=== PATIENT | male | born 1970 | race African-American/Black ===

== ENCOUNTER 2016-12-01 05:14 | Observation (INO) | payer SELFPAY ==
[2016-12-01] VITALS (9 sets, daily range): BP systolic 117–227; BP diastolic 70–105; PULSE 78–91; RESP 16–20; TEMP 98.7–99.5; O2SAT 96–100
[~2016-12-01] VITALS: Ht 185.4 cm; Wt 120.0 kg
[~2016-12-01 05:14] MED LIST: CEPH500C3 PO; ONDA4 PO; TRAM50 PO
[2016-12-01] MEDS ORDERED: ONDANSETRON HCL 4 MG/2 ML VIAL IV ONE ×2 (05:30→09:15)
[2016-12-01] MEDS ORDERED: SODIUM CHLOR 0.9% 1000 ML INJ 1,000 ML IV ONE (05:30)
[2016-12-01] MEDS ORDERED: HYDROmorphone HCL PF 1 MG/ML VIAL IV PUSH ONE (06:15)
[2016-12-01 06:17] LABS: AUTOMATED NEUTROPHIL # 9.1 TH/MM3 (1.8-7.7); BASOPHIL % 0.3 % (0.0-2.0); EOSINOPHIL % 0.1 % (0.0-4.0); HEMATOCRIT 49.1 % (39.0-51.0); LYMPH % 14.4 % (9.0-44.0); LYMPHOCYTE # 1.6 TH/MM3 (1.0-4.8); MEAN CELL VOLUME 70.9 FL (80.0-100.0); MEAN CORPUSCULAR HEMOGLOBIN 22.4 PG (27.0-34.0); MEAN CORPUSCULAR HGB CONC 31.6 % (32.0-36.0); MONO % 4.4 % (0.0-8.0); NEUT % 80.8 % (16.0-70.0); PLATELET COUNT 259 TH/MM3 (150-450); RED BLOOD COUNT 6.92 MIL/MM3 (4.50-5.90); RED CELL DISTRIBUTION WIDTH 15.4 % (11.6-17.2); WHITE BLOOD COUNT 11.2 TH/MM3 (4.0-11.0)
[2016-12-01 06:19] LABS: HEMO FLAGS AUTO DIFF
--- NOTE | 2016-12-01 06:32 | RADRPT ---
EXAM DATE/TIME: 12/01/2016 06:01 [facility] COMPARISON: No previous studies available for comparison. INDICATIONS : Shortness of breath. MEDICAL HISTORY : None. SURGICAL HISTORY : None. ENCOUNTER: Initial ACUITY: 1 day PAIN SCORE: 0/10 LOCATION: Bilateral chest FINDINGS: A single view of the chest demonstrates the lungs to be symmetrically aerated without evidence of mas s, infiltrate or effusion. The cardiomediastinal contours are unremarkable. Osseous structures are intact. CONCLUSION: 1. No acute cardiopulmonary disease. Nelson Wiggins MD on December 01, 2016 at 6:30 Board Certified Radiologist. This report was verified electronically.
[2016-12-01] MEDS ORDERED: ZOFR4TAB3 SL ×2 (06:47→09:11)
[2016-12-01] MEDS ORDERED: HYDR-3288 PO (06:47)
[2016-12-01 06:52] LABS: SCAN/DIFF AUTO DIFF CONFIRMED
[2016-12-01 06:57] LABS: ALKALINE PHOSPHATASE 87 U/L (45-117); ALT (GPT) 26 U/L (12-78); ANION GAP 13 MEQ/L (5-15); AST (GOT) 16 U/L (15-37); BLOOD UREA NITROGEN 9 MG/DL (7-18); CHLORIDE 95 MEQ/L (98-107); CREATINE KINASE 125 U/L (39-308); GLOMERULAR FILTRATION RATE 72 ML/MIN (>89); SODIUM (NA) 136 MEQ/L (136-145); TOTAL BILIRUBIN ADULT 0.7 MG/DL (0.2-1.0)
[2016-12-01 07:02] LABS: POTASSIUM 2.9 MEQ/L (3.5-5.1)
--- NOTE | 2016-12-01 07:15 | PD ---
HPI Chief Complaint: GI Complaint Time Seen by Provider: 07:05 Travel History International Travel<30 days: No Contact w/Intl Traveler<30days: No Traveled to known affect area: No History of Present Illness HPI The patient is 46 year old male who presents to the [facility] emergency department with a history of scrotal swelling that he first noticed approximately 3 months ago by his best estimation. He reports that initially it was a small area of swelling with minimal discomfort. He reports that the pain seemed to be coming and going. He reports that he initially came to [place] for evaluation and had imaging done. He is unsure what he was diagnosed with. The patient reports that he has not been able to follow up with a physician as an outpatient due to family difficulties. He reports that over the last 2 weeks area of swelling has increased in size. He reports that the swelling is mainly involving the right side. He reports that since yesterday the pain has greatly increased. He reports that he began having nausea and vomiting at 7 AM yesterday just been intractable. He went to [facility] ([place], [place]) and had laboratory studies done and an ultrasound. He reports that he was diagnosed with a hernia that "could be life-threatening" . He was given a prescription for hydrocodone and Zofran. He reports the pain is not controlled and his nausea has persisted. He's had too many episodes of vomiting count. He denies having any diarrhea. His last bowel movement was earlier this morning. He denies having any blood in his stool or black or tarry stools. The patient denies any recent fevers, cough, congestion, neck pain , chest pain, shortness of breath, abdominal pain, urinary symptoms, or neurologic symptoms. [facility] Past Medical History Narrative Medical The patient's past medical history is significant for scrotal swelling, diagnosed previously on ultrasound at this facility as a hydrocele. Medical History: Denies Significant Hx Diminished Hearing: No Immunizations Current: No Tetanus Vaccination: > 5 Years Influenza Vaccination: No Past Surgical History Narrative Surgical The patient's past surgical history is significant for facial surgery Neurologic Surgery: Yes (PLATES IN HIS FACE) Social History Alcohol Use: No Tobacco Use: No Substance Use: No Allergies-Medications (Allergen,Severity, Reaction): Coded Allergies: Milk (Verified Allergy, Severe, Anaphylaxis, 12/01/16) Uncoded Allergies: SULFA EYE GTTS (Allergy, Severe, RED EYES, 09/28/10) Reported Meds & Prescriptions Reported Meds & Active Scripts Active Naprosyn (Naproxen) 500 Mg Tab 500 Mg PO BID PRN Zofran Odt (Ondansetron Odt) 4 Mg Tab 4 Mg SL Q8HR PRN May substitute non-ODT form. Reported Zofran Odt (Ondansetron Odt) 4 Mg Tab 4 Mg SL Q6HR PRN [place] (Hydrocodone-Acetaminophen) 7.5-325 mg Tab 1 Tab PO Q6H PRN Review of Systems Except as stated in HPI: all other systems reviewed are Neg General / Constitutional: No: Fever Eyes: No: Visual changes HENT: No: Headaches Cardiovascular: No: Chest Pain or Discomfort Respiratory: No: Shortness of Breath Gastrointestinal: Positive: Nausea, Vomiting, No: Abdominal Pain, Hematochezia , Constipation, Changes in Bowel Habits, Indigestion, Loss of Appetite Genitourinary: Positive: Other (scrotal swelling), No: Dysuria Musculoskeletal: No: Pain Skin: No Rash Neurologic: No: Weakness Psychiatric: No: Depression Endocrine: No: Polydipsia Hematologic/Lymphatic: No: Easy Bruising Physical Exam Narrative General: The patient is a well-developed well-nourished male, uncomfortable appearing on arrival, actively vomiting. Head and Neck exam: Head is normocephalic atraumatic. Eyes: EOMI, pupils are equal round and reactive to light. Nose: Midline septum with pink mucous membranes Mouth: Dentition unremarkable. Moist mucus membranes. Posterior oropharynx is not erythematous. No tonsillar hypertrophy. Uvula midline. Airway patent. Neck: No palpable lymphadenopathy. No nuchal rigidity. No thyromegaly. Cardiovascular: Regular rate and rhythm without murmurs, gallops, or rubs. Lungs: Clear to auscultation bilaterally. No wheezes, rhonchi, or rales. Abdomen: Soft, with midepigastric abdominal discomfort on palpation, no other tenderness on palpation of the other 4 quadrants of the abdomen. No guarding, rebound, or rigidity. Negative [place] sign. No tenderness on palpation of McBurney's point. Normal bowel sounds are audible. Extremities: No clubbing, cyanosis, or edema. 2+ pulses in all 4 extremities. No calf tenderness on palpation. Back: No costovertebral angle tenderness to palpation. Neurologic Exam: Grossly nonfocal. Skin Exam: No rash noted. Intact skin that is warm and dry. Genital exam: A tube handler was present while the patient was examined. The patient has a genital wart noted on the shaft of his penis, no other rashes noted. The patient has scrotal pain and swelling most prominent along the right side, posterior aspect of the right side of the scrotum. No palpable testicle masses. No palpable hernia. Data Data Last Documented VS Vital Signs Date Time Temp Pulse Resp B/P Pulse Ox O2 Delivery O2 Flow Rate FiO2 12/01/16 06:48 88 18 117/79 99 Room Air 12/01/16 05:17 98.9 Orders Sodium Chlor 0.9% 1000 Ml Inj (Ns 1000 M (12/01/16 05:30) Ondansetron Inj (Zofran Inj) (12/01/16 05:30) Electrocardiogram (12/01/16 06:01) Complete Blood Count With Diff (12/01/16 06:01) Comprehensive Metabolic Panel (12/01/16 06:01) Creatine Kinase (Cpk) (12/01/16 06:01) Ckmb (Isoenzyme) Profile (12/01/16 06:01) Troponin I (12/01/16 06:01) Lipase (12/01/16 06:01) Cath For Specimen (12/01/16 06:01) Magnesium (Mg) (12/01/16 06:01) Chest, Single Ap (12/01/16 06:01) Iv Access Insert/Monitor (12/01/16 06:01) Ecg Monitoring (12/01/16 06:01) Hydromorphone Pf Inj (Dilaudid Pf Inj) (12/01/16 06:15) Ct Abd/Pel W Iv Contrast(Rout) (12/01/16 06:45) CKMB (12/01/16 06:07) CKMB% (12/01/16 06:07) Potassium Chloride Eff (K-Lyte Cl Eff) (12/01/16 08:00) Ns + Kcl 20 Meq Inj (Ns + Kcl 20 Meq Inj (12/01/16 08:00) Iohexol 350 Inj (Omnipaque 350 Inj) (12/01/16 08:01) Ondansetron Inj (Zofran Inj) (12/01/16 09:15) Hydromorphone Pf Inj (Dilaudid Pf Inj) (12/01/16 10:15) Prochlorperazine Inj (Compazine Inj) (12/01/16 10:15) Diphenhydramine Inj (Benadryl Inj) (12/01/16 10:15) Admit Order (Ed Use Only) (12/01/16 ) Labs Laboratory Tests Test 12/01/16 06:07 White Blood Count 11.2 TH/MM3 Red Blood Count 6.92 MIL/MM3 Hemoglobin 15.5 GM/DL Hematocrit 49.1 % Mean Corpuscular Volume 70.9 FL Mean Corpuscular Hemoglobin 22.4 PG Mean Corpuscular Hemoglobin 31.6 % Concent Red Cell Distribution Width 15.4 % Platelet Count 259 TH/MM3 Mean Platelet Volume 9.1 FL Neutrophils (%) (Auto) 80.8 % Lymphocytes (%) (Auto) 14.4 % Monocytes (%) (Auto) 4.4 % Eosinophils (%) (Auto) 0.1 % Basophils (%) (Auto) 0.3 % Neutrophils # (Auto) 9.1 TH/MM3 Lymphocytes # (Auto) 1.6 TH/MM3 Monocytes # (Auto) 0.5 TH/MM3 Eosinophils # (Auto) 0.0 TH/MM3 Basophils # (Auto) 0.0 TH/MM3 CBC Comment AUTO DIFF Differential Comment AUTO DIFF CONFIRMED Sodium Level 136 MEQ/L Potassium Level 2.9 MEQ/L Chloride Level 95 MEQ/L Carbon Dioxide Level 28.0 MEQ/L Anion Gap 13 MEQ/L Blood Urea Nitrogen 9 MG/DL Creatinine 1.29 MG/DL Estimat Glomerular Filtration 72 ML/MIN Rate Random Glucose 181 MG/DL Calcium Level 9.8 MG/DL Magnesium Level 2.0 MG/DL Total Bilirubin 0.7 MG/DL Aspartate Amino Transf 16 U/L (AST/SGOT) Alanine Aminotransferase 26 U/L (ALT/SGPT) Alkaline Phosphatase 87 U/L Total Creatine Kinase 125 U/L Creatine Kinase MB 1.0 NG/ML Troponin I LESS THAN 0.02 NG/ML Total Protein 9.8 GM/DL Albumin 4.7 GM/DL Lipase 56 U/L MDM Medical Decision Making Medical Screen Exam Complete: Yes Emergency Medical Condition: Yes Medical Record Reviewed: Yes Interpretation(s) Last Impressions Chest X-Ray 12/01/16 0601 Signed Impressions: Service Date/Time: Thursday, December 01, 2016 06:01 - CONCLUSION: 1. No acute cardiopulmonary disease. Nelson Wiggins MD Differential Diagnosis Incarcerated hernia, versus hydrocele, versus varicocele, versus orchitis, versus epididymitis Narrative Course During the course of the patients emergency department visit, the patients history, examination, and differential diagnosis were reviewed with the patient. The patient had IV access obtained and blood work sent for analysis. The patient was on a concrete pump operator helper with oximetry and blood pressure monitoring. An EKG was done on arrival. The patient's EKG shows a sinus rhythm with a sinus arrhythmia, QRS duration is 101 ms, QTC 435 ms, heart rate 92. No acute ST segment elevation or depression is noted. Nonspecific T-wave abnormalities are noted. CT scan of the abdomen and pelvis was ordered. The patient's records from [facility] ([place], [place]) will be obtained. The patient was initially provided normal saline 1 L IV fluid bolus, hydromorphone 1 mg IV, Zofran 4 mg IV. The patient had a chest x-ray done that showed no evidence of free air, no evidence of cardiopulmonary disease. The patients laboratory studies and radiologic studies are pending at the conclusion of my shift. The patient's case will be checked out to the oncoming emergency physician to disposition based on the the conclusion of the patient's workup. Diagnosis Primary Impression: Scrotal swelling Additional Impression: Vomiting Qualified Code: R11.2 - Nausea and vomiting, intractability of vomiting not specified, unspecified vomiting type Scripts Naproxen (Naprosyn)500 Mg Sco145 Mg PO BID PRN (PAIN SCALE 1 TO 10) #20 TAB Prov:Hemal Vick MD 12/01/16 Ondansetron Odt (Zofran Odt)4 Mg Tab4 Mg SL Q8HR PRN (Nausea/Vomiting) #15 TAB May substitute non-ODT form. Prov:Hemal Vick MD 12/01/16 Tamara Son MD December 01, 2016 07:15
[2016-12-01] MEDS ORDERED: NS + KCL 20 MEQ INJ 1,000 ML IV SCH (08:00)
[2016-12-01] MEDS ORDERED: POTASSIUM CHLORIDE 25 MEQ EFFERVESCENT TAB PO ONE ×2 (08:00→18:00)
[2016-12-01] MEDS ORDERED: IOHEXOL 350 MG/ML 10 ML VIAL (for RAD DIAG) IV ONE (08:01)
--- NOTE | 2016-12-01 08:30 | RADRPT ---
EXAM DATE/TIME: 12/01/2016 07:49 [facility] COMPARISON: CT ABDOMEN & PELVIS W CONTRAST, June 05, 2015, 18:48. INDICATIONS : Right groin pain. Nausea and vomiting. IV CONTRAST: 85 cc Omnipaque 350 (iohexol) IV ORAL CONTRAST: No oral contrast ingested. RADIATION DOSE: 9.96 CTDIvol (mGy) MEDICAL HISTORY : Skull fracture. SURGICAL HISTORY : None. ENCOUNTER: Initial ACUITY: 2 days PAIN SCALE: 10/10 LOCATION: Right lower quadrant TECHNIQUE: Volumetric scanning of the abdomen and pelvis was performed. Using automated exposure control and ad justment of the mA and/or kV according to patient size, radiation dose was kept as low as reasonably achievable to obtain optimal diagnostic quality images. FINDINGS: LOWER LUNGS: The visualized lower lungs are clear. LIVER: Homogeneous density without lesion. There is no dilation of the biliary tree. No calcified gallston es. SPLEEN: Normal size without lesion. PANCREAS: Within normal limits. KIDNEYS: Normal in size and shape. There is no mass, stone or hydronephrosis. ADRENAL GLANDS: Within normal limits. VASCULAR: There is no aortic aneurysm. BOWEL/MESENTERY: The stomach, small bowel, and colon demonstrate no acute abnormality. There is no free intraperitone al air or fluid. ABDOMINAL WALL: Within normal limits. RETROPERITONEUM: There is no lymphadenopathy. BLADDER: No wall thickening or mass. REPRODUCTIVE: There is evidence of a large hydrocele on the right and a tiny hydrocele on the left within the scrot um. The prostate gland is enlarged. INGUINAL: There is no lymphadenopathy or hernia. MUSCULOSKELETAL: Within normal limits for patient age. CONCLUSION: 1. Large right-sided hydrocele and tiny left-sided hydrocele within the scrotum. 2. Enlarged prostate. 3. No acute intra-abdominal process. Danyel Hines MD on December 01, 2016 at 8:24 Board Certified Radiologist. This report was verified electronically.
[2016-12-01] MEDS ORDERED: NAPR500 PO (09:11)
--- NOTE | 2016-12-01 09:12 | PD ---
Data Data Last Documented VS Vital Signs Date Time Temp Pulse Resp B/P Pulse Ox O2 Delivery O2 Flow Rate FiO2 12/01/16 06:48 88 18 117/79 99 Room Air 12/01/16 05:17 98.9 Orders Sodium Chlor 0.9% 1000 Ml Inj (Ns 1000 M (12/01/16 05:30) Ondansetron Inj (Zofran Inj) (12/01/16 05:30) Electrocardiogram (12/01/16 06:01) Complete Blood Count With Diff (12/01/16 06:01) Comprehensive Metabolic Panel (12/01/16 06:01) Creatine Kinase (Cpk) (12/01/16 06:01) Ckmb (Isoenzyme) Profile (12/01/16 06:01) Troponin I (12/01/16 06:01) Lipase (12/01/16 06:01) Cath For Specimen (12/01/16 06:01) Magnesium (Mg) (12/01/16 06:01) Chest, Single Ap (12/01/16 06:01) Iv Access Insert/Monitor (12/01/16 06:01) Ecg Monitoring (12/01/16 06:01) Hydromorphone Pf Inj (Dilaudid Pf Inj) (12/01/16 06:15) Ct Abd/Pel W Iv Contrast(Rout) (12/01/16 06:45) CKMB (12/01/16 06:07) CKMB% (12/01/16 06:07) Potassium Chloride Eff (K-Lyte Cl Eff) (12/01/16 08:00) Ns + Kcl 20 Meq Inj (Ns + Kcl 20 Meq Inj (12/01/16 08:00) Iohexol 350 Inj (Omnipaque 350 Inj) (12/01/16 08:01) Ondansetron Inj (Zofran Inj) (12/01/16 09:15) Hydromorphone Pf Inj (Dilaudid Pf Inj) (12/01/16 10:15) Prochlorperazine Inj (Compazine Inj) (12/01/16 10:15) Diphenhydramine Inj (Benadryl Inj) (12/01/16 10:15) Admit Order (Ed Use Only) (12/01/16 ) Labs Laboratory Tests Test 12/01/16 06:07 White Blood Count 11.2 TH/MM3 Red Blood Count 6.92 MIL/MM3 Hemoglobin 15.5 GM/DL Hematocrit 49.1 % Mean Corpuscular Volume 70.9 FL Mean Corpuscular Hemoglobin 22.4 PG Mean Corpuscular Hemoglobin 31.6 % Concent Red Cell Distribution Width 15.4 % Platelet Count 259 TH/MM3 Mean Platelet Volume 9.1 FL Neutrophils (%) (Auto) 80.8 % Lymphocytes (%) (Auto) 14.4 % Monocytes (%) (Auto) 4.4 % Eosinophils (%) (Auto) 0.1 % Basophils (%) (Auto) 0.3 % Neutrophils # (Auto) 9.1 TH/MM3 Lymphocytes # (Auto) 1.6 TH/MM3 Monocytes # (Auto) 0.5 TH/MM3 Eosinophils # (Auto) 0.0 TH/MM3 Basophils # (Auto) 0.0 TH/MM3 CBC Comment AUTO DIFF Differential Comment AUTO DIFF CONFIRMED Sodium Level 136 MEQ/L Potassium Level 2.9 MEQ/L Chloride Level 95 MEQ/L Carbon Dioxide Level 28.0 MEQ/L Anion Gap 13 MEQ/L Blood Urea Nitrogen 9 MG/DL Creatinine 1.29 MG/DL Estimat Glomerular Filtration 72 ML/MIN Rate Random Glucose 181 MG/DL Calcium Level 9.8 MG/DL Magnesium Level 2.0 MG/DL Total Bilirubin 0.7 MG/DL Aspartate Amino Transf 16 U/L (AST/SGOT) Alanine Aminotransferase 26 U/L (ALT/SGPT) Alkaline Phosphatase 87 U/L Total Creatine Kinase 125 U/L Creatine Kinase MB 1.0 NG/ML Troponin I LESS THAN 0.02 NG/ML Total Protein 9.8 GM/DL Albumin 4.7 GM/DL Lipase 56 U/L [facility] Supervised Visit with AUB[facility]: Yes Narrative Course 46-year-old man with a known large right hydrocele, seen multiple times for the same in the past, presents to the emergency department with right sided belly pain, testicular pain, associated with vomiting. Vomiting since been severe. He was seen at [facility] recently for the same as well. Review of records shows previous ultrasounds and CT scans show right hydrocele, without other abnormalities. Review of records from [facility] show that he was seen there yesterday with an ultrasound that showed no torsion, large right hydrocele, normal labs including UA chemistries and cell counts. Labs today show mild leukocytosis, hypokalemia with a potassium of 2.9, normal magnesium, normal lipase, with the CT scan shows a large right sided hydrocele with tiny left-sided hydrocele. Despite multiple doses of antiemetics, patient continued to have copious emesis. His potassium dropped substantially from labs done yesterday at [facility]. Given this will be admitted for intractable vomiting, hypokalemia. Diagnosis Primary Impression: Scrotal swelling Additional Impression: Vomiting Qualified Code: R11.2 - Nausea and vomiting, intractability of vomiting not specified, unspecified vomiting type Admitting Information Admitting Physician Requests: Observation Referrals: Ludin House MD call for appointment Departure Forms: Work Release Special Instructions: Patient is currently hospitalized. Scripts Naproxen (Naprosyn)500 Mg Uno179 Mg PO BID PRN (PAIN SCALE 1 TO 10) #20 TAB Prov:Hemal Vick MD 12/01/16 Ondansetron Odt (Zofran Odt)4 Mg Tab4 Mg SL Q8HR PRN (Nausea/Vomiting) #15 TAB May substitute non-ODT form. Prov:Hemal Vick MD 12/01/16 Hemal Vick MD December 01, 2016 09:12 Hemal Vick MD December 01, 2016 09:12
[2016-12-01] MEDS ORDERED: HYDROmorphone HCL PF 1 MG/ML VIAL IVS ONE (10:15)
[2016-12-01] MEDS ORDERED: PROCHLORPERAZINE INJ 10 MG/2 ML VIAL IV PUSH ONE (10:15)
[2016-12-01] MEDS ORDERED: diphenhydrAMINE HCL 50 MG/ML VIAL IV PUSH ONE (10:15)
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
[2016-12-01] MEDS ORDERED: NALOXONE HCL 0.4 MG/ML AMP IV PRN ×2 (11:00)
[2016-12-01] MEDS ORDERED: SODIUM CHLORIDE 0.9% FLUSH 10 ML FLUSH IV FLUSH PRN ×2 (11:00)
[2016-12-01] MEDS: NS + KCL 20 MEQ INJ 1,000 ML IV SCH ×3 (11:10→23:16)
[2016-12-01] MEDS: ENOXAPARIN SODIUM 40 MG/0.4 ML SYRINGE SQ SCH (11:11)
--- NOTE | 2016-12-01 11:49 | EKG ---
Date Performed: 12/01/2016 Time Performed: 05:37:12 PTAGE: 46 years EKG: Sinus rhythm WITH SINUS ARRHYTHMIA VOLTAGE CRITERIA FOR LVH NONSPECIFIC T-WAVE ABNORMALITY ABNORMAL ECG NO PREVIOUS TRACING DOCTOR: Curt Kenny Interpretating Date/Time 12/01/2016 11:48:49
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
[2016-12-01 17:44] LABS: BLOOD, URINE SMALL (NEG); COMMENT (UR) CULT NOT INDICATED; CULTURE IF INDICATED CULT NOT INDICATED; GLUCOSE,URINE TRACE mg/dL (NEG); KETONE, URINE 40 mg/dL (NEG); MUCUS URINE FEW /lpf (OCC); NITRITE,URINE NEG (NEG); PH, URINE 6.5 (5.0-8.5); SQUAMOUS EPITHELIAL CELL URINE <1 /hpf (0-5); URINE COLOR YELLOW (YELLW/STRAW)
[2016-12-01 17:52] LABS: AMPHETAMINE, URINE NEG (NEG); BARBITURATES, URINE NEG (NEG); COCAINE, URINE NEG (NEG)
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
[2016-12-01] MEDS: MORPHINE SULFATE 4 MG/ML INJ IV PRN (20:13)
[2016-12-01] MEDS: METOCLOPRAMIDE HCL 10 MG/2 ML VIAL IV PRN (20:18)
[2016-12-01] MEDS: SODIUM CHLORIDE 0.9% FLUSH 10 ML FLUSH IV FLUSH SCH (21:00)
[2016-12-01] MEDS ORDERED: SODIUM CHLORIDE 0.9% FLUSH 10 ML FLUSH IV FLUSH SCH (21:00)
[2016-12-01 22:08] LABS: HEMOGLOBIN A1b 1.9 %; HEMOGLOBIN Ao 84.4 %; HEMOGLOBIN LA1C 2.2 %; HEMOGLOBIN P3 3.8 %
[2016-12-02] VITALS (11 sets, daily range): BP systolic 133–205; BP diastolic 78–108; PULSE 67–93; RESP 18–21; TEMP 98.4–99.8; O2SAT 97–100
[2016-12-02] MEDS: TEMAZEPAM 15 MG CAP PO PRN ×2 (02:25→21:28)
[2016-12-02] MEDS: METOCLOPRAMIDE HCL 10 MG/2 ML VIAL IV PRN ×3 (02:25→15:39)
[2016-12-02 02:58] LABS: CHLAMYDIA PCR NOT DETECTED (NOT DETECT); NEISSERIA PCR NOT DETECTED (NOT DETECT)
[2016-12-02] MEDS: MORPHINE SULFATE 4 MG/ML INJ IV PRN ×5 (04:29→22:41)
[2016-12-02 05:52] LABS: AUTOMATED NEUTROPHIL # 9.1 TH/MM3 (1.8-7.7); BASOPHIL % 0.4 % (0.0-2.0); HEMATOCRIT 44.4 % (39.0-51.0); LYMPHOCYTE # 1.2 TH/MM3 (1.0-4.8); MEAN CELL VOLUME 70.4 FL (80.0-100.0); MEAN CORPUSCULAR HEMOGLOBIN 22.6 PG (27.0-34.0); MEAN CORPUSCULAR HGB CONC 32.2 % (32.0-36.0); NEUT % 81.6 % (16.0-70.0); PLATELET COUNT 205 TH/MM3 (150-450); RED BLOOD COUNT 6.31 MIL/MM3 (4.50-5.90); WHITE BLOOD COUNT 11.1 TH/MM3 (4.0-11.0)
[2016-12-02 06:03] LABS: HEMO FLAGS AUTO DIFF
[2016-12-02 06:18] LABS: ALKALINE PHOSPHATASE 67 U/L (45-117); ALT (GPT) 21 U/L (12-78); ANION GAP 9 MEQ/L (5-15); AST (GOT) 13 U/L (15-37); BICARBONATE 29.6 MEQ/L (21.0-32.0); BLOOD UREA NITROGEN 12 MG/DL (7-18); CHLORIDE 99 MEQ/L (98-107); GLOMERULAR FILTRATION RATE 115 ML/MIN (>89); POTASSIUM 3.2 MEQ/L (3.5-5.1); SODIUM (NA) 138 MEQ/L (136-145); TOTAL BILIRUBIN ADULT 0.8 MG/DL (0.2-1.0)
[2016-12-02 07:12] LABS: SCAN/DIFF AUTO DIFF CONFIRMED
[2016-12-02] MEDS: POTASSIUM CHLORIDE 10 MEQ CONTROLLED RELEASE TAB PO ONE ×2 (07:15→08:24)
[2016-12-02] MEDS: hydrALAZINE HCL 10 MG TAB PO PRN ×3 (08:25→21:28)
[2016-12-02] MEDS: NS + KCL 20 MEQ INJ 1,000 ML IV SCH (08:33)
[2016-12-02] MEDS: FAMOTIDINE 20 MG TAB PO SCH ×2 (08:40→21:00)
[2016-12-02] MEDS: SODIUM CHLORIDE 0.9% FLUSH 10 ML FLUSH IV FLUSH SCH ×2 (08:40→21:00)
--- NOTE | 2016-12-02 09:16 | HHI.FPPN ---
Subjective Remarks Patient states he continues to have similar pain in his scrotum as before. He is curious how this pain will be treated as an outpatient. He had occasional vomiting overnight as well. Overall, however he does feel better. Denies fever , chest pain, shortness of breath. (Juan Carlos Aviles MD R2) Objective Vitals Vital Signs Date Time Temp Pulse Resp B/P Pulse Ox O2 Delivery O2 Flow Rate FiO2 12/02/16 08:41 18 12/02/16 07:43 99.3 89 21 187/105 100 12/02/16 04:35 98.6 71 18 163/78 98 12/02/16 00:17 99.6 89 18 165/92 100 12/01/16 21:26 156/75 12/01/16 20:01 99.5 90 20 185/102 99 12/01/16 18:01 98.7 87 17 161/87 96 12/01/16 13:15 121/70 I/O 12/01/16 12/01/16 12/01/16 12/02/16 12/02/16 12/02/16 07:00 15:00 23:00 07:00 15:00 23:00 Intake Total 200 ml Balance 200 ml Intake Oral 200 ml (Juan Carlos Aviles MD R2) Result Diagram: 12/02/16 0512 12/02/16 0512 Imaging Last Impressions Abdomen/Pelvis CT 12/01/16 0645 Signed Impressions: Service Date/Time: Thursday, December 01, 2016 07:49 - CONCLUSION: 1. Large right-sided hydrocele and tiny left-sided hydrocele within the scrotum. 2. Enlarged prostate. 3. No acute intra-abdominal process. Danyel Hines MD Chest X-Ray 12/01/16 0601 Signed Impressions: Service Date/Time: Thursday, December 01, 2016 06:01 - CONCLUSION: 1. No acute cardiopulmonary disease. Nelson Wiggins MD Scrotum Ultrasound 12/01/16 0000 Signed Impressions: Service Date/Time: Thursday, December 01, 2016 15:42 - CONCLUSION: Bilateral simple hydroceles. The right is larger than the left. Otherwise, unremarkable exam. Glen Bai Jr., MD Objective Remarks GENERAL: This is a well-nourished, well-developed patient, in no apparent distress. SKIN: No rashes, ecchymoses or lesions. Cool and dry. HEAD: Atraumatic. Normocephalic. No temporal or scalp tenderness. EYES: Pupils equal round and reactive. Extraocular motions intact. No scleral icterus. No injection or drainage. ENT: Nose without bleeding, purulent drainage or septal hematoma. Throat without erythema, tonsillar hypertrophy or exudate. Uvula midline. Airway patent. NECK: Trachea midline. No JVD or lymphadenopathy. Supple, nontender, no meningeal signs. CARDIOVASCULAR: Regular rate and rhythm without murmurs, gallops, or rubs. RESPIRATORY: Clear to auscultation. Breath sounds equal bilaterally. No wheezes , rales, or rhonchi. GASTROINTESTINAL: Abdomen soft, slightly tender to palpation in the epigastric area, nondistended. No hepato-splenomegaly, or palpable masses. No guarding. Genitourinary: Large hydrocele on the right. Testicles tender to palpation on the right. MUSCULOSKELETAL: Extremities without clubbing, cyanosis, or edema. No joint tenderness, effusion, or edema noted. No calf tenderness. Negative Homans sign bilaterally. NEUROLOGICAL: Awake and alert. Cranial nerves II through XII intact. Motor and sensory grossly within normal limits. Five out of 5 muscle strength in all muscle groups. Normal speech. (Juan Carlos Aviles MD R2) A/P Assessment and Plan 46-year-old male with history of hydrocele presents with abdominal/scrotal pain and intractable nausea/vomiting 1 day. Plan as below Discharge Planning Possibly today, with improvement of pain and vomiting. (Juan Carlos Aviels MD R2) Attending Attestation Patient seen and examined. Case reviewed and discussed with the resident team. Agree with plan of care as discussed with me and documented in the resident note. (Shayan Bourne MD) Problem List: (1) Intractable vomiting with nausea Status: Acute Plan: Normal saline at 160 mL per hour with 20 mEq potassium chloride Reglan 10 mg IV every 6 hours when necessary nausea Case management helping with outpatient follow-up Hemoglobin A1c- 6.3 Chlamydia, gonorrhea urine PCR- negative Drug screen- positive marijuana Monitor electrolytes Zantac for GI protection (2) Hydrocele in adult Status: Acute Plan: Case management consulted for information PCP/urology follow-up as an outpatient. Pain management: Morphine IV if unable to take by mouth. If swallowing without vomiting, continue diclofenac 50 mg by mouth every 12 hours. Urology consult: Recommend conservative management. Definitive therapy could be performed as an outpatient with surgical excision. Ultrasound scrotum negative for torsion. (3) FEN/PPX Status: Acute Plan: Fluids: 160 mL normal saline with 20 mEq potassium chloride Electrolytes: Monitor and replace when necessary Nutrition: Regular diet Prophylaxis: Lovenox 40 mg subcutaneous (Juan Carlos Aviles MD R2) Juan Carlos Aviles MD R2 December 02, 2016 09:15 Shayan Bourne MD December 02, 2016 15:42
[2016-12-02] MEDS ORDERED: POTASSIUM CHLORIDE 25 MEQ EFFERVESCENT TAB PO ONE (09:30)
[2016-12-02] MEDS: ENOXAPARIN SODIUM 40 MG/0.4 ML SYRINGE SQ SCH (11:23)
[2016-12-02] MEDS: DICLOFENAC SODIUM 50 MG DELAYED RELEASE TAB PO SCH ×2 (12:50→21:00)
[2016-12-02] MEDS ORDERED: ZOFR8TAB4 SL (13:56)
[2016-12-02] MEDS ORDERED: HYDR-3288 PO (13:56)
[2016-12-02] MEDS ORDERED: DICL50TA3 PO (13:56)
--- NOTE | 2016-12-02 13:57 | HHI.DCPOC ---
Discharge Care Plan Diagnosis: (1) Hydrocele in adult (2) Intractable vomiting with nausea Goals to Promote Your Health * To prevent worsening of your condition and complications * To maintain your health at the optimal level Directions to Meet Your Goals Take your medications as prescribed Follow your dietary instruction Follow activity as directed Keep your appointments as scheduled Take your immunizations and boosters as scheduled If your symptoms worsen call your PCP, if no PCP go to Urgent Care Center or Emergency Room Smoking is Dangerous to Your Health. Avoid second hand smoke Call the 24-hour hour crisis hotline for domestic abuse at Juan Carlos Aviles MD R2 December 02, 2016 13:57
[2016-12-03 03:26] VITALS: BP 179/98; PULSE 80; RESP 18; TEMP 99.5; O2SAT 97
[2016-12-03] MEDS: MORPHINE SULFATE 4 MG/ML INJ IV PRN ×2 (03:37→08:35)
--- NOTE | 2016-12-03 07:05 | HHI.FPPN ---
Subjective Remarks Patient seen and examined this am. Vitals are stable and he is afebrile. He was walking out of the room when I came to room. Pain still present, making arrangements to follow up with urology as outpatient. Objective Vitals Vital Signs Date Time Temp Pulse Resp B/P Pulse Ox O2 Delivery O2 Flow Rate FiO2 12/03/16 04:13 18 12/03/16 03:26 99.5 80 18 179/98 97 12/02/16 23:29 99.1 93 18 133/85 100 12/02/16 19:38 18 12/02/16 19:24 93 190/108 12/02/16 17:39 89 173/97 12/02/16 16:09 98.4 80 18 205/99 97 12/02/16 16:04 98.4 67 18 98 12/02/16 13:18 99.2 12/02/16 13:08 196/102 12/02/16 11:52 99.8 87 18 174/99 98 12/02/16 07:43 99.3 89 21 187/105 100 I/O 12/02/16 12/02/16 12/02/16 12/03/16 12/03/16 12/03/16 07:00 15:00 23:00 07:00 15:00 23:00 Intake Total 200 ml Balance 200 ml Intake Oral 200 ml Result Diagram: 12/02/16 0512 12/02/16 1236 Imaging Last Impressions Abdomen/Pelvis CT 12/01/16 0645 Signed Impressions: Service Date/Time: Thursday, December 01, 2016 07:49 - CONCLUSION: 1. Large right-sided hydrocele and tiny left-sided hydrocele within the scrotum. 2. Enlarged prostate. 3. No acute intra-abdominal process. Danyel Hines MD Chest X-Ray 12/01/16 0601 Signed Impressions: Service Date/Time: Thursday, December 01, 2016 06:01 - CONCLUSION: 1. No acute cardiopulmonary disease. Nelson Wiggins MD Scrotum Ultrasound 12/01/16 0000 Signed Impressions: Service Date/Time: Thursday, December 01, 2016 15:42 - CONCLUSION: Bilateral simple hydroceles. The right is larger than the left. Otherwise, unremarkable exam. Glen Bai Jr., MD Objective Remarks GENERAL: This is a well-nourished, well-developed patient, in no apparent distress. SKIN: No rashes, ecchymoses or lesions. Cool and dry. HEAD: Atraumatic. Normocephalic. No temporal or scalp tenderness. EYES: Pupils equal round and reactive. Extraocular motions intact. No scleral icterus. No injection or drainage. ENT: Nose without bleeding, purulent drainage or septal hematoma. Throat without erythema, tonsillar hypertrophy or exudate. Uvula midline. Airway patent. NECK: Trachea midline. No JVD or lymphadenopathy. Supple, nontender, no meningeal signs. CARDIOVASCULAR: Regular rate and rhythm without murmurs, gallops, or rubs. RESPIRATORY: Clear to auscultation. Breath sounds equal bilaterally. No wheezes , rales, or rhonchi. GASTROINTESTINAL: Abdomen soft, slightly tender to palpation in the epigastric area, nondistended. No hepato-splenomegaly, or palpable masses. No guarding. Genitourinary: Large hydrocele on the right. Testicles tender to palpation on the right. MUSCULOSKELETAL: Extremities without clubbing, cyanosis, or edema. No joint tenderness, effusion, or edema noted. No calf tenderness. NEUROLOGICAL: Awake and alert. Cranial nerves II through XII intact. Motor and sensory grossly within normal limits. Normal speech. A/P Assessment and Plan 46-year-old male with history of hydrocele presents with abdominal/scrotal pain and intractable nausea/vomiting 1 day. Plan as below Discharge Planning Discharged. Discussed with Dr. Bourne Problem List: (1) Intractable vomiting with nausea Status: Acute Plan: Normal saline at 160 mL per hour with 20 mEq potassium chloride Reglan 10 mg IV every 6 hours when necessary nausea Case management helping with outpatient follow-up Hemoglobin A1c- 6.3 Chlamydia, gonorrhea urine PCR- negative Drug screen- positive marijuana Monitor electrolytes Zantac for GI protection (2) Hydrocele in adult Status: Acute Plan: Case management consulted for information PCP/urology follow-up as an outpatient. Diclofenac 50 mg by mouth every 12 hours, morphine used for breakthrough pain Urology consult: Recommend conservative management. Definitive therapy could be performed as an outpatient with surgical excision. Ultrasound scrotum negative for torsion. (3) FEN/PPX Status: Acute Plan: Fluids: HLIV Electrolytes: Monitor and replace when necessary Nutrition: Regular diet Prophylaxis: Lovenox 40 mg subcutaneous Vela, MD R3 December 03, 2016 07:05
[2016-12-03 07:34] VITALS: BP 206/107; PULSE 91; RESP 21; TEMP 98.4; O2SAT 100
[2016-12-03] MEDS: FAMOTIDINE 20 MG TAB PO SCH (08:35)
[2016-12-03] MEDS: DICLOFENAC SODIUM 50 MG DELAYED RELEASE TAB PO SCH (08:35)
[2016-12-03] MEDS: hydrALAZINE HCL 10 MG TAB PO PRN (08:35)
[2016-12-03] MEDS: SODIUM CHLORIDE 0.9% FLUSH 10 ML FLUSH IV FLUSH SCH (08:35)
[2016-12-03] MEDS: METOCLOPRAMIDE HCL 10 MG/2 ML VIAL IV PRN (08:35)
[2016-12-03 08:50] VITALS: RESP 18
[2016-12-09] MEDS ORDERED: DICL50TA3 PO (11:40)
[2016-12-09] MEDS ORDERED: ZOFR8TAB4 SL (11:40)
== END 2016-12-03 10:41 | disposition home or self-care (01) ==
LOC: NEPE 05:14 → NEDA 10:19 → NEPHCDU 17:26
PROVIDERS: ADMIT Family Medicine; ATTEND Family Medicine
DX: R11.2 Nausea with vomiting, unspecified (principal); N43.3 Hydrocele, unspecified; Z88.2 Allergy status to sulfonamides; Z91.011 Allergy to milk products
CPT/HCPCS: 71010; 74177; 76870; 80053; 80307; 81001; 82550; 82552; 83036; 83690; 83735; 84100; 84132; 84484; 85025; 87491; 87591; 93005; 93975; 96361; 96374; 96375; 96376; 99285; G0378; J0780; J1170; J1200; J1650; J2270; J2405; J2765; J3480; J7030; Q9967

== ENCOUNTER 2017-11-11 22:46 | Emergency (ER) | payer SELFPAY ==
[~2017-11-11 22:46] MED LIST changes: -CEPH500C3 PO; +DICL50TA3 PO; -ONDA4 PO; -TRAM50 PO; +ZOFR8TAB4 SL
[2017-11-11 23:00] VITALS: BP 164/99; PULSE 86; RESP 18; TEMP 98.6; O2SAT 98
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
[2017-11-12] MEDS ORDERED: CIPROFLOXACIN 750 MG TAB PO ONE (00:45)
[2017-11-12] MEDS ORDERED: ONDANSETRON HCL 4 MG/2 ML VIAL IV PUSH ONE (01:00)
[2017-11-12] MEDS ORDERED: SODIUM CHLOR 0.9% 1000 ML INJ 1,000 ML IV ONE ×2 (01:00→04:30)
[2017-11-12 01:34] LABS: AUTOMATED NEUTROPHIL # 5.8 TH/MM3 (1.8-7.7); BASOPHIL % 0.4 % (0.0-2.0); EOSINOPHIL % 0.5 % (0.0-4.0); HEMATOCRIT 45.7 % (39.0-51.0); HEMOGLOBIN 14.6 GM/DL (13.0-17.0); LYMPH % 25.2 % (9.0-44.0); LYMPHOCYTE # 2.5 TH/MM3 (1.0-4.8); MEAN CELL VOLUME 70.6 FL (80.0-100.0); MEAN CORPUSCULAR HEMOGLOBIN 22.6 PG (27.0-34.0); MONO % 15.1 % (0.0-8.0); MONOCYTE # 1.5 TH/MM3 (0-0.9); NEUT % 58.8 % (16.0-70.0); PLATELET COUNT 333 TH/MM3 (150-450); RED BLOOD COUNT 6.47 MIL/MM3 (4.50-5.90); RED CELL DISTRIBUTION WIDTH 14.8 % (11.6-17.2); WHITE BLOOD COUNT 9.8 TH/MM3 (4.0-11.0)
[2017-11-12] MEDS ORDERED: KETOROLAC TROMETHAMINE 30 MG/ML (IVP) VIAL IV PUSH ONE (01:45)
[2017-11-12 02:20] LABS: BANDS 2 % (0-6); LYMPHOCYTES 30 % (9-44); MONOCYTES 12 % (0-8); NEUTROPHIL # MANUAL DIFF 5.6 TH/MM3 (1.8-7.7); POLYS (SEG NEUTROPHILS) 55 % (16-70)
[2017-11-12 02:41] LABS: GLOMERULAR FILTRATION RATE 115 ML/MIN (>89)
[2017-11-12 02:42] LABS: ALBUMIN 3.8 GM/DL (3.4-5.0); ALKALINE PHOSPHATASE 65 U/L (45-117); ALT (GPT) 20 U/L (12-78); AST (GOT) 22 U/L (15-37); BICARBONATE 26.8 MEQ/L (21.0-32.0); BLOOD UREA NITROGEN 15 MG/DL (7-18); CALCIUM 8.7 MG/DL (8.5-10.1); CHLORIDE 104 MEQ/L (98-107); CREATININE 0.86 MG/DL (0.60-1.30); GLUCOSE,RANDOM 115 MG/DL (74-106); SODIUM (NA) 141 MEQ/L (136-145); TOTAL BILIRUBIN ADULT 0.5 MG/DL (0.2-1.0); TOTAL PROTEIN 8.2 GM/DL (6.4-8.2)
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
[2017-11-12] MEDS ORDERED: METOCLOPRAMIDE INJ 10 MG in SODIUM CHLORIDE 0.9% INJ 50 ML IV ONE (03:15)
[2017-11-12] MEDS ORDERED: POTASSIUM CHLORIDE 20 MEQ PWD PACKET PO ONE (03:45)
[2017-11-12 03:57] LABS: BILIRUBIN, URINE NEG (NEG); BLOOD, URINE TRACE (NEG); GLUCOSE,URINE NEG (NEG); KETONE, URINE 10 mg/dL (NEG); NITRITE,URINE NEG (NEG); PH, URINE 6.5 (5.0-8.5); URINE COLOR YELLOW (YELLW/STRAW); URINE LEUKOCYTE ESTERASE NEG (NEG)
[2017-11-12 04:00] VITALS: BP 195/105; PULSE 73; RESP 18; O2SAT 98
[2017-11-12] MEDS ORDERED: MORPHINE SULFATE 2 MG/ML SYRINGE IV PUSH ONE (04:45)
--- NOTE | 2017-11-12 06:20 | RADRPT ---
EXAM DATE/TIME: 11/12/2017 05:28 [facility] COMPARISON: CT ABDOMEN & PELVIS W CONTRAST, December 01, 2016, 7:49. INDICATIONS : Right groin pain. Nausea and vomiting ORAL CONTRAST: No oral contrast ingested. RADIATION DOSE: 8.06 CTDIvol (mGy) MEDICAL HISTORY : Hypertension. SURGICAL HISTORY : None. ENCOUNTER: Initial ACUITY: 1 day PAIN SCALE: 9/10 LOCATION: Right lower quadrant TECHNIQUE: Volumetric scanning of the abdomen and pelvis was performed. Using automated exposure control and ad justment of the mA and/or kV according to patient size, radiation dose was kept as low as reasonably achievable to obtain optimal diagnostic quality images. DICOM format image data is available electro nically for review and comparison. FINDINGS: LOWER LUNGS: The visualized lower lungs are clear. LIVER: Homogeneous density without lesion. There is no dilation of the biliary tree. No calcified gallston es. SPLEEN: Normal size without lesion. PANCREAS: Within normal limits. KIDNEYS: Normal in size and shape. There is no mass, stone, or hydronephrosis. ADRENAL GLANDS: Within normal limits. VASCULAR: There is no aortic aneurysm. BOWEL/MESENTERY: The stomach, small bowel, and colon demonstrate no acute abnormality. There is no free intraperitone al air or fluid. ABDOMINAL WALL: Within normal limits. RETROPERITONEUM: There is no lymphadenopathy. BLADDER: No wall thickening or mass. REPRODUCTIVE: Within normal limits. INGUINAL: There is no lymphadenopathy or hernia. MUSCULOSKELETAL: Within normal limits for patient age. CONCLUSION: No acute CT findings in the abdomen or pelvis. Gordo Lao MD on November 12, 2017 at 6:15 Board Certified Radiologist. This report was verified electronically.
[2017-11-12] MEDS ORDERED: CIPR-9 PO (06:44)
[2017-11-12] MEDS ORDERED: ZOFR4TAB PO (06:44)
[2017-11-12 07:00] VITALS: BP 163/83
== END 2017-11-12 07:28 | disposition home or self-care (01) ==
LOC: NEPC 22:46
DX: N45.1 Epididymitis (principal)
CPT/HCPCS: 74176; 76870; 80053; 81001; 83690; 85007; 85027; 87491; 87591; 93975; 96361; 96365; 96375; 99284; J1885; J2270; J2405; J2765; J7030

== ENCOUNTER 2017-11-13 14:57 | Observation (INO) | payer SELFPAY ==
[~2017-11-13] VITALS: Ht 185.4 cm; Wt 122.0 kg
[~2017-11-13 14:57] MED LIST changes: +CIPR-9 PO; +ZOFR4TAB PO
[2017-11-13 15:02] VITALS: BP 215/106; PULSE 80; RESP 20; TEMP 98.6; O2SAT 99
[2017-11-13] MEDS ORDERED: SODIUM CHLOR 0.9% 1000 ML INJ 1,000 ML IV SCH (15:19)
[2017-11-13 15:20] VITALS: RESP 20; O2SAT 98
[2017-11-13] MEDS ORDERED: SODIUM CHLORIDE 0.9% FLUSH 10 ML FLUSH IV FLUSH PRN ×2 (15:30→18:45)
[2017-11-13] MEDS ORDERED: ONDANSETRON HCL 4 MG/2 ML VIAL IVP ONE (15:30)
[2017-11-13 15:46] LABS: AUTOMATED NEUTROPHIL # 6.2 TH/MM3 (1.8-7.7); BASOPHIL # 0.1 TH/MM3 (0-0.2); BASOPHIL % 0.5 % (0.0-2.0); EOSINOPHIL % 0.1 % (0.0-4.0); HEMATOCRIT 45.8 % (39.0-51.0); HEMOGLOBIN 15.1 GM/DL (13.0-17.0); LYMPH % 31.4 % (9.0-44.0); LYMPHOCYTE # 3.4 TH/MM3 (1.0-4.8); MEAN CELL VOLUME 69.5 FL (80.0-100.0); MEAN CORPUSCULAR HEMOGLOBIN 22.9 PG (27.0-34.0); MEAN PLATELET VOLUME 8.5 FL (7.0-11.0); MONO % 10.7 % (0.0-8.0); MONOCYTE # 1.2 TH/MM3 (0-0.9); NEUT % 57.3 % (16.0-70.0); PLATELET COUNT 266 TH/MM3 (150-450); RED BLOOD COUNT 6.59 MIL/MM3 (4.50-5.90); RED CELL DISTRIBUTION WIDTH 14.3 % (11.6-17.2); WHITE BLOOD COUNT 10.9 TH/MM3 (4.0-11.0)
[2017-11-13 16:01] LABS: INTERNATIONAL NORMALIZED RATIO 1.2 RATIO; PROTHROMBIN TIME - PATIENT 11.8 SEC (9.8-11.6)
[2017-11-13 16:14] LABS: ALBUMIN 4.1 GM/DL (3.4-5.0); ALKALINE PHOSPHATASE 71 U/L (45-117); ALT (GPT) 21 U/L (12-78); AST (GOT) 16 U/L (15-37); BICARBONATE 27.7 MEQ/L (21.0-32.0); BLOOD UREA NITROGEN 18 MG/DL (7-18); CALCIUM 9.4 MG/DL (8.5-10.1); CHLORIDE 97 MEQ/L (98-107); CREATININE 1.18 MG/DL (0.60-1.30); GLOMERULAR FILTRATION RATE 80 ML/MIN (>89); GLUCOSE,RANDOM 129 MG/DL (74-106); SODIUM (NA) 139 MEQ/L (136-145); TOTAL BILIRUBIN ADULT 0.9 MG/DL (0.2-1.0); TOTAL PROTEIN 8.8 GM/DL (6.4-8.2)
[2017-11-13] MEDS ORDERED: METOCLOPRAMIDE INJ 10 MG in SODIUM CHLORIDE 0.9% INJ 50 ML IV ONE (16:15)
[2017-11-13] MEDS: POTASSIUM CHLOR 10 MEQ PREMIX 100 ML IV SCH ×3 (16:57→18:49)
[2017-11-13 17:10] VITALS: BP 184/95; PULSE 92; RESP 15; TEMP 98.2; O2SAT 95
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
[2017-11-13] MEDS ORDERED: CIPROFLOXACIN 400 MG PREMIX 200 ML IV ONE (17:45)
[2017-11-13] MEDS ORDERED: POTASSIUM CHLORIDE 10 MEQ CONTROLLED RELEASE TAB PO ONE (17:45)
[2017-11-13 17:58] VITALS: BP 184/93; PULSE 98; RESP 20; TEMP 97.8; O2SAT 99
[2017-11-13] MEDS ORDERED: PROCHLORPERAZINE INJ 10 MG/2 ML VIAL IV PUSH ONE (18:00)
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
[2017-11-13] MEDS ORDERED: LACTULOSE SYRUP 20 GM/30 ML CUP PO PRN (18:45)
[2017-11-13] MEDS ORDERED: ACETAMINOPHEN 325 MG TAB PO PRN (18:45)
[2017-11-13] MEDS ORDERED: BISACODYL 10 MG SUPP RECTAL PRN (18:45)
[2017-11-13] MEDS ORDERED: NALOXONE HCL 0.4 MG/ML AMP IV PUSH PRN (18:45)
[2017-11-13] MEDS ORDERED: SENNOSIDES 8.6 MG TAB PO PRN (18:45)
[2017-11-13] MEDS ORDERED: MAGNESIUM HYDROXIDE SUSP 30 ML CUP PO PRN (18:45)
[2017-11-13 19:40] VITALS: BP 201/95; PULSE 84; RESP 19; TEMP 98.7; O2SAT 97
--- NOTE | 2017-11-13 20:07 | HHI.HP ---
[facility] No Primary Care Physician Admission Diagnosis intractable vomiting Diagnoses: (1) Intractable nausea and vomiting Diagnosis: Principal (2) Hypokalemia Diagnosis: Principal (3) Gastroenteritis Diagnosis: Principal (4) HTN (hypertension) Diagnosis: Principal Travel History International Travel<30 Days: No Contact w/Intl Traveler <30 Da: No Traveled to Known Affected Are: No History of Present Illness This is a 47-year-old male with no significant PMH who presented to ER with complaints of abdominal pain in addition to nausea and vomiting x2 days. Presented to ER yesterday, on 11/12/17, for similar symptoms in addition to complaints of right testicular pain/swelling. Denies diarrhea, no fever or chills. Scrotum US 11/12/17 negative, CT Abd/Pelvis 11/12/17 w/ no acute findings. Pt diagnosed w/ Epididymitis and d/c'd home w/ Cipro 500mg bid and Zofran prn. Returns now w/ ongoing abdominal pain and nausea/vomiting. States "cant' keep anything down". On arrival, BP 215/106, HR 80, O2 sat 99% RA, Afebrile. CBC unremarkable. K+ 2.8. GFR 80. Lipase 64. LFTs normal. INR 1.2. UA 11/12/2017 negative. Repeat Scrotum US with normal testicles, moderate bilateral hydrocele nonspecific, possible right inguinal hernia, however not substantiated by CT. S/p multiple doses of analgesics and antiemetics in ER w/ minimal improvement. Review of Systems Except as stated in HPI: all other systems reviewed are Neg ROS: 14 point review of systems otherwise negative. Past Family Social History Past Medical History PMH: None Past Surgical History PAST SURGICAL HISTORY: Facial Surgery Allergies: Coded Allergies: milk (Verified Allergy, Severe, Anaphylaxis, 11/13/17) Sulfa (Sulfonamide Antibiotics) (Verified Allergy, Unknown, ITCHING, ) Family History PAST FAMILY HISTORY: Reviewed. No h/o DM or CAD Social History PAST SOCIAL HISTORY: Occasional alcohol. Negative for tobacco or drugs. Physical Exam Vital Signs Vital Signs Date Time Temp Pulse Resp B/P (MAP) Pulse Ox O2 Delivery O2 Flow Rate FiO2 11/13/17 19:40 98.7 84 19 201/95 (130) 97 11/13/17 19:31 11/13/17 17:58 97.8 98 20 184/93 (123) 99 Room Air 11/13/17 17:10 98.2 92 15 184/95 (124) 95 Room Air 11/13/17 15:20 20 98 Room Air 11/13/17 15:02 20 11/13/17 15:02 98.6 80 20 215/106 (142) 99 Physical Exam PE: GENERAL: Middle-aged black male in no acute distress, appears to feel unwell. HEENT: PERRLA, EOMI. No scleral icterus or conjunctival pallor. No lid lag or facial droop. CARDIOVASCULAR: Regular rate and rhythm. No obvious murmurs to auscultation. No chest tenderness to palpation. RESPIRATORY: No obvious rhonchi or wheezing. Clear to auscultation. Breath sounds equal bilaterally. GASTROINTESTINAL: Abdomen soft, tenderness to palpation along lower abdomen, no hernia noted, nondistended. BS normal. MUSCULOSKELETAL: Extremities without clubbing, cyanosis, or edema. No obvious deformities. NEUROLOGICAL: Awake, alert and oriented x4. No focal neurologic deficits. Moving both upper and lower extremities spontaneously. Laboratory Laboratory Tests Test 11/13/17 15:00 White Blood Count 10.9 Red Blood Count 6.59 Hemoglobin 15.1 Hematocrit 45.8 Mean Corpuscular Volume 69.5 Mean Corpuscular Hemoglobin 22.9 Mean Corpuscular Hemoglobin Concent 33.0 Red Cell Distribution Width 14.3 Platelet Count 266 Mean Platelet Volume 8.5 Neutrophils (%) (Auto) 57.3 Lymphocytes (%) (Auto) 31.4 Monocytes (%) (Auto) 10.7 Eosinophils (%) (Auto) 0.1 Basophils (%) (Auto) 0.5 Neutrophils # (Auto) 6.2 Lymphocytes # (Auto) 3.4 Monocytes # (Auto) 1.2 Eosinophils # (Auto) 0.0 Basophils # (Auto) 0.1 CBC Comment DIFF FINAL Differential Comment Prothrombin Time 11.8 Prothromb Time International Ratio 1.2 Activated Partial Thromboplast Time 22.7 Blood Urea Nitrogen 18 Creatinine 1.18 Random Glucose 129 Total Protein 8.8 Albumin 4.1 Calcium Level 9.4 Alkaline Phosphatase 71 Aspartate Amino Transf (AST/SGOT) 16 Alanine Aminotransferase (ALT/SGPT) 21 Total Bilirubin 0.9 Sodium Level 139 Potassium Level 2.8 Chloride Level 97 Carbon Dioxide Level 27.7 Anion Gap 14 Estimat Glomerular Filtration Rate 80 Lipase 64 Result Diagram: 11/13/17 1500 11/13/17 1500 aLwrinjeet VTE Risk Assessment Caprini VTE Risk Assessment: No/Low Risk (score <= 1) Caprini Risk Assessment Model Point Value = 1 Point Value = 2 Point Value = 3 Point Value = 5 Age 41-60 Minor surgery BMI > 25 kg/m2 Swollen legs Varicose veins or History of unexplained or recurrent spontaneous Oral contraceptives or hormone replacement Sepsis (< 1 month) Serious lung disease, including pneumonia (< 1 month) Abnormal pulmonary function Acute myocardial infarction Congestive heart failure (< 1 month) History of inflammatory bowel disease Medical patient at bed rest Age 61-74 Arthroscopic surgery Major open surgery (> 45 min) Laparoscopic surgery (> 45 min) Malignancy Confined to bed (> 72 hours) Immobilizing plaster cast Central venous access Age >= 75 History of VTE Family history of VTE Factor V Leiden Prothrombin [id number] Lupus anticoagulant Anticardiolipin antibodies Elevated serum homocysteine Heparin-induced thrombocytopenia Other congenital or acquired thrombophilia Stroke (< 1 month) Elective arthroplasty Hip, pelvis, or leg fracture Acute spinal cord injury (< 1 month) Prophylaxis Regimen Total Risk Factor Score Risk Level Prophylaxis Regimen 0-1 Low Early ambulation 2 Moderate Order ONE of the following: *Sequential Compression Device (SCD) *Heparin 5000 units SQ BID 3-4 Higher Order ONE of the following medications: *Heparin 5000 units SQ TID *Enoxaparin/Lovenox 40 mg SQ daily (WT < 150 kg, CrCl > 30 mL/min) *Enoxaparin/Lovenox 30 mg SQ daily (WT < 150 kg, CrCl > 10-29 mL/min) *Enoxaparin/Lovenox 30 mg SQ BID (WT < 150 kg, CrCl > 30 mL/min) AND/OR *Sequential Compression Device (SCD) 5 or more Highest Order ONE of the following medications: *Heparin 5000 units SQ TID (Preferred with Epidurals) *Enoxaparin/Lovenox 40 mg SQ daily (WT < 150 kg, CrCl > 30 mL/min) *Enoxaparin/Lovenox 30 mg SQ daily (WT < 150 kg, CrCl > 10-29 mL/min) *Enoxaparin/Lovenox 30 mg SQ BID (WT < 150 kg, CrCl > 30 mL/min) AND *Sequential Compression Device (SCD) Assessment and Plan Problem List: (1) Intractable nausea and vomiting ICD Code: R11.2 - Nausea with vomiting, unspecified (2) Hypokalemia ICD Code: E87.6 - Hypokalemia (3) Gastroenteritis ICD Code: K52.9 - Noninfective gastroenteritis and colitis, unspecified (4) HTN (hypertension) ICD Code: I10 - Essential (primary) hypertension Assessment and Plan A/P: 1. Intractable NV: symptoms ongoing for several days, recent ER presentation for same, CT Abd/Pelvis 11/12/17 w/ no acute findings. Analgesics/ antiemetics as needed, IVF, diet as tolerated, Check Abd X-ray to eval for possible ileus/obstruction. 2. Hypokalemia: K+ 2.8, s/p 30mEq in ER, will give addition replacement IV, recheck K+ 3. Gastroenteritis: likely viral, afebrile, no leukocytosis, CT Abd/Pelvis negative as above. Continue w/ Cipro for tx of Epididymitis from recent ER presentation 4. HTN: Uncontrolled. BP 200's, likely compounded by pain complaints. Monitor BP, start antihypertensives as needed to keep BP <180 5. DVT Prophylaxis: SCD/Teds 6. Social work for d/c planning as needed. 7. Case discussed w/ ER physician at length, labs/records/imaging reviewed by me. Ines Prince MD Nov 13, 2017 20:07
--- NOTE | 2017-11-13 20:13 | RADRPT ---
EXAM DATE/TIME: 11/13/2017 19:59 [facility] COMPARISON: No previous studies available for comparison. INDICATIONS : Abdominal pain and vomiting. MEDICAL HISTORY : Hypertension. Skull fracture. SURGICAL HISTORY : None. ENCOUNTER: Initial ACUITY: 1 day PAIN SCORE: 5/10 LOCATION: Abdomen. FINDINGS: Supine and upright views of the abdomen were performed. The abdominal bowel gas pattern is normal. No air fluid levels are seen. No abnormal masses, calcifications, or organomegaly is seen. The visu alized lower lungs are clear. No evidence of free intraperitoneal gas. The osseous structures are u nremarkable. CONCLUSION: Normal bowel gas pattern. Gordo Cho MD on November 13, 2017 at 20:11 Board Certified Radiologist. This report was verified electronically.
[2017-11-13] MEDS ORDERED: cloNIDine HCL 0.1 MG TAB PO ONE (20:30)
[2017-11-13] MEDS: POTASSIUM CHLOR 20 MEQ PREMIX 100 ML IV SCH ×2 (20:48→21:33)
[2017-11-13] MEDS: MORPHINE SULFATE 4 MG/ML INJ IV PUSH PRN (20:48)
[2017-11-13] MEDS: ONDANSETRON HCL 4 MG/2 ML VIAL IVP PRN (20:49)
[2017-11-13] MEDS: DOCUSATE SODIUM 50 MG/SENNA 8.6 MG TAB PO SCH (20:49)
[2017-11-13] MEDS: SODIUM CHLORIDE 0.9% FLUSH 10 ML FLUSH IV FLUSH SCH (21:33)
[2017-11-13] MEDS: SODIUM CHLOR 0.9% 1000 ML INJ 1,000 ML IV SCH (21:33)
[2017-11-13] MEDS: FAMOTIDINE 20 MG/2 ML VIAL IV PUSH SCH (21:34)
[2017-11-13 23:39] VITALS: BP 132/78; PULSE 75; RESP 18; TEMP 98; O2SAT 98
[2017-11-14] MEDS: MORPHINE SULFATE 4 MG/ML INJ IV PUSH PRN ×5 (03:42→22:12)
[2017-11-14 03:43] VITALS: BP 176/98; PULSE 81; RESP 18; O2SAT 96
[2017-11-14 06:15] LABS: AUTOMATED NEUTROPHIL # 5.9 TH/MM3 (1.8-7.7); BASOPHIL % 0.5 % (0.0-2.0); EOSINOPHIL % 0.1 % (0.0-4.0); HEMATOCRIT 42.4 % (39.0-51.0); HEMOGLOBIN 13.5 GM/DL (13.0-17.0); LYMPH % 22.6 % (9.0-44.0); MEAN CELL VOLUME 71.2 FL (80.0-100.0); MEAN CORPUSCULAR HEMOGLOBIN 22.8 PG (27.0-34.0); MEAN CORPUSCULAR HGB CONC 31.9 % (32.0-36.0); MEAN PLATELET VOLUME 8.2 FL (7.0-11.0); MONO % 10.4 % (0.0-8.0); MONOCYTE # 0.9 TH/MM3 (0-0.9); NEUT % 66.4 % (16.0-70.0); PLATELET COUNT 219 TH/MM3 (150-450); RED BLOOD COUNT 5.95 MIL/MM3 (4.50-5.90); RED CELL DISTRIBUTION WIDTH 14.2 % (11.6-17.2); WHITE BLOOD COUNT 8.9 TH/MM3 (4.0-11.0)
[2017-11-14 06:26] LABS: ALBUMIN 3.5 GM/DL (3.4-5.0); ALKALINE PHOSPHATASE 58 U/L (45-117); ALT (GPT) 17 U/L (12-78); AST (GOT) 12 U/L (15-37); BICARBONATE 29.7 MEQ/L (21.0-32.0); BLOOD UREA NITROGEN 20 MG/DL (7-18); CALCIUM 8.5 MG/DL (8.5-10.1); CHLORIDE 102 MEQ/L (98-107); CREATININE 1.07 MG/DL (0.60-1.30); GLOMERULAR FILTRATION RATE 89 ML/MIN (>89); GLUCOSE,RANDOM 101 MG/DL (74-106); SODIUM (NA) 140 MEQ/L (136-145); TOTAL BILIRUBIN ADULT 0.9 MG/DL (0.2-1.0); TOTAL PROTEIN 7.6 GM/DL (6.4-8.2)
--- NOTE | 2017-11-14 08:09 | HHI.PR ---
Subjective Remarks in no acute distress. looks and feels much better today. abdominal pain has subsided and nausea is better. no BM over night,. afebrile. Objective Vitals Vital Signs Date Time Temp Pulse Resp B/P (MAP) Pulse Ox O2 Delivery O2 Flow Rate FiO2 11/14/17 05:07 18 11/14/17 03:43 81 18 176/98 (124) 96 11/13/17 23:39 98.0 75 18 132/78 (96) 98 11/13/17 19:40 98.7 84 19 201/95 (130) 97 11/13/17 19:31 11/13/17 17:58 97.8 98 20 184/93 (123) 99 Room Air 11/13/17 17:10 98.2 92 15 184/95 (124) 95 Room Air 11/13/17 15:20 20 98 Room Air 11/13/17 15:02 20 11/13/17 15:02 98.6 80 20 215/106 (142) 99 I/O 11/13/17 11/13/17 11/13/17 11/14/17 11/14/17 11/14/17 07:00 15:00 23:00 07:00 15:00 23:00 Intake Total 1252 ml 500 ml Balance 1252 ml 500 ml Intake Oral 500 ml IV Total 1252 ml Result Diagram: 11/14/17 0547 11/14/17 0547 Imaging Last Impressions Scrotum Ultrasound 11/13/17 0000 Signed Impressions: Service Date/Time: Monday, November 13, 2017 16:18 - CONCLUSION: 1. Normal testicles. 2. Moderate bilateral hydrocele fluid, nonspecific. 3. Ultrasound suggests possible right inguinal hernia but not substantiated by CT. Please see above. Gordo Cho MD Abdomen X-Ray 11/13/17 0000 Signed Impressions: Service Date/Time: Monday, November 13, 2017 19:59 - CONCLUSION: Normal bowel gas pattern. Gordo Cho MD Objective Remarks GENERAL: This is a well-nourished, well-developed patient, in no apparent distress. CARDIOVASCULAR: Regular rate and regular rhythm without murmurs, gallops, or rubs. RESPIRATORY: Clear to auscultation. Breath sounds equal bilaterally. No wheezes , rales, or rhonchi. GASTROINTESTINAL: Abdomen soft, non-tender, nondistended. Normal, active bowel sounds MUSCULOSKELETAL: Extremities without clubbing, cyanosis, or edema. NEURO: Alert & Oriented x4 to person, place, time, situation. Moves all ext x4 Medications and IVs Inpatient Medications Acetaminophen (Tylenol) 650 mg Q4H PRN PO TEMP > 100.4; Start 11/13/17 at 18:45 Bisacodyl (Dulcolax Supp) 10 mg DAILY PRN RECTAL SEVERE CONSITIPATION; Start at 18:45 Ciprofloxacin/ Dextrose 200 ml @ 200 mls/hr Q12H IV ; Start 11/14/17 at 06:00 Clonidine (Catapres) 0.1 mg ONCE ONCE PO Last administered on 11/13/17at 20:49 ; Start 11/13/17 at 20:30; Stop 11/13/17 at 20:31; Status DC Famotidine (Pepcid Inj) 20 mg Q12HR IV PUSH Last administered on 11/13/17at 21: 34; Start 11/13/17 at 21:00 Lactulose (Lactulose Liq) 30 ml DAILY PRN PO SEVERE CONSITIPATION; Start at 18:45 Magnesium Hydroxide (Milk Of Magnesia Liq) 30 ml Q12H PRN PO Mild constipation ; Start 11/13/17 at 18:45 Metoclopramide HCl 10 mg/Sodium Chloride 52 ml @ 104 mls/hr ONCE ONCE IV Last administered on 11/13/17at 16:20; Start 11/13/17 at 16:15; Stop 11/13/17 at 16:44; Status DC Morphine Sulfate (Morphine Inj) 2 mg Q3H PRN IV PUSH PAIN 6-10 Last administered on 11/14/17at 03:42; Start 11/13/17 at 19:30 Naloxone HCl (Narcan Inj) 0.4 mg UNSCH PRN IV PUSH SEE LABEL COMMENTS; Start at 18:45 Ondansetron HCl (Zofran Inj) 4 mg Q6H PRN IVP NAUSEA OR VOMITING Last administered on 11/13/17at 20:49; Start 11/13/17 at 18:45 Potassium Chloride (KCl) 60 meq ONCE ONCE PO ; Start 11/14/17 at 09:00; Stop at 09:01 Prochlorperazine Edisylate (Compazine Inj) 10 mg ONCE ONCE IV PUSH Last administered on 11/13/17at 18:01; Start 11/13/17 at 18:00; Stop 11/13/17 at 18:01 ; Status DC Senna/Docusate Sodium (Raiza-Colace) 1 tab BID PO Last administered on at 20:49; Start 11/13/17 at 21:00 Sennosides (Senokot) 17.2 mg Q12H PRN PO Moderate constipation; Start 11/13/17 at 18:45 Sodium Chloride (NS Flush) 2 ml BID IV FLUSH Last administered on 11/13/17at 21: 33; Start 11/13/17 at 21:00 A/P Problem List: (1) Intractable nausea and vomiting ICD Code: R11.2 - Nausea with vomiting, unspecified (2) Hypokalemia ICD Code: E87.6 - Hypokalemia (3) Gastroenteritis ICD Code: K52.9 - Noninfective gastroenteritis and colitis, unspecified (4) HTN (hypertension) ICD Code: I10 - Essential (primary) hypertension Assessment and Plan 1. Intractable NV: symptoms ongoing for several days, recent ER presentation for same, CT Abd/Pelvis 11/12/17 w/ no acute findings. has much improved - will advance the diet and continue with supportive care. 2. Hypokalemia: replaced- will monitor. 3. Gastroenteritis: likely viral, afebrile, no leukocytosis, CT Abd/Pelvis negative as above. Continue w/ Cipro for tx of Epididymitis from recent ER presentation 4. HTN: Uncontrolled. BP 200's, likely compounded by pain complaints. Monitor BP, start amlodipine if BP remains elevated. 5. DVT Prophylaxis: SCD/Teds Discharge Planning dc home within the next 24 hrs if tolerates the diet and stable. Molly Zhang MD Nov 14, 2017 08:09
[2017-11-14] MEDS: CIPROFLOXACIN 400 MG PREMIX 200 ML IV SCH ×2 (08:25→17:12)
[2017-11-14] MEDS: SODIUM CHLORIDE 0.9% FLUSH 10 ML FLUSH IV FLUSH SCH ×2 (08:26→21:00)
[2017-11-14] MEDS: FAMOTIDINE 20 MG/2 ML VIAL IV PUSH SCH ×2 (08:26→22:09)
[2017-11-14] MEDS: DOCUSATE SODIUM 50 MG/SENNA 8.6 MG TAB PO SCH ×2 (08:27→22:09)
[2017-11-14] MEDS: POTASSIUM CHLORIDE 20 MEQ CONTROLLED RELEASE TAB PO ONE ×2 (08:27→08:38)
[2017-11-14] MEDS: SODIUM CHLOR 0.9% 1000 ML INJ 1,000 ML IV SCH ×2 (08:28→14:26)
[2017-11-14] MEDS: ONDANSETRON HCL 4 MG/2 ML VIAL IVP PRN ×3 (08:28→22:13)
[2017-11-14 08:32] VITALS: BP 177/94; PULSE 72; RESP 16; TEMP 96.8; O2SAT 99
[2017-11-14] MEDS ORDERED: POTASSIUM CHLOR 20 MEQ PREMIX 100 ML IV ONE ×2 (12:00→16:45)
[2017-11-14 12:12] VITALS: BP 177/91; PULSE 82; RESP 16; TEMP 98.1; O2SAT 96
[2017-11-14 12:43] LABS: MAGNESIUM 2.3 MG/DL (1.5-2.5)
--- NOTE | 2017-11-14 14:27 | EKG ---
Date Performed: 11/13/2017 Time Performed: 15:08:05 PTAGE: 47 years EKG: Sinus rhythm WITH SHORT OR INTERVAL WITH FREQUENT VENTRICULAR PREMATURE COMPLEXES LEFT ATRIAL ENLARGEMENT VENTRIC ULAR PREEXCITATION/WPW ABNORMAL ECG Since PREVIOUS TRACING , no significant change noted PREVIOUS TRACIN12/01/2016 05.37 DOCTOR: Madonna Medina Interpretating Date/Time 11/14/2017 14:25:32
[2017-11-14 15:39] VITALS: BP 168/92; PULSE 82; RESP 16; TEMP 98.9; O2SAT 98
[2017-11-14] MEDS ORDERED: POTASSIUM CHLORIDE 25 MEQ EFFERVESCENT TAB PO ONE (17:00)
[2017-11-14 22:03] VITALS: BP 161/92; PULSE 74; RESP 18; TEMP 98.6; O2SAT 99
[2017-11-15] VITALS (7 sets, daily range): BP systolic 145–187; BP diastolic 81–100; PULSE 60–77; RESP 16–18; TEMP 98.2–98.9; O2SAT 96–100
[2017-11-15] MEDS ORDERED: cloNIDine HCL 0.1 MG TAB PO ONE (05:00)
[2017-11-15] MEDS: MORPHINE SULFATE 4 MG/ML INJ IV PUSH PRN ×5 (05:46→22:55)
[2017-11-15] MEDS: ONDANSETRON HCL 4 MG/2 ML VIAL IVP PRN ×3 (05:47→22:55)
[2017-11-15] MEDS: CIPROFLOXACIN 400 MG PREMIX 200 ML IV SCH ×2 (06:29→18:25)
[2017-11-15 07:11] LABS: HEMATOCRIT 41.5 % (39.0-51.0); HEMOGLOBIN 13.2 GM/DL (13.0-17.0); MEAN CELL VOLUME 71.5 FL (80.0-100.0); MEAN CORPUSCULAR HEMOGLOBIN 22.6 PG (27.0-34.0); MEAN CORPUSCULAR HGB CONC 31.7 % (32.0-36.0); MEAN PLATELET VOLUME 8.1 FL (7.0-11.0); PLATELET COUNT 219 TH/MM3 (150-450); RED BLOOD COUNT 5.81 MIL/MM3 (4.50-5.90); RED CELL DISTRIBUTION WIDTH 14.6 % (11.6-17.2); WHITE BLOOD COUNT 7.9 TH/MM3 (4.0-11.0)
[2017-11-15 07:36] LABS: BICARBONATE 29.4 MEQ/L (21.0-32.0); CALCIUM 8.6 MG/DL (8.5-10.1); CREATININE 0.94 MG/DL (0.60-1.30)
--- NOTE | 2017-11-15 08:26 | HHI.PR ---
Subjective Remarks in no acute distress. pain is better. no BM over night. no fever. wants to try some solid food. Objective Vitals Vital Signs Date Time Temp Pulse Resp B/P (MAP) Pulse Ox O2 Delivery O2 Flow Rate FiO2 11/15/17 07:15 98.7 77 16 145/88 (107) 96 11/15/17 04:03 98.2 71 18 181/100 (127) 97 11/15/17 01:07 65 18 187/98 (127) 98 11/14/17 22:59 18 11/14/17 22:03 98.6 74 18 161/92 (115) 99 11/14/17 15:39 98.9 82 16 168/92 (117) 98 11/14/17 12:12 98.1 82 16 177/91 (119) 96 11/14/17 08:32 96.8 72 16 177/94 (121) 99 I/O 11/14/17 11/14/17 11/14/17 11/15/17 11/15/17 11/15/17 07:00 15:00 23:00 07:00 15:00 23:00 Intake Total 500 ml 300 ml 700 ml Balance 500 ml 300 ml 700 ml Intake Oral 500 ml 700 ml IV Total 300 ml Result Diagram: 11/15/17 0625 11/15/17 0625 Imaging Last Impressions Scrotum Ultrasound 11/13/17 0000 Signed Impressions: Service Date/Time: Monday, November 13, 2017 16:18 - CONCLUSION: 1. Normal testicles. 2. Moderate bilateral hydrocele fluid, nonspecific. 3. Ultrasound suggests possible right inguinal hernia but not substantiated by CT. Please see above. Gordo Cho MD Abdomen X-Ray 11/13/17 0000 Signed Impressions: Service Date/Time: Monday, November 13, 2017 19:59 - CONCLUSION: Normal bowel gas pattern. Gordo Cho MD Objective Remarks GENERAL: This is a well-nourished, well-developed patient, in no apparent distress. CARDIOVASCULAR: Regular rate and regular rhythm without murmurs, gallops, or rubs. RESPIRATORY: Clear to auscultation. Breath sounds equal bilaterally. No wheezes , rales, or rhonchi. GASTROINTESTINAL: Abdomen soft, non-tender, nondistended. Normal, active bowel sounds MUSCULOSKELETAL: Extremities without clubbing, cyanosis, or edema. NEURO: Alert & Oriented x4 to person, place, time, situation. Moves all ext x4 Medications and IVs Inpatient Medications Acetaminophen (Tylenol) 650 mg Q4H PRN PO TEMP > 100.4; Start 11/13/17 at 18:45 Amlodipine Besylate (Norvasc) 5 mg DAILY PO ; Start 11/15/17 at 09:00 Bisacodyl (Dulcolax Supp) 10 mg DAILY PRN RECTAL SEVERE CONSITIPATION; Start at 18:45 Ciprofloxacin/ Dextrose 200 ml @ 200 mls/hr Q12H IV Last administered on at 06:29; Start 11/14/17 at 06:00 Clonidine (Catapres) 0.1 mg ONCE ONCE PO Last administered on 11/15/17at 05:24 ; Start 11/15/17 at 05:00; Stop 11/15/17 at 05:01; Status DC Famotidine (Pepcid Inj) 20 mg Q12HR IV PUSH Last administered on 11/14/17at 22: 09; Start 11/13/17 at 21:00 Lactulose (Lactulose Liq) 30 ml DAILY PRN PO SEVERE CONSITIPATION; Start at 18:45 Magnesium Hydroxide (Milk Of Magnesia Liq) 30 ml Q12H PRN PO Mild constipation ; Start 11/13/17 at 18:45 Metoclopramide HCl 10 mg/Sodium Chloride 52 ml @ 104 mls/hr ONCE ONCE IV Last administered on 11/13/17at 16:20; Start 11/13/17 at 16:15; Stop 11/13/17 at 16:44; Status DC Morphine Sulfate (Morphine Inj) 2 mg Q3H PRN IV PUSH PAIN 6-10 Last administered on 11/15/17at 05:46; Start 11/13/17 at 19:30 Naloxone HCl (Narcan Inj) 0.4 mg UNSCH PRN IV PUSH SEE LABEL COMMENTS; Start at 18:45 Ondansetron HCl (Zofran Inj) 4 mg Q6H PRN IVP NAUSEA OR VOMITING Last administered on 11/15/17at 05:47; Start 11/13/17 at 18:45 Potassium Bicarb/ Potassium Chloride (K-Lyte Cl Eff) 50 meq ONCE ONCE PO ; Start 11/15/17 at 09:00; Stop 11/15/17 at 09:01 Potassium Chloride 100 ml @ 50 mls/hr BOLUS ONCE IV Last administered on 11/14at 16:51; Start 11/14/17 at 16:45; Stop 11/14/17 at 18:44; Status DC Potassium Chloride (KCl) 60 meq ONCE ONCE PO ; Start 11/14/17 at 09:00; Stop at 09:01; Status DC Prochlorperazine Edisylate (Compazine Inj) 10 mg ONCE ONCE IV PUSH Last administered on 11/13/17at 18:01; Start 11/13/17 at 18:00; Stop 11/13/17 at 18:01 ; Status DC Senna/Docusate Sodium (Raiza-Colace) 1 tab BID PO Last administered on at 22:09; Start 11/13/17 at 21:00 Sennosides (Senokot) 17.2 mg Q12H PRN PO Moderate constipation; Start 11/13/17 at 18:45 Sodium Chloride (NS Flush) 2 ml BID IV FLUSH Last administered on 11/14/17at 08: 26; Start 11/13/17 at 21:00 A/P Problem List: (1) Intractable nausea and vomiting ICD Code: R11.2 - Nausea with vomiting, unspecified (2) Hypokalemia ICD Code: E87.6 - Hypokalemia (3) Gastroenteritis ICD Code: K52.9 - Noninfective gastroenteritis and colitis, unspecified (4) HTN (hypertension) ICD Code: I10 - Essential (primary) hypertension Assessment and Plan 1. Intractable NV: symptoms ongoing for several days, recent ER presentation for same, CT Abd/Pelvis 11/12/17 w/ no acute findings. has much improved - will advance the diet and continue with supportive care. 2. Hypokalemia: replaced- will monitor. 3. Gastroenteritis: likely viral, afebrile, no leukocytosis, CT Abd/Pelvis negative as above. Continue w/ Cipro for tx of Epididymitis from recent ER presentation 4. HTN: Uncontrolled. BP 200's, likely compounded by pain complaints. Monitor BP, started amlodipine- f/u as outpatient. 5. DVT Prophylaxis: SCD/Teds Discharge Planning dc home within the next 24 hrs if tolerates the diet and stable. Molly Zhang MD Nov 15, 2017 08:26
[2017-11-15] MEDS ORDERED: FAMO20TA2 PO (08:29)
[2017-11-15] MEDS ORDERED: AMLO5 PO (08:29)
[2017-11-15] MEDS ORDERED: CIPR-9 PO (08:31)
--- NOTE | 2017-11-15 08:31 | HHI.DCPOC ---
Discharge Care Plan Diagnosis: (1) Intractable nausea and vomiting (2) HTN (hypertension) (3) Hypokalemia Your Health Problems Are: Appetite Changes Additional Problems Nausea/ Vomiting Goals to Promote Your Health * To prevent worsening of your condition and complications * To maintain your health at the optimal level Directions to Meet Your Goals Take your medications as prescribed Follow your dietary instruction Follow activity as directed Keep your appointments as scheduled Take your immunizations and boosters as scheduled If your symptoms worsen call your PCP, if no PCP go to Urgent Care Center or Emergency Room Smoking is Dangerous to Your Health. Avoid second hand smoke Call the 24-hour hour crisis hotline for domestic abuse at [facility] Munguia Nov 15, 2017 08:31
[2017-11-15] MEDS: DOCUSATE SODIUM 50 MG/SENNA 8.6 MG TAB PO SCH ×2 (09:00→20:16)
[2017-11-15] MEDS ORDERED: POTASSIUM CHLORIDE 25 MEQ EFFERVESCENT TAB PO ONE ×2 (09:00→14:15)
[2017-11-15] MEDS: FAMOTIDINE 20 MG/2 ML VIAL IV PUSH SCH ×2 (09:50→20:08)
[2017-11-15] MEDS: SODIUM CHLORIDE 0.9% FLUSH 10 ML FLUSH IV FLUSH SCH ×2 (09:51→20:16)
[2017-11-15] MEDS: amLODIPine BESYLATE 5 MG TAB PO SCH (11:17)
[2017-11-15] MEDS ORDERED: POTASSIUM CHLOR 20 MEQ PREMIX 100 ML IV ONE (14:30)
[2017-11-15] MEDS ORDERED: MORPHINE SULFATE 2 MG/ML SYRINGE IV PUSH PRN (23:30)
[2017-11-16 01:34] VITALS: BP 173/96; PULSE 68; RESP 18; TEMP 98.6; O2SAT 98
[2017-11-16 03:53] VITALS: BP 168/93; PULSE 67; RESP 18; TEMP 98.5; O2SAT 99
[2017-11-16] MEDS: CIPROFLOXACIN 400 MG PREMIX 200 ML IV SCH (06:06)
[2017-11-16 07:23] VITALS: BP 175/95; PULSE 72; RESP 18; TEMP 99; O2SAT 98
[2017-11-16] MEDS: DOCUSATE SODIUM 50 MG/SENNA 8.6 MG TAB PO SCH (08:20)
[2017-11-16] MEDS: FAMOTIDINE 20 MG/2 ML VIAL IV PUSH SCH (08:21)
[2017-11-16] MEDS: amLODIPine BESYLATE 5 MG TAB PO SCH (08:22)
[2017-11-16] MEDS: SODIUM CHLORIDE 0.9% FLUSH 10 ML FLUSH IV FLUSH SCH (09:00)
--- NOTE | 2017-11-16 09:06 | HHI.PR ---
Subjective Remarks in no acute distress. denies abdominal pain. has minimal nausea. feels much better and wants to go home. Objective Vitals Vital Signs Date Time Temp Pulse Resp B/P (MAP) Pulse Ox O2 Delivery O2 Flow Rate FiO2 11/16/17 07:23 99.0 72 18 175/95 (121) 98 11/16/17 03:53 98.5 67 18 168/93 (118) 99 11/16/17 01:34 98.6 68 18 173/96 (121) 98 11/15/17 22:32 98.5 69 18 165/98 (120) 99 11/15/17 16:17 98.4 60 16 165/81 (109) 96 11/15/17 14:50 98.9 70 16 162/98 (119) 100 11/15/17 11:05 98.2 62 16 165/94 (117) 99 I/O 11/15/17 11/15/17 11/15/17 11/16/17 11/16/17 11/16/17 07:00 15:00 23:00 07:00 15:00 23:00 Intake Total 700 ml 200 ml Balance 700 ml 200 ml Intake Oral 700 ml IV Total 200 ml # Voids 2 Result Diagram: 11/15/17 0625 11/15/17 1857 Imaging Last Impressions Scrotum Ultrasound 11/13/17 0000 Signed Impressions: Service Date/Time: Monday, November 13, 2017 16:18 - CONCLUSION: 1. Normal testicles. 2. Moderate bilateral hydrocele fluid, nonspecific. 3. Ultrasound suggests possible right inguinal hernia but not substantiated by CT. Please see above. Gordo Cho MD Abdomen X-Ray 11/13/17 0000 Signed Impressions: Service Date/Time: Monday, November 13, 2017 19:59 - CONCLUSION: Normal bowel gas pattern. Gordo Cho MD Objective Remarks GENERAL: This is a well-nourished, well-developed patient, in no apparent distress. CARDIOVASCULAR: Regular rate and regular rhythm without murmurs, gallops, or rubs. RESPIRATORY: Clear to auscultation. Breath sounds equal bilaterally. No wheezes , rales, or rhonchi. GASTROINTESTINAL: Abdomen soft, non-tender, nondistended. Normal, active bowel sounds MUSCULOSKELETAL: Extremities without clubbing, cyanosis, or edema. NEURO: Alert & Oriented x4 to person, place, time, situation. Moves all ext x4 Medications and IVs Inpatient Medications Acetaminophen (Tylenol) 650 mg Q4H PRN PO TEMP > 100.4; Start 11/13/17 at 18:45 Amlodipine Besylate (Norvasc) 5 mg DAILY PO Last administered on 11/16/17at 08: 22; Start 11/15/17 at 09:00 Bisacodyl (Dulcolax Supp) 10 mg DAILY PRN RECTAL SEVERE CONSITIPATION; Start at 18:45 Ciprofloxacin/ Dextrose 200 ml @ 200 mls/hr Q12H IV Last administered on at 06:06; Start 11/14/17 at 06:00 Clonidine (Catapres) 0.1 mg ONCE ONCE PO Last administered on 11/15/17at 05:24 ; Start 11/15/17 at 05:00; Stop 11/15/17 at 05:01; Status DC Famotidine (Pepcid Inj) 20 mg Q12HR IV PUSH Last administered on 11/16/17at 08: 21; Start 11/13/17 at 21:00 Lactulose (Lactulose Liq) 30 ml DAILY PRN PO SEVERE CONSITIPATION; Start at 18:45 Magnesium Hydroxide (Milk Of Magnesia Liq) 30 ml Q12H PRN PO Mild constipation ; Start 11/13/17 at 18:45 Metoclopramide HCl 10 mg/Sodium Chloride 52 ml @ 104 mls/hr ONCE ONCE IV Last administered on 11/13/17at 16:20; Start 11/13/17 at 16:15; Stop 11/13/17 at 16:44; Status DC Morphine Sulfate (Morphine Inj) 2 mg Q3H PRN IV PUSH PAIN 6-10; Start 11/15/17 at 23:30 Naloxone HCl (Narcan Inj) 0.4 mg UNSCH PRN IV PUSH SEE LABEL COMMENTS; Start at 18:45 Ondansetron HCl (Zofran Inj) 4 mg Q6H PRN IVP NAUSEA OR VOMITING Last administered on 11/15/17at 22:55; Start 11/13/17 at 18:45 Potassium Bicarb/ Potassium Chloride (K-Lyte Cl Eff) 50 meq ONCE ONCE PO Last administered on 11/15/17at 15:16; Start 11/15/17 at 14:15; Stop 11/15/17 at 14:34; Status DC Potassium Chloride 100 ml @ 50 mls/hr BOLUS ONCE IV Last administered on 11/15at 15:27; Start 11/15/17 at 14:30; Stop 11/15/17 at 16:29; Status DC Potassium Chloride (KCl) 60 meq ONCE ONCE PO ; Start 11/14/17 at 09:00; Stop at 09:01; Status DC Prochlorperazine Edisylate (Compazine Inj) 10 mg ONCE ONCE IV PUSH Last administered on 11/13/17at 18:01; Start 11/13/17 at 18:00; Stop 11/13/17 at 18:01 ; Status DC Senna/Docusate Sodium (Raiza-Colace) 1 tab BID PO Last administered on at 22:09; Start 11/13/17 at 21:00 Sennosides (Senokot) 17.2 mg Q12H PRN PO Moderate constipation; Start 11/13/17 at 18:45 Sodium Chloride (NS Flush) 2 ml BID IV FLUSH Last administered on 11/15/17at 20: 16; Start 11/13/17 at 21:00 A/P Problem List: (1) Intractable nausea and vomiting ICD Code: R11.2 - Nausea with vomiting, unspecified (2) Hypokalemia ICD Code: E87.6 - Hypokalemia (3) Gastroenteritis ICD Code: K52.9 - Noninfective gastroenteritis and colitis, unspecified (4) HTN (hypertension) ICD Code: I10 - Essential (primary) hypertension Assessment and Plan 1. Intractable NV: symptoms ongoing for several days, recent ER presentation for same, CT Abd/Pelvis 11/12/17 w/ no acute findings. has much improved - will advance the diet and continue with supportive care. 2. Hypokalemia: replaced- 3. Gastroenteritis: likely viral, afebrile, no leukocytosis, CT Abd/Pelvis negative as above. Continue w/ Cipro for tx of Epididymitis from recent ER presentation 4. HTN: , started amlodipine- f/u as outpatient. 5. DVT Prophylaxis: SCD/Teds Discharge Planning dc home today if tolerates the diet and BP better. f/u; pcp. see med list. d/w the patient. Molly Zhang MD Nov 16, 2017 09:06
--- NOTE | 2017-11-16 09:08 | HHI.DS ---
Discharge Summary Admission Date Nov 13, 2017 at 18:35 Discharge Date: Nov 16, 2017 Admitting Diagnosis intractable vomiting (1) Intractable nausea and vomiting ICD Code: R11.2 - Nausea with vomiting, unspecified Diagnosis: Principal (2) Hypokalemia ICD Code: E87.6 - Hypokalemia Diagnosis: Secondary (3) Gastroenteritis ICD Code: K52.9 - Noninfective gastroenteritis and colitis, unspecified Diagnosis: Principal (4) HTN (hypertension) ICD Code: I10 - Essential (primary) hypertension Diagnosis: Secondary Procedures none Brief History - From Admission This is a 47-year-old male with no significant PMH who presented to ER with complaints of abdominal pain in addition to nausea and vomiting x2 days. Presented to ER yesterday, on 11/12/17, for similar symptoms in addition to complaints of right testicular pain/swelling. Denies diarrhea, no fever or chills. Scrotum US 11/12/17 negative, CT Abd/Pelvis 11/12/17 w/ no acute findings. Pt diagnosed w/ Epididymitis and d/c'd home w/ Cipro 500mg bid and Zofran prn. Returns now w/ ongoing abdominal pain and nausea/vomiting. States "cant' keep anything down". On arrival, BP 215/106, HR 80, O2 sat 99% RA, Afebrile. CBC unremarkable. K+ 2.8. GFR 80. Lipase 64. LFTs normal. INR 1.2. UA 11/12/2017 negative. Repeat Scrotum US with normal testicles, moderate bilateral hydrocele nonspecific, possible right inguinal hernia, however not substantiated by CT. S/p multiple doses of analgesics and antiemetics in ER w/ minimal improvement. CBC/BMP: 11/15/17 0625 11/15/17 1857 Significant Findings Laboratory Tests Test 11/13/17 15:00 11/14/17 05:47 11/14/17 11:37 11/15/17 06:25 Red Blood Count 6.59 MIL/MM3 (4.50-5.90) 5.95 MIL/MM3 (4.50-5.90) Mean Corpuscular Volume 69.5 FL (80.0-100.0) 71.2 FL (80.0-100.0) 71.5 FL (80.0-100.0) Mean Corpuscular Hemoglobin 22.9 PG (27.0-34.0) 22.8 PG (27.0-34.0) 22.6 PG (27.0-34.0) Monocytes (%) (Auto) 10.7 % (0.0-8.0) 10.4 % (0.0-8.0) Monocytes # (Auto) 1.2 TH/MM3 (0-0.9) Prothrombin Time 11.8 SEC (9.8-11.6) Activated Partial Thromboplast Time 22.7 SEC (24.3-30.1) Random Glucose 129 MG/DL (74-106) Total Protein 8.8 GM/DL (6.4-8.2) Potassium Level 2.8 MEQ/L (3.5-5.1) 2.9 MEQ/L (3.5-5.1) 3.1 MEQ/L (3.5-5.1) 3.1 MEQ/L (3.5-5.1) Chloride Level 97 MEQ/L (98-107) Estimat Glomerular Filtration Rate 80 ML/MIN (>89) Lipase 64 U/L (73-393) Mean Corpuscular Hemoglobin Concent 31.9 % (32.0-36.0) 31.7 % (32.0-36.0) Blood Urea Nitrogen 20 MG/DL (7-18) Aspartate Amino Transf (AST/SGOT) 12 U/L (15-37) Test 11/15/17 11:56 11/15/17 18:57 Potassium Level 3.0 MEQ/L (3.5-5.1) 3.3 MEQ/L (3.5-5.1) Imaging Last Impressions Scrotum Ultrasound 11/13/17 0000 Signed Impressions: Service Date/Time: Wednesday, November 13, 2017 16:18 - CONCLUSION: 1. Normal testicles. 2. Moderate bilateral hydrocele fluid, nonspecific. 3. Ultrasound suggests possible right inguinal hernia but not substantiated by CT. Please see above. Gordo Cho MD Abdomen X-Ray 11/13/17 0000 Signed Impressions: Service Date/Time: Monday, November 13, 2017 19:59 - CONCLUSION: Normal bowel gas pattern. Gordo Cho MD PE at Discharge GENERAL: This is a well-nourished, well-developed patient, in no apparent distress. CARDIOVASCULAR: Regular rate and regular rhythm without murmurs, gallops, or rubs. RESPIRATORY: Clear to auscultation. Breath sounds equal bilaterally. No wheezes , rales, or rhonchi. GASTROINTESTINAL: Abdomen soft, non-tender, nondistended. Normal, active bowel sounds MUSCULOSKELETAL: Extremities without clubbing, cyanosis, or edema. NEURO: Alert & Oriented x4 to person, place, time, situation. Moves all ext x4 Hospital Course 1. Intractable NV: symptoms ongoing for several days, recent ER presentation for same, CT Abd/Pelvis 11/12/17 w/ no acute findings. has much improved - will advance the diet and continue with supportive care. 2. Hypokalemia: replaced- 3. Gastroenteritis: likely viral, afebrile, no leukocytosis, CT Abd/Pelvis negative as above. Continue w/ Cipro for tx of Epididymitis from recent ER presentation 4. HTN: , started amlodipine- f/u as outpatient. Pt Condition on Discharge: Fair Discharge Disposition: Discharge Home Discharge Time: <= 30 minutes Discharge Instructions DIET: Follow Instructions for: Heart Healthy Diet Activities you can perform: Regular-No Restrictions Molly Zhang MD Nov 16, 2017 09:08
[2017-11-16 10:28] VITALS: BP 175/110; PULSE 74; RESP 18; TEMP 98.1; O2SAT 98
[2017-11-16] MEDS ORDERED: AMLO10TA2 PO (11:07)
== END 2017-11-16 15:11 | disposition left against medical advice (07) ==
LOC: NEPE 14:57 → NEDA 18:35 → NEPFCDU 19:39
PROVIDERS: ADMIT Internal Medicine; ATTEND Internal Medicine
DX: R11.2 Nausea with vomiting, unspecified (principal); E87.6 Hypokalemia; K52.9 Noninfective gastroenteritis and colitis, unspecified; I10 Essential (primary) hypertension; N43.3 Hydrocele, unspecified; I45.6 Pre-excitation syndrome; G47.30 Sleep apnea, unspecified; R94.31 Abnormal electrocardiogram [ECG] [EKG]; F12.90 Cannabis use, unspecified, uncomplicated
CPT/HCPCS: 74019; 76870; 76937; 80048; 80053; 83690; 83735; 84132; 85025; 85027; 85610; 85730; 93005; 93975; 96361; 96365; 96366; 96367; 96368; 96375; 96376; 99285; G0378; J0744; J0780; J2270; J2405; J2765; J3480; J7030

== ENCOUNTER 2018-01-30 23:15 | Inpatient (IN) ==
[2018-01-31 01:30] LABS: Baso % (Auto) 0.3 % (0.0-2.0); Eos # (Auto) 0.1 th/mm3 (0.0-0.4); Eos % (Auto) 0.9 % (0.0-4.0); Hematocrit 36.3 % (39.0-51.0); Hemoglobin 11.6 gm/dL (13.0-17.0); Lymph # (Auto) 0.9 th/mm3 (1.0-4.8); Lymph % (Auto) 5.8 % (9.0-44.0); Mean Corpuscular HGB Conc 31.9 % (32.0-36.0); Mean Corpuscular Hemoglobin 22.4 pg (27.0-34.0); Mean Corpuscular Volume 70.3 fL (80.0-100.0); Mean Platelet Volume 7.7 fL (7.0-11.0); Mono # (Auto) 1.2 th/mm3 (0.0-0.9); Mono % (Auto) 7.3 % (0.0-8.0); Neut # (Auto) 14.1 th/mm3 (1.8-7.7); Neut % (Auto) 85.7 % (16.0-70.0); Platelet Count 294 th/mm3 (150-450); Red Blood Count 5.17 mil/mm3 (4.50-5.90); Red Cell Distribution Width 14.8 % (11.6-17.2); White Blood Count 16.5 th/mm3 (4.0-11.0)
--- NOTE | 2018-01-31 01:30 | XR ---
EXAM DATE: 01/31/2018 1:21 AM EDT AGE/SEX: 47 years / Male INDICATIONS: Cough and vomit ting. CLINICAL DATA: This is the patient's initial encounter. Patient reports that signs and symptoms have been present for 1 day and indicates a pain score of 0/10. MEDICAL/SURGICAL HISTORY: . Hydrocele. None. COMPARISON: No prior exams available for comparison. FINDINGS: A single AP view of the chest demonstrates the lungs to be symmetrically aerated without evidence of mass, infiltrate or effusion. The cardiomediastinal contours are unremarkable. Osseous structures a re intact. CONCLUSION: The lungs are clear. Electronically signed by: Glen Ruff MD 01/31/2018 1:28 AM EDT
--- NOTE | 2018-01-31 01:34 | ED ---
HPI General Chief complaint: Nausea/Vomiting/Diarrhea Stated complaint: Foot/vomiting/he was here yesterday Time Seen by Provider: 01/31/18 00:56 Source: patient History of Present Illness HPI narrative: The patient is a 47 year old male who presents to the [facility] emergency department with a history of reportedly 2 days ago stepping on a nail while wearing boots. He reports that when he stepped on the nail he was evaluated and started on antibiotic. He reports that since starting on the antibiotic use had nausea and vomiting and an exacerbation of pain in his groin. He reports that he has a hydrocele. He reports that he does not follow with the urologist. He reports that he was seen yesterday for this in the emergency department. He reports that an ultrasound and a CT scan of the abdomen and pelvis were done. He reports that laboratory studies were also done and he was discharged home to continue on antibiotics for the penetrating wound to the left foot Zofran, and pain medication. He reports that since then he continues to have nausea and vomiting too many times to count. He reports that he is also had diarrhea a couple of times since yesterday. He denies having any blood in his stool or black or tarry stools. He reports having increased pain and swelling to the left foot and the second toe related to his penetrating wound from the nail. On review of systems otherwise, the patient denies having any known recent fevers, cough or congestion,neck pain, chest pain , shortness of breath, urinary symptoms, or neurologic symptoms. Related Data Previous Rx's Medication Instructions Recorded clindamycin HCl 300 mg PO Q6H 7 Days #56 cap 01/30/18 ibuprofen 800 mg PO Q8H PRN #10 tab 01/30/18 ondansetron HCl [Zofran] 4 mg PO Q6H PRN #10 tab 01/30/18 oxycodone-acetaminophen [Percocet] 1 tab PO Q6H PRN #7 tab 01/30/18 Allergies Allergy/AdvReac Type Severity Reaction Status Date / Time lactose Allergy Severe Hives Verified 01/30/18 23:38 milk Allergy Severe Anaphylaxis Verified 01/30/18 23:38 Sulfa (Sulfonamide Allergy Unknown ITCHING Verified 01/30/18 23:38 Antibiotics) Review of Systems ROS Unobtainable All other systems reviewed negative except as stated in HPI PMFSH History History Provided By: Patient Medical History Medical History Hypertension (Acute) Hydrocele in adult (Acute) Family History Family History Other Diabetes Social History Social History Substance History: No History of Abuse Second Hand Smoke Exposure: No Smoking Status: Never smoker How Often Do You Have a Drink Containing Alcohol: 2 to 4 times a month Recent Travel in [facility] within the Last 8 Weeks: No Recent Out of Country Travel within the Last 8 Weeks: No Exam Narrative Exam Narrative: General: The patient is a well-developed well-nourished male, uncomfortable appearing on my arrival to the room, actively retching. Head and Neck exam: Head is normocephalic atraumatic. Eyes: EOMI, pupils are equal round and reactive to light. Nose: Midline septum with pink mucous membranes Mouth: Dentition unremarkable. Moist mucus membranes. Posterior oropharynx is not erythematous. No tonsillar hypertrophy. Uvula midline. Airway patent. Neck: No palpable lymphadenopathy. No nuchal rigidity. No thyromegaly. Cardiovascular: Regular rate and rhythm without murmurs, gallops, or rubs. No pulse deficit to the extremities on simultaneous auscultation and palpation of his radial artery. Lungs: Clear to auscultation bilaterally. No wheezes, rhonchi, or rales. Abdomen: Soft, with tenderness on palpation overlying the suprapubic area, no other tenderness on palpation of the other quadrants of the abdomen. No guarding, rebound, or rigidity. Normal bowel sounds are audible. Negative Hughes's sign. No tenderness on palpation of McBurney's point. Extremities: No clubbing, cyanosis, or edema. 2+ pulses in all 4 extremities. On examination of the patient's left foot, the patient is noted to have swelling to the ball of the foot and second toe. The patient has a Band-Aid in place with yellow drainage coming from an open wound along the ball of the foot. The patient reports having tenderness on palpation surrounding this. There is some erythema surrounding the wound. Back: No spinous process tenderness to palpation. No costovertebral angle tenderness to palpation. Neurologic Exam: Grossly nonfocal. Skin Exam: No other rash noted. Intact skin that is warm and dry. Genital exam: No genital lesions or rash noted. The patient reports pain on palpation of the scrotum with swelling noted. There is no erythema or pointing. There is no palpable hernia. There is a palpable hydrocele on the right greater than left. Course Hospital Course: During the course of the patient's emergency department visit, the patient's history, examination, and differential diagnosis were reviewed with the patient. The patient was placed on a cardiac technician with oximetry and frequent blood pressure monitoring. The patient had IV access obtained and blood work sent for analysis. An x-ray of the left foot has been ordered. The patient's electronic medical record was reviewed. The patient was noted at that time to have a white count of 17,000. To the patient's workup today lactic acid, blood cultures were added, along with a CBC The patient was initially provided normal saline 1 L IV fluid bolus, Compazine 5 mg IV. Reevaluation(s) Reevaluation #1: The patient on reevaluation is noted to continue to have nausea. The patient was given a dose of Reglan IV. The patient's white count continues to be elevated. The patient was given Zosyn 3.375 g IV, vancomycin 1 g IV. Time: 02:28 Consultations Consultation #1: The patient's case including history, pertinent physical examination findings, and laboratory studies were discussed with Dr. Prince. It was agreed that the patient would be admitted to the hospitalist service. Initial Documented Vital Signs Temperature 99.1 F 01/30/18 23:32 Pulse Rate 99 H 01/30/18 23:32 Respiratory Rate 20 01/30/18 23:32 Blood Pressure 202/98 H 01/30/18 23:32 Pulse Oximetry 97 01/30/18 23:32 Last Documented Vital Signs Temperature 98.7 F 01/31/18 16:00 Pulse Rate 84 01/31/18 16:00 Respiratory Rate 16 01/31/18 16:00 Blood Pressure 183/98 H 01/31/18 16:00 Pulse Oximetry 96 01/31/18 16:00 Medical Decision Making MDM Narrative Medical decision making narrative: The patients studies remarkable for A white count of 16.5 suggestive of infection with a left shift neutrophil predominance of 85.7, hemoglobin was 11.6. PT 11.8, PTT 30.6, CMP is remarkable for glucose of 129 potassium 3.3 lipase 50, AST 16, C-reactive protein is elevated at 14, lactic acid was within normal limits, troponin I within normal limits, CPK 100. The patient's left foot x-ray revealed no radiopaque foreign body, possible evulsion injury or fragmentation of the first digit proximal phalanx medially at the MTP joint. A chest x-ray showed no acute abnormality. The patient appears to have progressive infection of the foot related to a puncture wound from a nail through his shoe. The patient will be admitted to the hospital for continued evaluation and treatment. The patient's results were discussed with the patient, including the plan of care. I explained that further testing and/ or monitoring is indicated based on the patient's history, examination, and/ or laboratory findings. Therefore, I recommended admission for additional evaluation. The patient expressed understanding and was agreeable with this plan. The patient was admitted to the hospital in guarded condition and sent to a bed under the care of [facility] service. Differential Diagnosis Differential Diagnosis: Cellulitis, versus osteomyelitis, versus foreign body to the left foot, versus pyelonephritis Lab Data Result diagrams: 01/31/18 01:15 01/31/18 01:15 Lab Results 01/31/18 01/31/18 01/31/18 Range/Units 01:15 01:15 01:15 WBC 16.5 H (4.0-11.0) th/mm3 RBC 5.17 (4.50-5.90) mil/mm3 Hgb 11.6 L (13.0-17.0) gm/dL Hct 36.3 L (39.0-51.0) % MCV 70.3 L (80.0-100.0) fL MCH 22.4 L (27.0-34.0) pg MCHC 31.9 L (32.0-36.0) % RDW 14.8 (11.6-17.2) % Plt Count 294 (150-450) th/mm3 MPV 7.7 (7.0-11.0) fL Neut % (Auto) 85.7 H (16.0-70.0) % Lymph % (Auto) 5.8 L (9.0-44.0) % [place] % (Auto) 7.3 (0.0-8.0) % Eos % (Auto) 0.9 (0.0-4.0) % Baso % (Auto) 0.3 (0.0-2.0) % Neut # (Auto) 14.1 H (1.8-7.7) th/mm3 Lymph # (Auto) 0.9 L (1.0-4.8) th/mm3 [place] # (Auto) 1.2 H (0.0-0.9) th/mm3 Eos # (Auto) 0.1 (0.0-0.4) th/mm3 Baso # (Auto) 0.0 (0.0-0.2) th/mm3 WBC Differential . Differential Comment Auto diff final PT 11.8 H (9.8-11.6) sec INR 1.2 Ratio APTT 30.6 H (24.3-30.1) sec Sodium 137 (136-145) meq/L Potassium 3.3 L (3.5-5.1) meq/L Chloride 100 (98-107) meq/L Carbon Dioxide 26.4 (21.0-32.0) meq/L Anion Gap 11 (5-15) meq/L BUN 13 (7-18) mg/dL Creatinine 0.86 (0.60-1.30) mg/dL Estimated GFR Greater than 89 (>89) mL/min Random Glucose 129 H (74-106) mg/dL Lactic Acid (0.4-2.0) mmol/L Calcium 8.6 (8.5-10.1) mg/dL Total Bilirubin 0.8 (0.2-1.0) mg/dL AST 6 L (15-37) U/L ALT 14 (12-78) U/L Alkaline Phosphatase 72 (45-117) U/L Total Creatine Kinase 100 (39-308) U/L Troponin I Less than 0.02 L (0.02-0.05) ng/mL C-Reactive Protein (0.00-0.30) mg/dL Total Protein 8.0 D (6.4-8.2) g/dL Albumin 3.3 L (3.4-5.0) g/dL Lipase 50 L (73-393) U/L Urine Color (Yellw/Straw) Urine Clarity (Clear) Urine pH (5.0-8.5) Ur Specific [place] (1.002-1.035) Urine Protein (Neg-Trace) mg/dL Urine Glucose (UA) (Negative) mg/dL Urine Ketones (Negative) mg/dL Urine Occult Blood (Negative) Urine Nitrate (Negative) Urine Bilirubin (Negative) Urine Urobilinogen (Less than 2) mg/dL Ur Leukocyte Esterase (Negative) Urine RBC (0-3) /hpf Urine WBC (0-5) /hpf Urine Mucus (Occasional) /lpf Micro UA Comment Urine Culture Comments 01/31/18 01/31/18 01/31/18 Range/Units 01:15 01:18 03:30 WBC (4.0-11.0) th/mm3 RBC (4.50-5.90) mil/mm3 Hgb (13.0-17.0) gm/dL Hct (39.0-51.0) % MCV (80.0-100.0) fL MCH (27.0-34.0) pg MCHC (32.0-36.0) % RDW (11.6-17.2) % Plt Count (150-450) th/mm3 MPV (7.0-11.0) fL Neut % (Auto) (16.0-70.0) % Lymph % (Auto) (9.0-44.0) % [place] % (Auto) (0.0-8.0) % Eos % (Auto) (0.0-4.0) % Baso % (Auto) (0.0-2.0) % Neut # (Auto) (1.8-7.7) th/mm3 Lymph # (Auto) (1.0-4.8) th/mm3 [place] # (Auto) (0.0-0.9) th/mm3 Eos # (Auto) (0.0-0.4) th/mm3 Baso # (Auto) (0.0-0.2) th/mm3 WBC Differential Differential Comment PT (9.8-11.6) sec INR Ratio APTT (24.3-30.1) sec Sodium (136-145) meq/L Potassium (3.5-5.1) meq/L Chloride (98-107) meq/L Carbon Dioxide (21.0-32.0) meq/L Anion Gap (5-15) meq/L BUN (7-18) mg/dL Creatinine (0.60-1.30) mg/dL Estimated GFR (>89) mL/min Random Glucose (74-106) mg/dL Lactic Acid 1.2 (0.4-2.0) mmol/L Calcium (8.5-10.1) mg/dL Total Bilirubin (0.2-1.0) mg/dL AST (15-37) U/L ALT (12-78) U/L Alkaline Phosphatase (45-117) U/L Total Creatine Kinase (39-308) U/L Troponin I (0.02-0.05) ng/mL C-Reactive Protein 14.00 H (0.00-0.30) mg/dL Total Protein (6.4-8.2) g/dL Albumin (3.4-5.0) g/dL Lipase (73-393) U/L Urine Color Yellow (Yellw/Straw) Urine Clarity Clear (Clear) Urine pH 6.0 (5.0-8.5) Ur Specific [place] 1.023 (1.002-1.035) Urine Protein 100 H (Neg-Trace) mg/dL Urine Glucose (UA) 50 (Negative) mg/dL Urine Ketones 20 (Negative) mg/dL Urine Occult Blood Negative (Negative) Urine Nitrate Negative (Negative) Urine Bilirubin Negative (Negative) Urine Urobilinogen 4 or greater (Less than 2) mg/dL Ur Leukocyte Esterase Negative (Negative) Urine RBC 2 (0-3) /hpf Urine WBC 2 (0-5) /hpf Urine Mucus Few H (Occasional) /lpf Micro UA Comment Culture not ind Urine Culture Comments Culture not ind Imaging Data Radiologist's impression: ITS Impressions Foot MRI 01/31/18 00:00 CONCLUSION: 1. There is some nonspecific edema in the soft tissues along the plantar surface of the foot. 2. No evidence of acute or subacute avulsion fracture injury. 3. No evidence of osteomyelitis. Chest X-Ray 01/31/18 01:00 CONCLUSION: The lungs are clear. Foot X-Ray 01/31/18 01:28 CONCLUSION: 1. No radiopaque foreign bodies seen. 2. Possible avulsion injury or fragmentation of the first digit proximal phalanx medially at the MTP joint. ECG Data Attestation: I personally reviewed and interpreted this ECG as follows: Interpretation: * The patient had an EKG done on arrival shows a sinus rhythm heart rate of 91, QRS duration is 85 ms, QTC 426 ms. Moderate voltage criteria are noted for LVH. No acute ST segment elevation is noted. T waves are inverted in V1. Discharge Plan Discharge Disposition Patient Disposition: 30 Still Patient Physicians Team ED Provider: Tamara Son Primary Care Provider: Primary Care Vania Javier Attending Provider: Mendel Adkins Discharge Interventions Interventions: ED Discharge Assessment Last Done: 01/31/18 07:01 Status ED Status: Left Department Discharge Information Discharge Date/Time: 01/31/18 08:17
[2018-01-31 01:52] LABS: Activated Partial Thrombo Time 30.6 sec (24.3-30.1); INR 1.2 Ratio; Prothrombin Time 11.8 sec (9.8-11.6)
[2018-01-31] MEDS ORDERED: Sod Chloride 0.9% Inj 1,000 ML IV.SIG ONE (01:56)
[2018-01-31 02:00] LABS: Alanine Aminotransferase 14 U/L (12-78); Albumin 3.3 g/dL (3.4-5.0); Anion Gap 11 meq/L (5-15); Aspartate Aminotransferase 6 U/L (15-37); Blood Urea Nitrogen 13 mg/dL (7-18); Calcium 8.6 mg/dL (8.5-10.1); Carbon Dioxide 26.4 meq/L (21.0-32.0); Chloride 100 meq/L (98-107); Glomerular Filtration Rate Greater Than 89 mL/min (>89); Glucose,Random 129 mg/dL (74-106); Lipase 50 U/L (73-393); Potassium 3.3 meq/L (3.5-5.1); Sodium 137 meq/L (136-145)
[2018-01-31 02:03] LABS: Alkaline Phosphatase 72 U/L (45-117)
[2018-01-31 02:06] LABS: Creatine Kinase 100 U/L (39-308)
--- NOTE | 2018-01-31 02:14 | XR ---
EXAM DATE: 01/31/2018 2:04 AM EDT AGE/SEX: 47 years / Male INDICATIONS: Stepped on nail 2 days ago. CLINICAL DATA: This is the patient's initial encounter. Patient reports that signs and symptoms have been present for 1 day and indicates a pain score of 5/10. MEDICAL/SURGICAL HISTORY: None. None. [place] [facility] [place]. . FINDINGS: Bone density is normal. The osseous structures are in normal alignment. There is possible fragmentati on or avulsion injury of the medial metaphysis of the proximal phalanx of the first digit at the MTP joint, only seen on the frontal view. No radiopaque foreign bodies seen. The remainder of the osseous structures of the forefoot are intact. Mild degenerative changes in the midfoot. CONCLUSION: 1. No radiopaque foreign bodies seen. 2. Possible avulsion injury or fragmentation of the first digit proximal phalanx medially at the MTP joint. Electronically signed by: Glen Ruff MD 01/31/2018 2:13 AM EDT
[2018-01-31] MEDS ORDERED: Piperacil/Tazo 3.375 GM Premix 50 ML IV.SIG ONE (02:29)
[2018-01-31] MEDS ORDERED: Vancomycin Inj 1,000 MG in Sodium Chlor 0.9% Inj 250 ML IV.SIG ONE (02:29)
[2018-01-31 04:00] LABS: Bilirubin,Urine Negative (Negative); Clarity,Urine Clear (Clear); Color,Urine Yellow (Yellw/Straw); Glucose,Urine (UA) 50 mg/dL (Negative); Leukocyte Esterase,Urine Negative (Negative); Mucus,Urine Few /lpf (Occasional); Nitrite,Urine Negative (Negative); Specific Gravity,Urine 1.023 (1.002-1.035); Urobilinogen,Urine 4 or Greater mg/dL (Less than 2)
[2018-01-31] MEDS ORDERED: Bisacodyl 10 MG Supp RECTAL PRN (04:20)
[2018-01-31] MEDS ORDERED: Morphine Sulfate Inj 2 MG/ML Vial IV.PUSH PRN (04:22)
[2018-01-31] MEDS ORDERED: Vancomycin Consult Pharmacy 1 EACH OTHER SCH (05:00)
[2018-01-31] MEDS: Morphine Inj 4 MG/ML Vial IV.PUSH PRN ×4 (05:15→22:33)
[2018-01-31] MEDS: Sod Chloride 0.9% Inj 1,000 ML IV.CONT SCH ×2 (05:16→20:34)
[2018-01-31] MEDS: Senna/Docusate Sodium 8.6/50 MG Tablet PO SCH ×2 (08:50→20:34)
--- NOTE | 2018-01-31 10:47 | ECG ---
Date Performed: 01/31/2018 Time Performed: 03:15:30 PTAGE: 47 years EKG: Sinus rhythm MODERATE VOLTAGE CRITERIA FOR LVH, CONSIDER NORMAL VARIANT BORDERLINE ECG Compared to PREVIOUS TRACING nonspecific ST T wave changes have resolved PREVIOUS TRACIN 8 15.08 DOCTOR: Nelson Pizarro Interpretating Date/Time 01/31/2018 10:45:43
--- NOTE | 2018-01-31 11:09 | P.HP ---
History of Present Illness Primary Care Physician: No Primary Care Physician History of Present Illness: 47-year-old black male being admitted for intractable nausea vomiting with possible osteomyelitis in the left foot. Patient was in usual state of health until 2 days ago when he was at work; afterwards he tried to take his shoe off and had trouble and started having pain on his left foot. He noted he had a shoe stuck to the bottom of his foot which he retracted with some pliers. He was able to pull his foot out and noted that he had a small hole at the bottom of the foot. He went to the emergency department was prescribed clindamycin and pain medication. About 8 hours after taking his first dose of clindamycin he says he started having substantial nausea vomiting. This was so profound to the point where he says he actually "blacked out" at home. He decided to come back to the emergency department because his nausea and vomiting would not stop, says he pulled over about 4 times to deal with his vomiting. Denies any coffee-ground emesis or hematemesis or any change in bowel habits for that matter. He does report feeling subjective chills. Says that his foot pain has been a constant 6 up to an 8 with a throbbing nature. Says that the foot has been more swollen. In the emergency department he had a foot x-ray done on his first visit which showed a possible avulsion fracture of the proximal first digit phalanx. In his second visit to the emergency department he had a white count around 16. Podiatry consultation was ordered at that time. Patient was started on cefepime. - Inpatient Certification If this patient has been admitted as an Inpatient: I certify that the inpatient services were ordered in accordance with Medicare regulations governing the order. This includes certification that hospital inpatient services are reasonable and necessary and in the case of services not specified as inpatient-only under 42 CFR 419.22(n), that they are appropriately provided as inpatient services in accordance to with the 2-midnight benchmark under 43 CFR 412.3(e) Estimated Total Length of Stay (Days): 2 Plans for Post Hospital Care: Not yet determined Review of Systems All other systems reviewed negative except as stated in HPI PMFSH - History History Provided By: Patient - Medical History Medical History: Medical History (Last Reviewed 01/31/18 @ 01:35 by Tamara Son MD) Hypertension Hydrocele in adult - Family History Family History: Family History (Last Updated 01/31/18 @ 11:04 by Mendel Adkins MD) Other Diabetes - Tobacco History Second Hand Smoke Exposure: No Tobacco Use In Past 30 Days: No Smoking Status: Never smoker - Alcohol History How Often Do You Have a Drink Containing Alcohol: 2 to 4 times a month - Substance Use History Substance History: No History of Abuse - Substance Use Type Marijuana Status: Active Route Used: Inhalation Frequency: OCC - Travel History Recent Travel in the [place] Within the Last 8 Weeks: No Recent Travel Out of the Country Within the Last 8 Weeks: No - Immunization History Tetanus Immunization: Unsure Hx Influenza Vaccine This Season: No Medications and Allergies Active Medications: Active Medications Al Hydroxide/Mg Hydroxide (Milk Of Magnesia Liq) 30 ml PO Q12H PRN PRN Reason: Mild Constipation Bisacodyl (Dulcolax Supp) 10 mg RECTAL DAILY PRN PRN Reason: SEVERE CONSITIPATION Cefepime HCl 1,000 mg/ Sodium (Chloride) 100 mls @ 200 mls/hr IV.SIG Q12H [facility]ANG Sodium Chloride (Ns Inj) 1,000 mls @ 100 mls/hr IV.CONT .Q10H [facility] Last Admin: 01/31/18 05:16 Dose: 100 mls/hr Pharmacy Profile Note (Vancomycin Consult Pharmacy) 0 mls @ 0 mls/hr OTHER UNSCH HUANG Lactulose (Lactulose Liq) 30 ml PO DAILY PRN PRN Reason: SEVERE CONSITIPATION Metoclopramide HCl (Reglan Inj) 5 mg IV.PUSH Q6HR PRN; Protocol PRN Reason: NAUSEA OR VOMITING Morphine Sulfate (Morphine Inj) 2 mg IV.PUSH Q4H PRN PRN Reason: PAIN 6-10 Last Admin: 01/31/18 05:15 Dose: 2 mg Prochlorperazine Edisylate (Compazine Inj) 10 mg IV.PUSH Q6H PRN PRN Reason: NAUSEA/VOMITING Senna/Docusate Sodium (Raiza-Colace) 1 tab PO BID [facility] Last Admin: 01/31/18 08:50 Dose: Not Given Sennosides (Senokot) 17.2 mg PO Q12H PRN PRN Reason: Moderate Constipation Sodium Chloride (Ns Flush) 2 ml IV.FLUSH PRN PRN PRN Reason: FLUSH AFTER USING IV ACCESS Allergies Allergy/AdvReac Type Severity Reaction Status Date / Time lactose Allergy Severe Hives Verified 01/30/18 23:38 milk Allergy Severe Anaphylaxis Verified 01/30/18 23:38 Sulfa (Sulfonamide Allergy Unknown ITCHING Verified 01/30/18 23:38 Antibiotics) Exam Vital signs: Vital Signs 01/30/18 23:32 01/31/18 01:52 01/31/18 03:20 Temperature 99.1 F Pulse Rate 99 H 97 H 89 Respiratory Rate 20 19 17 Blood Pressure 202/98 H 215/99 H 185/102 H Pulse Oximetry 97 100 100 01/31/18 05:21 Temperature Pulse Rate 90 Respiratory Rate 18 Blood Pressure 173/84 H Pulse Oximetry Intake & Output 01/30/18 01/31/18 01/31/18 18:59 06:59 18:59 Weight 120.202 kg Other: # Voids 1 Date of Last Bowel Movement 01/30/18 Narrative: VS: afebrile GENERAL: Lying in bed, awake, alert, in mild distress secondary to nausea SKIN: Warm and dry. EYES: No scleral icterus. No injection or drainage. ENT: No nasal bleeding or discharge. Mucous membranes pink and moist. CARDIOVASCULAR: Regular rate and rhythm. no murmurs RESPIRATORY: No accessory muscle use. Clear to auscultation. Breath sounds equal bilaterally. GASTROINTESTINAL: Abdomen soft, non-tender, nondistended. Extremities: No clubbing, cyanosis, MUSCULOSKELETAL: adequate muscle bulk and tone for age and habitus. Left foot is obvious global edema that is at least mild to moderate. Has tenderness to palpation over the diffuse MTP pressure points as well as on the dorsum of the midfoot. He has an entry wound with some purulent drainage on the plantar aspect of the MTP first and second digits. NEUROLOGICAL: Awake and alert. No obvious cranial nerve deficits. No facial droop nor slurred speech noted. PSYCHIATRIC: Appropriate mood and affect; insight and judgment normal. Results - Labs CBC & Chem 7: 01/31/18 01:15 01/31/18 01:15 Labs: Laboratory Results - last 24 hr 01/31/18 01/31/18 01/31/18 01:15 01:15 01:15 WBC 16.5 H RBC 5.17 Hgb 11.6 L Hct 36.3 L MCV 70.3 L MCH 22.4 L MCHC 31.9 L RDW 14.8 Plt Count 294 MPV 7.7 Neut % (Auto) 85.7 H Lymph % (Auto) 5.8 L [place] % (Auto) 7.3 Eos % (Auto) 0.9 Baso % (Auto) 0.3 Neut # (Auto) 14.1 H Lymph # (Auto) 0.9 L [place] # (Auto) 1.2 H Eos # (Auto) 0.1 Baso # (Auto) 0.0 WBC Differential . Differential Comment Auto diff final PT 11.8 H INR 1.2 APTT 30.6 H Sodium 137 Potassium 3.3 L Chloride 100 Carbon Dioxide 26.4 Anion Gap 11 BUN 13 Creatinine 0.86 Estimated GFR Greater than 89 Random Glucose 129 H Lactic Acid Calcium 8.6 Total Bilirubin 0.8 AST 6 L ALT 14 Alkaline Phosphatase 72 Total Creatine Kinase 100 Troponin I Less than 0.02 L C-Reactive Protein Total Protein 8.0 D Albumin 3.3 L Lipase 50 L Urine Color Urine Clarity Urine pH Ur Specific [place] Urine Protein Urine Glucose (UA) Urine Ketones Urine Occult Blood Urine Nitrate Urine Bilirubin Urine Urobilinogen Ur Leukocyte Esterase Urine RBC Urine WBC Urine Mucus Micro UA Comment Urine Culture Comments 01/31/18 01/31/18 01/31/18 01:15 01:18 03:30 WBC RBC Hgb Hct MCV MCH MCHC RDW Plt Count MPV Neut % (Auto) Lymph % (Auto) [place] % (Auto) Eos % (Auto) Baso % (Auto) Neut # (Auto) Lymph # (Auto) [place] # (Auto) Eos # (Auto) Baso # (Auto) WBC Differential Differential Comment PT INR APTT Sodium Potassium Chloride Carbon Dioxide Anion Gap BUN Creatinine Estimated GFR Random Glucose Lactic Acid 1.2 Calcium Total Bilirubin AST ALT Alkaline Phosphatase Total Creatine Kinase Troponin I C-Reactive Protein 14.00 H Total Protein Albumin Lipase Urine Color Yellow Urine Clarity Clear Urine pH 6.0 Ur Specific [place] 1.023 Urine Protein 100 H Urine Glucose (UA) 50 Urine Ketones 20 Urine Occult Blood Negative Urine Nitrate Negative Urine Bilirubin Negative Urine Urobilinogen 4 or greater Ur Leukocyte Esterase Negative Urine RBC 2 Urine WBC 2 Urine Mucus Few H Micro UA Comment Culture not ind Urine Culture Comments Culture not ind - Imaging Impressions Chest X-Ray 01/31/18 01:00 CONCLUSION: The lungs are clear. Foot X-Ray 01/31/18 01:28 CONCLUSION: 1. No radiopaque foreign bodies seen. 2. Possible avulsion injury or fragmentation of the first digit proximal phalanx medially at the MTP joint. Caprini VTE Risk Assessment Caprini VTE Risk Assessment: Moderate/High Risk (score >= 2) VTE Pharmacological Exception Reason: Postop bleeding VTE Mechanical Exception: LE injury/wound Caprini Risk Assessment Model: Point Value = 1 Point Value = 2 Point Value = 3 Point Value = 5 Age 41-60 Minor surgery BMI > 25 kg/m2 Swollen legs Varicose veins or History of unexplained or recurrent spontaneous Oral contraceptives or hormone replacement Sepsis (< 1 month) Serious lung disease, including pneumonia (< 1 month) Abnormal pulmonary function Acute myocardial infarction Congestive heart failure (< 1 month) History of inflammatory bowel disease Medical patient at bed rest Age 61-74 Arthroscopic surgery Major open surgery (> 45 min) Laparoscopic surgery (> 45 min) Malignancy Confined to bed (> 72 hours) Immobilizing plaster cast Central venous access Age >= 75 History of VTE Family history of VTE Factor V Leiden Prothrombin [id number] Lupus anticoagulant Anticardiolipin antibodies Elevated serum homocysteine Heparin-induced thrombocytopenia Other congenital or acquired thrombophilia Stroke (< 1 month) Elective arthroplasty Hip, pelvis, or leg fracture Acute spinal cord injury (< 1 month) Prophylaxis Regimen: Total Risk Factor Score Risk Level Prophylaxis Regimen 0-1 Low Early ambulation 2 Moderate Order ONE of the following: *Sequential Compression Device (SCD) *Heparin 5000 units SQ BID 3-4 Higher Order ONE of the following medications: *Heparin 5000 units SQ TID *Enoxaparin/Lovenox 40 mg SQ daily (WT < 150 kg, CrCl > 30 mL/min) *Enoxaparin/Lovenox 30 mg SQ daily (WT < 150 kg, CrCl > 10-29 mL/min) *Enoxaparin/Lovenox 30 mg SQ BID (WT < 150 kg, CrCl > 30 mL/min) AND/OR *Sequential Compression Device (SCD) 5 or more Highest Order ONE of the following medications: *Heparin 5000 units SQ TID (Preferred with Epidurals) *Enoxaparin/Lovenox 40 mg SQ daily (WT < 150 kg, CrCl > 30 mL/min) *Enoxaparin/Lovenox 30 mg SQ daily (WT < 150 kg, CrCl > 10-29 mL/min) *Enoxaparin/Lovenox 30 mg SQ BID (WT < 150 kg, CrCl > 30 mL/min) AND *Sequential Compression Device (SCD) Assessment and Plan - Plan 47-year-old black male being admitted for intractable nausea vomiting as well as possible osteomyelitis left foot Intractable nausea vomiting -Possibly from sepsis/infection and foot versus a more unlikely medication adverse effects since he still having symptoms 48 hours later after taking 1 dose of his antibiotic clindamycin at home -Zofran and IV fluids, -CMP is unremarkable Left foot puncture wound -Appears infected, - podiatry consultation pending, -continue cefepime, -will start vancomycin, -ordering CRP, blood cx's pending -will likely have a low threshold to order MRI osteomyelitis protocol scd on right foot
[2018-01-31] MEDS ORDERED: Gadodiamide PF Inj 287 MG/ML 5 ML Syringe (for RAD MRI) IV.PUSH ONE (13:50)
--- NOTE | 2018-01-31 14:21 | MR ---
EXAM DATE: 01/31/2018 2:09 PM EDT AGE/SEX: 47 years / Male INDICATIONS: . Left foot pain. Pt stepped on nail puncturing between great toe and 2nd digit left foot. CLINICAL DATA: This is the patient's subsequent encounter. Patient reports that signs and symptoms h ave been present for 2 days and indicates a pain score of 3/10. MEDICAL/SURGICAL HISTORY: None. None. COMPARISON: [facility] [place], FOOT COMPLETE LEFT 3V, 01/31/2018. . TECHNIQUE: Multiplanar, multisequence MRI examination was performed without contrast and after th e intravenous administration of 24 ml Omniscan (gadodiamide) single exam dose. FINDINGS: On patient's recent plain film study of the right foot there was a questionable avulsion injury invol ving the base of the first proximal phalanx. However, on today's exam there is normal signal within t he bony structures. No focal bone marrow edema is demonstrated. Therefore this is not an acute or sub acute injury. This may be an old avulsion injury versus osteophyte. There is normal signal intensity in all the bony structures. No abnormal bone marrow edema is demonstrated. There is some nonspecific edema in the subcutaneous soft tissues along the plantar surface of the foot. No radiopaque foreign b odies are demonstrated. No loculated fluid collections are demonstrated. There are some degenerative changes involving the foot. CONCLUSION: 1. There is some nonspecific edema in the soft tissues along the plantar surface of the foot. 2. No evidence of acute or subacute avulsion fracture injury. 3. No evidence of osteomyelitis. Electronically signed by: Boubacar Pappas MD 01/31/2018 2:20 PM EDT
--- NOTE | 2018-01-31 18:06 | P.CON ---
History of Present Illness Service: Foot and ankle surgery/podiatry Consult date: 01/31/18 Reason for Consult: Left foot plantar wound status post puncture with nail Primary Care Provider: No Primary Care Physician Family Provider: No Primary Care Physician Chief Complaint: Continued painful left foot with nausea and vomiting History of Present Illness: Podiatry consulted for this 47-year-old male with possible osteomyelitis to his left foot. admitted for intractable nausea and vomiting patient states he was removing a presybeterian sign when he had a nail go through the bottom of his shoe into his foot. Patient was prescribed clindamycin and pain medication in the emergency department however at home he started having substantial nausea and vomiting so he proceeded back to the emergency department. Patient denies any fevers or diarrhea at this time. He does report nausea, vomiting, and chills. Review of Systems Constitutional: Reports chills, Denies fever(s) Eyes: Denies blurry vision, Denies pain Cardiovascular: Denies chest pain, Denies excessive sweating Respiratory: Denies cough Gastrointestinal: Denies abdominal pain Neurologic: Denies localized weakness PMFSH - History History Provided By: Patient - Medical History Medical History: Medical History (Last Reviewed 01/31/18 @ 01:35 by Tamara Son MD) Hypertension Hydrocele in adult - Family History Family History: Family History (Last Updated 01/31/18 @ 11:04 by Mendel Adkins MD) Other Diabetes - Tobacco History Second Hand Smoke Exposure: No Tobacco Use In Past 30 Days: No Smoking Status: Never smoker - Alcohol History How Often Do You Have a Drink Containing Alcohol: 2 to 4 times a month - Substance Use History Substance History: No History of Abuse - Substance Use Type Marijuana Status: Active Route Used: Inhalation Frequency: OCC - Travel History Recent Travel in the [place] Within the Last 8 Weeks: No Recent Travel Out of the Country Within the Last 8 Weeks: No - Immunization History Tetanus Immunization: Unsure Hx Influenza Vaccine This Season: No Medications and Allergies Active Medications: Active Medications Hydrocodone Bitart/Acetaminophen ([place] 10/325) 1 tab PO Q6H PRN PRN Reason: PAIN 1-10 AND/OR FEVER >101F Al Hydroxide/Mg Hydroxide (Milk Of Magnesia Liq) 30 ml PO Q12H PRN PRN Reason: Mild Constipation Bisacodyl (Dulcolax Supp) 10 mg RECTAL DAILY PRN PRN Reason: SEVERE CONSITIPATION Cefepime HCl 1,000 mg/ Sodium (Chloride) 100 mls @ 200 mls/hr IV.SIG Q12H [facility] Last Admin: 01/31/18 17:52 Dose: 200 mls/hr Sodium Chloride (Ns Inj) 1,000 mls @ 100 mls/hr IV.CONT .Q10H [facility] Last Admin: 01/31/18 05:16 Dose: 100 mls/hr Pharmacy Profile Note (Vancomycin Consult Pharmacy) 0 mls @ 0 mls/hr OTHER UNSCH [facility] Vancomycin HCl 2,000 mg/ (Sodium Chloride) 520 mls @ 260 mls/hr IV.SIG Q12H [facility] Lactulose (Lactulose Liq) 30 ml PO DAILY PRN PRN Reason: SEVERE CONSITIPATION Miscellaneous Information ([facility] Ordered Lab Info) 1 each OTHER ONCE ONE Stop: 02/02/18 04:46 Morphine Sulfate (Morphine Inj) 2 mg IV.PUSH Q4H PRN PRN Reason: PAIN 6-10 Last Admin: 01/31/18 17:57 Dose: 2 mg Ondansetron HCl (Zofran Odt) 4 mg PO Q6H PRN PRN Reason: NAUSEA Senna/Docusate Sodium (Raiza-Colace) 1 tab PO BID [facility] Last Admin: 01/31/18 08:50 Dose: Not Given Sennosides (Senokot) 17.2 mg PO Q12H PRN PRN Reason: Moderate Constipation Sodium Chloride (Ns Flush) 2 ml IV.FLUSH PRN PRN PRN Reason: FLUSH AFTER USING IV ACCESS Allergies Allergy/AdvReac Type Severity Reaction Status Date / Time lactose Allergy Severe Hives Verified 01/30/18 23:38 milk Allergy Severe Anaphylaxis Verified 01/30/18 23:38 Sulfa (Sulfonamide Allergy Unknown ITCHING Verified 01/30/18 23:38 Antibiotics) Physical Exam Vital signs: Vital Signs 01/30/18 23:32 01/31/18 01:52 01/31/18 03:20 Temperature 99.1 F Pulse Rate 99 H 97 H 89 Respiratory Rate 20 19 17 Blood Pressure 202/98 H 215/99 H 185/102 H Pulse Oximetry 97 100 100 01/31/18 05:21 Temperature Pulse Rate 90 Respiratory Rate 18 Blood Pressure 173/84 H Pulse Oximetry Intake & Output 01/30/18 01/31/18 01/31/18 18:59 06:59 18:59 Weight 120.202 kg Other: # Voids 1 Date of Last Bowel Movement 01/30/18 Narrative: GENERAL: This is a well-nourished, well-developed patient, in no apparent distress. SKIN: Plantar left foot wound sub-met 2/3 HEAD: Atraumatic. EYES: Pupils equal round and reactive. ENT: Airway patent. NECK: Trachea midline. RESPIRATORY: Nonlabored breathing. MUSCULOSKELETAL:. Negative Homans sign bilaterally. NEUROLOGICAL: Awake and alert. Normal speech. Lower extremity physical exam: Vascular: Dorsalis pedis 2/4, posterior tibial 1/4. Capillary refill time within normal limits to digits x5 bilateral foot. Edema present left foot, no pitting noted Neuro: Gross sensation intact to bilateral lower extremity. Pinpoint sensation intact. No hyperalgesia noted to bilateral lower extremity Dermatology: Normal temperature and turgor to bilateral lower extremity. Plantar sub-met 2/3 wounds located with mild hyperkeratotic borders and granular base, wound is probing deep however not probing to bone, serous drainage noted. No surrounding erythema. Surrounding edema noted to wound. No purulent drainage upon compression. No fluctuance or crepitus noted to left foot. Musculoskeletal: Tender to palpation to supplement to 3 at site of puncture wound. Assessment and Plan - Assessment (1) Puncture wound of foot without foreign body Code(s): S91.339A - Puncture wound without foreign body, unspecified foot, initial encounter Status: Acute - Plan 47-year-old male with left foot puncture wound sub-met 2/3 Patient examined evaluated with all questions answered Bedside irrigation performed Wound packed with half inch iodoform, left foot dressed with 4 x 4's, Gayle and Rebel Will evaluate in 48 hours Recommend pseudomonal coverage Possible ID antibiotic recommendations based on cultures Daily irrigation and packing to be performed by nursing Patient to remain nonweightbearing in surgical shoe to left foot (1) Puncture wound of foot without foreign body Qualifiers: Encounter type: initial encounter Laterality: left Qualified Code(s): S91.332A - Puncture wound without foreign body, left foot, initial encounter
[2018-01-31] MEDS: Vancomycin Inj 2,000 MG in Sodium Chlor 0.9% Inj 500 ML IV.SIG SCH (19:20)
[2018-02-01 08:17] LABS: Baso # (Auto) 0.1 th/mm3 (0.0-0.2); Baso % (Auto) 0.5 % (0.0-2.0); Eos # (Auto) 0.1 th/mm3 (0.0-0.4); Eos % (Auto) 0.3 % (0.0-4.0); Hematocrit 37.1 % (39.0-51.0); Hemoglobin 11.9 gm/dL (13.0-17.0); Lymph # (Auto) 1.6 th/mm3 (1.0-4.8); Lymph % (Auto) 9.8 % (9.0-44.0); Mean Corpuscular HGB Conc 31.9 % (32.0-36.0); Mean Corpuscular Hemoglobin 22.6 pg (27.0-34.0); Mean Corpuscular Volume 70.7 fL (80.0-100.0); Mean Platelet Volume 8.2 fL (7.0-11.0); Mono # (Auto) 1.6 th/mm3 (0.0-0.9); Mono % (Auto) 9.4 % (0.0-8.0); Neut # (Auto) 13.4 th/mm3 (1.8-7.7); Platelet Count 330 th/mm3 (150-450); Red Blood Count 5.25 mil/mm3 (4.50-5.90); Red Cell Distribution Width 14.3 % (11.6-17.2); White Blood Count 16.7 th/mm3 (4.0-11.0)
[2018-02-01 08:26] LABS: Anion Gap 11 meq/L (5-15); Aspartate Aminotransferase 9 U/L (15-37); Blood Urea Nitrogen 9 mg/dL (7-18); Calcium 9.3 mg/dL (8.5-10.1); Carbon Dioxide 27.1 meq/L (21.0-32.0); Chloride 99 meq/L (98-107); Glomerular Filtration Rate Greater Than 89 mL/min (>89); Glucose,Random 108 mg/dL (74-106); Sodium 137 meq/L (136-145)
[2018-02-01 08:30] LABS: Alanine Aminotransferase 11 U/L (12-78); Alkaline Phosphatase 69 U/L (45-117); Total Protein 8.1 g/dL (6.4-8.2)
[2018-02-01] MEDS: Senna/Docusate Sodium 8.6/50 MG Tablet PO SCH ×2 (09:07→20:04)
[2018-02-01] MEDS: Morphine Inj 4 MG/ML Vial IV.PUSH PRN ×3 (09:07→20:51)
--- NOTE | 2018-02-01 15:23 | P.PN ---
Subjective Interval history: Nursing denies any deterioration since last night. Patient says his pain is much better. Reports having some abdominal discomfort. Physical Exam Vital signs: Vital Signs 01/31/18 16:00 01/31/18 20:00 01/31/18 22:35 Temperature 98.7 F 98.8 F Pulse Rate 84 91 H Respiratory Rate 16 18 18 Blood Pressure 183/98 H 159/81 H Pulse Oximetry 96 97 02/01/18 00:00 02/01/18 04:00 Temperature 98.7 F 98.3 F Pulse Rate 86 80 Respiratory Rate 18 18 Blood Pressure 173/89 H 165/86 H Pulse Oximetry 97 100 Intake & Output 01/31/18 02/01/18 02/01/18 18:59 06:59 18:59 Intake Total 1100 / 1100 520 / 520 Output Total 200 / 200 250 / 250 Balance 900 / 900 520 / 520 -250 / -250 Weight 98.9 kg Intake: IV 1100 / 1100 520 / 520 NS Inj 1,000 ML @ 100 mls/hr IV 1000 / 1000 .CONT .Q10H HUANG Rx#:[id number] Maxipime Inj 1,000 MG In NS Inj 100 / 100 100 ML @ 200 mls/hr IV.SIG Q12H [facility]ANG Rx#:[id number] Vancomycin Inj 2,000 MG In NS 520 / 520 Inj 500 ML @ 260 mls/hr IV.SIG Q12H [facility] Rx#:[id number] Output: Emesis 200 / 200 250 / 250 Other: # Voids 4 2 Date of Last Bowel Movement 01/30/18 # Bowel Movements 1 # Emeses 2 1 Narrative: Left food with appropriate packing. Foot overall seems slightly less edematous today. No abdominal focal tenderness to palpation except for right suprapubic/inguinal area. He has a tender likely reactive lymph node in his suprapubic region on the left. No inguinal hernia is demonstrated with Valsalva on the right where the patient complains of pain. Results - Labs CBC & Chem 7: 02/01/18 07:27 02/01/18 07:27 Laboratory Results - last 24 hr 02/01/18 02/01/18 07:27 07:27 WBC 16.7 H RBC 5.25 Hgb 11.9 L Hct 37.1 L MCV 70.7 L MCH 22.6 L MCHC 31.9 L RDW 14.3 Plt Count 330 MPV 8.2 Prelim Diff (Auto) Slide review pending Neut % (Auto) 80.0 H Lymph % (Auto) 9.8 [place] % (Auto) 9.4 H Eos % (Auto) 0.3 Baso % (Auto) 0.5 Neut # (Auto) 13.4 H Lymph # (Auto) 1.6 [place] # (Auto) 1.6 H Eos # (Auto) 0.1 Baso # (Auto) 0.1 WBC Differential . Diff Scan Auto diff confirmed Differential Comment . Sodium 137 Potassium 3.0 L Chloride 99 Carbon Dioxide 27.1 Anion Gap 11 BUN 9 Creatinine 0.81 Estimated GFR Greater than 89 Random Glucose 108 H Calcium 9.3 Total Bilirubin 0.7 AST 9 L ALT 11 L Alkaline Phosphatase 69 Total Protein 8.1 Albumin 3.0 L Microbiology 01/31/18 02:17 Blood - Peripheral Aerobic Blood Culture - Preliminary No growth in 1 day 01/31/18 02:17 Blood - Peripheral Anaerobic Blood Culture - Preliminary No growth in 1 day 01/31/18 02:10 Blood - Peripheral Aerobic Blood Culture - Preliminary No growth in 1 day 01/31/18 02:10 Blood - Peripheral Anaerobic Blood Culture - Preliminary No growth in 1 day Assessment and Plan - Plan 47-year-old black male being admitted for intractable nausea vomiting and left foot puncture wound Intractable nausea vomiting -Markedly improved, possibly secondary to infection -Zofran PRN, Left foot puncture wound -MRI neg for osteo. Continue IV antibiotics, appreciate podiatry recommendations , packing in place, wound care dressings scd on right foot
[2018-02-01] MEDS: Vancomycin Inj 2,000 MG in Sodium Chlor 0.9% Inj 500 ML IV.SIG SCH (18:22)
[2018-02-02] MEDS: Morphine Inj 4 MG/ML Vial IV.PUSH PRN ×3 (02:18→12:37)
[2018-02-02] MEDS ORDERED: Pharmacy Ordered Lab Info OTHER ONE ×2 (04:45→16:45)
[2018-02-02] MEDS: Vancomycin Inj 2,000 MG in Sodium Chlor 0.9% Inj 500 ML IV.SIG SCH ×2 (04:48→05:03)
[2018-02-02] MEDS: Senna/Docusate Sodium 8.6/50 MG Tablet PO SCH (11:39)
[2018-02-02 14:23] LABS: Baso # (Auto) 0.1 th/mm3 (0.0-0.2); Baso % (Auto) 0.5 % (0.0-2.0); Eos # (Auto) 0.1 th/mm3 (0.0-0.4); Eos % (Auto) 0.5 % (0.0-4.0); Hematocrit 39.4 % (39.0-51.0); Hemoglobin 12.8 gm/dL (13.0-17.0); Lymph # (Auto) 1.6 th/mm3 (1.0-4.8); Lymph % (Auto) 9.8 % (9.0-44.0); Mean Corpuscular HGB Conc 32.6 % (32.0-36.0); Mean Corpuscular Hemoglobin 23.2 pg (27.0-34.0); Mean Corpuscular Volume 71.1 fL (80.0-100.0); Mono # (Auto) 1.5 th/mm3 (0.0-0.9); Neut # (Auto) 13.4 th/mm3 (1.8-7.7); Neut % (Auto) 80.2 % (16.0-70.0); Platelet Count 356 th/mm3 (150-450); Red Blood Count 5.54 mil/mm3 (4.50-5.90); Red Cell Distribution Width 13.9 % (11.6-17.2); White Blood Count 16.6 th/mm3 (4.0-11.0)
[2018-02-02] MEDS ORDERED: levoFLOXacin 750 MG Tablet PO ONE (14:59)
[2018-02-02 15:01] LABS: Anion Gap 15 meq/L (5-15); Blood Urea Nitrogen 9 mg/dL (7-18); Calcium 8.9 mg/dL (8.5-10.1); Carbon Dioxide 24.2 meq/L (21.0-32.0); Chloride 95 meq/L (98-107); Glomerular Filtration Rate Greater Than 89 mL/min (>89); Glucose,Random 93 mg/dL (74-106); Sodium 134 meq/L (136-145)
[2018-02-02 15:04] LABS: Potassium 3.1 meq/L (3.5-5.1)
--- NOTE | 2018-02-02 15:51 | P.PNPOD ---
Subjective Interval history: Patient seen bedside, he is anticipating going home. Denies any N,V,F,Ch. Physical Exam Vital signs: Vital Signs 02/01/18 16:00 02/01/18 20:00 02/02/18 00:00 Temperature 98.9 F 99.1 F 98.5 F Pulse Rate 93 H 86 92 H Respiratory Rate 18 20 20 Blood Pressure 183/104 H 177/86 H 175/93 H Pulse Oximetry 100 98 100 02/02/18 04:00 Temperature 98.8 F Pulse Rate 86 Respiratory Rate 20 Blood Pressure 187/103 H Pulse Oximetry 100 Intake & Output 02/01/18 02/02/18 02/02/18 18:59 06:59 18:59 Intake Total 720 / 720 860 / 860 Output Total 250 / 250 400 / 400 Balance 470 / 470 460 / 460 Weight 96.4 kg Intake: IV 500 / 500 Vancomycin Inj 2,000 MG In NS 500 / 500 Inj 500 ML @ 260 mls/hr IV.SIG Q12H HUANG Rx#:[id number] Oral 720 / 720 360 / 360 Output: Urine 400 / 400 Emesis 250 / 250 Other: # Voids 1 Date of Last Bowel Movement 01/30/18 # Bowel Movements 0 # Emeses 1 Narrative: Lower extremity physical exam: Vascular: Dorsalis pedis 2/4, posterior tibial 1/4. Capillary refill time within normal limits to digits x5 bilateral foot. Edema present left foot, no pitting noted Neuro: Gross sensation intact to bilateral lower extremity. Pinpoint sensation intact. No hyperalgesia noted to bilateral lower extremity Dermatology: Normal temperature and turgor to bilateral lower extremity. Plantar sub-met 2/3 wounds located with mild hyperkeratotic borders and granular base, wound is probing deep however not probing to bone, serous drainage noted. No surrounding erythema. Surrounding edema noted to wound. No purulent drainage upon compression. No fluctuance or crepitus noted to left foot. Improvement in edema noted however continued serous drainage noted and continued probe to bone no change in depth to wound. Musculoskeletal: Tender to palpation to supplement to 3 at site of puncture wound. Medications and Allergies Active Medications: Active Medications Hydrocodone Bitart/Acetaminophen ([place] 10/325) 1 tab PO Q6H PRN PRN Reason: PAIN 1-10 AND/OR FEVER >101F Al Hydroxide/Mg Hydroxide (Milk Of Magnesia Liq) 30 ml PO Q12H PRN PRN Reason: Mild Constipation Bisacodyl (Dulcolax Supp) 10 mg RECTAL DAILY PRN PRN Reason: SEVERE CONSITIPATION Enalaprilat (Vasotec Inj) 1.25 mg IV.PUSH Q6H PRN PRN Reason: SBP>160, DBP>90 Last Admin: 02/02/18 04:42 Dose: 1.25 mg Hydrochlorothiazide (Microzide) 12.5 mg PO DAILY [facility] Last Admin: 02/02/18 09:06 Dose: 12.5 mg Cefepime HCl 1,000 mg/ Sodium (Chloride) 100 mls @ 200 mls/hr IV.SIG Q12H [facility] Last Infusion: 02/02/18 11:39 Dose: 200 mls/hr Sodium Chloride (Ns Inj) 1,000 mls @ 100 mls/hr IV.CONT .Q10H [facility] Last Admin: 01/31/18 20:34 Dose: 100 mls/hr Pharmacy Profile Note (Vancomycin Consult Pharmacy) 0 mls @ 0 mls/hr OTHER UNSCH [facility] Vancomycin HCl 2,000 mg/ (Sodium Chloride) 520 mls @ 260 mls/hr IV.SIG Q12H [facility] Last Infusion: 02/02/18 11:39 Dose: 250 mls/hr Lactulose (Lactulose Liq) 30 ml PO DAILY PRN PRN Reason: SEVERE CONSITIPATION Metoclopramide HCl (Reglan Inj) 5 mg IV.PUSH Q8H PRN; Protocol PRN Reason: nausea if zofran does not work Miscellaneous Information ([facility] Ordered Lab Info) 0 each OTHER ONCE ONE Stop: 02/02/18 16:46 Ondansetron HCl (Zofran Odt) 4 mg PO Q6H PRN PRN Reason: NAUSEA Last Admin: 02/02/18 09:12 Dose: 4 mg Senna/Docusate Sodium (Raiza-Colace) 1 tab PO BID [facility] Last Admin: 02/02/18 11:39 Dose: 1 tab Sennosides (Senokot) 17.2 mg PO Q12H PRN PRN Reason: Moderate Constipation Sodium Chloride (Ns Flush) 2 ml IV.FLUSH PRN PRN PRN Reason: FLUSH AFTER USING IV ACCESS Last Admin: 02/01/18 12:44 Dose: 2 ml Allergies Allergy/AdvReac Type Severity Reaction Status Date / Time lactose Allergy Severe Hives Verified 01/30/18 23:38 milk Allergy Severe Anaphylaxis Verified 01/30/18 23:38 Sulfa (Sulfonamide Allergy Unknown ITCHING Verified 01/30/18 23:38 Antibiotics) Results - Labs CBC & Chem 7: 02/02/18 14:01 02/02/18 14:01 Laboratory Results - last 24 hr 02/02/18 02/02/18 02/02/18 04:50 14:01 14:01 WBC 16.6 H RBC 5.54 Hgb 12.8 L Hct 39.4 MCV 71.1 L MCH 23.2 L MCHC 32.6 RDW 13.9 Plt Count 356 MPV 8.0 Neut % (Auto) 80.2 H Lymph % (Auto) 9.8 [place] % (Auto) 9.0 H Eos % (Auto) 0.5 Baso % (Auto) 0.5 Neut # (Auto) 13.4 H Lymph # (Auto) 1.6 [place] # (Auto) 1.5 H Eos # (Auto) 0.1 Baso # (Auto) 0.1 WBC Differential . Differential Comment Auto diff final Sodium 134 L Potassium 3.1 L Chloride 95 L Carbon Dioxide 24.2 Anion Gap 15 BUN 9 Creatinine 0.93 Estimated GFR Greater than 89 Random Glucose 93 Calcium 8.9 Vancomycin Trough 10.7 H Microbiology 01/31/18 02:17 Blood - Peripheral Aerobic Blood Culture - Preliminary No growth in 2 days 01/31/18 02:17 Blood - Peripheral Anaerobic Blood Culture - Preliminary No growth in 2 days 01/31/18 02:10 Blood - Peripheral Aerobic Blood Culture - Preliminary No growth in 2 days 01/31/18 02:10 Blood - Peripheral Anaerobic Blood Culture - Preliminary No growth in 2 days Assessment and Plan - Assessment (1) Puncture wound of foot without foreign body Code(s): S91.339A - Puncture wound without foreign body, unspecified foot, initial encounter Status: Acute - Plan 47-year-old male with left foot puncture wound sub-met 2/3 Patient examined evaluated with all questions answered Wound packed with half inch iodoform, left foot dressed with 4 x 4's, Gayle and Rebel Wound culture taken Daily irrigation and packing to be performed by nursing Patient to remain nonweightbearing in surgical shoe to left foot Improvement noted in acute clinical signs of infection however continue to probe to bone in depth to wound Would recommend patient stay in house until cultures finalized Discussed with Dr. Augustine (1) Puncture wound of foot without foreign body Qualifiers: Encounter type: initial encounter Laterality: left Qualified Code(s): S91.332A - Puncture wound without foreign body, left foot, initial encounter
--- NOTE | 2018-02-02 16:29 | P.DS ---
Date of admission: 01/31/18 04:17 Primary care physician: No Primary Care Physician Brief History from admission: 47-year-old black male being admitted for intractable nausea vomiting with possible osteomyelitis in the left foot. Patient was in usual state of health until 2 days ago when he was at work; afterwards he tried to take his shoe off and had trouble and started having pain on his left foot. He noted he had a shoe stuck to the bottom of his foot which he retracted with some pliers. He was able to pull his foot out and noted that he had a small hole at the bottom of the foot. He went to the emergency department was prescribed clindamycin and pain medication. About 8 hours after taking his first dose of clindamycin he says he started having substantial nausea vomiting. This was so profound to the point where he says he actually "blacked out" at home. He decided to come back to the emergency department because his nausea and vomiting would not stop, says he pulled over about 4 times to deal with his vomiting. Denies any coffee-ground emesis or hematemesis or any change in bowel habits for that matter. He does report feeling subjective chills. Says that his foot pain has been a constant 6 up to an 8 with a throbbing nature. Says that the foot has been more swollen. In the emergency department he had a foot x-ray done on his first visit which showed a possible avulsion fracture of the proximal first digit phalanx. In his second visit to the emergency department he had a white count around 16. Podiatry consultation was ordered at that time. Patient was started on cefepime. DS: Diagnosis - Discharge Diagnosis (1) Puncture wound of foot without foreign body Status: Acute DS: Summary Hospital Course: Patient was admitted. Started on IV antibiotics. Podiatry was consulted, packed the patient's wound as there is no evidence of abscess for debridement. Patient's white count did not normalize but his pain significantly improved. Podiatry felt that the wound was healing but at a slower pace than it should. Patient was adamant about leaving AMA, he felt that his foot was much improved and that he just could not stay in the hospital for the day and would come back. Patient was extensively counseled on the risk of resistance developing to the antibiotics that he has been on in-house and will be on upon discharge. Patient was counseled extensively on the risks of serious health ramifications including but not limited to multidrug-resistant organisms, spreading cellulitis , and needing an amputation. Patient is having significant pain caused by puncture wound which will last more than 3 days. I believe that it is medically necessary to treat patients pain because it is affecting patients ability to return to baseline functioning. Pt leaving AMA. - Time Spent with Patient Total time spent providing and/or coordinating discharge services: Less than 30 minutes - Quality: VTE Deep Vein Thrombosis/Pulmonary Embolism Present on Admission: No Exam Vital signs: Vital Signs 02/01/18 20:00 02/02/18 00:00 02/02/18 04:00 Temperature 99.1 F 98.5 F 98.8 F Pulse Rate 86 92 H 86 Respiratory Rate 20 20 20 Blood Pressure 177/86 H 175/93 H 187/103 H Pulse Oximetry 98 100 100 Intake & Output 02/01/18 02/02/18 02/02/18 18:59 06:59 18:59 Intake Total 720 / 720 860 / 860 Output Total 250 / 250 400 / 400 Balance 470 / 470 460 / 460 Weight 96.4 kg Intake: IV 500 / 500 Vancomycin Inj 2,000 MG In NS 500 / 500 Inj 500 ML @ 260 mls/hr IV.SIG Q12H HUANG Rx#:[id number] Oral 720 / 720 360 / 360 Output: Urine 400 / 400 Emesis 250 / 250 Other: # Voids 1 Date of Last Bowel Movement 01/30/18 # Bowel Movements 0 # Emeses 1 Narrative: puncture wound on bottom of left foot with packing; no drainage noted Results Procedures completed during hospitalization: probing and packing of left foot plantar puncture wound Labs on day of discharge: Labs from last 24 hours 02/02/18 02/02/18 02/02/18 14:01 14:01 04:50 WBC 16.6 H RBC 5.54 Hgb 12.8 L Hct 39.4 MCV 71.1 L MCH 23.2 L MCHC 32.6 RDW 13.9 Plt Count 356 MPV 8.0 Neut % (Auto) 80.2 H Lymph % (Auto) 9.8 [place] % (Auto) 9.0 H Eos % (Auto) 0.5 Baso % (Auto) 0.5 Neut # (Auto) 13.4 H Lymph # (Auto) 1.6 [place] # (Auto) 1.5 H Eos # (Auto) 0.1 Baso # (Auto) 0.1 WBC Differential . Differential Comment Auto diff final Sodium 134 L Potassium 3.1 L Chloride 95 L Carbon Dioxide 24.2 Anion Gap 15 BUN 9 Creatinine 0.93 Estimated GFR Greater than 89 Random Glucose 93 Calcium 8.9 Vancomycin Trough 10.7 H Preliminary micro results at discharge 01/31/18 02:17 Aerobic Blood Culture - Preliminary Blood - Peripheral No growth in 2 days Anaerobic Blood Culture - Preliminary No growth in 2 days 01/31/18 02:10 Aerobic Blood Culture - Preliminary Blood - Peripheral No growth in 2 days Anaerobic Blood Culture - Preliminary No growth in 2 days - Impressions ITS Impressions Foot MRI 01/31/18 00:00 CONCLUSION: 1. There is some nonspecific edema in the soft tissues along the plantar surface of the foot. 2. No evidence of acute or subacute avulsion fracture injury. 3. No evidence of osteomyelitis. Chest X-Ray 01/31/18 01:00 CONCLUSION: The lungs are clear. Foot X-Ray 01/31/18 01:28 CONCLUSION: 1. No radiopaque foreign bodies seen. 2. Possible avulsion injury or fragmentation of the first digit proximal phalanx medially at the MTP joint. Discharge Plan - Discharge Disposition Patient Disposition: Left Against Medical Advice - Discharge Condition Condition: Stable - Discharge Details Anticipated Discharge Date: 02/02/18 - Physicians Team Primary Care Provider: Primary Care Concepcion,Vania Attending Provider: Mendel Adkins Other Providers: Trina Santacruz DPM
[2018-02-02] MEDS ORDERED: NIFEdipine 10 MG Capsule PO SCH (18:00)
== END 2018-02-02 19:35 | disposition left against medical advice (07) ==
LOC: NEPE 23:15 → NEDA 01-31 04:17 → N07 01-31 06:45
PROVIDERS: ADMIT Hospitalist; ATTEND Hospitalist

== ENCOUNTER 2018-02-03 16:24 | Inpatient (IN) ==
[2018-02-03] MEDS ORDERED: Gadodiamide PF Inj 287 MG/ML 5 ML Syringe (for RAD MRI) IVCONTRAST ONE (17:52)
[2018-02-03] MEDS ORDERED: Sod Chloride 0.9% Inj 1,000 ML IV.SIG ONE (21:08)
[2018-02-03] MEDS ORDERED: Ketorolac Inj 30 MG/ML (IVP) Vial IV.PUSH ONE (21:13)
--- NOTE | 2018-02-03 21:45 | ED ---
HPI General Chief complaint: Medical Clearance Stated complaint: Reaction/GI Complaint Time Seen by Provider: 02/03/18 20:34 Source: patient Mode of arrival: ambulatory Limitations: no limitations History of Present Illness HPI narrative: 47-year-old male presents emergency department for evaluation of left foot and right scrotal pain. Patient was in the emergency department a couple of days ago and actually discharged yesterday on clindamycin and Levaquin. Today he is complaining of nausea and vomiting. He says his left foot and right scrotal pain is 10/10. According to the patient, he was advised to return if his right scrotum pain increased or if he noticed swelling was increased. He believes he has nausea and vomiting secondary to the scrotal pain. He denies fevers or chills. Denies chest pain, shortness of breath. Says he is anxious about taking the antibiotics because of the side effects as described by the pharmacist upon discharge. He has a history of a hydrocele, diagnosed January 30. Related Data Home Medications Medication Instructions Recorded Confirmed clindamycin HCl mg PO TID 02/04/18 levofloxacin [Levaquin] mg PO DAILY 02/04/18 Previous Rx's Medication Instructions Recorded doxycycline hyclate 100 mg PO Q12H #20 cap 02/02/18 hydrochlorothiazide 12.5 mg PO DAILY #30 cap 02/02/18 hydrocodone-acetaminophen 1 tab PO Q8H PRN #21 tab 02/02/18 levofloxacin 750 mg PO DAILY #12 tab 02/02/18 ondansetron 4 mg PO Q6H PRN #10 tab 02/02/18 Allergies Allergy/AdvReac Type Severity Reaction Status Date / Time lactose Allergy Severe Hives Verified 01/30/18 23:38 milk Allergy Severe Anaphylaxis Verified 01/30/18 23:38 Sulfa (Sulfonamide Allergy Unknown ITCHING Verified 01/30/18 23:38 Antibiotics) Review of Systems Except as stated in HPI: all other systems reviewed are negative [facility] [place] Family History Family History Other Diabetes Social History Social History Substance History: Active Abuse Second Hand Smoke Exposure: No Smoking Status: Never smoker How Often Do You Have a Drink Containing Alcohol: 2 to 4 times a month Recent Travel in [facility] within the Last 8 Weeks: No Recent Out of Country Travel within the Last 8 Weeks: No Exam Narrative Exam Narrative: GENERAL: Well-developed, well-nourished no apparent distress SKIN: Focused skin assessment warm/dry. HEAD: Atraumatic. Normocephalic. EYES: Pupils equal and round. No scleral icterus. No injection or drainage. ENT: No nasal bleeding or discharge. Mucous membranes pink and moist. NECK: Trachea midline. No JVD. CARDIOVASCULAR: Regular rate and rhythm. No murmur appreciated. RESPIRATORY: No accessory muscle use. Clear to auscultation. Breath sounds equal bilaterally. GASTROINTESTINAL: Abdomen soft, non-tender, nondistended. Hepatic and splenic margins not palpable. Scrotal exam performed with nurse present-right scrotum appears edematous with tenderness to palpation. Patient unable to tolerate palpation of the testes. Mild erythema present MUSCULOSKELETAL: No obvious deformities. No clubbing. No cyanosis. No edema. Left foot-ball of foot appears edematous with a fissure between the second and third toe interdigital space with bloody exudate NEUROLOGICAL: Awake and alert. No obvious cranial nerve deficits. Motor grossly within normal limits. Normal speech. PSYCHIATRIC: Appropriate mood and affect; insight and judgment normal. Course Initial Documented Vital Signs Temperature 98.5 F 02/03/18 16:39 Pulse Rate 97 H 02/03/18 16:39 Respiratory Rate 19 02/03/18 16:39 Blood Pressure 144/86 H 02/03/18 16:39 Pulse Oximetry 100 02/03/18 16:39 Last Documented Vital Signs Temperature 98.7 F 02/04/18 12:00 Pulse Rate 96 H 02/04/18 12:00 Respiratory Rate 18 02/04/18 12:00 Blood Pressure 176/96 H 02/04/18 12:00 Pulse Oximetry 99 02/04/18 12:00 Medical Decision Making [facility] Narrative Medical decision making narrative: 47 year male presents emergency department for evaluation of left foot and right scrotal pain. Vital signs stable. Wound culture obtained. Review of the EMR demonstrates patient left AGAINST MEDICAL ADVICE yesterday after being advised to stay for further antibiotic and evaluation. He was evaluated by podiatry a his previous visit and had wound care with cultures obtained. The cultures are not resulted currently. There was concern for bone depth infection. He was on Vancomycin and cefepime. Scrotal US completed January 30 "Moderate to large complex right-sided hydrocele. Small left hydrocele decreased from November 13. Positive testicular blood flow." Because of his increased pain and subjective edema, ordered repeat US. Labs demonstrate increased WBC. Cefepime and vancomycin initiated. Zosyn for nausea. 1L NS bolus. Toradol for pain. KCl for mild hypokalemia. I spoke with Dr. Gardner who agreed to the admission. Lab Data Result diagrams: 02/03/18 21:43 02/03/18 21:43 Lab Results 02/03/18 02/03/18 02/03/18 Range/Units 21:43 21:43 21:43 WBC 19.4 H (4.0-11.0) th/mm3 RBC 5.56 (4.50-5.90) mil/mm3 Hgb 12.5 L (13.0-17.0) gm/dL Hct 39.1 (39.0-51.0) % MCV 70.4 L (80.0-100.0) fL MCH 22.5 L (27.0-34.0) pg MCHC 32.0 (32.0-36.0) % RDW 14.6 (11.6-17.2) % Plt Count 398 (150-450) th/mm3 MPV 8.0 (7.0-11.0) fL Neut % (Auto) 78.3 H (16.0-70.0) % Lymph % (Auto) 10.0 (9.0-44.0) % [place] % (Auto) 10.2 H (0.0-8.0) % Eos % (Auto) 0.9 (0.0-4.0) % Baso % (Auto) 0.6 (0.0-2.0) % Neut # (Auto) 15.2 H (1.8-7.7) th/mm3 Lymph # (Auto) 1.9 (1.0-4.8) th/mm3 [place] # (Auto) 2.0 H (0.0-0.9) th/mm3 Eos # (Auto) 0.2 (0.0-0.4) th/mm3 Baso # (Auto) 0.1 (0.0-0.2) th/mm3 WBC Differential . Differential Comment Auto diff final PT 13.3 H (9.8-11.6) sec INR 1.3 Ratio APTT 31.4 H (24.3-30.1) sec Sodium 132 L (136-145) meq/L Potassium 3.2 L (3.5-5.1) meq/L Chloride 92 L (98-107) meq/L Carbon Dioxide 27.5 (21.0-32.0) meq/L Anion Gap 13 (5-15) meq/L BUN 20 H (7-18) mg/dL Creatinine 1.09 (0.60-1.30) mg/dL Estimated GFR 87 L (>89) mL/min Random Glucose 82 (74-106) mg/dL Calcium 9.8 D (8.5-10.1) mg/dL Total Bilirubin 0.7 (0.2-1.0) mg/dL AST 15 (15-37) U/L ALT 13 (12-78) U/L Alkaline Phosphatase 81 (45-117) U/L Total Protein 9.0 H D (6.4-8.2) g/dL Albumin 3.1 L (3.4-5.0) g/dL Urine Color (Yellw/Straw) Urine Clarity (Clear) Urine pH (5.0-8.5) Ur Specific [place] (1.002-1.035) Urine Protein (Neg-Trace) mg/dL Urine Glucose (UA) (Negative) mg/dL Urine Ketones (Negative) mg/dL Urine Occult Blood (Negative) Urine Nitrate (Negative) Urine Bilirubin (Negative) Urine Urobilinogen (Less than 2) mg/dL Ur Leukocyte Esterase (Negative) Urine RBC (0-3) /hpf Urine WBC (0-5) /hpf Ur Squamous Epith Cells (0-5) /hpf Urine Bacteria (None) /hpf Hyaline Casts (0-3) /lpf Urine Mucus (Occasional) /lpf Micro UA Comment Urine Culture Comments 02/04/18 Range/Units 03:24 WBC (4.0-11.0) th/mm3 RBC (4.50-5.90) mil/mm3 Hgb (13.0-17.0) gm/dL Hct (39.0-51.0) % MCV (80.0-100.0) fL MCH (27.0-34.0) pg MCHC (32.0-36.0) % RDW (11.6-17.2) % Plt Count (150-450) th/mm3 MPV (7.0-11.0) fL Neut % (Auto) (16.0-70.0) % Lymph % (Auto) (9.0-44.0) % [place] % (Auto) (0.0-8.0) % Eos % (Auto) (0.0-4.0) % Baso % (Auto) (0.0-2.0) % Neut # (Auto) (1.8-7.7) th/mm3 Lymph # (Auto) (1.0-4.8) th/mm3 [place] # (Auto) (0.0-0.9) th/mm3 Eos # (Auto) (0.0-0.4) th/mm3 Baso # (Auto) (0.0-0.2) th/mm3 WBC Differential Differential Comment PT (9.8-11.6) sec INR Ratio APTT (24.3-30.1) sec Sodium (136-145) meq/L Potassium (3.5-5.1) meq/L Chloride (98-107) meq/L Carbon Dioxide (21.0-32.0) meq/L Anion Gap (5-15) meq/L BUN (7-18) mg/dL Creatinine (0.60-1.30) mg/dL Estimated GFR (>89) mL/min Random Glucose (74-106) mg/dL Calcium (8.5-10.1) mg/dL Total Bilirubin (0.2-1.0) mg/dL AST (15-37) U/L ALT (12-78) U/L Alkaline Phosphatase (45-117) U/L Total Protein (6.4-8.2) g/dL Albumin (3.4-5.0) g/dL Urine Color [place] (Yellw/Straw) Urine Clarity Hazy H (Clear) Urine pH 6.0 (5.0-8.5) Ur Specific [place] 1.027 (1.002-1.035) Urine Protein 100 H (Neg-Trace) mg/dL Urine Glucose (UA) Negative (Negative) mg/dL Urine Ketones 20 (Negative) mg/dL Urine Occult Blood Small H (Negative) Urine Nitrate Negative (Negative) Urine Bilirubin Negative (Negative) Urine Urobilinogen 4 or greater (Less than 2) mg/dL Ur Leukocyte Esterase Negative (Negative) Urine RBC 3 (0-3) /hpf Urine WBC 2 (0-5) /hpf Ur Squamous Epith Cells <1 (0-5) /hpf Urine Bacteria Rare H (None) /hpf Hyaline Casts 25 (0-3) /lpf Urine Mucus Moderate H (Occasional) /lpf Micro UA Comment Culture not ind Urine Culture Comments Culture not ind Imaging Data Radiologist's impression: ITS Impressions Foot X-Ray 02/03/18 21:08 CONCLUSION: No acute bony injury. No foreign body. Prominent soft tissue swelling Scrotum Ultrasound 02/03/18 21:13 CONCLUSION: 1. Large right hydrocele. 2. Varicocele demonstrated on the left. 3. Testes are within normal limits. Discharge Plan Discharge Disposition Patient Disposition: 30 Still Patient Discharge Condition Condition: Stable Discharge Details Discharge Problem: Puncture wound of foot without foreign body, Hydrocele in adult, Acute hypokalemia Physicians Team ED Provider: Lina Whitten ED Midlevel Provider: Allyssa Elizalde Primary Care Provider: Primary Care Vania Javier Attending Provider: Laura Zabala Other Providers: Trina Santacruz Status ED Status: Admitted Patient
--- NOTE | 2018-02-03 21:46 | XR ---
EXAM DATE: 02/03/2018 9:42 PM EDT AGE/SEX: 47 years / Male INDICATIONS: Pain. Stepped on a nail a week ago. CLINICAL DATA: This is the patient's sequela encounter. Patient reports that signs and symptoms have been present for 1 week and indicates a pain score of 10/10. MEDICAL/SURGICAL HISTORY: None. None. COMPARISON: [facility], FOOT COMPLETE LEFT 3V, 01/31/2018. . FINDINGS: Bony structures are intact and in normal alignment. Osseous density is normal. Prominent soft tissue swelling involving the second and third toes. No radiopaque foreign bodies seen. CONCLUSION: No acute bony injury. No foreign body. Prominent soft tissue swelling Electronically signed by: Gordo Lao MD 02/03/2018 9:44 PM EDT
[2018-02-03 22:29] LABS: Baso # (Auto) 0.1 th/mm3 (0.0-0.2); Baso % (Auto) 0.6 % (0.0-2.0); Eos # (Auto) 0.2 th/mm3 (0.0-0.4); Eos % (Auto) 0.9 % (0.0-4.0); Hematocrit 39.1 % (39.0-51.0); Hemoglobin 12.5 gm/dL (13.0-17.0); Lymph # (Auto) 1.9 th/mm3 (1.0-4.8); Mean Corpuscular Hemoglobin 22.5 pg (27.0-34.0); Mean Corpuscular Volume 70.4 fL (80.0-100.0); Mono % (Auto) 10.2 % (0.0-8.0); Neut # (Auto) 15.2 th/mm3 (1.8-7.7); Neut % (Auto) 78.3 % (16.0-70.0); Platelet Count 398 th/mm3 (150-450); Red Blood Count 5.56 mil/mm3 (4.50-5.90); Red Cell Distribution Width 14.6 % (11.6-17.2); White Blood Count 19.4 th/mm3 (4.0-11.0)
[2018-02-03] MEDS ORDERED: Vancomycin Inj 1 GM/200 ML PIGGYBACK IV.SIG ONE (22:46)
[2018-02-03 22:49] LABS: Activated Partial Thrombo Time 31.4 sec (24.3-30.1); INR 1.3 Ratio
[2018-02-03 22:51] LABS: Alanine Aminotransferase 13 U/L (12-78); Albumin 3.1 g/dL (3.4-5.0); Alkaline Phosphatase 81 U/L (45-117); Anion Gap 13 meq/L (5-15); Aspartate Aminotransferase 15 U/L (15-37); Blood Urea Nitrogen 20 mg/dL (7-18); Calcium 9.8 mg/dL (8.5-10.1); Carbon Dioxide 27.5 meq/L (21.0-32.0); Chloride 92 meq/L (98-107); Glomerular Filtration Rate 87 mL/min (>89); Glucose,Random 82 mg/dL (74-106); Potassium 3.2 meq/L (3.5-5.1); Sodium 132 meq/L (136-145)
[2018-02-03] MEDS ORDERED: Vancomycin Inj 1,000 MG in Sodium Chlor 0.9% Inj 250 ML IV.SIG ONE (23:00)
[2018-02-03 23:12] LABS: Prothrombin Time 13.3 sec (9.8-11.6)
--- NOTE | 2018-02-03 23:20 | US ---
EXAM DATE: 02/03/2018 10:53 PM EDT AGE/SEX: 47 years / Male INDICATIONS: Enlarged right testicle. Pain. CLINICAL DATA: This is the patient's subsequent encounter. Patient reports that signs and symptoms h ave been present for 3 months and indicates a pain score of 10/10. MEDICAL/SURGICAL HISTORY: Hypertension. Hydrocele. Testicular pain. None. COMPARISON: No prior exams available for comparison. MEASUREMENTS: Right Testicle:__3.5 x 2.4 x 2.8 cm Left Testicle:__3.3 x 3.0 x 1.9 cm FINDINGS: RIGHT: Testicle: Homogeneous echotexture without intra or extratesticular mass. Blood flow is demonstrated. Epididymis: Within normal limits. Hydrocele: Large hydrocele present. Varicocele: No evidence of varicocele. LEFT: Testicle: Homogeneous echotexture without intra or extratesticular mass. Blood flow is symmetric and within normal limits. Epididymis: Visualized cyst. Hydrocele: No hydrocele. Varicocele: Varicocele with increased flow on valsalva. Scrotum: Within normal limits. CONCLUSION: 1. Large right hydrocele. 2. Varicocele demonstrated on the left. 3. Testes are within normal limits. Electronically signed by: Gordo Cho MD 02/03/2018 11:19 PM EDT
[2018-02-04] MEDS ORDERED: Bisacodyl 10 MG Supp RECTAL PRN (00:32)
[2018-02-04] MEDS ORDERED: Vancomycin Consult Pharmacy 1 EACH OTHER SCH (01:00)
[2018-02-04] MEDS: Temazepam 15 MG Capsule PO PRN ×2 (03:10→21:10)
[2018-02-04] MEDS: Piperacil/Tazo 3.375 GM Premix 50 ML IV.SIG SCH ×3 (03:10→16:21)
[2018-02-04] MEDS: Sod Chloride 0.9% Inj 1,000 ML IV.CONT SCH ×2 (03:11→16:21)
[2018-02-04 03:51] LABS: Bacteria,Urine Rare /hpf; Bilirubin,Urine Negative (Negative); Clarity,Urine Hazy (Clear); Color,Urine Amber (Yellw/Straw); Glucose,Urine (UA) Negative (Negative); Hyaline Casts,Urine 25 /lpf (0-3); Leukocyte Esterase,Urine Negative (Negative); Mucus,Urine Moderate /lpf (Occasional); Nitrite,Urine Negative (Negative); Specific Gravity,Urine 1.027 (1.002-1.035); Squamous Epithelial Cell,Urine <1 /hpf (0-5); Urobilinogen,Urine 4 or Greater mg/dL (Less than 2)
[2018-02-04] MEDS ORDERED: Vancomycin Inj 1,200 MG in Sodium Chlor 0.9% Inj 250 ML IV.SIG SCH (06:00)
[2018-02-04] MEDS: Vancomycin Inj 1,750 MG in Sodium Chlor 0.9% Inj 500 ML IV.SIG SCH ×2 (09:47→21:09)
--- NOTE | 2018-02-04 16:05 | P.HPIM ---
History of Present Illness Primary Care Physician: No Primary Care Physician History of Present Illness: Pleasant 47-year-old AA male presents emergency department for evaluation of left foot and right scrotal pain. Patient was in the emergency department a couple of days ago and actually discharged yesterday on clindamycin and Levaquin. Today he is complaining of nausea and vomiting. He says his left foot and right scrotal pain is 10/10 on admission. According to the patient, he was advised to return if his right scrotum pain increased or if he noticed swelling was increased. He believes he has nausea and vomiting secondary to the scrotal pain. He denies fevers or chills. Denies chest pain, shortness of breath. Says he is anxious about taking the antibiotics because of the side effects as described by the pharmacist upon discharge. He has a history of a hydrocele, diagnosed January 30. Patient received IV abx. Also pain meds. Says pain is better controlled now. No n/v/d/c. Discussed with Dr Santacruz podiatry work up for to r/o osteo Inpatient Certification: I certify that the inpatient services were ordered in accordance with Medicare regulations governing the order. This includes certification that hospital inpatient services are reasonable and necessary and in the case of services not specified as inpatient-only under 42 CFR 419.22(n), that they are appropriately provided as inpatient services in accordance to with the 2-midnight benchmark under 43 CFR 412.3(e) Estimated Total Length of Stay (Days): 3 Plans for Post Hospital Care: Not yet determined Review of Systems ROS reviewed and negative except as mentioned in HPI PMFSH - History History Provided By: Patient, Medical Record - Medical History Medical History: Medical History (Last Reviewed 02/04/18 @ 19:12 by Laura Zabala MD) Hydrocele in adult Hypertension - Family History Family History: Family History (Last Reviewed 02/04/18 @ 19:12 by Laura Zabala MD) Other Diabetes - Tobacco History Second Hand Smoke Exposure: No Tobacco Use In Past 30 Days: No Smoking Status: Never smoker - Alcohol History How Often Do You Have a Drink Containing Alcohol: 2 to 4 times a month - Substance Use History Substance History: Active Abuse - Substance Use Type Marijuana Status: Active Route Used: By Mouth Frequency: daily Reason for Use: Calm Down, Feels Good - Travel History Recent Travel in the [facility] Within the Last 8 Weeks: No Recent Travel Out of the Country Within the Last 8 Weeks: No - Immunization History Tetanus Immunization: <5 Years Tetanus Immunization Year if Known: 2017 Hx Influenza Vaccine This Season: No Medications and Allergies Active Medications: Active Medications Al Hydroxide/Mg Hydroxide (Milk Of Magnesia Liq) 30 ml PO Q12H PRN PRN Reason: Mild Constipation Bisacodyl (Dulcolax Supp) 10 mg RECTAL DAILY PRN PRN Reason: SEVERE CONSITIPATION Sodium Chloride (Ns Inj) 1,000 mls @ 100 mls/hr IV.CONT .Q10H [facility] Last Admin: 02/04/18 03:11 Dose: 100 mls/hr Piperacillin/Tazobactam/Dextrose (Zosyn 3.375 Gm Premix) 50 mls @ 100 mls/hr IV.SIG Q6H [facility] Last Admin: 02/04/18 08:54 Dose: 100 mls/hr Pharmacy Profile Note (Vancomycin Consult Pharmacy) 0 mls @ 0 mls/hr OTHER [facility] Vancomycin HCl 1,750 mg/ (Sodium Chloride) 517.5 mls @ 250 mls/hr IV.SIG Q12H [facility] Last Admin: 02/04/18 09:47 Dose: 250 mls/hr Lactulose (Lactulose Liq) 30 ml PO DAILY PRN PRN Reason: SEVERE CONSITIPATION Miscellaneous Information ([facility] Ordered Lab Info) 0 each OTHER ONCE ONE Stop: 02/04/18 21:46 Sennosides (Senokot) 17.2 mg PO Q12H PRN PRN Reason: Moderate Constipation Sodium Chloride (Ns Flush) 2 ml IV.FLUSH PRN PRN PRN Reason: FLUSH AFTER USING IV ACCESS Temazepam (Restoril) 15 mg PO HS PRN PRN Reason: INSOMNIA Last Admin: 02/04/18 03:10 Dose: 15 mg Allergies Allergy/AdvReac Type Severity Reaction Status Date / Time lactose Allergy Severe Hives Verified 01/30/18 23:38 milk Allergy Severe Anaphylaxis Verified 01/30/18 23:38 Sulfa (Sulfonamide Allergy Unknown ITCHING Verified 01/30/18 23:38 Antibiotics) Home Medications Medication Instructions Recorded Confirmed Type clindamycin HCl mg PO TID 02/04/18 History levofloxacin [Levaquin] mg PO DAILY 02/04/18 History Exam Vital signs: Vital Signs 02/03/18 16:39 02/04/18 04:00 02/04/18 08:00 Temperature 98.5 F 98.7 F 98.6 F Pulse Rate 97 H 90 100 H Respiratory Rate 19 19 18 Blood Pressure 144/86 H 168/81 H 165/89 H Pulse Oximetry 100 96 99 02/04/18 12:00 Temperature 98.7 F Pulse Rate 96 H Respiratory Rate 18 Blood Pressure 176/96 H Pulse Oximetry 99 Intake & Output 02/03/18 02/04/18 02/04/18 18:59 06:59 18:59 Intake Total 50 / 50 Balance 50 / 50 Weight 124.738 kg 124.73 kg Intake: IV 50 / 50 Zosyn 3.375 GM Premix 50 ML @ 50 / 50 100 mls/hr IV.SIG Q6H [facility] Rx#: [id number] Oral 0 / 0 Other: # Voids 1 Narrative: GENERAL: Pleasant 47 yo AA male, in bed, well- developed, well-nourished no apparent distress. SKIN: Warm and dry on focused skin exam. HEAD: Atraumatic. Normocephalic. EYES: Pupils equal and round. No scleral icterus. No injection or drainage. ENT: No nasal bleeding or discharge. Mucous membranes pink and moist. NECK: Trachea midline. No JVD. CARDIOVASCULAR: Regular rate and rhythm. RESPIRATORY: No accessory muscle use. Clear to auscultation. Breath sounds equal bilaterally. GASTROINTESTINAL: Abdomen soft, non-tender, nondistended. Hepatic and splenic margins not palpable. Scrotal edema. MUSCULOSKELETAL: Left foot edematous with a fissure between the second and third toe interdigital space with bloody exudate. NEUROLOGICAL: Awake and alert. No obvious cranial nerve deficits. Motor grossly within normal limits. Five out of 5 muscle strength in the arms and legs. Normal speech. PSYCHIATRIC: Appropriate mood and affect; insight and judgment normal. Results - Labs CBC & Chem 7: 02/03/18 21:43 02/03/18 21:43 Labs: Short CBC 02/03/18 Range/Units 21:43 WBC 19.4 H (4.0-11.0) th/mm3 Hgb 12.5 L (13.0-17.0) gm/dL Hct 39.1 (39.0-51.0) % Plt Count 398 (150-450) th/mm3 BMP 02/03/18 21:43 Sodium 132 L Potassium 3.2 L Chloride 92 L Carbon Dioxide 27.5 BUN 20 H Creatinine 1.09 Calcium 9.8 D Liver Function 02/03/18 Range/Units 21:43 Total Bilirubin 0.7 (0.2-1.0) mg/dL AST 15 (15-37) U/L ALT 13 (12-78) U/L Alkaline Phosphatase 81 (45-117) U/L Albumin 3.1 L (3.4-5.0) g/dL Urine 02/04/18 Range/Units 03:24 Urine Color Molly (Yellw/Straw) Urine Clarity Hazy H (Clear) Urine pH 6.0 (5.0-8.5) Ur Specific Edgar 1.027 (1.002-1.035) Urine Protein 100 H (Neg-Trace) mg/dL Urine Glucose (UA) Negative (Negative) mg/dL - Imaging Impressions Foot X-Ray 02/03/18 21:08 CONCLUSION: No acute bony injury. No foreign body. Prominent soft tissue swelling Scrotum Ultrasound 02/03/18 21:13 CONCLUSION: 1. Large right hydrocele. 2. Varicocele demonstrated on the left. 3. Testes are within normal limits. Caprini VTE Risk Assessment Caprini VTE Risk Assessment: Moderate/High Risk (score >= 2) Caprini Risk Assessment Model: Point Value = 1 Point Value = 2 Point Value = 3 Point Value = 5 Age 41-60 Minor surgery BMI > 25 kg/m2 Swollen legs Varicose veins or History of unexplained or recurrent spontaneous Oral contraceptives or hormone replacement Sepsis (< 1 month) Serious lung disease, including pneumonia (< 1 month) Abnormal pulmonary function Acute myocardial infarction Congestive heart failure (< 1 month) History of inflammatory bowel disease Medical patient at bed rest Age 61-74 Arthroscopic surgery Major open surgery (> 45 min) Laparoscopic surgery (> 45 min) Malignancy Confined to bed (> 72 hours) Immobilizing plaster cast Central venous access Age >= 75 History of VTE Family history of VTE Factor V Leiden Prothrombin [id number] Lupus anticoagulant Anticardiolipin antibodies Elevated serum homocysteine Heparin-induced thrombocytopenia Other congenital or acquired thrombophilia Stroke (< 1 month) Elective arthroplasty Hip, pelvis, or leg fracture Acute spinal cord injury (< 1 month) Prophylaxis Regimen: Total Risk Factor Score Risk Level Prophylaxis Regimen 0-1 Low Early ambulation 2 Moderate Order ONE of the following: *Sequential Compression Device (SCD) *Heparin 5000 units SQ BID 3-4 Higher Order ONE of the following medications: *Heparin 5000 units SQ TID *Enoxaparin/Lovenox 40 mg SQ daily (WT < 150 kg, CrCl > 30 mL/min) *Enoxaparin/Lovenox 30 mg SQ daily (WT < 150 kg, CrCl > 10-29 mL/min) *Enoxaparin/Lovenox 30 mg SQ BID (WT < 150 kg, CrCl > 30 mL/min) AND/OR *Sequential Compression Device (SCD) 5 or more Highest Order ONE of the following medications: *Heparin 5000 units SQ TID (Preferred with Epidurals) *Enoxaparin/Lovenox 40 mg SQ daily (WT < 150 kg, CrCl > 30 mL/min) *Enoxaparin/Lovenox 30 mg SQ daily (WT < 150 kg, CrCl > 10-29 mL/min) *Enoxaparin/Lovenox 30 mg SQ BID (WT < 150 kg, CrCl > 30 mL/min) AND *Sequential Compression Device (SCD) Assessment and Plan - Plan 47 year male presents emergency department for evaluation of left foot and right scrotal pain. Patient left AMA a day before re- admission Puncture wound of foot without foreign body Right Hydrocele Acute hypokalemia Wound culture obtained. and pending Foot X-Ray reviewed andfindings discussed with Dr Santacruz podiatry :No acute bony injury. No foreign body. Prominent soft tissue swelling Plan for work up to r.o osteomyelitis Checl crp , esr, bone scan Scrotum Ultrasound reviewed : Large right hydrocele. Varicocele demonstrated on the left. Testes are within normal limits. Continue cefepime and vanco IV abx IVF KCL replacement for low K Pain meds per almaraz scale tylenol and oxycodone for severe pain Continue home meds as appropriate DVT ppx lovenox Discussed Condition With: patient, nurse, Dr Santacruz podiatry H&P: Quality - VTE Deep Vein Thrombosis/Pulmonary Embolism Present on Admission: No
[2018-02-04] MEDS ORDERED: Acetaminophen 325 MG Tablet PO PRN (16:44)
[2018-02-04] MEDS ORDERED: Pharmacy Ordered Lab Info OTHER ONE (21:45)
[2018-02-05] MEDS: Piperacil/Tazo 3.375 GM Premix 50 ML IV.SIG SCH ×5 (02:42→20:36)
[2018-02-05 07:09] LABS: Alanine Aminotransferase 10 U/L (12-78); Albumin 2.5 g/dL (3.4-5.0); Alkaline Phosphatase 65 U/L (45-117); Anion Gap 13 meq/L (5-15); Aspartate Aminotransferase 11 U/L (15-37); Blood Urea Nitrogen 10 mg/dL (7-18); Calcium 8.6 mg/dL (8.5-10.1); Carbon Dioxide 25.9 meq/L (21.0-32.0); Chloride 96 meq/L (98-107); Glomerular Filtration Rate Greater Than 89 mL/min (>89); Glucose,Random 85 mg/dL (74-106); Sodium 135 meq/L (136-145); Total Protein 7.5 g/dL (6.4-8.2)
[2018-02-05 07:12] LABS: Baso # (Auto) 0.1 th/mm3 (0.0-0.2); Baso % (Auto) 0.7 % (0.0-2.0); Eos # (Auto) 0.4 th/mm3 (0.0-0.4); Eos % (Auto) 2.3 % (0.0-4.0); Hematocrit 32.7 % (39.0-51.0); Hemoglobin 10.6 gm/dL (13.0-17.0); Lymph # (Auto) 2.1 th/mm3 (1.0-4.8); Lymph % (Auto) 11.4 % (9.0-44.0); Mean Corpuscular HGB Conc 32.3 % (32.0-36.0); Mean Corpuscular Hemoglobin 22.5 pg (27.0-34.0); Mean Corpuscular Volume 69.9 fL (80.0-100.0); Mean Platelet Volume 7.8 fL (7.0-11.0); Mono # (Auto) 1.6 th/mm3 (0.0-0.9); Mono % (Auto) 8.7 % (0.0-8.0); Neut # (Auto) 14.1 th/mm3 (1.8-7.7); Neut % (Auto) 76.9 % (16.0-70.0); Platelet Count 396 th/mm3 (150-450); Red Blood Count 4.68 mil/mm3 (4.50-5.90); White Blood Count 18.3 th/mm3 (4.0-11.0)
[2018-02-05 07:34] LABS: Potassium 2.6 meq/L (3.5-5.1)
[2018-02-05] MEDS: Sod Chloride 0.9% Inj 1,000 ML IV.CONT SCH ×3 (07:52→18:10)
[2018-02-05] MEDS: Enoxaparin Inj 40 MG/0.4 ML Syringe SQ SCH (09:17)
[2018-02-05] MEDS ORDERED: Pharmacy Ordered Lab Info OTHER ONE (09:45)
[2018-02-05] MEDS: Vancomycin Inj 1,750 MG in Sodium Chlor 0.9% Inj 500 ML IV.SIG SCH (11:19)
[2018-02-05] MEDS: Magnesium Oxide 400 MG Tablet PO SCH (12:38)
--- NOTE | 2018-02-05 13:24 | P.PN ---
Physical Exam Vital signs: Vital Signs 02/04/18 16:00 02/04/18 20:00 02/05/18 00:00 Temperature 99.1 F 98.5 F 98.2 F Pulse Rate 86 104 H 87 Respiratory Rate 18 17 18 Blood Pressure 175/94 H 177/88 H 165/90 H Pulse Oximetry 98 99 97 02/05/18 08:00 02/05/18 12:00 Temperature 98.2 F 99.1 F Pulse Rate 91 H 84 Respiratory Rate 16 17 Blood Pressure 184/99 H 197/95 H Pulse Oximetry 99 98 Intake & Output 02/04/18 02/05/18 02/05/18 18:59 06:59 18:59 Intake Total 1617.5 / 1617.5 3150 / 3150 1966.5 / 1966.5 Output Total 850 / 850 1900 / 1900 Balance 767.5 / 767.5 1250 / 1250 1966.5 / 1966.5 Weight 124.73 kg Intake: IV 1617.5 / 1617.5 1000 / 1000 1967.5 / 1966.5 NS Inj 1,000 ML @ 100 mls/hr IV 1000 / 1000 1000 / 1000 .CONT .Q10H [facility] Rx#:[id number] Zosyn 3.375 GM Premix 50 ML @ 100 / 100 100 / 100 100 mls/hr IV.SIG Q6H [facility] Rx#: [id number] Vancomycin Inj 1,750 MG In NS 517.5 / 517.5 517.5 / 517.5 Inj 500 ML @ 250 mls/hr IV.SIG Q12H [facility] Rx#:[id number] Oral 2150 / 2150 Output: Urine 850 / 850 1900 / 1900 Other: # Bowel Movements 1 Narrative: Subjective: F/up on multiple medical problems suspected left foot second metatarsal osteomyelitis, puncture wound of left foot. Right hydrocele. Persistent hypokalemia. Physical examination: GENERAL: Pleasant 47 yo AA male, in bed, well- developed, well-nourished no apparent distress. SKIN: Warm and dry on focused skin exam. CARDIOVASCULAR: Regular rate and rhythm. RESPIRATORY: No accessory muscle use. Clear to auscultation. Breath sounds equal bilaterally. GASTROINTESTINAL: Abdomen soft, non-tender, nondistended. Hepatic and splenic margins not palpable. Scrotal edema. MUSCULOSKELETAL: Left foot with dressing on some bloody discharge on the plantar aspect. Painful to palpation NEUROLOGICAL: Awake and alert. No obvious cranial nerve deficits. Motor grossly within normal limits. Five out of 5 muscle strength in the arms and legs. Normal speech. Assessment and Plan 47 year male presents emergency department for evaluation of left foot and right scrotal pain. Patient left AMA a day before re- admission Left foot suspected second metatarsal osteomyelitis Puncture wound of foot without foreign body Right Hydrocele Hypokalemia persistent CRP and ESR elevated, CRP 14 and ESR 80 suggesting osteomyelitis. Plan for Three-phase bone scan ( poss on Wednesday). Anticipate surgical intervention for Wednesday per Dr Santacruz Infectious disease consulted for further evaluation and recommendations Wound culture obtained and pending Foot X-Ray reviewed andfindings discussed with Dr Santacruz podiatry :No acute bony injury. No foreign body. Prominent soft tissue swelling Plan for work up to r.o osteomyelitis Checl crp , esr, bone scan Scrotum Ultrasound reviewed : Large right hydrocele. Varicocele demonstrated on the left. Testes are within normal limits. Continue cefepime and vanco IV abx IVF Replace electrolytes Pain meds per almaraz scale tylenol and oxycodone for severe pain Continue home meds as appropriate DVT ppx lovenox Discussed Condition With: patient, nurse, Dr Santacruz podiatry Discharge plan. Patient is not ready for discharge. Bone scan on Wednesday, possible surgery on Wednesday. Also infectious disease is consulted for further evaluation and recommendations. Discharge when patient is improving and cleared by consultants. Results - Labs CBC & Chem 7: 02/05/18 05:30 02/05/18 05:30 Laboratory Results - last 24 hr 02/05/18 02/05/18 02/05/18 05:30 05:30 05:30 WBC 18.3 H RBC 4.68 Hgb 10.6 L Hct 32.7 L MCV 69.9 L MCH 22.5 L MCHC 32.3 RDW 14.0 Plt Count 396 MPV 7.8 Neut % (Auto) 76.9 H Lymph % (Auto) 11.4 Perkins % (Auto) 8.7 H Eos % (Auto) 2.3 Baso % (Auto) 0.7 Neut # (Auto) 14.1 H Lymph # (Auto) 2.1 Perkins # (Auto) 1.6 H Eos # (Auto) 0.4 Baso # (Auto) 0.1 WBC Differential . Differential Comment Auto diff final ESR 80 H Sodium 135 L Potassium 2.6 L* Chloride 96 L Carbon Dioxide 25.9 Anion Gap 13 BUN 10 Creatinine 0.83 Estimated GFR Greater than 89 Random Glucose 85 Calcium 8.6 D Total Bilirubin 0.8 AST 11 L ALT 10 L Alkaline Phosphatase 65 C-Reactive Protein 14.00 H Total Protein 7.5 D Albumin 2.5 L D Vancomycin Trough 02/05/18 11:20 WBC RBC Hgb Hct MCV MCH MCHC RDW Plt Count MPV Neut % (Auto) Lymph % (Auto) Perkins % (Auto) Eos % (Auto) Baso % (Auto) Neut # (Auto) Lymph # (Auto) Perkins # (Auto) Eos # (Auto) Baso # (Auto) WBC Differential Differential Comment ESR Sodium Potassium Chloride Carbon Dioxide Anion Gap BUN Creatinine Estimated GFR Random Glucose Calcium Total Bilirubin AST ALT Alkaline Phosphatase C-Reactive Protein Total Protein Albumin Vancomycin Trough 10.0 Microbiology 02/03/18 22:07 Wound - Foot Gram Stain - Final 02/03/18 22:07 Wound - Foot Wound Culture - Preliminary Staphylococcus aureus Assessment and Plan - Plan 47 year male presents emergency department for evaluation of left foot and right scrotal pain. Patient left AMA a day before re- admission Puncture wound of foot without foreign body Right Hydrocele Acute hypokalemia Wound culture obtained. and pending Foot X-Ray reviewed andfindings discussed with Dr Santacruz podiatry :No acute bony injury. No foreign body. Prominent soft tissue swelling Plan for work up to r.o osteomyelitis Checl crp , esr, bone scan Scrotum Ultrasound reviewed : Large right hydrocele. Varicocele demonstrated on the left. Testes are within normal limits. Continue cefepime and vanco IV abx IVF KCL replacement for low K Pain meds per almaraz scale tylenol and oxycodone for severe pain Continue home meds as appropriate DVT ppx lovenox
--- NOTE | 2018-02-05 13:27 | P.PNPOD ---
Subjective Interval history: Patient seen bedside resting comfortably. Patient denies any nausea, any vomiting, fevers, or chills. Patient reports increased pain to left foot. Review of Systems No: All other systems reviewed negative except as stated in HPI Physical Exam Vital signs: Vital Signs 02/04/18 16:00 02/04/18 20:00 02/05/18 00:00 Temperature 99.1 F 98.5 F 98.2 F Pulse Rate 86 104 H 87 Respiratory Rate 18 17 18 Blood Pressure 175/94 H 177/88 H 165/90 H Pulse Oximetry 98 99 97 02/05/18 08:00 02/05/18 12:00 Temperature 98.2 F 99.1 F Pulse Rate 91 H 84 Respiratory Rate 16 17 Blood Pressure 184/99 H 197/95 H Pulse Oximetry 99 98 Intake & Output 02/04/18 02/05/18 02/05/18 18:59 06:59 18:59 Intake Total 1617.5 / 1617.5 3150 / 3150 1967.5 / 1966.5 Output Total 850 / 850 1900 / 1900 Balance 767.5 / 767.5 1250 / 1250 1966.5 / 1966.5 Weight 124.73 kg Intake: IV 1617.5 / 1617.5 1000 / 1000 1967.5 / 1967.5 NS Inj 1,000 ML @ 100 mls/hr IV 1000 / 1000 1000 / 1000 .CONT .Q10H [facility] Rx#:[id number] Zosyn 3.375 GM Premix 50 ML @ 100 / 100 100 / 100 100 mls/hr IV.SIG Q6H [facility] Rx#: [id number] Vancomycin Inj 1,750 MG In NS 517.5 / 517.5 517.5 / 517.5 Inj 500 ML @ 250 mls/hr IV.SIG Q12H [facility] Rx#:[id number] Oral 2150 / 2150 Output: Urine 850 / 850 1900 / 1900 Other: # Bowel Movements 1 Medications and Allergies Active Medications: Active Medications Acetaminophen (Tylenol) 650 mg PO Q4H PRN PRN Reason: pain 1-3. headache, fevers Al Hydroxide/Mg Hydroxide (Milk Of Magnesia Liq) 30 ml PO Q12H PRN PRN Reason: Mild Constipation Bisacodyl (Dulcolax Supp) 10 mg RECTAL DAILY PRN PRN Reason: SEVERE CONSITIPATION Enalaprilat (Vasotec Inj) 2.5 mg IV.PUSH Q8H PRN PRN Reason: SBP>160, DBP>90 Enoxaparin Sodium (Lovenox Inj) 40 mg SQ DAILY [facility] Last Admin: 02/05/18 09:17 Dose: 40 mg Hydrochlorothiazide (Microzide) 12.5 mg PO DAILY [facility] Sodium Chloride (Ns Inj) 1,000 mls @ 100 mls/hr IV.CONT .Q10H [facility] Last Admin: 02/05/18 07:53 Dose: 100 mls/hr Piperacillin/Tazobactam/Dextrose (Zosyn 3.375 Gm Premix) 50 mls @ 100 mls/hr IV.SIG Q6H [facility] Last Infusion: 02/05/18 10:45 Dose: Infused Pharmacy Profile Note (Vancomycin Consult Pharmacy) 0 mls @ 0 mls/hr OTHER [facility] Vancomycin HCl 1,750 mg/ (Sodium Chloride) 517.5 mls @ 250 mls/hr IV.SIG Q12H [facility] Last Admin: 02/05/18 11:19 Dose: 200 mls/hr Lactulose (Lactulose Liq) 30 ml PO DAILY PRN PRN Reason: SEVERE CONSITIPATION Magnesium Oxide (Mag-Ox) 400 mg PO DAILY [facility] Last Admin: 02/05/18 12:38 Dose: 400 mg Morphine Sulfate (Morphine Inj) 2 mg IV.PUSH Q4H PRN PRN Reason: breakthrough pain Oxycodone HCl (Roxicodone) 5 mg PO Q6H PRN PRN Reason: pain 4-10 Last Admin: 02/05/18 09:18 Dose: 5 mg Sennosides (Senokot) 17.2 mg PO Q12H PRN PRN Reason: Moderate Constipation Sodium Chloride (Ns Flush) 2 ml IV.FLUSH PRN PRN PRN Reason: FLUSH AFTER USING IV ACCESS Temazepam (Restoril) 15 mg PO HS PRN PRN Reason: INSOMNIA Last Admin: 02/04/18 21:10 Dose: 15 mg Allergies Allergy/AdvReac Type Severity Reaction Status Date / Time lactose Allergy Severe Hives Verified 01/30/18 23:38 milk Allergy Severe Anaphylaxis Verified 01/30/18 23:38 Sulfa (Sulfonamide Allergy Unknown ITCHING Verified 01/30/18 23:38 Antibiotics) Home Medications Medication Instructions Recorded Confirmed Type clindamycin HCl mg PO TID 02/04/18 History levofloxacin [Levaquin] mg PO DAILY 02/04/18 History Results - Labs CBC & Chem 7: 02/05/18 05:30 02/05/18 05:30 Laboratory Results - last 24 hr 02/05/18 02/05/18 02/05/18 05:30 05:30 05:30 WBC 18.3 H RBC 4.68 Hgb 10.6 L Hct 32.7 L MCV 69.9 L MCH 22.5 L MCHC 32.3 RDW 14.0 Plt Count 396 MPV 7.8 Neut % (Auto) 76.9 H Lymph % (Auto) 11.4 Nye % (Auto) 8.7 H Eos % (Auto) 2.3 Baso % (Auto) 0.7 Neut # (Auto) 14.1 H Lymph # (Auto) 2.1 Nye # (Auto) 1.6 H Eos # (Auto) 0.4 Baso # (Auto) 0.1 WBC Differential . Differential Comment Auto diff final ESR 80 H Sodium 135 L Potassium 2.6 L* Chloride 96 L Carbon Dioxide 25.9 Anion Gap 13 BUN 10 Creatinine 0.83 Estimated GFR Greater than 89 Random Glucose 85 Calcium 8.6 D Total Bilirubin 0.8 AST 11 L ALT 10 L Alkaline Phosphatase 65 C-Reactive Protein 14.00 H Total Protein 7.5 D Albumin 2.5 L D Vancomycin Trough 02/05/18 11:20 WBC RBC Hgb Hct MCV MCH MCHC RDW Plt Count MPV Neut % (Auto) Lymph % (Auto) Nye % (Auto) Eos % (Auto) Baso % (Auto) Neut # (Auto) Lymph # (Auto) Nye # (Auto) Eos # (Auto) Baso # (Auto) WBC Differential Differential Comment ESR Sodium Potassium Chloride Carbon Dioxide Anion Gap BUN Creatinine Estimated GFR Random Glucose Calcium Total Bilirubin AST ALT Alkaline Phosphatase C-Reactive Protein Total Protein Albumin Vancomycin Trough 10.0 Microbiology 02/03/18 22:07 Wound - Foot Gram Stain - Final 02/03/18 22:07 Wound - Foot Wound Culture - Preliminary Staphylococcus aureus
--- NOTE | 2018-02-05 13:37 | P.CONPOD ---
History of Present Illness Service: Foot and Ankle Surgery Consult date: 02/05/18 Requesting Physician: Laura Zabala Reason for Consult: Left foot infection Primary Care Provider: No Primary Care Physician Family Provider: No Primary Care Physician History of Present Illness: Podiatry consulted for this 47-year-old male who was seen recently earlier this week for left foot infection. Had discussed case with prior hospitalist and had discussed three-phase bone scan and cultures to be finalized prior to discharge. Patient however was discharged and returned to the emergency department 1 day later with increased pain to scrotum as well as left foot. Patient reports nausea and vomiting. He denies any fevers or chills. Patient' s x-ray and M RI on previous admission was negative for any osteomyelitis. Review of Systems All other systems reviewed negative except as stated in HPI [facility] - History History Provided By: Patient, Medical Record - Medical History Medical History: Medical History (Last Reviewed 02/05/18 @ 13:39 by Trina Santacruz DPM) Hydrocele in adult Hypertension - Family History Family History: Family History (Last Reviewed 02/05/18 @ 13:39 by Trina Santacruz DPM) Other Diabetes - Tobacco History Second Hand Smoke Exposure: No Tobacco Use In Past 30 Days: No Smoking Status: Never smoker - Alcohol History How Often Do You Have a Drink Containing Alcohol: 2 to 4 times a month - Substance Use History Substance History: Active Abuse - Substance Use Type Marijuana Status: Active Route Used: By Mouth Frequency: daily Reason for Use: Calm Down, Feels Good - Travel History Recent Travel in the [place] Within the Last 8 Weeks: No Recent Travel Out of the Country Within the Last 8 Weeks: No - Immunization History Tetanus Immunization: <5 Years Tetanus Immunization Year if Known: 2017 Hx Influenza Vaccine This Season: No Medications and Allergies Active Medications: Active Medications Acetaminophen (Tylenol) 650 mg PO Q4H PRN PRN Reason: pain 1-3. headache, fevers Al Hydroxide/Mg Hydroxide (Milk Of Magnesia Liq) 30 ml PO Q12H PRN PRN Reason: Mild Constipation Bisacodyl (Dulcolax Supp) 10 mg RECTAL DAILY PRN PRN Reason: SEVERE CONSITIPATION Enalaprilat (Vasotec Inj) 2.5 mg IV.PUSH Q8H PRN PRN Reason: SBP>160, DBP>90 Enoxaparin Sodium (Lovenox Inj) 40 mg SQ DAILY [facility] Last Admin: 02/05/18 09:17 Dose: 40 mg Hydrochlorothiazide (Microzide) 12.5 mg PO DAILY [facility] Sodium Chloride (Ns Inj) 1,000 mls @ 100 mls/hr IV.CONT .Q10H [facility] Last Admin: 02/05/18 07:53 Dose: 100 mls/hr Piperacillin/Tazobactam/Dextrose (Zosyn 3.375 Gm Premix) 50 mls @ 100 mls/hr IV.SIG Q6H [facility] Last Infusion: 02/05/18 10:45 Dose: Infused Pharmacy Profile Note (Vancomycin Consult Pharmacy) 0 mls @ 0 mls/hr OTHER UNSCH [facility] Vancomycin HCl 1,750 mg/ (Sodium Chloride) 517.5 mls @ 250 mls/hr IV.SIG Q12H [facility] Last Admin: 02/05/18 11:19 Dose: 200 mls/hr Lactulose (Lactulose Liq) 30 ml PO DAILY PRN PRN Reason: SEVERE CONSITIPATION Magnesium Oxide (Mag-Ox) 400 mg PO DAILY [facility] Last Admin: 02/05/18 12:38 Dose: 400 mg Morphine Sulfate (Morphine Inj) 2 mg IV.PUSH Q4H PRN PRN Reason: breakthrough pain Oxycodone HCl (Roxicodone) 5 mg PO Q6H PRN PRN Reason: pain 4-10 Last Admin: 02/05/18 09:18 Dose: 5 mg Sennosides (Senokot) 17.2 mg PO Q12H PRN PRN Reason: Moderate Constipation Sodium Chloride (Ns Flush) 2 ml IV.FLUSH PRN PRN PRN Reason: FLUSH AFTER USING IV ACCESS Temazepam (Restoril) 15 mg PO HS PRN PRN Reason: INSOMNIA Last Admin: 02/04/18 21:10 Dose: 15 mg Allergies Allergy/AdvReac Type Severity Reaction Status Date / Time lactose Allergy Severe Hives Verified 01/30/18 23:38 milk Allergy Severe Anaphylaxis Verified 01/30/18 23:38 Sulfa (Sulfonamide Allergy Unknown ITCHING Verified 01/30/18 23:38 Antibiotics) Home Medications Medication Instructions Recorded Confirmed Type clindamycin HCl mg PO TID 02/04/18 History levofloxacin [Levaquin] mg PO DAILY 02/04/18 History Physical Exam Vital signs: Vital Signs 02/04/18 16:00 02/04/18 20:00 02/05/18 00:00 Temperature 99.1 F 98.5 F 98.2 F Pulse Rate 86 104 H 87 Respiratory Rate 18 17 18 Blood Pressure 175/94 H 177/88 H 165/90 H Pulse Oximetry 98 99 97 02/05/18 08:00 02/05/18 12:00 Temperature 98.2 F 99.1 F Pulse Rate 91 H 84 Respiratory Rate 16 17 Blood Pressure 184/99 H 197/95 H Pulse Oximetry 99 98 Intake & Output 02/04/18 02/05/18 02/05/18 18:59 06:59 18:59 Intake Total 1617.5 / 1617.5 3150 / 3150 1966.5 / 1966.5 Output Total 850 / 850 1900 / 1900 Balance 767.5 / 767.5 1250 / 1250 1966.5 / 1966.5 Weight 124.73 kg Intake: IV 1617.5 / 1617.5 1000 / 1000 1967.5 / 1966.5 NS Inj 1,000 ML @ 100 mls/hr IV 1000 / 1000 1000 / 1000 .CONT .Q10H [facility] Rx#:[id number] Zosyn 3.375 GM Premix 50 ML @ 100 / 100 100 / 100 100 mls/hr IV.SIG Q6H [facility] Rx#: [id number] Vancomycin Inj 1,750 MG In NS 517.5 / 517.5 517.5 / 517.5 Inj 500 ML @ 250 mls/hr IV.SIG Q12H [facility] Rx#:[id number] Oral 2150 / 2150 Output: Urine 850 / 850 1900 / 1900 Other: # Bowel Movements 1 Narrative: GENERAL: This is a well-nourished, well-developed patient, in no apparent distress. SKIN: Left foot submetatarsal 2 ulceration HEAD: Atraumatic. EYES: Pupils equal round and reactive. ENT: Airway patent. NECK: Trachea midline. RESPIRATORY: Nonlabored breathing. MUSCULOSKELETAL:. Negative Homans sign bilaterally. NEUROLOGICAL: Awake and alert. Normal speech. Lower extremity physical exam: Vascular: Dorsalis pedis 2/4, posterior tibial 2/4. Capillary refill time within normal limits to digits X5 bilateral lower extremity. Edema present to left foot. Neuro: Gross sensation intact to bilateral lower extremity. Pinpoint sensation decreased. No hyperalgesia noted to bilateral lower extremity Dermatology: Increased warmth and discoloration noted to left foot localized to second ray. Submetatarsal 2 ulceration with serous drainage and fibrotic base. Hyperkeratotic skin edges noted. Probe to bone noted. Since last evaluated on last admission left foot infection has progressed. Edematous left second digit noted. Musculoskeletal: Tender to palpation to left foot submet 2 to palpation. Results - Labs CBC & Chem 7: 02/05/18 05:30 02/05/18 05:30 Laboratory Results - last 24 hr 02/05/18 02/05/18 02/05/18 05:30 05:30 05:30 WBC 18.3 H RBC 4.68 Hgb 10.6 L Hct 32.7 L MCV 69.9 L MCH 22.5 L MCHC 32.3 RDW 14.0 Plt Count 396 MPV 7.8 Neut % (Auto) 76.9 H Lymph % (Auto) 11.4 [place] % (Auto) 8.7 H Eos % (Auto) 2.3 Baso % (Auto) 0.7 Neut # (Auto) 14.1 H Lymph # (Auto) 2.1 [place] # (Auto) 1.6 H Eos # (Auto) 0.4 Baso # (Auto) 0.1 WBC Differential . Differential Comment Auto diff final ESR 80 H Sodium 135 L Potassium 2.6 L* Chloride 96 L Carbon Dioxide 25.9 Anion Gap 13 BUN 10 Creatinine 0.83 Estimated GFR Greater than 89 Random Glucose 85 Calcium 8.6 D Total Bilirubin 0.8 AST 11 L ALT 10 L Alkaline Phosphatase 65 C-Reactive Protein 14.00 H Total Protein 7.5 D Albumin 2.5 L D Vancomycin Trough 02/05/18 11:20 WBC RBC Hgb Hct MCV MCH MCHC RDW Plt Count MPV Neut % (Auto) Lymph % (Auto) [place] % (Auto) Eos % (Auto) Baso % (Auto) Neut # (Auto) Lymph # (Auto) [place] # (Auto) Eos # (Auto) Baso # (Auto) WBC Differential Differential Comment ESR Sodium Potassium Chloride Carbon Dioxide Anion Gap BUN Creatinine Estimated GFR Random Glucose Calcium Total Bilirubin AST ALT Alkaline Phosphatase C-Reactive Protein Total Protein Albumin Vancomycin Trough 10.0 Microbiology 02/03/18 22:07 Wound - Foot Gram Stain - Final 02/03/18 22:07 Wound - Foot Wound Culture - Preliminary Staphylococcus aureus Assessment and Plan - Plan 47-year-old male with left foot suspected second metatarsal osteomyelitis Patient examined evaluated with all questions answered Discussed case with Dr. Zabala Three-phase bone scan to be performed, discussed repeat MRI with radiology however radiologist felt that repeat MRI would not be sensitive enough to pick up driver any osteomyelitis since he personally reviewed prior report and image and did not see any increased signal intensity Will await bone scan on Wednesday Anticipate surgical intervention for Wednesday CRP and ESR elevated, CRP 14 and ESR 80 High likelihood of osteomyelitis Would recommend pseudomonal coverage Recommend infectious disease consult
[2018-02-05] MEDS ORDERED: Vancomycin Inj 2,250 MG in Sodium Chlor 0.9% Inj 500 ML IV.SIG SCH (22:00)
[2018-02-06] MEDS: Piperacil/Tazo 3.375 GM Premix 50 ML IV.SIG SCH ×4 (02:15→20:37)
[2018-02-06] MEDS: Sod Chloride 0.9% Inj 1,000 ML IV.CONT SCH ×2 (02:24→13:42)
[2018-02-06] MEDS: Morphine Inj 4 MG/ML Vial IV.PUSH PRN (02:27)
[2018-02-06 07:48] LABS: Baso # (Auto) 0.1 th/mm3 (0.0-0.2); Baso % (Auto) 0.6 % (0.0-2.0); Eos # (Auto) 0.1 th/mm3 (0.0-0.4); Eos % (Auto) 0.7 % (0.0-4.0); Hematocrit 34.5 % (39.0-51.0); Lymph % (Auto) 5.2 % (9.0-44.0); Mean Corpuscular Hemoglobin 22.3 pg (27.0-34.0); Mean Corpuscular Volume 69.7 fL (80.0-100.0); Mean Platelet Volume 7.6 fL (7.0-11.0); Mono # (Auto) 1.8 th/mm3 (0.0-0.9); Neut # (Auto) 16.5 th/mm3 (1.8-7.7); Neut % (Auto) 84.5 % (16.0-70.0); Platelet Count 389 th/mm3 (150-450); Red Blood Count 4.95 mil/mm3 (4.50-5.90); Red Cell Distribution Width 14.2 % (11.6-17.2); White Blood Count 19.6 th/mm3 (4.0-11.0)
[2018-02-06 08:16] LABS: Calcium 8.6 mg/dL (8.5-10.1); Carbon Dioxide 24.6 meq/L (21.0-32.0)
[2018-02-06 08:22] LABS: Potassium 2.8 meq/L (3.5-5.1)
[2018-02-06] MEDS ORDERED: Magnesium Oxide 400 MG Tablet PO ONE (10:49)
[2018-02-06] MEDS: Enoxaparin Inj 40 MG/0.4 ML Syringe SQ SCH (10:58)
--- NOTE | 2018-02-06 11:02 | P.PN ---
Physical Exam Vital signs: Vital Signs 02/05/18 12:00 02/05/18 16:00 02/05/18 20:00 Temperature 99.1 F 99.5 F 97.9 F Pulse Rate 84 91 H 92 H Respiratory Rate 17 18 17 Blood Pressure 197/95 H 190/103 H 184/101 H Pulse Oximetry 98 98 91 L 02/06/18 00:00 02/06/18 08:00 Temperature 97.6 F 99.1 F Pulse Rate 85 Respiratory Rate 17 20 Blood Pressure 174/91 H 193/94 H Pulse Oximetry 96 98 Intake & Output 02/05/18 02/06/18 02/06/18 18:59 06:59 18:59 Intake Total 3767.5 / 3767.5 1580 / 1580 Output Total 1200 / 1200 500 / 500 Balance 2567.5 / 2567.5 1080 / 1080 Weight 125 kg Intake: IV 3267.5 / 3267.5 1100 / 1100 NS Inj 1,000 ML @ 100 mls/hr IV 1000 / 1000 1000 / 1000 .CONT .Q10H [facility] Rx#:[id number] Zosyn 3.375 GM Premix 50 ML @ 150 / 150 100 / 100 100 mls/hr IV.SIG Q6H [facility] Rx#: [id number] Vancomycin Inj 1,750 MG In NS 767.5 / 767.5 Inj 500 ML @ 250 mls/hr IV.SIG Q12H [facility] Rx#:[id number] Oral 500 / 500 480 / 480 Output: Urine 1200 / 1200 500 / 500 Other: # Bowel Movements 0 Narrative: Subjective: F/up on multiple medical problems suspected left foot second metatarsal osteomyelitis, puncture wound of left foot. Right hydrocele. Persistent hypokalemia. Patient complains of nausea. Says he is lactose intolerance. Received Reglan he is feeling much better now. Says pain in his leg is fairly improved. No fever or chills overnight. No chest pain or shortness of breath. Physical examination: GENERAL: Pleasant 47 yo AA male, in bed, well- developed, well-nourished no apparent distress. SKIN: Warm and dry on focused skin exam. CARDIOVASCULAR: Regular rate and rhythm. RESPIRATORY: No accessory muscle use. Clear to auscultation. Breath sounds equal bilaterally. GASTROINTESTINAL: Abdomen soft, non-tender, nondistended. Hepatic and splenic margins not palpable. Scrotal edema. MUSCULOSKELETAL: Left foot with dressing on some bloody discharge on the plantar aspect. Painful to palpation NEUROLOGICAL: Awake and alert. No obvious cranial nerve deficits. Motor grossly within normal limits. Five out of 5 muscle strength in the arms and legs. Normal speech. Assessment and Plan 47 year male presents emergency department for evaluation of left foot and right scrotal pain. Patient left AMA a day before re- admission Left foot suspected second metatarsal osteomyelitis Puncture wound of foot without foreign body Right Hydrocele/varicocele Hypokalemia persistent CRP and ESR elevated, CRP 14 and ESR 80 suggesting osteomyelitis. Plan for Three-phase bone scan ( poss on Wednesday). Anticipate surgical intervention for Wednesday per Dr Santacruz Infectious disease consulted for further evaluation and recommendations Wound culture obtained and pending Foot X-Ray reviewed andfindings discussed with Dr Santacruz podiatry :No acute bony injury. No foreign body. Prominent soft tissue swelling Plan for work up to r.o osteomyelitis Checl crp , esr, bone scan Scrotum Ultrasound reviewed : Large right hydrocele. Varicocele demonstrated on the left. Testes are within normal limits. Consult urology for further evaluation of right hydrocele/varicocele Infectious disease consulted and has seen the patient appreciate recommendations DC Vanco IV Start Daptomycin IV (for possible osteomyelitis) Check Blood cultures Check hepatitis profile Check HIV screen Check GC and chlamydia given groin pain Check RPR IVF Replace electrolytes Pain meds per almaraz scale tylenol and oxycodone for severe pain Continue home meds as appropriate DVT ppx lovenox Discussed Condition With: patient, nurse, Dr Santacruz podiatry Discharge plan. Patient is not ready for discharge. Bone scan on Wednesday, possible surgery on Wednesday. Discharge when patient is improving and cleared by consultants. Results - Labs CBC & Chem 7: 02/06/18 07:02 02/06/18 07:02 Laboratory Results - last 24 hr 02/05/18 02/06/18 02/06/18 11:20 07:02 07:02 WBC 19.6 H RBC 4.95 Hgb 11.0 L Hct 34.5 L MCV 69.7 L MCH 22.3 L MCHC 32.0 RDW 14.2 Plt Count 389 MPV 7.6 Neut % (Auto) 84.5 H Lymph % (Auto) 5.2 L [place] % (Auto) 9.0 H Eos % (Auto) 0.7 Baso % (Auto) 0.6 Neut # (Auto) 16.5 H Lymph # (Auto) 1.0 [place] # (Auto) 1.8 H Eos # (Auto) 0.1 Baso # (Auto) 0.1 WBC Differential . Differential Comment Auto diff final Sodium 137 Potassium 2.8 L* Chloride 98 Carbon Dioxide 24.6 Anion Gap 14 BUN 9 Creatinine 1.31 H Estimated GFR 70 L Random Glucose 90 Calcium 8.6 Vancomycin Trough 10.0 Microbiology 02/03/18 22:07 Wound - Foot Gram Stain - Final 02/03/18 22:07 Wound - Foot Wound Culture - Final Staphylococcus aureus Assessment and Plan - Plan 47 year male presents emergency department for evaluation of left foot and right scrotal pain. Patient left AMA a day before re- admission Puncture wound of foot without foreign body Right Hydrocele Acute hypokalemia Wound culture obtained. and pending Foot X-Ray reviewed andfindings discussed with Dr Santacruz podiatry :No acute bony injury. No foreign body. Prominent soft tissue swelling Plan for work up to r.o osteomyelitis Checl crp , esr, bone scan Scrotum Ultrasound reviewed : Large right hydrocele. Varicocele demonstrated on the left. Testes are within normal limits. Continue cefepime and vanco IV abx IVF KCL replacement for low K Pain meds per almaraz scale tylenol and oxycodone for severe pain Continue home meds as appropriate DVT ppx lovenox
--- NOTE | 2018-02-06 12:59 | P.CONID ---
History of Present Illness Service: ID Consult date: 02/06/18 Requesting Physician: Laura Zabala Reason for Consult: Evaluation and management of left foot pain Primary Care Provider: No Primary Care Physician Family Provider: No Primary Care Physician History of Present Illness: Mr. Luna is a 47-year-old -Serbian male who presents emergency department for evaluation left foot pain as well as right scrotal pain. Patient was in the emergency department a couple of days ago and actually was discharged on clindamycin Levaquin. Patient presented the ED because of nausea and vomiting. Denies any fevers or chills. Patient reports his left foot pain as well as right scrotal pain is 10 out of 10 on admission. Patient did reports he was advised to return if his right scrotal pain or left foot pain increased. Patient denies any other systemic symptoms such as chest pain shortness of breath or abdominal pain. He reports he was diagnosed with hydrocele on January 30. Patient was started on IV antibiotics and pain medication and at the present time reports no pain. Denies any night sweats. Patient has been seen by podiatry and workup for osteomyelitis is ongoing including a nuclear medicine scan on Wednesday. Patient reports the original injury occurred 1 week prior to admission at work when he was injured by a nail. He reports he received a tetanus injection at that time. Infectious diseases consulted for evaluation and management of left foot osteomyelitis. Review of Systems All other systems reviewed negative except as stated in HPI [facility] - History History Provided By: Patient, Medical Record - Medical History Medical History: Medical History (Last Reviewed 02/05/18 @ 13:39 by Trina Santacruz DPM) Hydrocele in adult Hypertension - Surgical History Surgical History: Surgical History (Last Updated 02/06/18 @ 13:03 by Melva Huff MD) History of facial surgery - Family History Family History: Family History (Last Reviewed 02/05/18 @ 13:39 by Trina Santacruz DPM) Other Diabetes - Tobacco History Second Hand Smoke Exposure: No Tobacco Use In Past 30 Days: No Smoking Status: Never smoker - Alcohol History How Often Do You Have a Drink Containing Alcohol: 2 to 4 times a month - Substance Use History Substance History: Active Abuse - Substance Use Type Marijuana Status: Active Route Used: By Mouth Frequency: daily Reason for Use: Calm Down, Feels Good - Travel History Recent Travel in the [place] Within the Last 8 Weeks: No Recent Travel Out of the Country Within the Last 8 Weeks: No - Immunization History Tetanus Immunization: <5 Years Tetanus Immunization Year if Known: 2018 Hx Influenza Vaccine This Season: No Medications and Allergies Active Medications: Active Medications Acetaminophen (Tylenol) 650 mg PO Q4H PRN PRN Reason: pain 1-3. headache, fevers Al Hydroxide/Mg Hydroxide (Milk Of Magnesia Liq) 30 ml PO Q12H PRN PRN Reason: Mild Constipation Last Admin: 02/06/18 10:58 Dose: 30 ml Bisacodyl (Dulcolax Supp) 10 mg RECTAL DAILY PRN PRN Reason: SEVERE CONSITIPATION Enalaprilat (Vasotec Inj) 2.5 mg IV.PUSH Q8H PRN PRN Reason: SBP>160, DBP>90 Last Admin: 02/05/18 15:33 Dose: 2.5 mg Enoxaparin Sodium (Lovenox Inj) 40 mg SQ DAILY [facility] Last Admin: 02/06/18 10:58 Dose: 40 mg Hydrochlorothiazide (Microzide) 12.5 mg PO DAILY [facility] Last Admin: 02/06/18 10:58 Dose: 12.5 mg Sodium Chloride (Ns Inj) 1,000 mls @ 100 mls/hr IV.CONT .Q10H [facility] Last Admin: 02/06/18 02:24 Dose: 100 mls/hr Piperacillin/Tazobactam/Dextrose (Zosyn 3.375 Gm Premix) 50 mls @ 100 mls/hr IV.SIG Q6H [facility] Last Admin: 02/06/18 10:57 Dose: 100 mls/hr Pharmacy Profile Note (Vancomycin Consult Pharmacy) 0 mls @ 0 mls/hr OTHER UNSCH [facility] Vancomycin HCl 2,250 mg/ (Sodium Chloride) 522.5 mls @ 250 mls/hr IV.SIG Q12H [facility] Last Admin: 02/05/18 23:15 Dose: 250 mls/hr Lactulose (Lactulose Liq) 30 ml PO DAILY PRN PRN Reason: SEVERE CONSITIPATION Magnesium Oxide (Mag-Ox) 400 mg PO DAILY [facility] Last Admin: 02/05/18 12:38 Dose: 400 mg Metoclopramide HCl (Reglan Inj) 5 mg IV.PUSH Q8HR PRN; Protocol PRN Reason: NAUSEA OR VOMITING Morphine Sulfate (Morphine Inj) 2 mg IV.PUSH Q4H PRN PRN Reason: breakthrough pain Last Admin: 02/06/18 02:27 Dose: 2 mg Oxycodone HCl (Roxicodone) 5 mg PO Q6H PRN PRN Reason: pain 4-10 Last Admin: 02/06/18 10:59 Dose: 5 mg Sennosides (Senokot) 17.2 mg PO Q12H PRN PRN Reason: Moderate Constipation Sodium Chloride (Ns Flush) 2 ml IV.FLUSH PRN PRN PRN Reason: FLUSH AFTER USING IV ACCESS Temazepam (Restoril) 15 mg PO HS PRN PRN Reason: INSOMNIA Last Admin: 02/04/18 21:10 Dose: 15 mg Allergies Allergy/AdvReac Type Severity Reaction Status Date / Time lactose Allergy Severe Hives Verified 01/30/18 23:38 milk Allergy Severe Anaphylaxis Verified 01/30/18 23:38 Sulfa (Sulfonamide Allergy Unknown ITCHING Verified 01/30/18 23:38 Antibiotics) Home Medications Medication Instructions Recorded Confirmed Type clindamycin HCl mg PO TID 02/04/18 History levofloxacin [Levaquin] mg PO DAILY 02/04/18 History Exam Vital signs: Vital Signs 02/05/18 16:00 02/05/18 20:00 02/06/18 00:00 Temperature 99.5 F 97.9 F 97.6 F Pulse Rate 91 H 92 H 85 Respiratory Rate 18 17 17 Blood Pressure 190/103 H 184/101 H 174/91 H Pulse Oximetry 98 91 L 96 02/06/18 08:00 02/06/18 11:56 Temperature 99.1 F 98.9 F Pulse Rate 88 Respiratory Rate 20 17 Blood Pressure 193/94 H 183/107 H Pulse Oximetry 98 96 Intake & Output 02/05/18 02/06/18 02/06/18 18:59 06:59 18:59 Intake Total 3767.5 / 3767.5 1580 / 1580 Output Total 1200 / 1200 500 / 500 Balance 2567.5 / 2567.5 1080 / 1080 Weight 125 kg Intake: IV 3267.5 / 3267.5 1100 / 1100 NS Inj 1,000 ML @ 100 mls/hr IV 1000 / 1000 1000 / 1000 .CONT .Q10H [facility] Rx#:[id number] Zosyn 3.375 GM Premix 50 ML @ 150 / 150 100 / 100 100 mls/hr IV.SIG Q6H [facility] Rx#: [id number] Vancomycin Inj 1,750 MG In NS 767.5 / 767.5 Inj 500 ML @ 250 mls/hr IV.SIG Q12H [facility] Rx#:[id number] Oral 500 / 500 480 / 480 Output: Urine 1200 / 1200 500 / 500 Other: # Bowel Movements 0 Narrative: GENERAL: Well-nourished well-developed, not in acute distress SKIN: Cool and dry, no generalized rash HEAD: Atraumatic. Normocephalic. No temporal or scalp tenderness. EYES: Pupils equal round and reactive. Scleral icterus. No injection or drainage. No petechia ENT: Nothing abnormal detected NECK: Trachea midline. Supple, nontender, no meningeal signs. CARDIOVASCULAR: HS audible. RESPIRATORY: Clear to auscultation bilaterally. GASTROINTESTINAL: Abdomen soft nontender. MUSCULOSKELETAL: Left foot in dressing, patient deferred exam as dressing was just changed. I dw findings. NEUROLOGICAL: Alert oriented 3. Nonfocal. Psych cooperative IV line sites ok. Results - Labs CBC & Chem 7: 02/06/18 07:02 02/06/18 07:02 Labs: Laboratory Results - last 24 hr 02/06/18 02/06/18 07:02 07:02 WBC 19.6 H RBC 4.95 Hgb 11.0 L Hct 34.5 L MCV 69.7 L MCH 22.3 L MCHC 32.0 RDW 14.2 Plt Count 389 MPV 7.6 Neut % (Auto) 84.5 H Lymph % (Auto) 5.2 L [place] % (Auto) 9.0 H Eos % (Auto) 0.7 Baso % (Auto) 0.6 Neut # (Auto) 16.5 H Lymph # (Auto) 1.0 [place] # (Auto) 1.8 H Eos # (Auto) 0.1 Baso # (Auto) 0.1 WBC Differential . Differential Comment Auto diff final Sodium 137 Potassium 2.8 L* Chloride 98 Carbon Dioxide 24.6 Anion Gap 14 BUN 9 Creatinine 1.31 H Estimated GFR 70 L Random Glucose 90 Calcium 8.6 - Imaging ITS Impressions Foot X-Ray 02/03/18 21:08 CONCLUSION: No acute bony injury. No foreign body. Prominent soft tissue swelling Scrotum Ultrasound 02/03/18 21:13 CONCLUSION: 1. Large right hydrocele. 2. Varicocele demonstrated on the left. 3. Testes are within normal limits. Assessment and Plan - Plan Left foot cellulitis Left foot possible osteomyelitis. Right groin pain, Large right hydrocele Left groin varicocele Hypokalemia: ? nausea, vomiting related. acute renal failure: ? vanco induced. will follow trend to see if Zosyn could be a culprit. CRP elevated. Recs: DC Vanco IV Start Daptomycin IV (for possible osteomyelitis) Check Blood cultures Agree with Podiatry workup with NM scan. CRP elevated. Check hepatitis profile Check HIV screen Check GC and chlamydia given groin pain Check RPR Consider urology consult for right groin pain evaluation.
[2018-02-06] MEDS: Magnesium Oxide 400 MG Tablet PO SCH (13:44)
[2018-02-06] MEDS: DAPTOMYCIN IV.SIG SCH (15:19)
[2018-02-06] MEDS: SODIUM CHLOR 0.9% IV.SIG SCH (15:19)
[2018-02-07] MEDS: Sod Chloride 0.9% Inj 1,000 ML IV.CONT SCH ×3 (01:12→20:49)
[2018-02-07] MEDS: Piperacil/Tazo 3.375 GM Premix 50 ML IV.SIG SCH ×2 (01:13→08:02)
[2018-02-07] MEDS: Enoxaparin Inj 40 MG/0.4 ML Syringe SQ SCH (08:03)
[2018-02-07] MEDS: Magnesium Oxide 400 MG Tablet PO SCH (08:03)
[2018-02-07] MEDS ORDERED: Pharmacy Ordered Lab Info OTHER ONE (09:45)
[2018-02-07 11:43] LABS: Baso # (Auto) 0.1 th/mm3 (0.0-0.2); Baso % (Auto) 0.3 % (0.0-2.0); Eos % (Auto) 0.2 % (0.0-4.0); Hematocrit 37.2 % (39.0-51.0); Hemoglobin 11.9 gm/dL (13.0-17.0); Lymph # (Auto) 1.5 th/mm3 (1.0-4.8); Lymph % (Auto) 7.1 % (9.0-44.0); Mean Corpuscular HGB Conc 31.9 % (32.0-36.0); Mean Corpuscular Hemoglobin 22.2 pg (27.0-34.0); Mean Corpuscular Volume 69.6 fL (80.0-100.0); Mean Platelet Volume 7.7 fL (7.0-11.0); Mono # (Auto) 1.6 th/mm3 (0.0-0.9); Mono % (Auto) 7.8 % (0.0-8.0); Neut # (Auto) 17.6 th/mm3 (1.8-7.7); Neut % (Auto) 84.6 % (16.0-70.0); Platelet Count 437 th/mm3 (150-450); Red Blood Count 5.35 mil/mm3 (4.50-5.90); Red Cell Distribution Width 14.5 % (11.6-17.2); White Blood Count 20.8 th/mm3 (4.0-11.0)
[2018-02-07] MEDS ORDERED: Metoprolol Tartrate 25 MG Tablet PO ONE (12:00)
[2018-02-07 12:19] LABS: Calcium 9.3 mg/dL (8.5-10.1); Carbon Dioxide 28.7 meq/L (21.0-32.0); Magnesium 2.2 mg/dL (1.5-2.5); Potassium 3.4 meq/L (3.5-5.1)
[2018-02-07 12:32] LABS: Hepatitits B Surface Antigen Nonreactive (Nonreactive)
[2018-02-07 12:59] LABS: Hepatitis A IgM Antibody Nonreactive (Nonreactive)
--- NOTE | 2018-02-07 13:12 | P.CONURO ---
History of Present Illness Consult date: 02/07/18 Requesting Physician: Melva Huff Reason for Consult: Right hydrocele Primary Care Provider: No Primary Care Physician Family Provider: No Primary Care Physician Chief Complaint: Right scrotal discomfort History of Present Illness: 47-year-old gentleman admitted for osteomyelitis and during present hospitalization complained of ongoing discomfort of the scrotum. Patient was diagnosed with a right-sided hydrocele by ultrasound recently. A urology consult was placed regarding further recommendations for this problem. Review of Systems Cardiovascular: Denies chest pain Respiratory: Denies shortness of breath Gastrointestinal: Denies abdominal pain Genitourinary: Denies blood in urine, Denies difficulty urinating, Denies urinary frequency Musculoskeletal: Denies back pain PMFSH - History History Provided By: Patient, Medical Record - Medical History Medical History: Medical History (Last Reviewed 02/05/18 @ 13:39 by Trina Santacruz DPM) Hydrocele in adult Hypertension - Surgical History Surgical History: Surgical History (Last Updated 02/06/18 @ 13:03 by Melva Huff MD) History of facial surgery - Family History Family History: Family History (Last Reviewed 02/05/18 @ 13:39 by Trina Santacruz DPM) Other Diabetes - Tobacco History Second Hand Smoke Exposure: No Tobacco Use In Past 30 Days: No Smoking Status: Never smoker - Alcohol History How Often Do You Have a Drink Containing Alcohol: 2 to 4 times a month - Substance Use History Substance History: Active Abuse - Substance Use Type Marijuana Status: Active Route Used: By Mouth Frequency: daily Reason for Use: Calm Down, Feels Good - Travel History Recent Travel in the [place] Within the Last 8 Weeks: No Recent Travel Out of the Country Within the Last 8 Weeks: No - Immunization History Tetanus Immunization: <5 Years Tetanus Immunization Year if Known: 2018 Hx Influenza Vaccine This Season: No Medications and Allergies Active Medications: Active Medications Acetaminophen (Tylenol) 650 mg PO Q4H PRN PRN Reason: pain 1-3. headache, fevers Al Hydroxide/Mg Hydroxide (Milk Of Magnesia Liq) 30 ml PO Q12H PRN PRN Reason: Mild Constipation Last Admin: 02/06/18 10:58 Dose: 30 ml Bisacodyl (Dulcolax Supp) 10 mg RECTAL DAILY PRN PRN Reason: SEVERE CONSITIPATION Enalaprilat (Vasotec Inj) 2.5 mg IV.PUSH Q8H PRN PRN Reason: SBP>160, DBP>90 Last Admin: 02/07/18 01:13 Dose: 2.5 mg Enoxaparin Sodium (Lovenox Inj) 40 mg SQ DAILY [facility] Last Admin: 02/07/18 08:03 Dose: 40 mg Hydrochlorothiazide (Microzide) 12.5 mg PO DAILY [facility] Last Admin: 02/07/18 08:03 Dose: 12.5 mg Sodium Chloride (Ns Inj) 1,000 mls @ 100 mls/hr IV.CONT .Q10H [facility] Last Admin: 02/07/18 08:02 Dose: 100 mls/hr Piperacillin/Tazobactam/Dextrose (Zosyn 3.375 Gm Premix) 50 mls @ 100 mls/hr IV.SIG Q6H [facility] Last Infusion: 02/07/18 09:25 Dose: Infused Daptomycin 1,250 mg/ Sodium (Chloride) 100 mls @ 200 mls/hr IV.SIG Q24H [facility] Last Infusion: 02/06/18 15:50 Dose: Infused Potassium Chloride/Dextrose/Sod Cl (D5w/Ns + Kcl 20 Meq Inj) 1,000 mls @ 84 mls /hr IV.CONT .[id number] [facility] Lactulose (Lactulose Liq) 30 ml PO DAILY PRN PRN Reason: SEVERE CONSITIPATION Magnesium Oxide (Mag-Ox) 400 mg PO DAILY [facility] Last Admin: 02/07/18 08:03 Dose: 400 mg Metoclopramide HCl (Reglan Inj) 5 mg IV.PUSH Q8HR PRN; Protocol PRN Reason: NAUSEA OR VOMITING Last Admin: 02/07/18 03:51 Dose: 5 mg Metoprolol Tartrate (Lopressor) 12.5 mg PO BID [facility] Miscellaneous (Pill Splitter) 1 each OTHER UNSCH [facility] Morphine Sulfate (Morphine Inj) 2 mg IV.PUSH Q4H PRN PRN Reason: breakthrough pain Last Admin: 02/06/18 02:27 Dose: 2 mg Oxycodone HCl (Roxicodone) 5 mg PO Q6H PRN PRN Reason: pain 4-10 Last Admin: 02/07/18 03:58 Dose: 5 mg Sennosides (Senokot) 17.2 mg PO Q12H PRN PRN Reason: Moderate Constipation Sodium Chloride (Ns Flush) 2 ml IV.FLUSH PRN PRN PRN Reason: FLUSH AFTER USING IV ACCESS Temazepam (Restoril) 15 mg PO HS PRN PRN Reason: INSOMNIA Last Admin: 02/04/18 21:10 Dose: 15 mg Allergies Allergy/AdvReac Type Severity Reaction Status Date / Time lactose Allergy Severe Hives Verified 01/30/18 23:38 milk Allergy Severe Anaphylaxis Verified 01/30/18 23:38 Sulfa (Sulfonamide Allergy Unknown ITCHING Verified 01/30/18 23:38 Antibiotics) Home Medications Medication Instructions Recorded Confirmed Type No Known Home Medications 02/06/18 02/06/18 History Physical Exam Vital Signs - 24 hr 02/06/18 16:00 02/06/18 20:00 02/07/18 00:00 Temperature 98.7 F 98.9 F 98.9 F Pulse Rate 79 90 84 Respiratory Rate 17 17 17 Blood Pressure 195/97 H 192/93 H Pulse Oximetry 97 98 98 02/07/18 08:00 Temperature 98.1 F Pulse Rate 82 Respiratory Rate 19 Blood Pressure 193/100 H Pulse Oximetry 100 Physical Exam: GENERAL: This is a well-nourished, well-developed patient, in no apparent distress. SKIN: No rashes, ecchymoses or lesions. Cool and dry. HEAD: Atraumatic. Normocephalic. No temporal or scalp tenderness. EYES: Pupils equal round and reactive. Extraocular motions intact. No scleral icterus. No injection or drainage. ENT: Nose without bleeding, purulent drainage or septal hematoma. Throat without erythema, tonsillar hypertrophy or exudate. Uvula midline. Airway patent. NECK: Trachea midline. No JVD or lymphadenopathy. Supple, nontender, no meningeal signs. CARDIOVASCULAR: Regular rate and rhythm without murmurs, gallops, or rubs. RESPIRATORY: Clear to auscultation. Breath sounds equal bilaterally. No wheezes , rales, or rhonchi. GASTROINTESTINAL: Abdomen soft, non-tender, nondistended. No hepato-splenomegaly , or palpable masses. No guarding. GENITOURINARY: Moderately sized right hydrocele present. Difficult to examine the right testicle due to the hydrocele. MUSCULOSKELETAL: Extremities without clubbing, cyanosis, or edema. No joint tenderness, effusion, or edema noted. No calf tenderness. Negative Homans sign bilaterally. NEUROLOGICAL: Awake and alert. Cranial nerves II through XII intact. Motor and sensory grossly within normal limits. Five out of 5 muscle strength in all muscle groups. Normal speech. Laboratory Results - last 24 hr 02/07/18 02/07/18 02/07/18 11:05 11:05 11:05 WBC 20.8 H RBC 5.35 Hgb 11.9 L Hct 37.2 L MCV 69.6 L MCH 22.2 L MCHC 31.9 L RDW 14.5 Plt Count 437 MPV 7.7 Neut % (Auto) 84.6 H Lymph % (Auto) 7.1 L [place] % (Auto) 7.8 Eos % (Auto) 0.2 Baso % (Auto) 0.3 Neut # (Auto) 17.6 H Lymph # (Auto) 1.5 [place] # (Auto) 1.6 H Eos # (Auto) 0.0 Baso # (Auto) 0.1 WBC Differential . Differential Comment Auto diff final Sodium Potassium Chloride Carbon Dioxide Anion Gap BUN Creatinine Estimated GFR Random Glucose Calcium Magnesium Hepatitis A IgM Ab Nonreactive Hep Bs Antigen Nonreactive Hep B Core IgM Ab Nonreactive Hep C IgG Ab Nonreactive HIV 1&2 Ab/P24 Ag 4thGn Nonreactive 02/07/18 11:05 WBC RBC Hgb Hct MCV MCH MCHC RDW Plt Count MPV Neut % (Auto) Lymph % (Auto) [place] % (Auto) Eos % (Auto) Baso % (Auto) Neut # (Auto) Lymph # (Auto) [place] # (Auto) Eos # (Auto) Baso # (Auto) WBC Differential Differential Comment Sodium 136 Potassium 3.4 L Chloride 95 L Carbon Dioxide 28.7 Anion Gap 12 BUN 18 Creatinine 2.94 H Estimated GFR 28 L Random Glucose 135 H Calcium 9.3 Magnesium 2.2 Hepatitis A IgM Ab Hep Bs Antigen Hep B Core IgM Ab Hep C IgG Ab HIV 1&2 Ab/P24 Ag 4thGn Microbiology 02/03/18 22:07 Gram Stain - Final Wound - Foot Wound Culture - Final Staphylococcus aureus Result Diagrams: 02/07/18 11:05 02/07/18 11:05 Imaging: ITS Impressions Foot X-Ray 02/03/18 21:08 CONCLUSION: No acute bony injury. No foreign body. Prominent soft tissue swelling Scrotum Ultrasound 02/03/18 21:13 CONCLUSION: 1. Large right hydrocele. 2. Varicocele demonstrated on the left. 3. Testes are within normal limits. Assessment and Plan - Assessment (1) Hydrocele in adult Code(s): N43.3 - Hydrocele, unspecified Status: Acute - Plan 1. I discussed with the patient that I would have my office place him on my outpatient surgery scheduled for a right hydrocelectomy sometime within the next several weeks. 2. patient advised to contact my office sometime after the discharge so that arrangements for the outpatient surgery can be made.
[2018-02-07] MEDS: SODIUM CHLOR 0.9% IV.SIG SCH (14:51)
[2018-02-07] MEDS: KCL 20 mEq/D5W/NaCl 0.9% Inj 1,000 ML IV.CONT SCH (14:51)
[2018-02-07] MEDS: DAPTOMYCIN IV.SIG SCH (14:51)
--- NOTE | 2018-02-07 15:30 | P.PNID ---
Subjective Remarks: Mr. Luna is a 47-year-old -[place] male who presents emergency department for evaluation left foot pain as well as right scrotal pain. Patient was in the emergency department a couple of days ago and actually was discharged on clindamycin Levaquin. Patient presented the ED because of nausea and vomiting. Denies any fevers or chills. Patient reports his left foot pain as well as right scrotal pain is 10 out of 10 on admission. Patient did reports he was advised to return if his right scrotal pain or left foot pain increased. Patient denies any other systemic symptoms such as chest pain shortness of breath or abdominal pain. He reports he was diagnosed with hydrocele on January 30. Patient was started on IV antibiotics and pain medication and at the present time reports no pain. Denies any night sweats. Patient has been seen by podiatry and workup for osteomyelitis is ongoing including a nuclear medicine scan on Wednesday. Patient reports the original injury occurred 1 week prior to admission at work when he was injured by a nail. He reports he received a tetanus injection at that time. Infectious diseases consulted for evaluation and management of left foot osteomyelitis. Overnight events reviewed No fevers No rash No diarrhea Complains of nausea on meds. Undergoing NM scan Antibiotics: Dapto IV Zosyn IV Lines: Lines ok Past Medical History: Medical History Hydrocele in adult Hypertension Surgical History: Surgical History History of facial surgery Allergies/Adverse Reactions: Allergies lactose Allergy (Severe, Verified 01/30/18 23:38) Hives HIVES AND N/V milk Allergy (Severe, Verified 01/30/18 23:38) Anaphylaxis Sulfa (Sulfonamide Antibiotics) Allergy (Unknown, Verified 01/30/18 23:38) ITCHING Objective Vital Signs 02/06/18 16:00 02/06/18 20:00 02/07/18 00:00 Temperature 98.7 F 98.9 F 98.9 F Pulse Rate 79 90 84 Respiratory Rate 17 17 17 Blood Pressure 195/97 H 192/93 H Pulse Oximetry 97 98 98 02/07/18 08:00 02/07/18 12:00 Temperature 98.1 F 97.3 F L Pulse Rate 82 91 H Respiratory Rate 19 19 Blood Pressure 193/100 H 189/109 H Pulse Oximetry 100 97 Intake & Output 02/06/18 02/07/18 02/07/18 18:59 06:59 18:59 Intake Total 1800 / 1800 1340 / 1340 1572.5 / 1572.5 Output Total 500 / 500 1200 / 1200 Balance 1300 / 1300 140 / 140 1572.5 / 1572.5 Weight 124.9 kg Intake: IV 1200 / 1200 1100 / 1100 1572.5 / 1572.5 NS Inj 1,000 ML @ 100 mls/hr IV 1000 / 1000 1000 / 1000 1000 / 1000 .CONT .Q10H [facility] Rx#:[id number] Cubicin Inj 1,250 MG In NS Inj 100 / 100 100 ML @ 200 mls/hr IV.SIG Q24H [facility] Rx#:[id number] Zosyn 3.375 GM Premix 50 ML @ 100 / 100 100 / 100 50 / 50 100 mls/hr IV.SIG Q6H [facility] Rx#: [id number] Oral 600 / 600 240 / 240 Output: Urine 500 / 500 900 / 900 Emesis 300 / 300 Other: # Bowel Movements 0 02/07/18 11:00 Blood - Peripheral Aerobic Blood Culture - Pending 02/07/18 11:00 Blood - Peripheral Anaerobic Blood Culture - Pending 02/07/18 11:05 Blood - Peripheral Aerobic Blood Culture - Pending 02/07/18 11:05 Blood - Peripheral Anaerobic Blood Culture - Pending 02/03/18 22:07 Wound - Foot Gram Stain - Final 02/03/18 22:07 Wound - Foot Wound Culture - Final Staphylococcus aureus Lab - Hematology Results 02/06/18 02/07/18 07:02 11:05 WBC 19.6 H 20.8 H RBC 4.95 5.35 Hgb 11.0 L 11.9 L Hct 34.5 L 37.2 L MCV 69.7 L 69.6 L MCH 22.3 L 22.2 L MCHC 32.0 31.9 L RDW 14.2 14.5 Plt Count 389 437 MPV 7.6 7.7 Neut % (Auto) 84.5 H 84.6 H Lymph % (Auto) 5.2 L 7.1 L [place] % (Auto) 9.0 H 7.8 Eos % (Auto) 0.7 0.2 Baso % (Auto) 0.6 0.3 Neut # (Auto) 16.5 H 17.6 H Lymph # (Auto) 1.0 1.5 [place] # (Auto) 1.8 H 1.6 H Eos # (Auto) 0.1 0.0 Baso # (Auto) 0.1 0.1 WBC Differential . . Differential Comment Auto diff final Auto diff final Lab - Chemistry Results 02/06/18 02/07/18 07:02 11:05 Sodium 137 136 Potassium 2.8 L* 3.4 L Chloride 98 95 L Carbon Dioxide 24.6 28.7 Anion Gap 14 12 BUN 9 18 Creatinine 1.31 H 2.94 H Estimated GFR 70 L 28 L Random Glucose 90 135 H Calcium 8.6 9.3 Magnesium 2.2 Imaging: ITS Impressions Foot X-Ray 02/03/18 21:08 CONCLUSION: No acute bony injury. No foreign body. Prominent soft tissue swelling Scrotum Ultrasound 02/03/18 21:13 CONCLUSION: 1. Large right hydrocele. 2. Varicocele demonstrated on the left. 3. Testes are within normal limits. Physical Exam: GENERAL: Well-nourished well-developed, not in acute distress SKIN: Cool and dry, no generalized rash HEAD: Atraumatic. Normocephalic. No temporal or scalp tenderness. EYES: Pupils equal round and reactive. Scleral icterus. No injection or drainage. No petechia ENT: Nothing abnormal detected NECK: Trachea midline. Supple, nontender, no meningeal signs. CARDIOVASCULAR: HS audible. RESPIRATORY: Clear to auscultation bilaterally. GASTROINTESTINAL: Abdomen soft nontender. MUSCULOSKELETAL: Left foot in dressing, patient deferred exam as dressing was just changed. NEUROLOGICAL: Alert oriented 3. Nonfocal. Psych cooperative IV line sites ok. Assessment and Plan - Plan Left foot cellulitis Left foot possible osteomyelitis. MSSA wound infection. Right groin pain, Large right hydrocele Left groin varicocele Hypokalemia: ? nausea, vomiting related. acute renal failure: ? prerenal ? vanco induced. will follow trend to see if Zosyn could be a culprit. CRP elevated. Recs: Continue Daptomycin IV (for possible osteomyelitis) Follow Blood cultures Await NM scan. RPR pending. Negative HIV screen and Hepatitis profile. Appreciate urology input. Consult nephrology for acute renal failure: ? prerenal vs AIN from Zosyn
--- NOTE | 2018-02-07 16:14 | P.PN ---
Physical Exam Vital signs: Vital Signs 02/06/18 20:00 02/07/18 00:00 02/07/18 08:00 Temperature 98.9 F 98.9 F 98.1 F Pulse Rate 90 84 82 Respiratory Rate 17 17 19 Blood Pressure 192/93 H 193/100 H Pulse Oximetry 98 98 100 02/07/18 12:00 Temperature 97.3 F L Pulse Rate 91 H Respiratory Rate 19 Blood Pressure 189/109 H Pulse Oximetry 97 Intake & Output 02/06/18 02/07/18 02/07/18 18:59 06:59 18:59 Intake Total 1800 / 1800 1340 / 1340 1572.5 / 1572.5 Output Total 500 / 500 1200 / 1200 Balance 1300 / 1300 140 / 140 1572.5 / 1572.5 Weight 124.9 kg Intake: IV 1200 / 1200 1100 / 1100 1572.5 / 1572.5 NS Inj 1,000 ML @ 100 mls/hr IV 1000 / 1000 1000 / 1000 1000 / 1000 .CONT .Q10H [facility] Rx#:[id number] Cubicin Inj 1,250 MG In NS Inj 100 / 100 100 ML @ 200 mls/hr IV.SIG Q24H [facility] Rx#:[id number] Zosyn 3.375 GM Premix 50 ML @ 100 / 100 100 / 100 50 / 50 100 mls/hr IV.SIG Q6H [facility] Rx#: [id number] Oral 600 / 600 240 / 240 Output: Urine 500 / 500 900 / 900 Emesis 300 / 300 Other: # Bowel Movements 0 Narrative: Subjective: F/up on multiple medical problems suspected left foot second metatarsal osteomyelitis, puncture wound of left foot. Right hydrocele. Persistent hypokalemia. Patient was nauseated and did vomit yesterday, he is lactose intolerance and hadmild containing products, diet changed. Patient is now with low L replaced. Since he still has significant pain in his foot at the surgical site. Went for bone scan. Received Reglan he is feeling much better now. No fever or chills overnight. No chest pain or shortness of breath. Physical examination: GENERAL: Pleasant 47 yo AA male, in bed, well- developed, well-nourished no apparent distress. SKIN: Warm and dry on focused skin exam. CARDIOVASCULAR: Regular rate and rhythm. RESPIRATORY: No accessory muscle use. Clear to auscultation. Breath sounds equal bilaterally. GASTROINTESTINAL: Abdomen soft, non-tender, nondistended. Hepatic and splenic margins not palpable. Neurovascular intact Scrotal edema. MUSCULOSKELETAL: Left foot with dressing on, some bloody discharge on the plantar aspect. Painful to palpation NEUROLOGICAL: Awake and alert. No obvious cranial nerve deficits. Motor grossly within normal limits. Five out of 5 muscle strength in the arms and legs. Normal speech. Assessment and Plan 47 year male presents emergency department for evaluation of left foot and right scrotal pain. Patient left AMA a day before re- admission Left foot suspected second metatarsal osteomyelitis Puncture wound of foot without foreign body Right Hydrocele/varicocele Hypokalemia persistent CRP and ESR elevated, CRP 14 and ESR 80 suggesting osteomyelitis. Plan for Three-phase bone scan ( poss on Wednesday). Anticipate surgical intervention for Wednesday per Dr Santacruz Infectious disease consulted for further evaluation and recommendations Wound culture obtained and pending Foot X-Ray reviewed andfindings discussed with Dr Santacruz podiatry :No acute bony injury. No foreign body. Prominent soft tissue swelling Plan for work up to r.o osteomyelitis Checl crp , esr, bone scan Scrotum Ultrasound reviewed : Large right hydrocele. Varicocele demonstrated on the left. Testes are within normal limits. Consult urology for further evaluation of right hydrocele/varicocele Infectious disease consulted and has seen the patient appreciate recommendations DC Vanco IV Start Daptomycin IV (for possible osteomyelitis) Check Blood cultures Check hepatitis profile Check HIV screen Check GC and chlamydia given groin pain Check RPR IVF Replace electrolytes Pain meds per almaraz scale tylenol and oxycodone for severe pain Continue home meds as appropriate DVT ppx lovenox Discussed Condition With: patient, nurse, Dr Santacruz podiatry Discharge plan. Patient is not ready for discharge. Bone scan 02/07/19, possible surgery on Wednesday02/08/[address] Santacruz podiatry. Discharge when patient is improving and cleared by consultants. Results - Labs CBC & Chem 7: 02/07/18 11:05 02/07/18 11:05 Laboratory Results - last 24 hr 02/07/18 02/07/18 02/07/18 11:05 11:05 11:05 WBC 20.8 H RBC 5.35 Hgb 11.9 L Hct 37.2 L MCV 69.6 L MCH 22.2 L MCHC 31.9 L RDW 14.5 Plt Count 437 MPV 7.7 Neut % (Auto) 84.6 H Lymph % (Auto) 7.1 L [place] % (Auto) 7.8 Eos % (Auto) 0.2 Baso % (Auto) 0.3 Neut # (Auto) 17.6 H Lymph # (Auto) 1.5 [place] # (Auto) 1.6 H Eos # (Auto) 0.0 Baso # (Auto) 0.1 WBC Differential . Differential Comment Auto diff final Sodium Potassium Chloride Carbon Dioxide Anion Gap BUN Creatinine Estimated GFR Random Glucose Calcium Magnesium Hepatitis A IgM Ab Nonreactive Hep Bs Antigen Nonreactive Hep B Core IgM Ab Nonreactive Hep C IgG Ab Nonreactive HIV 1&2 Ab/P24 Ag 4thGn Nonreactive 02/07/18 11:05 WBC RBC Hgb Hct MCV MCH MCHC RDW Plt Count MPV Neut % (Auto) Lymph % (Auto) [place] % (Auto) Eos % (Auto) Baso % (Auto) Neut # (Auto) Lymph # (Auto) [place] # (Auto) Eos # (Auto) Baso # (Auto) WBC Differential Differential Comment Sodium 136 Potassium 3.4 L Chloride 95 L Carbon Dioxide 28.7 Anion Gap 12 BUN 18 Creatinine 2.94 H Estimated GFR 28 L Random Glucose 135 H Calcium 9.3 Magnesium 2.2 Hepatitis A IgM Ab Hep Bs Antigen Hep B Core IgM Ab Hep C IgG Ab HIV 1&2 Ab/P24 Ag 4thGn Assessment and Plan - Plan 47 year male presents emergency department for evaluation of left foot and right scrotal pain. Patient left AMA a day before re- admission Puncture wound of foot without foreign body Right Hydrocele Acute hypokalemia Wound culture obtained. and pending Foot X-Ray reviewed andfindings discussed with Dr Santacruz podiatry :No acute bony injury. No foreign body. Prominent soft tissue swelling Plan for work up to r.o osteomyelitis Checl crp , esr, bone scan Scrotum Ultrasound reviewed : Large right hydrocele. Varicocele demonstrated on the left. Testes are within normal limits. Continue cefepime and vanco IV abx IVF KCL replacement for low K Pain meds per almaraz scale tylenol and oxycodone for severe pain Continue home meds as appropriate DVT ppx lovenox
[2018-02-07] MEDS: Metoprolol Tartrate 25 MG Tablet PO SCH (20:47)
--- NOTE | 2018-02-07 21:01 | US ---
EXAM DATE: 02/07/2018 6:32 PM EDT AGE/SEX: 47 years / Male INDICATIONS: Increased lab values. CLINICAL DATA: This is the patient's initial encounter. Patient reports that signs and symptoms have been present for 2 days and indicates a pain score of 0/10. MEDICAL/SURGICAL HISTORY: Hypertension. Hydrocele. . Facial surgery. COMPARISON: [facility] – [place], [place] TESTICLES W DOPPLER, 02/03/2018. . MEASUREMENTS: Right Kidney:__15.5 x 6.0 x 6.2 cm Left Kidney:__13.8 x 5.2 x 6.5 cm FINDINGS: Right Kidney: Increased echotexture. No mass or hydronephrosis. Left Kidney: Increased echotexture. No mass or hydronephrosis. Bladder: Within normal limits given the degree of distension. Other: The prostate is prominent measuring 4.9 x 4.8 x 3.7 cm. CONCLUSION: The kidneys appear echogenic and enlarged which can be seen with acute medical renal disease. No hydr onephrosis is seen. Electronically signed by: Gordo Herman MD 02/07/2018 9:00 PM EDT
--- NOTE | 2018-02-08 01:07 | NM ---
EXAM DATE: 02/07/2018 3:26 PM EDT AGE/SEX: 47 years / Male INDICATIONS: Left foot pain and swelling after stepping on nail. CLINICAL DATA: This is the patient's subsequent encounter. Patient reports that signs and symptoms h ave been present for 1 week and indicates a pain score of 1/10. MEDICAL/SURGICAL HISTORY: Diabetes mellitus type II. Hyperthyroidism. . Facial surgery. COMPARISON: No prior exams available for comparison. TECHNIQUE: Bone scan was performed in sagittal, axial and coronal planes. Attenuation correction was performed with computed tomography and both the attenuation correction and non-attenuation corrected data sets were reviewed. PRIOR BONE SCANS: No correlative bone scan available for comparison. DOSE: 30.2 mCi Tc99m MDP IV IMAGING: SPECT/CT imaging with fusion was performed. RADIATION DOSE: 1.90 CTDIvol(mGy) FINDINGS: Diffusely increased flow and blood pool activity in the left forefoot region corresponding to the sec ond and third distal metatarsal and proximal phalanges. Delayed images demonstrate minimally diffuse increased uptake in the left foot with focal increased radiotracer uptake in the same regions of the forefoot. CT examination demonstrates diffuse soft tissue edema in the left forefoot region. There is no radiopaque foreign bodies or bony erosion. CONCLUSION: 1. Hyperperfusion, hyperemia and increased bone uptake in the left forefoot region corresponding to the second and third distal metatarsal and proximal phalanges. Diffuse soft tissue edema but no corre sponding bony erosion on CT exam. Overall, findings are concerning for early acute osteomyelitis Electronically signed by: Jarrett Yee MD 02/08/2018 1:06 AM EDT
[2018-02-08] MEDS: Morphine Inj 4 MG/ML Vial IV.PUSH PRN ×2 (02:12→06:06)
[2018-02-08] MEDS: KCL 20 mEq/D5W/NaCl 0.9% Inj 1,000 ML IV.CONT SCH ×2 (02:13→12:50)
[2018-02-08] MEDS: Sod Chloride 0.9% Inj 1,000 ML IV.CONT SCH ×2 (04:23→18:04)
[2018-02-08] MEDS: Enoxaparin Inj 40 MG/0.4 ML Syringe SQ SCH (08:38)
[2018-02-08] MEDS: Metoprolol Tartrate 25 MG Tablet PO SCH ×2 (08:42→20:18)
[2018-02-08] MEDS: Magnesium Oxide 400 MG Tablet PO SCH (08:42)
--- NOTE | 2018-02-08 11:38 | P.CONNP ---
<Merly Robbins - Last Filed: 02/08/18 17:56> History of Present Illness Service: Nephrology Consult date: 02/08/18 Requesting Physician: Laura Zabala Reason for Consult: CAROLYN Primary Care Provider: No Primary Care Physician Family Provider: No Primary Care Physician Chief Complaint: Right scrotal discomfort, Left foot pain History of Present Illness: The patient is a 47 yo AA male who presented to this facility on 02/03/18 with complaints of L foot pain and R scrotal pain. Apparently was at ED 2 days prior and was prescribed Cleocin and levaquin, but only took 1 day as it caused stomach upset. On arrival, was started on Cefepime x1 dose and Vancomycin. Podiatry was consulted who performed a NM bone scan revealing concern for early left forefoot osteomyelitis. ID was consulted who D/C'd Vanco on 02/06/18 and was started on Daptomycin. WCx resulted as MSSA on 02/07/18 and Zosyn was discontinued. BCx are pending drawn 02/07/18. Denies any previous hx of kidney disease. Admitting SCr 1.09 that has risen to 2.94 at time of consult. SCr 12/02/16 at 0.86, 06/05/15 at 0.59 Renal/bladder US showed echogenic kidneys c/w CKD and an enlarged prostate without obstruction. Says that he has been quite ill feeling with continued nausea and vomiting predating admission by 2 days. No diarrhea. Has been using Advil for about 1 week prior to admission approximately 6 tablets per day. BP has been significantly elevated and reports no formal dx of HTN in the past, but does not follow regularly with GP. Denies any FHx of kidney disease. Review of Systems Constitutional: Reports fatigue, Reports fever(s), Reports weakness Gastrointestinal: Reports nausea, Reports vomiting Genitourinary: Reports scrotal swelling, Reports testicle pain Musculoskeletal: Reports other (L forefoot pain) PMFSH - History History Provided By: Patient, Medical Record - Medical History Medical History: Medical History (Last Reviewed 02/05/18 @ 13:39 by Trina Santacruz DPM) Hydrocele in adult Hypertension - Surgical History Surgical History: Surgical History (Last Updated 02/06/18 @ 13:03 by Melva Huff MD) History of facial surgery - Family History Family History: Family History (Last Reviewed 02/05/18 @ 13:39 by Trina Santacruz DPM) Other Diabetes - Tobacco History Second Hand Smoke Exposure: No Tobacco Use In Past 30 Days: No Smoking Status: Never smoker - Alcohol History How Often Do You Have a Drink Containing Alcohol: 2 to 4 times a month - Substance Use History Substance History: Active Abuse - Substance Use Type Marijuana Status: Active Route Used: By Mouth Frequency: daily Reason for Use: Calm Down, Feels Good - Travel History Recent Travel in the [place] Within the Last 8 Weeks: No Recent Travel Out of the Country Within the Last 8 Weeks: No - Immunization History Tetanus Immunization: <5 Years Tetanus Immunization Year if Known: 2017 Hx Influenza Vaccine This Season: No Medications and Allergies Allergies Allergy/AdvReac Type Severity Reaction Status Date / Time lactose Allergy Severe Hives Verified 01/30/18 23:38 milk Allergy Severe Anaphylaxis Verified 01/30/18 23:38 Sulfa (Sulfonamide Allergy Unknown ITCHING Verified 01/30/18 23:38 Antibiotics) Home Medications Medication Instructions Recorded Confirmed Type No Known Home Medications 02/06/18 02/06/18 History Active Medications: Active Medications Acetaminophen (Tylenol) 650 mg PO Q4H PRN PRN Reason: pain 1-3. headache, fevers Al Hydroxide/Mg Hydroxide (Milk Of Kelechi Stewart) 30 ml PO Q12H PRN PRN Reason: Mild Constipation Last Admin: 02/08/18 06:06 Dose: 30 ml Bisacodyl (Dulcolax Supp) 10 mg RECTAL DAILY PRN PRN Reason: SEVERE CONSITIPATION Enalaprilat (Vasotec Inj) 2.5 mg IV.PUSH Q8H PRN PRN Reason: SBP>160, DBP>90 Last Admin: 02/08/18 01:45 Dose: 2.5 mg Enoxaparin Sodium (Lovenox Inj) 40 mg SQ DAILY [facility] Last Admin: 02/08/18 08:38 Dose: Not Given Hydrochlorothiazide (Microzide) 12.5 mg PO DAILY [facility] Last Admin: 02/08/18 08:42 Dose: 12.5 mg Sodium Chloride (Ns Inj) 1,000 mls @ 100 mls/hr IV.CONT .Q10H [facility] Last Admin: 02/08/18 04:23 Dose: Not Given Daptomycin 1,250 mg/ Sodium (Chloride) 100 mls @ 200 mls/hr IV.SIG Q24H [facility] Last Infusion: 02/07/18 15:20 Dose: Infused Potassium Chloride/Dextrose/Sod Cl (D5w/Ns + Kcl 20 Meq Inj) 1,000 mls @ 84 mls /hr IV.CONT .[id number] [facility] Last Admin: 02/08/18 02:13 Dose: 84 mls/hr Lactulose (Lactulose Liq) 30 ml PO DAILY PRN PRN Reason: SEVERE CONSITIPATION Magnesium Oxide (Mag-Ox) 400 mg PO DAILY [facility] Last Admin: 02/08/18 08:42 Dose: 400 mg Metoclopramide HCl (Reglan Inj) 5 mg IV.PUSH Q8HR PRN; Protocol PRN Reason: NAUSEA OR VOMITING Last Admin: 02/08/18 08:44 Dose: 5 mg Metoprolol Tartrate (Lopressor) 12.5 mg PO BID [facility] Last Admin: 02/08/18 08:42 Dose: 12.5 mg Miscellaneous (Pill Splitter) 1 each OTHER UNSCH [facility] Morphine Sulfate (Morphine Inj) 2 mg IV.PUSH Q4H PRN PRN Reason: breakthrough pain Last Admin: 02/08/18 06:06 Dose: 2 mg Ondansetron HCl (Zofran Odt) 4 mg PO Q6H PRN PRN Reason: for nausea or vomiting Last Admin: 02/08/18 05:45 Dose: 4 mg Oxycodone HCl (Roxicodone) 5 mg PO Q6H PRN PRN Reason: pain 4-10 Last Admin: 02/08/18 08:42 Dose: 5 mg Sennosides (Senokot) 17.2 mg PO Q12H PRN PRN Reason: Moderate Constipation Sodium Chloride (Ns Flush) 2 ml IV.FLUSH PRN PRN PRN Reason: FLUSH AFTER USING IV ACCESS Temazepam (Restoril) 15 mg PO HS PRN PRN Reason: INSOMNIA Last Admin: 02/04/18 21:10 Dose: 15 mg Exam Vital signs: Vital Signs 02/07/18 12:00 02/07/18 16:00 02/07/18 20:00 Temperature 97.3 F L 99.7 F H 98.6 F Pulse Rate 91 H 90 85 Respiratory Rate 19 19 18 Blood Pressure 189/109 H 202/113 H 156/76 H Pulse Oximetry 97 98 97 02/08/18 01:41 02/08/18 05:19 02/08/18 08:00 Temperature 99.0 F 98.1 F Pulse Rate 84 78 81 Respiratory Rate 18 20 19 Blood Pressure 197/101 H 174/91 H 192/101 H Pulse Oximetry 98 96 97 Intake & Output 02/07/18 02/08/18 02/08/18 18:59 06:59 18:59 Intake Total 1672.5 / 1672.5 1999 Output Total 1000 / 1000 Balance 1672.5 / 1672.5 1000 / 1000 Intake: IV 1672.5 / 1672.5 1999 D5W/NS + KCL 20 mEq Inj 1,000 1000 / 1000 ML @ 84 mls/hr IV.CONT .[id number] [facility] Rx#:[id number] NS Inj 1,000 ML @ 100 mls/hr IV 1000 / 1000 1000 / 1000 .CONT .Q10H [facility] Rx#:[id number] Cubicin Inj 1,250 MG In NS Inj 100 / 100 100 ML @ 200 mls/hr IV.SIG Q24H [facility] Rx#:[id number] Zosyn 3.375 GM Premix 50 ML @ 50 / 50 100 mls/hr IV.SIG Q6H [facility] Rx#: [id number] Output: Urine 1000 / 1000 Other: # Voids 2 # Emeses 2 - Constitutional no acute distress - Routine HEENT Exam Head: Present: normocephalic, atraumatic Eye: Present: EOMI ENT: Present: mucous membranes moist - Routine Neck Exam Present: supple - Routine Respiratory Exam Present: CTA bilaterally - Routine Cardiovascular Exam Present: RRR, S1, S2 - Routine Abdominal Exam Present: soft, normoactive bowel sounds - Routine Neurological Exam Present: alert, oriented X3 Results - Lab Results 02/08/18 12:00 02/08/18 13:24 Most recent lab results Calcium 9.3 mg/dL (8.5-10.1) 02/07/18 11:05 Magnesium 2.2 mg/dL (1.5-2.5) 02/07/18 11:05 - Image Kidney/bladder ultrasound: report reviewed Assessment and Plan - Assessment (1) Acute renal failure (ARF) Code(s): N17.9 - Acute kidney failure, unspecified Status: Acute Plan: Etiology likely multifactorial: volume depletion in setting of emesis and poor oral intake, Advil usage prior to admission, hypertension, infection, medications. Renal US showing increased echogenicity suggestive of chronic renal disease. Prominent prostate without evidence of obstructive uropathy. Vanco was discontinued 02/06/18 and trough level 02/05/18 was normal. Hopefully the patient has not sustained an ATN, but this remains to be seen. Labs pending today. STAT renal panel ordered. Bedside bladder US ordered to ensure no significant retention. May need Perez if so. Continue on IVF. Check serology given renal decline, anemia, hypoalbuminemia, and proteinuria. UPCR for further quantification of proteinuria. Pending BCx Continue on abx as per ID. Medications should be adjusted for the patient's renal decline. Avoid nephrotoxic medications such as iodinated contrast dyes and NSAIDs. Avoid gadolinium when eGFR <30. (2) Hypertension Code(s): I10 - Essential (primary) hypertension Status: Acute Plan: Start Amlodipine 5mg BID. Continue on Metoprolol but increase to 25mg BID. Consider adding Hydralazine if not improved. Hold HCTZ given severe hypokalemia. Adjust further if needed. (3) Anemia Code(s): D64.9 - Anemia, unspecified Status: Acute Plan: Repeat CBC with Fe panel. As above, check serology. (4) Proteinuria Code(s): R80.9 - Proteinuria, unspecified Status: Acute Plan: 2+ protein as per UA. Check UPCR. If significant, may need 24h collection. (5) Puncture wound of foot without foreign body Code(s): S91.339A - Puncture wound without foreign body, unspecified foot, initial encounter Status: Acute Plan: Abx as per ID Early osteomyelitis as per bone scan. Procedure today with podiatry---debridement? (6) Hydrocele in adult Code(s): N43.3 - Hydrocele, unspecified Status: Acute Plan: Urology has seen in house and planning outpatient procedure. (7) Hypokalemia Code(s): E87.6 - Hypokalemia Status: Acute - Plan Likely 2/2 to hyperemesis. Will also hold HCTZ until resolves. Potassium has been ordered by the primary team. Repeat in the AM. <Norberto Greer - Last Filed: 02/09/18 20:22> History of Present Illness Primary Care Provider: No Primary Care Physician Family Provider: No Primary Care Physician [facility] - Medical History Medical History: Medical History (Last Reviewed 02/05/18 @ 13:39 by Trina Santacruz DPM) Hydrocele in adult Hypertension - Surgical History Surgical History: Surgical History (Last Updated 02/06/18 @ 13:03 by Melva Huff MD) History of facial surgery - Family History Family History: Family History (Last Reviewed 02/05/18 @ 13:39 by Trina Santacruz DPM) Other Diabetes Medications and Allergies Active Medications: Active Medications Acetaminophen (Tylenol) 650 mg PO Q4H PRN PRN Reason: pain 1-3. headache, fevers Al Hydroxide/Mg Hydroxide (Milk Of Magnbecky Liq) 30 ml PO Q12H PRN PRN Reason: Mild Constipation Last Admin: 02/08/18 06:06 Dose: 30 ml Amlodipine Besylate (Norvasc) 5 mg PO BID [facility] Last Admin: 02/09/18 09:40 Dose: 5 mg Bisacodyl (Dulcolax Supp) 10 mg RECTAL DAILY PRN PRN Reason: SEVERE CONSITIPATION Enalaprilat (Vasotec Inj) 2.5 mg IV.PUSH Q8H PRN PRN Reason: SBP>160, DBP>90 Last Admin: 02/09/18 01:08 Dose: 2.5 mg Enoxaparin Sodium (Lovenox Inj) 40 mg SQ DAILY [facility] Last Admin: 02/09/18 09:40 Dose: 40 mg Sodium Chloride (Ns Inj) 1,000 mls @ 100 mls/hr IV.CONT .Q10H [facility] Last Admin: 02/09/18 15:13 Dose: Not Given Daptomycin 1,250 mg/ Sodium (Chloride) 100 mls @ 200 mls/hr IV.SIG Q24H [facility] Last Admin: 02/09/18 15:15 Dose: 200 mls/hr Potassium Chloride/Dextrose/Sod Cl (D5w/Ns + Kcl 20 Meq Inj) 1,000 mls @ 84 mls /hr IV.CONT .[id number] [facility] Last Admin: 02/09/18 15:14 Dose: Not Given Potassium Chloride (Kcl 20 Meq Premix Inj) 20 meq in 100 mls @ 50 mls/hr IV.SIG Q2H [facility] Stop: 02/09/18 22:59 Last Admin: 02/09/18 19:51 Dose: 50 mls/hr Lactulose (Lactulose Liq) 30 ml PO DAILY PRN PRN Reason: SEVERE CONSITIPATION Magnesium Oxide (Mag-Ox) 400 mg PO DAILY [facility] Last Admin: 02/09/18 09:40 Dose: 400 mg Metoclopramide HCl (Reglan Inj) 5 mg IV.PUSH Q8HR PRN; Protocol PRN Reason: NAUSEA OR VOMITING Last Admin: 02/09/18 09:35 Dose: 5 mg Metoprolol Tartrate (Lopressor) 25 mg PO BID [facility] Last Admin: 02/09/18 09:40 Dose: 25 mg Miscellaneous (Pill Splitter) 1 each OTHER UNSCH [facility] Morphine Sulfate (Morphine Inj) 2 mg IV.PUSH Q4H PRN PRN Reason: breakthrough pain Last Admin: 02/08/18 06:06 Dose: 2 mg Ondansetron HCl (Zofran Odt) 4 mg PO Q6H PRN PRN Reason: for nausea or vomiting Last Admin: 02/09/18 04:32 Dose: 4 mg Oxycodone HCl (Roxicodone) 5 mg PO Q6H PRN PRN Reason: pain 4-10 Last Admin: 02/09/18 09:43 Dose: 5 mg Pantoprazole Sodium (Protonix Inj) 40 mg IV.PUSH Q12H [facility] Last Admin: 02/09/18 18:21 Dose: 40 mg Prochlorperazine (Compazine Supp) 25 mg RECTAL Q6H PRN PRN Reason: severe vomiting Sennosides (Senokot) 17.2 mg PO Q12H PRN PRN Reason: Moderate Constipation Sodium Chloride (Ns Flush) 2 ml IV.FLUSH PRN PRN PRN Reason: FLUSH AFTER USING IV ACCESS Last Admin: 02/09/18 09:37 Dose: 2 ml Sucralfate (Carafate) 1 gm PO ACHS [facility] Last Admin: 02/09/18 18:19 Dose: 1 gm Temazepam (Restoril) 15 mg PO HS PRN PRN Reason: INSOMNIA Last Admin: 02/04/18 21:10 Dose: 15 mg Exam Vital signs: Vital Signs 02/09/18 00:00 02/09/18 04:27 02/09/18 06:42 Temperature 98.1 F 98.4 F Pulse Rate 90 89 95 H Respiratory Rate 18 20 18 Blood Pressure 179/97 H 190/99 H 171/96 H Pulse Oximetry 99 99 02/09/18 08:00 02/09/18 12:00 02/09/18 16:00 Temperature 98.1 F 98.1 F 98.0 F Pulse Rate 86 79 82 Respiratory Rate 19 19 19 Blood Pressure 184/101 H 165/95 H 180/90 H Pulse Oximetry 99 99 97 Intake & Output 02/09/18 02/09/18 02/10/18 06:59 18:59 06:59 Intake Total 1300 / 1300 460 / 460 100 / 100 Output Total 1600 / 1600 2600 / 2600 Balance -300 / -300 -2140 / -2140 100 / 100 Intake: IV 1300 / 1300 100 / 100 100 / 100 D5W/NS + KCL 20 mEq Inj 1,000 1000 / 1000 ML @ 84 mls/hr IV.CONT .[id number] [facility] Rx#:[id number] KCl 20 mEq Premix Inj 20 meq In 300 / 300 100 / 100 100 / 100 100 ml @ 50 mls/hr IV.SIG Q2H [facility] Rx#:[id number] Oral 360 / 360 Output: Urine 1600 / 1600 2600 / 2600 Results - Lab Results 02/09/18 09:22 02/09/18 11:40 Most recent lab results Calcium 8.5 mg/dL (8.5-10.1) 02/09/18 11:40 Phosphorus 2.6 mg/dL (2.5-4.9) 02/09/18 09:22 Magnesium 2.1 mg/dL (1.5-2.5) 02/09/18 09:22 Assessment and Plan - Assessment (1) Acute renal failure (ARF) Code(s): N17.9 - Acute kidney failure, unspecified Status: Acute (2) Hypertension Code(s): I10 - Essential (primary) hypertension Status: Acute (3) Anemia Code(s): D64.9 - Anemia, unspecified Status: Acute (4) Proteinuria Code(s): R80.9 - Proteinuria, unspecified Status: Acute (5) Puncture wound of foot without foreign body Code(s): S91.339A - Puncture wound without foreign body, unspecified foot, initial encounter Status: Acute (6) Hydrocele in adult Code(s): N43.3 - Hydrocele, unspecified Status: Acute (7) Hypokalemia Code(s): E87.6 - Hypokalemia Status: Acute - Attending Attestation The exam, history, and the medical decision-making described in the above note were completed with the assistance of the ZANDER. I reviewed and agree with the findings presented. I attest that I had a [id number] encounter with the patient on the same day, and personally performed and documented my assessment and findings in the medical record. <Merly Robbins - Last Filed: 02/08/18 17:56> (5) Puncture wound of foot without foreign body Qualifiers: Encounter type: subsequent encounter Laterality: left Qualified Code(s): S91.332D - Puncture wound without foreign body, left foot, subsequent encounter <Norberto Greer - Last Filed: 02/09/18 20:22> (5) Puncture wound of foot without foreign body Qualifiers: Encounter type: subsequent encounter Laterality: left Qualified Code(s): S91.332D - Puncture wound without foreign body, left foot, subsequent encounter
[2018-02-08 12:30] LABS: Baso # (Auto) 0.1 th/mm3 (0.0-0.2); Baso % (Auto) 0.5 % (0.0-2.0); Eos % (Auto) 0.3 % (0.0-4.0); Hematocrit 33.2 % (39.0-51.0); Hemoglobin 10.7 gm/dL (13.0-17.0); Lymph # (Auto) 1.4 th/mm3 (1.0-4.8); Lymph % (Auto) 7.4 % (9.0-44.0); Mean Corpuscular HGB Conc 32.1 % (32.0-36.0); Mean Corpuscular Hemoglobin 22.2 pg (27.0-34.0); Mean Corpuscular Volume 69.2 fL (80.0-100.0); Mean Platelet Volume 7.7 fL (7.0-11.0); Mono # (Auto) 1.6 th/mm3 (0.0-0.9); Mono % (Auto) 8.3 % (0.0-8.0); Neut # (Auto) 15.7 th/mm3 (1.8-7.7); Neut % (Auto) 83.5 % (16.0-70.0); Platelet Count 415 th/mm3 (150-450); Red Cell Distribution Width 14.5 % (11.6-17.2); White Blood Count 18.8 th/mm3 (4.0-11.0)
[2018-02-08 12:50] LABS: Albumin 2.4 g/dL (3.4-5.0); Calcium 8.9 mg/dL (8.5-10.1); Carbon Dioxide 28.8 meq/L (21.0-32.0); Phosphorus 2.9 mg/dL (2.5-4.9)
[2018-02-08] MEDS: amLODIPine 5 MG Tablet PO SCH ×2 (12:50→20:18)
[2018-02-08 12:56] LABS: Potassium 2.8 meq/L (3.5-5.1)
--- NOTE | 2018-02-08 13:24 | P.PNID ---
Subjective Remarks: Mr. Luna is a 47-year-old -[place] male who presents emergency department for evaluation left foot pain as well as right scrotal pain. Patient was in the emergency department a couple of days ago and actually was discharged on clindamycin Levaquin. Patient presented the ED because of nausea and vomiting. Denies any fevers or chills. Patient reports his left foot pain as well as right scrotal pain is 10 out of 10 on admission. Patient did reports he was advised to return if his right scrotal pain or left foot pain increased. Patient denies any other systemic symptoms such as chest pain shortness of breath or abdominal pain. He reports he was diagnosed with hydrocele on January 30. Patient was started on IV antibiotics and pain medication and at the present time reports no pain. Denies any night sweats. Patient has been seen by podiatry and workup for osteomyelitis is ongoing including a nuclear medicine scan on Wednesday. Patient reports the original injury occurred 1 week prior to admission at work when he was injured by a nail. He reports he received a tetanus injection at that time. Infectious diseases consulted for evaluation and management of left foot osteomyelitis. Overnight events reviewed No fevers No rash No diarrhea Complains of nausea on meds. Elevated Cr, consulted Nephro yday and following. NM scan with early osteomyelitis, RN was asked to notify . Patient now NPO for procedure. Antibiotics: Dapto IV Lines: Lines ok Past Medical History: Medical History Hydrocele in adult Hypertension Surgical History: Surgical History History of facial surgery Allergies/Adverse Reactions: Allergies lactose Allergy (Severe, Verified 01/30/18 23:38) Hives HIVES AND N/V milk Allergy (Severe, Verified 01/30/18 23:38) Anaphylaxis Sulfa (Sulfonamide Antibiotics) Allergy (Unknown, Verified 01/30/18 23:38) ITCHING Objective Vital Signs 02/07/18 16:00 02/07/18 20:00 02/08/18 01:41 Temperature 99.7 F H 98.6 F 99.0 F Pulse Rate 90 85 84 Respiratory Rate 19 18 18 Blood Pressure 202/113 H 156/76 H 197/101 H Pulse Oximetry 98 97 98 02/08/18 05:19 02/08/18 08:00 02/08/18 11:58 Temperature 98.1 F 98.0 F Pulse Rate 78 81 69 Respiratory Rate 20 19 19 Blood Pressure 174/91 H 192/101 H 190/94 H Pulse Oximetry 96 97 98 Intake & Output 02/07/18 02/08/18 02/08/18 18:59 06:59 18:59 Intake Total 1672.5 / 1672.5 1999 / 1999 1000 / 1000 Output Total 1000 / 1000 Balance 1672.5 / 1672.5 1000 / 1000 1000 / 1000 Intake: IV 1672.5 / 1672.5 1999 / 1999 1000 / 1000 D5W/NS + KCL 20 mEq Inj 1,000 1000 / 1000 1000 / 1000 ML @ 84 mls/hr IV.CONT .[id number] [facility] Rx#:[id number] NS Inj 1,000 ML @ 100 mls/hr IV 1000 / 1000 1000 / 1000 .CONT .Q10H [facility] Rx#:[id number] Cubicin Inj 1,250 MG In NS Inj 100 / 100 100 ML @ 200 mls/hr IV.SIG Q24H [facility] Rx#:[id number] Zosyn 3.375 GM Premix 50 ML @ 50 / 50 100 mls/hr IV.SIG Q6H [facility] Rx#: [id number] Output: Urine 1000 / 1000 Other: # Voids 2 # Emeses 2 02/07/18 11:00 Blood - Peripheral Aerobic Blood Culture - Preliminary No growth in 1 day 02/07/18 11:00 Blood - Peripheral Anaerobic Blood Culture - Preliminary No growth in 1 day 02/07/18 11:05 Blood - Peripheral Aerobic Blood Culture - Preliminary No growth in 1 day 02/07/18 11:05 Blood - Peripheral Anaerobic Blood Culture - Preliminary No growth in 1 day 02/03/18 22:07 Wound - Foot Gram Stain - Final 02/03/18 22:07 Wound - Foot Wound Culture - Final Staphylococcus aureus Lab - Hematology Results 02/07/18 02/08/18 11:05 12:00 WBC 20.8 H 18.8 H RBC 5.35 4.80 Hgb 11.9 L 10.7 L Hct 37.2 L 33.2 L MCV 69.6 L 69.2 L MCH 22.2 L 22.2 L MCHC 31.9 L 32.1 RDW 14.5 14.5 Plt Count 437 415 MPV 7.7 7.7 Neut % (Auto) 84.6 H 83.5 H Lymph % (Auto) 7.1 L 7.4 L Pierce % (Auto) 7.8 8.3 H Eos % (Auto) 0.2 0.3 Baso % (Auto) 0.3 0.5 Neut # (Auto) 17.6 H 15.7 H Lymph # (Auto) 1.5 1.4 Pierce # (Auto) 1.6 H 1.6 H Eos # (Auto) 0.0 0.0 Baso # (Auto) 0.1 0.1 WBC Differential . . Differential Comment Auto diff final Auto diff final Lab - Chemistry Results 02/07/18 02/08/18 02/08/18 11:05 12:00 12:00 Sodium 136 138 Potassium 3.4 L 2.8 L* Chloride 95 L 98 Carbon Dioxide 28.7 28.8 Anion Gap 12 11 BUN 18 18 Creatinine 2.94 H 2.89 H Estimated GFR 28 L 28 L Random Glucose 135 H 133 H Calcium 9.3 8.9 Phosphorus 2.9 Magnesium 2.2 2.2 Albumin 2.4 L Imaging: ITS Impressions Foot X-Ray 02/03/18 21:08 CONCLUSION: No acute bony injury. No foreign body. Prominent soft tissue swelling Scrotum Ultrasound 02/03/18 21:13 CONCLUSION: 1. Large right hydrocele. 2. Varicocele demonstrated on the left. 3. Testes are within normal limits. Abdomen/Bladder Ultrasound 02/07/18 00:00 CONCLUSION: The kidneys appear echogenic and enlarged which can be seen with acute medical renal disease. No hydronephrosis is seen. SPECT Scan-Bone NM 02/07/18 00:00 CONCLUSION: 1. Hyperperfusion, hyperemia and increased bone uptake in the left forefoot region corresponding to the second and third distal metatarsal and proximal phalanges. Diffuse soft tissue edema but no corresponding bony erosion on CT exam. Overall, findings are concerning for early acute osteomyelitis Physical Exam: GENERAL: Well-nourished well-developed, not in acute distress SKIN: Cool and dry, no generalized rash HEAD: Atraumatic. Normocephalic. No temporal or scalp tenderness. EYES: Pupils equal round and reactive. Scleral icterus. No injection or drainage. No petechia ENT: Nothing abnormal detected NECK: Trachea midline. Supple, nontender, no meningeal signs. CARDIOVASCULAR: HS audible. RESPIRATORY: Clear to auscultation bilaterally. GASTROINTESTINAL: Abdomen soft nontender. MUSCULOSKELETAL: Left foot in dressing, patient deferred exam as dressing was just changed. NEUROLOGICAL: Alert oriented 3. Nonfocal. Psych cooperative IV line sites ok. Assessment and Plan - Plan Left foot cellulitis Left foot possible osteomyelitis. MSSA wound infection. Right groin pain, Large right hydrocele Left groin varicocele Hypokalemia: ? nausea, vomiting related. acute renal failure: ? prerenal ? vanco induced. will follow trend to see if Zosyn could be a culprit. CRP elevated. Recs: Continue Daptomycin IV (for possible osteomyelitis) Follow Blood cultures. Follow clinically. NPO for surgery today.
[2018-02-08] MEDS: SODIUM CHLOR 0.9% IV.SIG SCH (14:50)
[2018-02-08] MEDS: DAPTOMYCIN IV.SIG SCH (14:50)
[2018-02-08 15:03] LABS: % Iron Saturation 20.2 % (20-50); Calcium 8.4 mg/dL (8.5-10.1); Carbon Dioxide 30.1 meq/L (21.0-32.0); Kappa Lambda Ratio 2.38 (1.57-3.93)
[2018-02-08 15:10] LABS: Potassium 2.6 meq/L (3.5-5.1)
--- NOTE | 2018-02-08 15:25 | P.PN ---
Physical Exam Vital signs: Vital Signs 02/07/18 16:00 02/07/18 20:00 02/08/18 01:41 Temperature 99.7 F H 98.6 F 99.0 F Pulse Rate 90 85 84 Respiratory Rate 19 18 18 Blood Pressure 202/113 H 156/76 H 197/101 H Pulse Oximetry 98 97 98 02/08/18 05:19 02/08/18 08:00 02/08/18 11:58 Temperature 98.1 F 98.0 F Pulse Rate 78 81 69 Respiratory Rate 20 19 19 Blood Pressure 174/91 H 192/101 H 190/94 H Pulse Oximetry 96 97 98 Intake & Output 02/07/18 02/08/18 02/08/18 18:59 06:59 18:59 Intake Total 1672.5 / 1672.5 1999 / 1999 1000 / 1000 Output Total 1000 / 1000 1500 / 1500 Balance 1672.5 / 1672.5 1000 / 1000 -500 / -500 Intake: IV 1672.5 / 1672.5 1999 / 1999 1000 / 1000 D5W/NS + KCL 20 mEq Inj 1,000 1000 / 1000 1000 / 1000 ML @ 84 mls/hr IV.CONT .[id number] HUANG Rx#:[id number] NS Inj 1,000 ML @ 100 mls/hr IV 1000 / 1000 1000 / 1000 .CONT .Q10H HUANG Rx#:[id number] Cubicin Inj 1,250 MG In NS Inj 100 / 100 100 ML @ 200 mls/hr IV.SIG Q24H HUANG Rx#:[id number] Zosyn 3.375 GM Premix 50 ML @ 50 / 50 100 mls/hr IV.SIG Q6H HUANG Rx#: [id number] Output: Urine 1000 / 1000 1000 / 1000 Emesis 500 / 500 Other: # Voids 2 # Emeses 2 Narrative: Subjective: F/up on multiple medical problems left foot second metatarsal osteomyelitis, puncture wound of left foot. Right hydrocele. Persistent hypokalemia. Patient is still with persistent nausea vomiting. Still with low potassium, despite IV supplement. Went for bone scan. Received Reglan he is feeling much better now. Plan for OR tonight. He is nothing by mouth at this time. Still with significant pain is left foot. No fever or chills overnight. No chest pain or shortness of breath. Physical examination: GENERAL: Pleasant 47 yo AA male, in bed, well- developed, well-nourished no apparent distress. SKIN: Warm and dry on focused skin exam. CARDIOVASCULAR: Regular rate and rhythm. RESPIRATORY: No accessory muscle use. Clear to auscultation. Breath sounds equal bilaterally. GASTROINTESTINAL: Abdomen soft, non-tender, nondistended. Hepatic and splenic margins not palpable. Neurovascular intact Scrotal edema. MUSCULOSKELETAL: Left foot with dressing on, some bloody discharge on the plantar aspect. Painful to palpation NEUROLOGICAL: Awake and alert. No obvious cranial nerve deficits. Motor grossly within normal limits. Five out of 5 muscle strength in the arms and legs. Normal speech. Assessment and Plan 47 year male presents emergency department for evaluation of left foot and right scrotal pain. Patient left AMA a day before re- admission Left foot suspected second metatarsal osteomyelitis Puncture wound of foot without foreign body Right Hydrocele/varicocele Hypokalemia persistent CRP and ESR elevated, CRP 14 and ESR 80 suggesting osteomyelitis. Plan for Three-phase bone scan ( poss on Wednesday). Anticipate surgical intervention for Wednesday per Dr Santacruz Infectious disease consulted for further evaluation and recommendations Wound culture obtained and pending Foot X-Ray reviewed andfindings discussed with Dr Santacruz podiatry :No acute bony injury. No foreign body. Prominent soft tissue swelling Plan for work up to r.o osteomyelitis Checl crp , esr, bone scan Scrotum Ultrasound reviewed : Large right hydrocele. Varicocele demonstrated on the left. Testes are within normal limits. Consult urology for further evaluation of right hydrocele/varicocele Infectious disease consulted and has seen the patient appreciate recommendations DC Vanco IV Started Daptomycin IV (for possible osteomyelitis) Check Blood cultures Check hepatitis profile Check HIV screen Check GC and chlamydia given groin pain Check RPR IVF Replace electrolytes, On D5 1/2 NS with KCL supplement. Give additononal KCL by IV as with persistent low K. Check mag and replace as well. Pain meds per almaraz scale tylenol and oxycodone for severe pain Continue home meds as appropriate DVT ppx lovenox Discussed Condition With: patient, nurse, Dr Santacruz podiatry Discharge plan. Patient is not ready for discharge. Bone scan 02/07/19, Plan for OR on Wednesday02/08/18. Discharge when patient is improving and cleared by consultants. Results - Labs CBC & Chem 7: 02/08/18 12:00 02/08/18 13:24 Laboratory Results - last 24 hr 02/07/18 02/08/18 02/08/18 11:05 12:00 12:00 CBC w Diff Cancelled WBC 18.8 H Cancelled Corrected WBC Cancelled RBC 4.80 Cancelled Hgb 10.7 L Cancelled Hct 33.2 L Cancelled MCV 69.2 L Cancelled MCH 22.2 L Cancelled MCHC 32.1 Cancelled RDW 14.5 Cancelled Plt Count 415 Cancelled MPV 7.7 Cancelled Prelim Diff (Auto) Cancelled Immature Gran % (Auto) Cancelled Neut % (Auto) 83.5 H Cancelled Lymph % (Auto) 7.4 L Cancelled Bay % (Auto) 8.3 H Cancelled Eos % (Auto) 0.3 Cancelled Baso % (Auto) 0.5 Cancelled Immature Gran # (Auto) Cancelled Neut # (Auto) 15.7 H Cancelled Lymph # (Auto) 1.4 Cancelled Bay # (Auto) 1.6 H Cancelled Eos # (Auto) 0.0 Cancelled Baso # (Auto) 0.1 Cancelled WBC Differential . Cancelled Diff Scan Cancelled Seg Neuts % (Manual) Cancelled Band Neuts % (Manual) Cancelled Lymphocytes % (Manual) Cancelled Atypical Lymphs % (Man) Cancelled Monocytes % (Manual) Cancelled Eosinophils % (Manual) Cancelled Basophils % (Manual) Cancelled Metamyelocytes % (Man) Cancelled Myelocytes % (Man) Cancelled Promyelocytes % (Man) Cancelled Blast Cells % (Manual) Cancelled Plasma Cell % (Manual) Cancelled Other Cells % Cancelled Abs Neuts (Manual) Cancelled Nucleated RBCs/100 WBC Cancelled Differential Comment Auto diff final Cancelled Hypersegmented Neuts Cancelled Smudge Cells Cancelled Toxic Granulation Cancelled Toxic Vacuolation Cancelled Dohle Bodies Cancelled Platelet Estimate Cancelled Platelet Morphology Cancelled RBC Morphology Cancelled Dimorphic RBCs Cancelled Polychromasia Cancelled Basophilic Stippling Cancelled Spherocytes Cancelled Pappenheimer Bodies Cancelled Sickle Cells Cancelled Target Cells Cancelled Tear Drop Cells Cancelled Ovalocytes Cancelled Stomatocytes Cancelled Helmet Cells Cancelled [place] Bodies Cancelled [place] Cells Cancelled Acanthocytes (Spur) Cancelled Rouleaux Cancelled Keratocytes Cancelled Hematology Comments Cancelled Sodium Potassium Chloride Carbon Dioxide Anion Gap BUN Creatinine Estimated GFR Random Glucose Calcium Phosphorus Magnesium Iron TIBC % Saturation Total Protein (PEP) Albumin IgG IgA IgM [place]/Lambda Ratio [place] Light Chain Anal Lambda Light Chain Anal RPR Nonreactive 02/08/18 02/08/18 02/08/18 12:00 12:00 13:24 CBC w Diff WBC Corrected WBC RBC Hgb Hct MCV MCH MCHC RDW Plt Count MPV Prelim Diff (Auto) Immature Gran % (Auto) Neut % (Auto) Lymph % (Auto) Bay % (Auto) Eos % (Auto) Baso % (Auto) Immature Gran # (Auto) Neut # (Auto) Lymph # (Auto) [place] # (Auto) Eos # (Auto) Baso # (Auto) WBC Differential Diff Scan Seg Neuts % (Manual) Band Neuts % (Manual) Lymphocytes % (Manual) Atypical Lymphs % (Man) Monocytes % (Manual) Eosinophils % (Manual) Basophils % (Manual) Metamyelocytes % (Man) Myelocytes % (Man) Promyelocytes % (Man) Blast Cells % (Manual) Plasma Cell % (Manual) Other Cells % Abs Neuts (Manual) Nucleated RBCs/100 WBC Differential Comment Hypersegmented Neuts Smudge Cells Toxic Granulation Toxic Vacuolation Dohle Bodies Platelet Estimate Platelet Morphology RBC Morphology Dimorphic RBCs Polychromasia Basophilic Stippling Spherocytes Pappenheimer Bodies Sickle Cells Target Cells Tear Drop Cells Ovalocytes Stomatocytes Helmet Cells [place] Bodies [place] Cells Acanthocytes (Spur) Rouleaux Keratocytes Hematology Comments Sodium 138 139 Potassium 2.8 L* 2.6 L* Chloride 98 98 Carbon Dioxide 28.8 30.1 Anion Gap 11 11 BUN 18 17 Creatinine 2.89 H 2.89 H Estimated GFR 28 L 28 L Random Glucose 133 H 129 H Calcium 8.9 8.4 L Phosphorus 2.9 Magnesium 2.2 Iron 36 L TIBC 178 L % Saturation 20.2 Total Protein (PEP) 8.0 Albumin 2.4 L IgG 1940 H IgA 325 IgM 36 L [place]/Lambda Ratio 2.38 [place] Light Chain Anal 579 H Lambda Light Chain Anal 243 H RPR Microbiology 02/07/18 11:00 Blood - Peripheral Aerobic Blood Culture - Preliminary No growth in 1 day 02/07/18 11:00 Blood - Peripheral Anaerobic Blood Culture - Preliminary No growth in 1 day 02/07/18 11:05 Blood - Peripheral Aerobic Blood Culture - Preliminary No growth in 1 day 02/07/18 11:05 Blood - Peripheral Anaerobic Blood Culture - Preliminary No growth in 1 day - Imaging Impressions Abdomen/Bladder Ultrasound 02/07/18 00:00 CONCLUSION: The kidneys appear echogenic and enlarged which can be seen with acute medical renal disease. No hydronephrosis is seen. SPECT Scan-Bone NM 02/07/18 00:00 CONCLUSION: 1. Hyperperfusion, hyperemia and increased bone uptake in the left forefoot region corresponding to the second and third distal metatarsal and proximal phalanges. Diffuse soft tissue edema but no corresponding bony erosion on CT exam. Overall, findings are concerning for early acute osteomyelitis Assessment and Plan - Plan 47 year male presents emergency department for evaluation of left foot and right scrotal pain. Patient left AMA a day before re- admission Puncture wound of foot without foreign body Right Hydrocele Acute hypokalemia Wound culture obtained. and pending Foot X-Ray reviewed andfindings discussed with Dr Santacruz podiatry :No acute bony injury. No foreign body. Prominent soft tissue swelling Plan for work up to r.o osteomyelitis Checl crp , esr, bone scan Scrotum Ultrasound reviewed : Large right hydrocele. Varicocele demonstrated on the left. Testes are within normal limits. Continue cefepime and vanco IV abx IVF KCL replacement for low K Pain meds per almaraz scale tylenol and oxycodone for severe pain Continue home meds as appropriate DVT ppx lovenox
[2018-02-08] MEDS ORDERED: Prochlorperazine 25 MG Supp RECTAL PRN (15:29)
[2018-02-08] MEDS: Potassium Chlor 20 mEq Premix 20 MEQ/100 ML PIGGYBACK IV.SIG SCH ×3 (17:04→21:52)
--- NOTE | 2018-02-08 17:11 | P.CONGI ---
History of Present Illness Consult date: 02/08/18 Consult reason: Uncontrolled nausea and vomiting Chief complaint: Sepsis History of Present Illness: This is a 47-year-old male who was admitted to the hospital on 02/03/2018 with sepsis and right foot infection. Patient also had symptoms of nausea and vomiting on admission but it was thought that it might be secondary to the current infection and/or medications. Patient has been followed per ID and there are tentative plans for late p.m. surgical procedure for further evaluation. Patient has continued with uncontrolled nausea and vomiting which has not seem to subside even with anti-medics and IV fluids. Patient has vomited at least 3 times today on one occasion approximately 500 cc per the nurse. Patient is lying in a dark room and states that even the light hitting his eyes makes him extremely nauseated. Patient does note long-term use of Aleve for pain. Patient states no previous colonoscopy or endoscopy and no family history of colon cancer current labs show anemia with hemoglobin 10.7, PT /INR 1.3, leukocytosis with WBC count 18.8. Patient also has some renal disease according to the current lab work. Aggregating factors or any light in the room and alleviating factors are null at this time there is a history of EtOH consumption 2-4 times a month and marijuana use. Patient has never taken any medicines for dyspepsia any dysphasia. Patient has no obvious bleeding or abdominal pain, bowel sounds are very soft. 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 Hypertension - Surgical History Surgical History: Surgical History (Last Updated 02/06/18 @ 13:03 by Melva Huff MD) History of facial surgery - Family History Family History: Family History (Last Reviewed 02/05/18 @ 13:39 by Trina Santacruz DPM) Other Diabetes - Tobacco History Second Hand Smoke Exposure: No Tobacco Use In Past 30 Days: No Smoking Status: Never smoker - Alcohol History How Often Do You Have a Drink Containing Alcohol: 2 to 4 times a month - Substance Use History Substance History: Active Abuse - Substance Use Type Marijuana Status: Active Route Used: By Mouth Frequency: daily Reason for Use: Calm Down, Feels Good - Travel History Recent Travel in the [place] Within the Last 8 Weeks: No Recent Travel Out of the Country Within the Last 8 Weeks: No - Immunization History Tetanus Immunization: <5 Years Tetanus Immunization Year if Known: 2017 Hx Influenza Vaccine This Season: No <Courtney Gonzales - Last Filed: 02/08/18 17:11> - Medical History Medical History: Medical History (Last Reviewed 02/05/18 @ 13:39 by Trina Santacruz DPM) Hydrocele in adult Hypertension - Surgical History Surgical History: Surgical History (Last Updated 02/06/18 @ 13:03 by Melva Huff MD) History of facial surgery - Family History Family History: Family History (Last Reviewed 02/05/18 @ 13:39 by Trina Santacruz DPM) Other Diabetes <Shaggy Ulloa - Last Filed: 02/09/18 06:38> Medications and Allergies Active Medications: Active Medications Acetaminophen (Tylenol) 650 mg PO Q4H PRN PRN Reason: pain 1-3. headache, fevers Al Hydroxide/Mg Hydroxide (Milk Of Ke[place] Liq) 30 ml PO Q12H PRN PRN Reason: Mild Constipation Last Admin: 02/08/18 06:06 Dose: 30 ml Amlodipine Besylate (Norvasc) 5 mg PO BID [facility] Last Admin: 02/08/18 12:50 Dose: 5 mg Bisacodyl (Dulcolax Supp) 10 mg RECTAL DAILY PRN PRN Reason: SEVERE CONSITIPATION Enalaprilat (Vasotec Inj) 2.5 mg IV.PUSH Q8H PRN PRN Reason: SBP>160, DBP>90 Last Admin: 02/08/18 01:45 Dose: 2.5 mg Enoxaparin Sodium (Lovenox Inj) 40 mg SQ DAILY [facility] Last Admin: 02/08/18 08:38 Dose: Not Given Hydrochlorothiazide (Microzide) 12.5 mg PO DAILY [facility] Last Admin: 02/08/18 08:42 Dose: 12.5 mg Sodium Chloride (Ns Inj) 1,000 mls @ 100 mls/hr IV.CONT .Q10H [facility] Last Admin: 02/08/18 04:23 Dose: Not Given Daptomycin 1,250 mg/ Sodium (Chloride) 100 mls @ 200 mls/hr IV.SIG Q24H [facility] Last Admin: 02/08/18 14:50 Dose: 200 mls/hr Potassium Chloride/Dextrose/Sod Cl (D5w/Ns + Kcl 20 Meq Inj) 1,000 mls @ 84 mls /hr IV.CONT .[id number] [facility] Last Admin: 02/08/18 12:50 Dose: 84 mls/hr Potassium Chloride (Kcl 20 Meq Premix Inj) 20 meq in 100 mls @ 50 mls/hr IV.SIG Q2H [facility] Stop: 02/08/18 23:27 Last Admin: 02/08/18 17:04 Dose: 30 mls/hr Lactulose (Lactulose Liq) 30 ml PO DAILY PRN PRN Reason: SEVERE CONSITIPATION Magnesium Oxide (Mag-Ox) 400 mg PO DAILY [facility] Last Admin: 02/08/18 08:42 Dose: 400 mg Metoclopramide HCl (Reglan Inj) 5 mg IV.PUSH Q8HR PRN; Protocol PRN Reason: NAUSEA OR VOMITING Last Admin: 02/08/18 17:05 Dose: 5 mg Metoprolol Tartrate (Lopressor) 25 mg PO BID [facility] Miscellaneous (Pill Splitter) 1 each OTHER UNSCH [facility] Morphine Sulfate (Morphine Inj) 2 mg IV.PUSH Q4H PRN PRN Reason: breakthrough pain Last Admin: 02/08/18 06:06 Dose: 2 mg Ondansetron HCl (Zofran Odt) 4 mg PO Q6H PRN PRN Reason: for nausea or vomiting Last Admin: 02/08/18 14:50 Dose: 4 mg Oxycodone HCl (Roxicodone) 5 mg PO Q6H PRN PRN Reason: pain 4-10 Last Admin: 02/08/18 08:42 Dose: 5 mg Pantoprazole Sodium (Protonix Inj) 40 mg IV.PUSH Q12H [facility] Prochlorperazine (Compazine Supp) 25 mg RECTAL Q6H PRN PRN Reason: severe vomiting Sennosides (Senokot) 17.2 mg PO Q12H PRN PRN Reason: Moderate Constipation Sodium Chloride (Ns Flush) 2 ml IV.FLUSH PRN PRN PRN Reason: FLUSH AFTER USING IV ACCESS Sucralfate (Carafate) 1 gm PO ACHS [facility] Temazepam (Restoril) 15 mg PO HS PRN PRN Reason: INSOMNIA Last Admin: 02/04/18 21:10 Dose: 15 mg <Courtney Gonzales M - Last Filed: 02/08/18 17:11> Active Medications: Active Medications Acetaminophen (Tylenol) 650 mg PO Q4H PRN PRN Reason: pain 1-3. headache, fevers Al Hydroxide/Mg Hydroxide (Milk Of Magnesia Liq) 30 ml PO Q12H PRN PRN Reason: Mild Constipation Last Admin: 02/08/18 06:06 Dose: 30 ml Amlodipine Besylate (Norvasc) 5 mg PO BID [facility] Last Admin: 02/08/18 20:18 Dose: 5 mg Bisacodyl (Dulcolax Supp) 10 mg RECTAL DAILY PRN PRN Reason: SEVERE CONSITIPATION Enalaprilat (Vasotec Inj) 2.5 mg IV.PUSH Q8H PRN PRN Reason: SBP>160, DBP>90 Last Admin: 02/09/18 01:08 Dose: 2.5 mg Enoxaparin Sodium (Lovenox Inj) 40 mg SQ DAILY [facility] Last Admin: 02/08/18 08:38 Dose: Not Given Sodium Chloride (Ns Inj) 1,000 mls @ 100 mls/hr IV.CONT .Q10H [facility] Last Admin: 02/09/18 04:33 Dose: Not Given Daptomycin 1,250 mg/ Sodium (Chloride) 100 mls @ 200 mls/hr IV.SIG Q24H [facility] Last Infusion: 02/08/18 17:55 Dose: Infused Potassium Chloride/Dextrose/Sod Cl (D5w/Ns + Kcl 20 Meq Inj) 1,000 mls @ 84 mls /hr IV.CONT .[id number] [facility] Last Admin: 02/09/18 04:32 Dose: 84 mls/hr Lactulose (Lactulose Liq) 30 ml PO DAILY PRN PRN Reason: SEVERE CONSITIPATION Magnesium Oxide (Mag-Ox) 400 mg PO DAILY [facility] Last Admin: 02/08/18 08:42 Dose: 400 mg Metoclopramide HCl (Reglan Inj) 5 mg IV.PUSH Q8HR PRN; Protocol PRN Reason: NAUSEA OR VOMITING Last Admin: 02/09/18 00:54 Dose: 5 mg Metoprolol Tartrate (Lopressor) 25 mg PO BID [facility] Last Admin: 02/08/18 20:18 Dose: 25 mg Miscellaneous (Pill Splitter) 1 each OTHER [facility] Morphine Sulfate (Morphine Inj) 2 mg IV.PUSH Q4H PRN PRN Reason: breakthrough pain Last Admin: 02/08/18 06:06 Dose: 2 mg Ondansetron HCl (Zofran Odt) 4 mg PO Q6H PRN PRN Reason: for nausea or vomiting Last Admin: 02/09/18 04:32 Dose: 4 mg Oxycodone HCl (Roxicodone) 5 mg PO Q6H PRN PRN Reason: pain 4-10 Last Admin: 02/09/18 00:55 Dose: 5 mg Pantoprazole Sodium (Protonix Inj) 40 mg IV.PUSH Q12H [facility] Last Admin: 02/09/18 05:01 Dose: 40 mg Prochlorperazine (Compazine Supp) 25 mg RECTAL Q6H PRN PRN Reason: severe vomiting Sennosides (Senokot) 17.2 mg PO Q12H PRN PRN Reason: Moderate Constipation Sodium Chloride (Ns Flush) 2 ml IV.FLUSH PRN PRN PRN Reason: FLUSH AFTER USING IV ACCESS Sucralfate (Carafate) [address] [facility] Last Admin: 02/08/18 20:18 Dose: Not Given Temazepam (Restoril) 15 mg PO HS PRN PRN Reason: INSOMNIA Last Admin: 02/04/18 21:10 Dose: 15 mg <Shaggy Ulloa A - Last Filed: 02/09/18 06:38> Allergies Allergy/AdvReac Type Severity Reaction Status Date / Time lactose Allergy Severe Hives Verified 01/30/18 23:38 milk Allergy Severe Anaphylaxis Verified 01/30/18 23:38 Sulfa (Sulfonamide Allergy Unknown ITCHING Verified 01/30/18 23:38 Antibiotics) Home Medications Medication Instructions Recorded Confirmed Type No Known Home Medications 02/06/18 02/06/18 History Exam Vital signs: Vital Signs 02/07/18 20:00 02/08/18 01:41 02/08/18 05:19 Temperature 98.6 F 99.0 F Pulse Rate 85 84 78 Respiratory Rate 18 18 20 Blood Pressure 156/76 H 197/101 H 174/91 H Pulse Oximetry 97 98 96 02/08/18 08:00 02/08/18 11:58 02/08/18 16:00 Temperature 98.1 F 98.0 F 98.5 F Pulse Rate 81 69 90 Respiratory Rate 19 19 19 Blood Pressure 192/101 H 190/94 H 184/100 H Pulse Oximetry 97 98 98 Intake & Output 02/07/18 02/08/18 02/08/18 18:59 06:59 18:59 Intake Total 1672.5 / 1672.5 1999 / 1999 1000 / 1000 Output Total 1000 / 1000 1500 / 1500 Balance 1672.5 / 1672.5 1000 / 1000 -500 / -500 Intake: IV 1672.5 / 1672.5 1999 / 1999 1000 / 1000 D5W/NS + KCL 20 mEq Inj 1,000 1000 / 1000 1000 / 1000 ML @ 84 mls/hr IV.CONT .[id number] [facility] Rx#:[id number] NS Inj 1,000 ML @ 100 mls/hr IV 1000 / 1000 1000 / 1000 .CONT .Q10H [facility] Rx#:[id number] Cubicin Inj 1,250 MG In NS Inj 100 / 100 100 ML @ 200 mls/hr IV.SIG Q24H [facility] Rx#:[id number] Zosyn 3.375 GM Premix 50 ML @ 50 / 50 100 mls/hr IV.SIG Q6H [facility] Rx#: [id number] Output: Urine 1000 / 1000 1000 / 1000 Emesis 500 / 500 Other: # Voids 2 # Emeses 2 - Constitutional moderate distress, average body habitus - Routine HEENT Exam Head: Present: normocephalic, atraumatic Eye: Present: EOMI ENT: Present: mucous membranes dry - Routine Neck Exam Present: supple - Routine Cardiovascular Exam Present: S1, S2 - Routine Abdominal Exam Present: soft (Round, minimal distention if any, large amount of vomiting 500 cc noted it one time.) - Routine Neurological Exam Present: alert (Awake answer simple questions) <Courtney Gonzales - Last Filed: 02/08/18 17:11> Vital signs: Vital Signs 02/08/18 08:00 02/08/18 11:58 02/08/18 16:00 Temperature 98.1 F 98.0 F 98.5 F Pulse Rate 81 69 90 Respiratory Rate 19 19 19 Blood Pressure 192/101 H 190/94 H 184/100 H Pulse Oximetry 97 98 98 02/08/18 20:17 02/09/18 00:00 02/09/18 04:27 Temperature 98.6 F 98.1 F 98.4 F Pulse Rate 92 H 90 89 Respiratory Rate 18 18 20 Blood Pressure 185/101 H 179/97 H 190/99 H Pulse Oximetry 100 99 99 Intake & Output 02/08/18 02/08/18 02/09/18 06:59 18:59 06:59 Intake Total 1999 / 1999 1920 / 1920 1300 / 1300 Output Total 1000 / 1000 2700 / 2700 1600 / 1600 Balance 1000 / 1000 -780 / -780 -300 / -300 Intake: IV 1999 / 1999 1200 / 1200 1300 / 1300 D5W/NS + KCL 20 mEq Inj 1,000 1000 / 1000 1000 / 1000 1000 / 1000 ML @ 84 mls/hr IV.CONT .[id number] [facility] Rx#:[id number] NS Inj 1,000 ML @ 100 mls/hr IV 1000 / 1000 .CONT .Q10H [facility] Rx#:[id number] Cubicin Inj 1,250 MG In NS Inj 100 / 100 100 ML @ 200 mls/hr IV.SIG Q24H [facility] Rx#:[id number] KCl 20 mEq Premix Inj 20 meq In 100 / 100 300 / 300 100 ml @ 50 mls/hr IV.SIG Q2H [facility] Rx#:[id number] Oral 720 / 720 Output: Urine 1000 / 1000 2200 / 2200 1600 / 1600 Emesis 500 / 500 Other: # Voids 2 2 # Emeses 2 <Shaggy Ulloa - Last Filed: 02/09/18 06:38> Results - Labs CBC & Chem 7: 02/08/18 12:00 02/08/18 13:24 Labs: Laboratory Results - last 24 hr 02/07/18 02/08/18 02/08/18 11:05 12:00 12:00 CBC w Diff Cancelled WBC 18.8 H Cancelled Corrected WBC Cancelled RBC 4.80 Cancelled Hgb 10.7 L Cancelled Hct 33.2 L Cancelled MCV 69.2 L Cancelled MCH 22.2 L Cancelled MCHC 32.1 Cancelled RDW 14.5 Cancelled Plt Count 415 Cancelled MPV 7.7 Cancelled Prelim Diff (Auto) Cancelled Immature Gran % (Auto) Cancelled Neut % (Auto) 83.5 H Cancelled Lymph % (Auto) 7.4 L Cancelled [place] % (Auto) 8.3 H Cancelled Eos % (Auto) 0.3 Cancelled Baso % (Auto) 0.5 Cancelled Immature Gran # (Auto) Cancelled Neut # (Auto) 15.7 H Cancelled Lymph # (Auto) 1.4 Cancelled [place] # (Auto) 1.6 H Cancelled Eos # (Auto) 0.0 Cancelled Baso # (Auto) 0.1 Cancelled WBC Differential . Cancelled Diff Scan Cancelled Seg Neuts % (Manual) Cancelled Band Neuts % (Manual) Cancelled Lymphocytes % (Manual) Cancelled Atypical Lymphs % (Man) Cancelled Monocytes % (Manual) Cancelled Eosinophils % (Manual) Cancelled Basophils % (Manual) Cancelled Metamyelocytes % (Man) Cancelled Myelocytes % (Man) Cancelled Promyelocytes % (Man) Cancelled Blast Cells % (Manual) Cancelled Plasma Cell % (Manual) Cancelled Other Cells % Cancelled Abs Neuts (Manual) Cancelled Nucleated RBCs/100 WBC Cancelled Differential Comment Auto diff final Cancelled Hypersegmented Neuts Cancelled Smudge Cells Cancelled Toxic Granulation Cancelled Toxic Vacuolation Cancelled Dohle Bodies Cancelled Platelet Estimate Cancelled Platelet Morphology Cancelled RBC Morphology Cancelled Dimorphic RBCs Cancelled Polychromasia Cancelled Basophilic Stippling Cancelled Spherocytes Cancelled Pappenheimer Bodies Cancelled Sickle Cells Cancelled Target Cells Cancelled Tear Drop Cells Cancelled Ovalocytes Cancelled Stomatocytes Cancelled Helmet Cells Cancelled [place] Bodies Cancelled Guera Cells Cancelled Acanthocytes (Spur) Cancelled Rouleaux Cancelled Keratocytes Cancelled Hematology Comments Cancelled Sodium Potassium Chloride Carbon Dioxide Anion Gap BUN Creatinine Estimated GFR Random Glucose Calcium Phosphorus Magnesium Iron TIBC % Saturation Total Protein (PEP) Albumin IgG IgA IgM [place]/Lambda Ratio [place] Light Chain Anal Lambda Light Chain Anal RPR Nonreactive 02/08/18 02/08/18 02/08/18 12:00 12:00 13:24 CBC w Diff WBC Corrected WBC RBC Hgb Hct MCV MCH MCHC RDW Plt Count MPV Prelim Diff (Auto) Immature Gran % (Auto) Neut % (Auto) Lymph % (Auto) [place] % (Auto) Eos % (Auto) Baso % (Auto) Immature Gran # (Auto) Neut # (Auto) Lymph # (Auto) [place] # (Auto) Eos # (Auto) Baso # (Auto) WBC Differential Diff Scan Seg Neuts % (Manual) Band Neuts % (Manual) Lymphocytes % (Manual) Atypical Lymphs % (Man) Monocytes % (Manual) Eosinophils % (Manual) Basophils % (Manual) Metamyelocytes % (Man) Myelocytes % (Man) Promyelocytes % (Man) Blast Cells % (Manual) Plasma Cell % (Manual) Other Cells % Abs Neuts (Manual) Nucleated RBCs/100 WBC Differential Comment Hypersegmented Neuts Smudge Cells Toxic Granulation Toxic Vacuolation Dohle Bodies Platelet Estimate Platelet Morphology RBC Morphology Dimorphic RBCs Polychromasia Basophilic Stippling Spherocytes Pappenheimer Bodies Sickle Cells Target Cells Tear Drop Cells Ovalocytes Stomatocytes Helmet Cells [place] Bodies [place] Cells Acanthocytes (Spur) Rouleaux Keratocytes Hematology Comments Sodium 138 139 Potassium 2.8 L* 2.6 L* Chloride 98 98 Carbon Dioxide 28.8 30.1 Anion Gap 11 11 BUN 18 17 Creatinine 2.89 H 2.89 H Estimated GFR 28 L 28 L Random Glucose 133 H 129 H Calcium 8.9 8.4 L Phosphorus 2.9 Magnesium 2.2 Iron 36 L TIBC 178 L % Saturation 20.2 Total Protein (PEP) 8.0 Albumin 2.4 L IgG 1940 H IgA 325 IgM 36 L [place]/Lambda Ratio 2.38 [place] Light Chain Anal 579 H Lambda Light Chain Anal 243 H RPR - Imaging Impressions Abdomen/Bladder Ultrasound 02/07/18 00:00 CONCLUSION: The kidneys appear echogenic and enlarged which can be seen with acute medical renal disease. No hydronephrosis is seen. SPECT Scan-Bone NM 02/07/18 00:00 CONCLUSION: 1. Hyperperfusion, hyperemia and increased bone uptake in the left forefoot region corresponding to the second and third distal metatarsal and proximal phalanges. Diffuse soft tissue edema but no corresponding bony erosion on CT exam. Overall, findings are concerning for early acute osteomyelitis <Courtney Gonzales - Last Filed: 02/08/18 17:11> - Labs CBC & Chem 7: 02/08/18 12:00 02/08/18 21:30 Labs: Laboratory Results - last 24 hr 02/07/18 02/08/18 02/08/18 11:05 12:00 12:00 CBC w Diff Cancelled WBC 18.8 H Cancelled Corrected WBC Cancelled RBC 4.80 Cancelled Hgb 10.7 L Cancelled Hct 33.2 L Cancelled MCV 69.2 L Cancelled MCH 22.2 L Cancelled MCHC 32.1 Cancelled RDW 14.5 Cancelled Plt Count 415 Cancelled MPV 7.7 Cancelled Prelim Diff (Auto) Cancelled Immature Gran % (Auto) Cancelled Neut % (Auto) 83.5 H Cancelled Lymph % (Auto) 7.4 L Cancelled [place] % (Auto) 8.3 H Cancelled Eos % (Auto) 0.3 Cancelled Baso % (Auto) 0.5 Cancelled Immature Gran # (Auto) Cancelled Neut # (Auto) 15.7 H Cancelled Lymph # (Auto) 1.4 Cancelled [place] # (Auto) 1.6 H Cancelled Eos # (Auto) 0.0 Cancelled Baso # (Auto) 0.1 Cancelled WBC Differential . Cancelled Diff Scan Cancelled Seg Neuts % (Manual) Cancelled Band Neuts % (Manual) Cancelled Lymphocytes % (Manual) Cancelled Atypical Lymphs % (Man) Cancelled Monocytes % (Manual) Cancelled Eosinophils % (Manual) Cancelled Basophils % (Manual) Cancelled Metamyelocytes % (Man) Cancelled Myelocytes % (Man) Cancelled Promyelocytes % (Man) Cancelled Blast Cells % (Manual) Cancelled Plasma Cell % (Manual) Cancelled Other Cells % Cancelled Abs Neuts (Manual) Cancelled Nucleated RBCs/100 WBC Cancelled Differential Comment Auto diff final Cancelled Hypersegmented Neuts Cancelled Smudge Cells Cancelled Toxic Granulation Cancelled Toxic Vacuolation Cancelled Dohle Bodies Cancelled Platelet Estimate Cancelled Platelet Morphology Cancelled RBC Morphology Cancelled Dimorphic RBCs Cancelled Polychromasia Cancelled Basophilic Stippling Cancelled Spherocytes Cancelled Pappenheimer Bodies Cancelled Sickle Cells Cancelled Target Cells Cancelled Tear Drop Cells Cancelled Ovalocytes Cancelled Stomatocytes Cancelled Helmet Cells Cancelled [place] Bodies Cancelled Guera Cells Cancelled Acanthocytes (Spur) Cancelled Rouleaux Cancelled Keratocytes Cancelled Hematology Comments Cancelled Sodium Potassium Chloride Carbon Dioxide Anion Gap BUN Creatinine Estimated GFR Random Glucose Calcium Phosphorus Magnesium Iron TIBC % Saturation Ferritin Total Protein (PEP) Albumin Vitamin D 25-Hydroxy PTH Intact IgG IgA IgM [place]/Lambda Ratio [place] Light Chain Anal Lambda Light Chain Anal RPR Nonreactive 02/08/18 02/08/18 02/08/18 12:00 12:00 13:24 CBC w Diff WBC Corrected WBC RBC Hgb Hct MCV MCH MCHC RDW Plt Count MPV Prelim Diff (Auto) Immature Gran % (Auto) Neut % (Auto) Lymph % (Auto) [place] % (Auto) Eos % (Auto) Baso % (Auto) Immature Gran # (Auto) Neut # (Auto) Lymph # (Auto) [place] # (Auto) Eos # (Auto) Baso # (Auto) WBC Differential Diff Scan Seg Neuts % (Manual) Band Neuts % (Manual) Lymphocytes % (Manual) Atypical Lymphs % (Man) Monocytes % (Manual) Eosinophils % (Manual) Basophils % (Manual) Metamyelocytes % (Man) Myelocytes % (Man) Promyelocytes % (Man) Blast Cells % (Manual) Plasma Cell % (Manual) Other Cells % Abs Neuts (Manual) Nucleated RBCs/100 WBC Differential Comment Hypersegmented Neuts Smudge Cells Toxic Granulation Toxic Vacuolation Dohle Bodies Platelet Estimate Platelet Morphology RBC Morphology Dimorphic RBCs Polychromasia Basophilic Stippling Spherocytes Pappenheimer Bodies Sickle Cells Target Cells Tear Drop Cells Ovalocytes Stomatocytes Helmet Cells [place] Bodies Guera Cells Acanthocytes (Spur) Rouleaux Keratocytes Hematology Comments Sodium 138 139 Potassium 2.8 L* 2.6 L* Chloride 98 98 Carbon Dioxide 28.8 30.1 Anion Gap 11 11 BUN 18 17 Creatinine 2.89 H 2.89 H Estimated GFR 28 L 28 L Random Glucose 133 H 129 H Calcium 8.9 8.4 L Phosphorus 2.9 Magnesium 2.2 Iron 36 L TIBC 178 L % Saturation 20.2 Ferritin Total Protein (PEP) 8.0 Albumin 2.4 L Vitamin D 25-Hydroxy PTH Intact IgG 1940 H IgA 325 IgM 36 L [place]/Lambda Ratio 2.38 [place] Light Chain Anal 579 H Lambda Light Chain Anal 243 H RPR 02/08/18 02/08/18 02/08/18 17:37 17:37 21:30 CBC w Diff WBC Corrected WBC RBC Hgb Hct MCV MCH MCHC RDW Plt Count MPV Prelim Diff (Auto) Immature Gran % (Auto) Neut % (Auto) Lymph % (Auto) [place] % (Auto) Eos % (Auto) Baso % (Auto) Immature Gran # (Auto) Neut # (Auto) Lymph # (Auto) [place] # (Auto) Eos # (Auto) Baso # (Auto) WBC Differential Diff Scan Seg Neuts % (Manual) Band Neuts % (Manual) Lymphocytes % (Manual) Atypical Lymphs % (Man) Monocytes % (Manual) Eosinophils % (Manual) Basophils % (Manual) Metamyelocytes % (Man) Myelocytes % (Man) Promyelocytes % (Man) Blast Cells % (Manual) Plasma Cell % (Manual) Other Cells % Abs Neuts (Manual) Nucleated RBCs/100 WBC Differential Comment Hypersegmented Neuts Smudge Cells Toxic Granulation Toxic Vacuolation Dohle Bodies Platelet Estimate Platelet Morphology RBC Morphology Dimorphic RBCs Polychromasia Basophilic Stippling Spherocytes Pappenheimer Bodies Sickle Cells Target Cells Tear Drop Cells Ovalocytes Stomatocytes Helmet Cells [place] Bodies [place] Cells Acanthocytes (Spur) Rouleaux Keratocytes Hematology Comments Sodium 136 139 Potassium 2.8 L* 2.9 L* Chloride 99 100 Carbon Dioxide 24.0 29.6 Anion Gap 13 9 BUN 16 17 Creatinine 2.83 H 2.86 H Estimated GFR 29 L 29 L Random Glucose 100 108 H Calcium 8.9 9.0 Phosphorus 2.5 Magnesium Iron TIBC % Saturation Ferritin 588 H Total Protein (PEP) Albumin 2.3 L Vitamin D 25-Hydroxy 14.0 L PTH Intact 59.1 IgG IgA IgM [place]/Lambda Ratio [place] Light Chain Anal Lambda Light Chain Anal RPR - Imaging Impressions Abdomen X-Ray 02/08/18 00:00 CONCLUSION: Benign-appearing abdomen. <Shaggy Ulloa - Last Filed: 02/09/18 06:38> Assessment and Plan (1) Anemia Status: Acute Code(s): D64.9 - Anemia, unspecified - Plan Patient has irretractable nausea and vomiting for at least 5 days since patient' s admission on 02/03/2018. Patient has had 3 episodes today one episode he vomited at least 500 cc, and patient is very sensitive to light. He states that makes him even more nauseated. Differential diagnosis could include obstruction versus inflammation versus medication related versus infection versus ulcers or GERD, or marijuana use. Patient does show renal disease Left foot infection for surgical procedure today to remove some bone according to nurse. Patient possibly could have osteomyelitis. No current abdominal x-rays for comparison. No previous EGD or colonoscopy and no family history of colon cancer. Current labs show hemoglobin 10.7 PT/INR 1.3, WBC count 18.8. Bilirubin and LFTs normal. Social habits positive for alcohol at least twice a month and marijuana. Plan N.p.o. , planned for surgical procedure on left foot this p.m. Added Protonix IV Carafate Abdominal x-rays KUB to rule out any obstructive event Monitor labs with special attention to hemoglobin Consider EGD Further recommendations to follow Patient was seen per myself and Dr. Ulloa, this note was written on his behalf <Courtney Gonzales - Last Filed: 02/08/18 17:11> (1) Anemia Status: Acute Code(s): D64.9 - Anemia, unspecified - Attending Attestation Seen with roxanne Rosario as above. Will reassess his condition after his surgery, continue current treatment plan for now. Thank you for the consult <Shaggy Ulloa - Last Filed: 02/09/18 06:38>
[2018-02-08] MEDS: Pantoprazole Inj 40 MG Vial IV.PUSH SCH (17:47)
[2018-02-08 18:27] LABS: Albumin 2.3 g/dL (3.4-5.0); Calcium 8.9 mg/dL (8.5-10.1); Phosphorus 2.5 mg/dL (2.5-4.9)
[2018-02-08 18:48] LABS: Potassium 2.8 meq/L (3.5-5.1)
--- NOTE | 2018-02-08 20:17 | XR ---
EXAM DATE: 02/08/2018 7:51 PM EDT AGE/SEX: 47 years / Male INDICATIONS: Abdominal pain, abdominal distention, and nausea. CLINICAL DATA: This is the patient's initial encounter. Patient reports that signs and symptoms have been present for 2 days and indicates a pain score of 5/10. MEDICAL/SURGICAL HISTORY: None. None. COMPARISON: [facility], ABDOMEN FLAT & UPRIGHT, 11/13/2017. [facility], CT ABDOMEN & PELVIS W CONTRAST, 01/31/20 18. . FINDINGS: The abdominal bowel gas pattern is normal. No abnormal masses, calcifications, or organomegaly is s een. The osseous structures are unremarkable. CONCLUSION: Benign-appearing abdomen. Electronically signed by: Gordo Cho MD 02/08/2018 8:16 PM EDT
[2018-02-08] MEDS: Sucralfate 1 GM Tablet PO SCH (20:18)
[2018-02-08 23:00] LABS: Carbon Dioxide 29.6 meq/L (21.0-32.0)
[2018-02-08 23:17] LABS: Potassium 2.9 meq/L (3.5-5.1)
[2018-02-09] MEDS: Potassium Chlor 20 mEq Premix 20 MEQ/100 ML PIGGYBACK IV.SIG SCH ×5 (00:24→20:39)
[2018-02-09] MEDS: KCL 20 mEq/D5W/NaCl 0.9% Inj 1,000 ML IV.CONT SCH ×2 (04:32→15:14)
[2018-02-09] MEDS: Sod Chloride 0.9% Inj 1,000 ML IV.CONT SCH ×2 (04:33→15:13)
[2018-02-09] MEDS: Pantoprazole Inj 40 MG Vial IV.PUSH SCH ×2 (05:01→18:21)
[2018-02-09] MEDS: Enoxaparin Inj 40 MG/0.4 ML Syringe SQ SCH (09:40)
[2018-02-09] MEDS: amLODIPine 5 MG Tablet PO SCH ×2 (09:40→20:39)
[2018-02-09] MEDS: Magnesium Oxide 400 MG Tablet PO SCH (09:40)
[2018-02-09] MEDS: Metoprolol Tartrate 25 MG Tablet PO SCH ×2 (09:40→20:39)
[2018-02-09] MEDS: Sucralfate 1 GM Tablet PO SCH ×4 (09:41→20:39)
[2018-02-09 09:55] LABS: Baso # (Auto) 0.1 th/mm3 (0.0-0.2); Eos # (Auto) 0.1 th/mm3 (0.0-0.4); Eos % (Auto) 0.4 % (0.0-4.0); Hematocrit 34.7 % (39.0-51.0); Hemoglobin 11.1 gm/dL (13.0-17.0); Lymph # (Auto) 1.7 th/mm3 (1.0-4.8); Lymph % (Auto) 11.1 % (9.0-44.0); Mean Corpuscular HGB Conc 32.1 % (32.0-36.0); Mean Corpuscular Hemoglobin 22.6 pg (27.0-34.0); Mean Corpuscular Volume 70.3 fL (80.0-100.0); Mean Platelet Volume 7.7 fL (7.0-11.0); Mono # (Auto) 1.2 th/mm3 (0.0-0.9); Mono % (Auto) 8.3 % (0.0-8.0); Neut # (Auto) 11.9 th/mm3 (1.8-7.7); Neut % (Auto) 79.2 % (16.0-70.0); Platelet Count 415 th/mm3 (150-450); Red Blood Count 4.93 mil/mm3 (4.50-5.90); Red Cell Distribution Width 14.5 % (11.6-17.2)
[2018-02-09 10:36] LABS: Albumin 2.5 g/dL (3.4-5.0); Calcium 8.6 mg/dL (8.5-10.1); Carbon Dioxide 27.8 meq/L (21.0-32.0); Phosphorus 2.6 mg/dL (2.5-4.9); Potassium 3.1 meq/L (3.5-5.1)
[2018-02-09 12:37] LABS: Calcium 8.5 mg/dL (8.5-10.1); Carbon Dioxide 29.4 meq/L (21.0-32.0)
[2018-02-09 12:44] LABS: Potassium 2.9 meq/L (3.5-5.1)
--- NOTE | 2018-02-09 14:32 | P.PN ---
Physical Exam Vital signs: Vital Signs 02/08/18 16:00 02/08/18 20:17 02/09/18 00:00 Temperature 98.5 F 98.6 F 98.1 F Pulse Rate 90 92 H 90 Respiratory Rate 19 18 18 Blood Pressure 184/100 H 185/101 H 179/97 H Pulse Oximetry 98 100 99 02/09/18 04:27 02/09/18 06:42 02/09/18 08:00 Temperature 98.4 F 98.1 F Pulse Rate 89 95 H 86 Respiratory Rate 20 18 19 Blood Pressure 190/99 H 171/96 H 184/101 H Pulse Oximetry 99 99 02/09/18 12:00 Temperature 98.1 F Pulse Rate 79 Respiratory Rate 19 Blood Pressure 165/95 H Pulse Oximetry 99 Intake & Output 02/08/18 02/09/18 02/09/18 18:59 06:59 18:59 Intake Total 1920 / 1920 1300 / 1300 Output Total 2700 / 2700 1600 / 1600 800 / 800 Balance -780 / -780 -300 / -300 -800 / -800 Intake: IV 1200 / 1200 1300 / 1300 D5W/NS + KCL 20 mEq Inj 1,000 1000 / 1000 1000 / 1000 ML @ 84 mls/hr IV.CONT .[id number] HUANG Rx#:[id number] Cubicin Inj 1,250 MG In NS Inj 100 / 100 100 ML @ 200 mls/hr IV.SIG Q24H HUANG Rx#:[id number] KCl 20 mEq Premix Inj 20 meq In 100 / 100 300 / 300 100 ml @ 50 mls/hr IV.SIG Q2H HUANG Rx#:[id number] Oral 720 / 720 Output: Urine 2200 / 2200 1600 / 1600 800 / 800 Emesis 500 / 500 Other: # Voids 2 Narrative: Subjective: F/up on multiple medical problems left foot second metatarsal osteomyelitis, puncture wound of left foot. Right hydrocele. Persistent hypokalemia. Patient was less nausea and no vomiting since yesterday. Still with low potassium, despite IV supplement. Plan for OR today as patient dd not went yesterday. He is nothing by mouth at this time. Pain in his left foot is better controlled. No fever or chills overnight. No chest pain or shortness of breath. Physical examination: GENERAL: Pleasant 47 yo AA male, in bed, well- developed, well-nourished no apparent distress. SKIN: Warm and dry on focused skin exam. CARDIOVASCULAR: Regular rate and rhythm. RESPIRATORY: No accessory muscle use. Clear to auscultation. Breath sounds equal bilaterally. GASTROINTESTINAL: Abdomen soft, non-tender, nondistended. Hepatic and splenic margins not palpable. Neurovascular intact Scrotal edema. MUSCULOSKELETAL: Left foot with dressing on, some bloody discharge on the plantar aspect. Painful to palpation NEUROLOGICAL: Awake and alert. No obvious cranial nerve deficits. Motor grossly within normal limits. Five out of 5 muscle strength in the arms and legs. Normal speech. Assessment and Plan 47 year male presents emergency department for evaluation of left foot and right scrotal pain. Patient left AMA a day before re- admission With severe sepsis patient was persistent leukocytosis, tachycardia, source of infection left foot wound, patient also with CAROLYN. Left foot suspected second metatarsal osteomyelitis Puncture wound of foot without foreign body Right Hydrocele/varicocele Hypokalemia persistent CAROLYN Hypertension uncontrolled CRP and ESR elevated, CRP 14 and ESR 80 suggesting osteomyelitis. Plan for Three-phase bone scan ( poss on Wednesday). Anticipate surgical intervention for Wednesday per Dr Santacruz Infectious disease consulted for further evaluation and recommendations Wound culture obtained and pending Foot X-Ray reviewed andfindings discussed with Dr Santacruz podiatry :No acute bony injury. No foreign body. Prominent soft tissue swelling Plan for work up to r.o osteomyelitis Checl crp , esr, bone scan Scrotum Ultrasound reviewed : Large right hydrocele. Varicocele demonstrated on the left. Testes are within normal limits. Consult urology for further evaluation of right hydrocele/varicocele Infectious disease consulted and has seen the patient appreciate recommendations DC Vanco IV Started Daptomycin IV (for possible osteomyelitis) Check Blood cultures Check hepatitis profile Check HIV screen Check GC and chlamydia given groin pain Check RPR IVF Replace electrolytes, On D5 1/2 NS with KCL supplement. Give additional KCL by IV as well patient still with persistent low K. Check mag and replace as well. Pain meds per almaraz scale tylenol and oxycodone for severe pain Consult nephrology if needed Continue home meds as appropriate DVT ppx lovenox Discussed Condition With: patient, nurse, Dr Santacruz podiatry Discharge plan. Patient is not ready for discharge. Bone scan 02/07/19, Ms. severe hypokalemia give additional KCl by IV. Plan for OR on 02/09/18. Discharge when patient is improving and cleared by consultants. Results - Labs CBC & Chem 7: 02/09/18 09:22 02/09/18 11:40 Laboratory Results - last 24 hr 02/08/18 02/08/18 02/08/18 13:24 17:37 17:37 WBC RBC Hgb Hct MCV MCH MCHC RDW Plt Count MPV Neut % (Auto) Lymph % (Auto) [place] % (Auto) Eos % (Auto) Baso % (Auto) Neut # (Auto) Lymph # (Auto) [place] # (Auto) Eos # (Auto) Baso # (Auto) WBC Differential Differential Comment Sodium 139 136 Potassium 2.6 L* 2.8 L* Chloride 98 99 Carbon Dioxide 30.1 24.0 Anion Gap 11 13 BUN 17 16 Creatinine 2.89 H 2.83 H Estimated GFR 28 L 29 L Random Glucose 129 H 100 Calcium 8.4 L 8.9 Phosphorus 2.5 Magnesium Iron 36 L TIBC 178 L % Saturation 20.2 Ferritin 588 H Total Protein (PEP) 8.0 Albumin 2.3 L Vitamin D 25-Hydroxy 14.0 L PTH Intact 59.1 IgG 1940 H IgA 325 IgM 36 L Tees Toh/Lambda Ratio 2.38 Tees Toh Light Chain Anal 579 H Lambda Light Chain Anal 243 H 02/08/18 02/09/18 02/09/18 21:30 09:22 09:22 WBC 15.0 H RBC 4.93 Hgb 11.1 L Hct 34.7 L MCV 70.3 L MCH 22.6 L MCHC 32.1 RDW 14.5 Plt Count 415 MPV 7.7 Neut % (Auto) 79.2 H Lymph % (Auto) 11.1 [place] % (Auto) 8.3 H Eos % (Auto) 0.4 Baso % (Auto) 1.0 Neut # (Auto) 11.9 H Lymph # (Auto) 1.7 [place] # (Auto) 1.2 H Eos # (Auto) 0.1 Baso # (Auto) 0.1 WBC Differential . Differential Comment Auto diff final Sodium 139 139 Potassium 2.9 L* 3.1 L Chloride 100 101 Carbon Dioxide 29.6 27.8 Anion Gap 9 10 BUN 17 18 Creatinine 2.86 H 2.75 H Estimated GFR 29 L 30 L Random Glucose 108 H 135 H Calcium 9.0 8.6 Phosphorus 2.6 Magnesium Iron TIBC % Saturation Ferritin Total Protein (PEP) Albumin 2.5 L Vitamin D 25-Hydroxy PTH Intact IgG IgA IgM Tees Toh/Lambda Ratio Tees Toh Light Chain Anal Lambda Light Chain Anal 02/09/18 02/09/18 09:22 11:40 WBC RBC Hgb Hct MCV MCH MCHC RDW Plt Count MPV Neut % (Auto) Lymph % (Auto) [place] % (Auto) Eos % (Auto) Baso % (Auto) Neut # (Auto) Lymph # (Auto) [place] # (Auto) Eos # (Auto) Baso # (Auto) WBC Differential Differential Comment Sodium 138 Potassium 2.9 L* Chloride 100 Carbon Dioxide 29.4 Anion Gap 9 BUN 19 H Creatinine 2.74 H Estimated GFR 30 L Random Glucose 147 H Calcium 8.5 Phosphorus Magnesium 2.1 Iron TIBC % Saturation Ferritin Total Protein (PEP) Albumin Vitamin D 25-Hydroxy PTH Intact IgG IgA IgM Tees Toh/Lambda Ratio Tees Toh Light Chain Anal Lambda Light Chain Anal Microbiology 02/07/18 11:00 Blood - Peripheral Aerobic Blood Culture - Preliminary No growth in 2 days 02/07/18 11:00 Blood - Peripheral Anaerobic Blood Culture - Preliminary No growth in 2 days 02/07/18 11:05 Blood - Peripheral Aerobic Blood Culture - Preliminary No growth in 2 days 02/07/18 11:05 Blood - Peripheral Anaerobic Blood Culture - Preliminary No growth in 2 days - Imaging Impressions Abdomen X-Ray 02/08/18 00:00 CONCLUSION: Benign-appearing abdomen. Assessment and Plan - Plan 47 year male presents emergency department for evaluation of left foot and right scrotal pain. Patient left AMA a day before re- admission Puncture wound of foot without foreign body Right Hydrocele Acute hypokalemia Wound culture obtained. and pending Foot X-Ray reviewed andfindings discussed with Dr Santacruz podiatry :No acute bony injury. No foreign body. Prominent soft tissue swelling Plan for work up to r.o osteomyelitis Checl crp , esr, bone scan Scrotum Ultrasound reviewed : Large right hydrocele. Varicocele demonstrated on the left. Testes are within normal limits. Continue cefepime and vanco IV abx IVF KCL replacement for low K Pain meds per almaraz scale tylenol and oxycodone for severe pain Continue home meds as appropriate DVT ppx lovenox
[2018-02-09] MEDS: SODIUM CHLOR 0.9% IV.SIG SCH (15:15)
[2018-02-09] MEDS: DAPTOMYCIN IV.SIG SCH (15:15)
--- NOTE | 2018-02-09 20:21 | P.PNNP ---
Subjective Interval history: The patient is a 47 yo AA male who presented to this facility on 02/03/18 with complaints of L foot pain and R scrotal pain. Apparently was at ED 2 days prior and was prescribed Cleocin and levaquin, but only took 1 day as it caused stomach upset. On arrival, was started on Cefepime x1 dose and Vancomycin. Podiatry was consulted who performed a NM bone scan revealing concern for early left forefoot osteomyelitis. ID was consulted who D/C'd Vanco on 02/06/18 and was started on Daptomycin. WCx resulted as MSSA on 02/07/18 and Zosyn was discontinued. BCx are pending drawn 02/07/18. Denies any previous hx of kidney disease. Admitting SCr 1.09 that has risen to 2.94 at time of consult. SCr 12/02/16 at 0.86, 06/05/15 at 0.59 Renal/bladder US showed echogenic kidneys c/w CKD and an enlarged prostate without obstruction. Says that he has been quite ill feeling with continued nausea and vomiting predating admission by 2 days. No diarrhea. Has been using Advil for about 1 week prior to admission approximately 6 tablets per day. BP has been significantly elevated and reports no formal dx of HTN in the past, but does not follow regularly with GP. Denies any FHx of kidney disease. No verbal complaints today. Physical Exam Vital signs: Vital Signs 02/09/18 00:00 02/09/18 04:27 02/09/18 06:42 Temperature 98.1 F 98.4 F Pulse Rate 90 89 95 H Respiratory Rate 18 20 18 Blood Pressure 179/97 H 190/99 H 171/96 H Pulse Oximetry 99 99 02/09/18 08:00 02/09/18 12:00 02/09/18 16:00 Temperature 98.1 F 98.1 F 98.0 F Pulse Rate 86 79 82 Respiratory Rate 19 19 19 Blood Pressure 184/101 H 165/95 H 180/90 H Pulse Oximetry 99 99 97 Intake & Output 02/09/18 02/09/18 02/10/18 06:59 18:59 06:59 Intake Total 1300 / 1300 460 / 460 100 / 100 Output Total 1600 / 1600 2600 / 2600 Balance -300 / -300 -2140 / -2140 100 / 100 Intake: IV 1300 / 1300 100 / 100 100 / 100 D5W/NS + KCL 20 mEq Inj 1,000 1000 / 1000 ML @ 84 mls/hr IV.CONT .[id number] HUANG Rx#:[id number] KCl 20 mEq Premix Inj 20 meq In 300 / 300 100 / 100 100 / 100 100 ml @ 50 mls/hr IV.SIG Q2H HUANG Rx#:[id number] Oral 360 / 360 Output: Urine 1600 / 1600 2600 / 2600 Narrative: GENERAL: Patient lying comfortably in bed. Not in respiratory distress. SKIN: Warm and dry. HEAD: Normocephalic. EYES: No scleral icterus. No injection or drainage. NECK: Supple, trachea midline. No JVD or lymphadenopathy. CARDIOVASCULAR: Regular rate and rhythm without murmurs, gallops, or rubs. RESPIRATORY: Breath sounds equal bilaterally. No accessory muscle use. GASTROINTESTINAL: Abdomen soft, non-tender, nondistended. MUSCULOSKELETAL: No cyanosis, or edema. Assessment and Plan - Assessment (1) Acute renal failure (ARF) Code(s): N17.9 - Acute kidney failure, unspecified Status: Acute Plan: Patient's creatinine level is slightly improved today and his urine output appears to be fairly brisk. Patient may be in recovery phase of an ATN. Etiology of acute renal insufficiency likely multifactorial: volume depletion in setting of emesis and poor oral intake, Advil usage prior to admission, hypertension, infection, medications. Renal US showing increased echogenicity suggestive of chronic renal disease. Prominent prostate without evidence of obstructive uropathy. Vanco was discontinued 02/06/18 and trough level 02/05/18 was normal. Discussed with patient all of the above.. Continue on abx as per ID. Medications should be adjusted for the patient's renal decline. Avoid nephrotoxic medications such as iodinated contrast dyes and NSAIDs. Avoid gadolinium when eGFR <30. (2) Hypertension Code(s): I10 - Essential (primary) hypertension Status: Acute Plan: Start Amlodipine 5mg BID. Continue on Metoprolol but increase to 25mg BID. Consider adding Hydralazine if not improved. Hold HCTZ given severe hypokalemia. Adjust further if needed. (3) Anemia Code(s): D64.9 - Anemia, unspecified Status: Acute Plan: Repeat CBC with Fe panel. As above, check serology. (4) Proteinuria Code(s): R80.9 - Proteinuria, unspecified Status: Acute Plan: 2+ protein as per UA. Check UPCR. If significant, may need 24h collection. (5) Puncture wound of foot without foreign body Code(s): S91.339A - Puncture wound without foreign body, unspecified foot, initial encounter Status: Acute Qualifiers: Encounter type: subsequent encounter Laterality: left Qualified Code(s): S91.332D - Puncture wound without foreign body, left foot, subsequent encounter Plan: Abx as per ID Early osteomyelitis as per bone scan. Procedure today with podiatry---debridement? (6) Hydrocele in adult Code(s): N43.3 - Hydrocele, unspecified Status: Acute Plan: Urology has seen in house and planning outpatient procedure. (7) Hypokalemia Code(s): E87.6 - Hypokalemia Status: Acute - Plan Likely 2/2 to hyperemesis. Will also hold HCTZ until resolves. Potassium has been ordered by the primary team. Repeat in the AM.
[2018-02-10] MEDS: Morphine Inj 4 MG/ML Vial IV.PUSH PRN (01:50)
[2018-02-10] MEDS: Pantoprazole Inj 40 MG Vial IV.PUSH SCH ×2 (06:08→17:09)
[2018-02-10 08:26] LABS: Baso # (Auto) 0.2 th/mm3 (0.0-0.2); Eos # (Auto) 0.3 th/mm3 (0.0-0.4); Eos % (Auto) 2.1 % (0.0-4.0); Hematocrit 34.9 % (39.0-51.0); Hemoglobin 11.2 gm/dL (13.0-17.0); Lymph # (Auto) 2.8 th/mm3 (1.0-4.8); Lymph % (Auto) 17.6 % (9.0-44.0); Mean Corpuscular HGB Conc 31.9 % (32.0-36.0); Mean Corpuscular Hemoglobin 22.3 pg (27.0-34.0); Mean Corpuscular Volume 69.7 fL (80.0-100.0); Mean Platelet Volume 8.2 fL (7.0-11.0); Mono # (Auto) 1.4 th/mm3 (0.0-0.9); Mono % (Auto) 8.4 % (0.0-8.0); Neut # (Auto) 11.5 th/mm3 (1.8-7.7); Neut % (Auto) 70.9 % (16.0-70.0); Platelet Count 455 th/mm3 (150-450); Red Blood Count 5.01 mil/mm3 (4.50-5.90); Red Cell Distribution Width 14.5 % (11.6-17.2); White Blood Count 16.1 th/mm3 (4.0-11.0)
[2018-02-10 08:57] LABS: Albumin 2.7 g/dL (3.4-5.0); Calcium 9.3 mg/dL (8.5-10.1); Carbon Dioxide 26.1 meq/L (21.0-32.0); Magnesium 2.1 mg/dL (1.5-2.5); Phosphorus 1.8 mg/dL (2.5-4.9); Potassium 3.3 meq/L (3.5-5.1)
[2018-02-10] MEDS: Sucralfate 1 GM Tablet PO SCH ×4 (08:59→20:58)
[2018-02-10] MEDS: Metoprolol Tartrate 25 MG Tablet PO SCH ×2 (09:00→20:58)
[2018-02-10] MEDS: Magnesium Oxide 400 MG Tablet PO SCH (09:00)
[2018-02-10] MEDS: amLODIPine 5 MG Tablet PO SCH ×2 (09:00→20:58)
[2018-02-10] MEDS: Enoxaparin Inj 40 MG/0.4 ML Syringe SQ SCH (09:00)
[2018-02-10] MEDS: KCL 20 mEq/D5W/NaCl 0.9% Inj 1,000 ML IV.CONT SCH (11:38)
[2018-02-10] MEDS: Sod Chloride 0.9% Inj 1,000 ML IV.CONT SCH ×2 (11:38→16:59)
[2018-02-10] MEDS ORDERED: Chlorhexidine Gluconate 2% 1 Pack (2 Cloths) TOPICAL SCH (11:45)
[2018-02-10] MEDS ORDERED: Metoprolol Tartrate 25 MG Tablet PO SCH (11:45)
[2018-02-10] MEDS ORDERED: Sodium Chlor 0.9% Inj 500 ML IV.SIG SCH (12:00)
[2018-02-10] MEDS ORDERED: Glycopyrrolate Inj 1 MG/5 ML Syringe IV.PUSH ONE (12:00)
[2018-02-10] MEDS ORDERED: Bupivacaine PF 0.25% Inj 30 ML Vial ONE (12:06)
[2018-02-10] MEDS ORDERED: Neomycin/Polymyxin G.U. Irrigant 1 ML Ampul ONE (12:23)
[2018-02-10] MEDS ORDERED: Ketamine Inj 500 MG/10 ML Vial ONE (12:32)
[2018-02-10] MEDS ORDERED: Propofol Inj 500 MG/50 ML Vial ONE (12:33)
[2018-02-10] MEDS ORDERED: fentaNYL Citrate Inj 100 MCG/2 ML Ampul ONE (14:01)
--- NOTE | 2018-02-10 14:08 | P.BOP ---
- Preoperative Diagnosis (1) Left foot infection (2) Osteomyelitis of left foot - Postoperative Diagnosis (1) Left foot infection (2) Osteomyelitis of left foot Date of procedure: 02/10/18 Procedure: Left foot incision drainage bone biopsy 2 3 metatarsal Anesthesia: MAC, local Surgeon: Andres Mike DPM Estimated blood loss (mL): 10 (mL) Tourniquet time (min): 20 (250 mmhg left calf) Pathology: none sent (micro 2 3 MPJ, 2 3 metatarsal head bone for path) Condition: stable Disposition: floor
[2018-02-10] MEDS ORDERED: *Labetalol HCl Inj 100 MG/20 ML Vial PERIprocedural Use ONLY IV.PUSH ONE (14:20)
--- NOTE | 2018-02-10 14:23 | MP ---
cc: Andres Beth DPM DATE OF OPERATION: 02/10/2018 PREOPERATIVE DIAGNOSIS: Left foot infection, possible osteomyelitis. POSTOPERATIVE DIAGNOSIS: Left foot infection, possible osteomyelitis. PROCEDURE PERFORMED: Left foot incision and drainage, bone biopsy second and third metatarsal. ANESTHESIA: MAC with local 0.25% Marcaine plain, approximately 15 mL ankle block performed. TOURNIQUET: Set at 250 mmHg about the patient's left mid calf. ESTIMATED BLOOD LOSS: Less than 10 mL. PATHOLOGY: Micro x 2, second and third MPJ bone culture and second and third bone from metatarsal sent for pathological analysis. ESTIMATED BLOOD LOSS: Less than 10 mL. TOURNIQUET TIME: Approximately 20 minutes at a setting at 250 mmHg. COMPLICATIONS: None. PLAN OF ACTIVITY: Return to floor. Await pathology and deep culture. PROCEDURE IN DETAIL: Under mild sedation, the patient was brought into the operating room and placed on the operating table in supine position. Following the induction of monitored anesthesia care, left lower extremity was then scrubbed, prepped and draped in the usual aseptic fashion. The foot was elevated, exsanguinated and previously placed mid calf tourniquet was inflated to 250 mmHg. An incision was made over the dorsal aspect of the second and third MPJ. Sharp and blunt dissection was carried down. There was noted to be a significant joint effusion. There was noted to be a relatively hard bone cortex; however, bone biopsy revealed soft bony cortex of the second metatarsal. A specimen was then removed and a culture taken of this area. Next, sharp and blunt dissection was carried down to the level of third MPJ. The same thing took place. There was noted to be a joint effusion, clear type fluid, relatively hard third metatarsal. Bone biopsy was performed of the third metatarsal. Wound was flushed with copious amounts of normal saline, packed and loosely coapted. A 1/4 inch iodoform plantar aspect of the foot. There was noted to be a puncture wound that went directly to the second and third MPJ. Utilizing a curette and rongeur, all nonviable tissue was removed, an elliptical incision removed. The ulcerated area was then loosely coapted utilizing nylon. Wounds were flushed with copious amounts of normal saline before closing. A bulky bandage applied. Upon relieving of the tourniquet, there was a prompt hyperemic response to all digits without any delayed capillary refill time. The patient was then recovered in the PACU. He is nonweightbearing. We will await pathology and micro and of course clinical improvement. BE Rosas , 02:07 PM , 02:21 PM
[2018-02-10] MEDS: DAPTOMYCIN IV.SIG SCH (16:55)
[2018-02-10] MEDS: SODIUM CHLOR 0.9% IV.SIG SCH (16:55)
--- NOTE | 2018-02-10 17:59 | P.PN ---
Physical Exam Vital signs: Vital Signs 02/09/18 20:00 02/10/18 00:00 02/10/18 08:00 Temperature 99.1 F 98.4 F 98.0 F Pulse Rate 86 81 84 Respiratory Rate 20 20 19 Blood Pressure 166/94 H 159/89 H 163/92 H Pulse Oximetry 100 100 99 02/10/18 13:51 02/10/18 14:00 02/10/18 14:15 Temperature 97.7 F Pulse Rate 95 H 101 H Respiratory Rate 15 17 14 Blood Pressure 102/63 129/77 167/104 H Pulse Oximetry 02/10/18 14:30 02/10/18 14:45 Temperature 97.8 F Pulse Rate 97 H 89 Respiratory Rate 17 17 Blood Pressure 166/106 H 165/99 H Pulse Oximetry Intake & Output 02/09/18 02/10/18 02/10/18 18:59 06:59 18:59 Intake Total 460 / 460 200 / 200 400 / 400 Output Total 2600 / 2600 5 / 5 Balance -2140 / -2140 200 / 200 395 / 395 Intake: IV 100 / 100 200 / 200 100 / 100 Cubicin Inj 1,250 MG In NS Inj 100 / 100 100 ML @ 200 mls/hr IV.SIG Q24H HUANG Rx#:[id number] KCl 20 mEq Premix Inj 20 meq In 100 / 100 200 / 200 100 ml @ 50 mls/hr IV.SIG Q2H HUANG Rx#:[id number] Oral 360 / 360 Anesthesia Amount 300 / 300 Output: Urine 2600 / 2600 Estimated Blood Loss 5 / 5 Narrative: Subjective: F/up on multiple medical problems left foot second metatarsal osteomyelitis, puncture wound of left foot. Right hydrocele. Persistent hypokalemia. Plan for OR today as patient did not went yesterday as he is with severe electrolytes abnormality to be severe hypokalemia. Pain in his left foot is better controlled. No fever or chills overnight. No chest pain or shortness of breath. He is n.p.o. at this time as plan for surgery however he is requesting regular diet after the surgery and he is lactose intolerance Physical examination: GENERAL: Pleasant 47 yo AA male, in bed, well- developed, well-nourished no apparent distress. SKIN: Warm and dry on focused skin exam. CARDIOVASCULAR: Regular rate and rhythm. RESPIRATORY: No accessory muscle use. Clear to auscultation. Breath sounds equal bilaterally. GASTROINTESTINAL: Abdomen soft, non-tender, nondistended. Hepatic and splenic margins not palpable. Neurovascular intact Scrotal edema. MUSCULOSKELETAL: Left foot with dressing on, some bloody discharge on the plantar aspect. Painful to palpation NEUROLOGICAL: Awake and alert. No obvious cranial nerve deficits. Motor grossly within normal limits. Five out of 5 muscle strength in the arms and legs. Normal speech. Assessment and Plan 47 year male presents emergency department for evaluation of left foot and right scrotal pain. Patient left AMA a day before re- admission With severe sepsis patient was persistent leukocytosis, tachycardia, source of infection left foot wound, patient also with CAROLYN. Left foot suspected second metatarsal osteomyelitis Puncture wound of foot without foreign body Right Hydrocele/varicocele Hypokalemia persistent CAROLYN Hypertension uncontrolled Lactose intolerance. Requesting regular diet with lactose intolerance CRP and ESR elevated, CRP 14 and ESR 80 suggesting osteomyelitis. Plan for Three-phase bone scan ( poss on Wednesday). Anticipate surgical intervention for Wednesday per Dr Santacruz Infectious disease consulted for further evaluation and recommendations Wound culture obtained and pending Foot X-Ray reviewed andfindings discussed with Dr Santacruz podiatry :No acute bony injury. No foreign body. Prominent soft tissue swelling Plan for work up to r.o osteomyelitis Checl crp , esr, bone scan Scrotum Ultrasound reviewed : Large right hydrocele. Varicocele demonstrated on the left. Testes are within normal limits. Consult urology for further evaluation of right hydrocele/varicocele Infectious disease consulted and has seen the patient appreciate recommendations DC Vanco IV Started Daptomycin IV (for possible osteomyelitis) Check Blood cultures Check hepatitis profile Check HIV screen Check GC and chlamydia given groin pain Check RPR IVF Replace electrolytes, On D5 1/2 NS with KCL supplement. Give additional KCL by IV as well patient still with persistent low K. Check mag and replace as well. Pain meds per almaraz scale tylenol and oxycodone for severe pain Consult nephrology if needed Continue home meds as appropriate DVT ppx lovenox Discussed Condition With: patient, nurse, Dr Santacruz podiatry Discharge plan. Patient is not ready for discharge. Bone scan 02/07/19, Ms. severe hypokalemia give additional KCl by IV. Plan for OR 02/10/18 as patient with severe hypokalemia Discharge when patient is improving and cleared by consultants. Results - Labs CBC & Chem 7: 02/10/18 04:34 02/10/18 04:34 Laboratory Results - last 24 hr 02/08/18 02/10/18 02/10/18 13:24 04:34 04:34 WBC 16.1 H RBC 5.01 Hgb 11.2 L Hct 34.9 L MCV 69.7 L MCH 22.3 L MCHC 31.9 L RDW 14.5 Plt Count 455 H MPV 8.2 Neut % (Auto) 70.9 H Lymph % (Auto) 17.6 [place] % (Auto) 8.4 H Eos % (Auto) 2.1 Baso % (Auto) 1.0 Neut # (Auto) 11.5 H Lymph # (Auto) 2.8 [place] # (Auto) 1.4 H Eos # (Auto) 0.3 Baso # (Auto) 0.2 WBC Differential . Differential Comment Auto diff final Sodium 135 L Potassium 3.3 L Chloride 97 L Carbon Dioxide 26.1 Anion Gap 12 BUN 19 H Creatinine 2.87 H Estimated GFR 29 L Random Glucose 97 Calcium 9.3 D Phosphorus 1.8 L Magnesium 2.1 Albumin 2.7 L Albumin (PEP) 3.25 L Albumin/Globulin Ratio 0.68 L Katmv-7-Cneucyfot 0.47 H Jujzf-6-Cfjiasdiw 1.25 H Beta Globulins 0.73 Gamma Globulins 2.30 H Microbiology 02/07/18 11:00 Blood - Peripheral Aerobic Blood Culture - Preliminary No growth in 3 days 02/07/18 11:00 Blood - Peripheral Anaerobic Blood Culture - Preliminary No growth in 3 days 02/07/18 11:05 Blood - Peripheral Aerobic Blood Culture - Preliminary No growth in 3 days 02/07/18 11:05 Blood - Peripheral Anaerobic Blood Culture - Preliminary No growth in 3 days Assessment and Plan - Plan 47 year male presents emergency department for evaluation of left foot and right scrotal pain. Patient left AMA a day before re- admission Puncture wound of foot without foreign body Right Hydrocele Acute hypokalemia Wound culture obtained. and pending Foot X-Ray reviewed andfindings discussed with Dr Santacruz podiatry :No acute bony injury. No foreign body. Prominent soft tissue swelling Plan for work up to r.o osteomyelitis Checl crp , esr, bone scan Scrotum Ultrasound reviewed : Large right hydrocele. Varicocele demonstrated on the left. Testes are within normal limits. Continue cefepime and vanco IV abx IVF KCL replacement for low K Pain meds per almaraz scale tylenol and oxycodone for severe pain Continue home meds as appropriate DVT ppx lovenox
[2018-02-10] MEDS ORDERED: Polyethylene Glycol 3350 255 GM Bottle PO ONE (18:24)
[2018-02-10] MEDS ORDERED: Polyethylene Glycol 3350 17 GM Packet PO ONE (19:00)
--- NOTE | 2018-02-10 19:01 | P.PNNP ---
Subjective Interval history: s/p debridement of foot. States he has been feeling much better No further emesis. <Merly Robbins R - Last Filed: 02/10/18 18:53> Physical Exam Vital signs: Vital Signs 02/09/18 20:00 02/10/18 00:00 02/10/18 08:00 Temperature 99.1 F 98.4 F 98.0 F Pulse Rate 86 81 84 Respiratory Rate 20 20 19 Blood Pressure 166/94 H 159/89 H 163/92 H Pulse Oximetry 100 100 99 02/10/18 13:51 02/10/18 14:00 02/10/18 14:15 Temperature 97.7 F Pulse Rate 95 H 101 H Respiratory Rate 15 17 14 Blood Pressure 102/63 129/77 167/104 H Pulse Oximetry 02/10/18 14:30 02/10/18 14:45 02/10/18 16:00 Temperature 97.8 F 96.1 F L Pulse Rate 97 H 89 101 H Respiratory Rate 17 17 19 Blood Pressure 166/106 H 165/99 H 166/90 H Pulse Oximetry 99 02/10/18 18:42 Temperature Pulse Rate Respiratory Rate Blood Pressure 166/98 H Pulse Oximetry Intake & Output 02/09/18 02/10/18 02/10/18 18:59 06:59 18:59 Intake Total 460 / 460 200 / 200 800 / 800 Output Total 2600 / 2600 1555 / 1555 Balance -2140 / -2140 200 / 200 -755 / -755 Intake: IV 100 / 100 200 / 200 100 / 100 Cubicin Inj 1,250 MG In NS Inj 100 / 100 100 ML @ 200 mls/hr IV.SIG Q24H [facility] Rx#:[id number] KCl 20 mEq Premix Inj 20 meq In 100 / 100 200 / 200 100 ml @ 50 mls/hr IV.SIG Q2H [facility] Rx#:[id number] Oral 360 / 360 400 / 400 Anesthesia Amount 300 / 300 Output: Urine 2600 / 2600 1550 / 1550 Estimated Blood Loss 5 / 5 Other: # Bowel Movements 0 - Constitutional no acute distress - Routine HEENT Exam Head: Present: normocephalic, atraumatic Eye: Present: EOMI ENT: Present: mucous membranes moist - Routine Neck Exam Present: supple - Routine Respiratory Exam Present: CTA bilaterally - Routine Cardiovascular Exam Present: RRR, S1, S2 - Routine Abdominal Exam Present: soft, normoactive bowel sounds - Routine Extremities Exam Comments: L foot is wrapped in surgical dressing. - Routine Neurological Exam Present: alert, oriented X3 - Detailed Neurological Exam: Coma Scale Verbal Response: Oriented - Routine Psychiatric Exam Present: normal affect <Merly Robbins Luisa - Last Filed: 02/10/18 18:53> Vital signs: Vital Signs 02/11/18 16:00 02/11/18 19:11 02/11/18 20:00 Temperature 98.6 F 98.7 F Pulse Rate 87 95 H Respiratory Rate 17 17 Blood Pressure 172/102 H 177/96 H 152/82 H Pulse Oximetry 99 100 02/12/18 00:00 02/12/18 08:00 02/12/18 12:00 Temperature 98 F 98.7 F 98.2 F Pulse Rate 87 95 H 87 Respiratory Rate 17 18 18 Blood Pressure 147/80 H 179/103 H 159/100 H Pulse Oximetry 100 99 100 Intake & Output 02/11/18 02/12/18 02/12/18 18:59 06:59 18:59 Intake Total 1575 / 1575 340 / 340 2200 / 2200 Output Total 1500 / 1500 600 / 600 Balance 75 / 75 -260 / -260 2200 / 2200 Intake: IV 1100 / 1100 100 / 100 2200 / 2200 D5W/NS + KCL 20 mEq Inj 1,000 2000 / 2000 ML @ 84 mls/hr IV.CONT .[id number] [facility] Rx#:[id number] NS Inj 1,000 ML @ 100 mls/hr IV 1000 / 1000 .CONT .Q10H [facility] Rx#:[id number] Cubicin Inj 1,250 MG In NS Inj 100 / 100 100 ML @ 200 mls/hr IV.SIG Q24H [facility] Rx#:[id number] Rocephin Inj 2,000 MG In NS Inj 100 / 100 100 ML @ 200 mls/hr IV.SIG Q24H [facility] Rx#:[id number] Oral 475 / 475 240 / 240 Output: Urine 1500 / 1500 600 / 600 <Norberto Greer - Last Filed: 02/12/18 14:26> Assessment and Plan - Assessment (1) Acute renal failure (ARF) Code(s): N17.9 - Acute kidney failure, unspecified Status: Acute Plan: SCr deteriorated overnight slightly. UOP is brisk and BCx has remained negative. Hopefully we will see an improvement in his renal functions. Continue on IVF for the present. Abx as per ID. Pending WCx results obtained this AM. Pending serological screening finalization. Medications should be adjusted for the patient's renal decline. Avoid nephrotoxic medications such as iodinated contrast dyes and NSAIDs. Avoid gadolinium when eGFR <30. (2) Hypertension Code(s): I10 - Essential (primary) hypertension Status: Acute Plan: Add Hydralazine for better BP control. (3) Anemia Code(s): D64.9 - Anemia, unspecified Status: Acute Plan: Work up underway (4) Proteinuria Code(s): R80.9 - Proteinuria, unspecified Status: Acute Plan: 2+ protein as per UA. UPCR was not done as ordered----ordered again (5) Puncture wound of foot without foreign body Code(s): S91.339A - Puncture wound without foreign body, unspecified foot, initial encounter Status: Acute Qualifiers: Encounter type: subsequent encounter Laterality: left Qualified Code(s): S91.332D - Puncture wound without foreign body, left foot, subsequent encounter Plan: Abx as per ID Early osteomyelitis as per bone scan. Procedure today with podiatry (6) Hydrocele in adult Code(s): N43.3 - Hydrocele, unspecified Status: Acute Plan: Urology has seen in house and planning outpatient procedure. (7) Hypokalemia Code(s): E87.6 - Hypokalemia Status: Acute - Plan Likely 2/2 to hyperemesis. Improving. Received supplement today. Ordered spot urine potassium that was not drawn---reorder Check Mg level <Merly Robbins - Last Filed: 02/10/18 18:53> - Assessment (1) Acute renal failure (ARF) Code(s): N17.9 - Acute kidney failure, unspecified Status: Acute (2) Hypertension Code(s): I10 - Essential (primary) hypertension Status: Acute (3) Anemia Code(s): D64.9 - Anemia, unspecified Status: Acute (4) Proteinuria Code(s): R80.9 - Proteinuria, unspecified Status: Acute (5) Puncture wound of foot without foreign body Code(s): S91.339A - Puncture wound without foreign body, unspecified foot, initial encounter Status: Acute Qualifiers: Encounter type: subsequent encounter Laterality: left Qualified Code(s): S91.332D - Puncture wound without foreign body, left foot, subsequent encounter (6) Hydrocele in adult Code(s): N43.3 - Hydrocele, unspecified Status: Acute (7) Hypokalemia Code(s): E87.6 - Hypokalemia Status: Acute - Attending Attestation The exam, history, and the medical decision-making described in the above note were completed with the assistance of the ZANDER. I reviewed and agree with the findings presented. <Norberto Greer - Last Filed: 02/12/18 14:26>
[2018-02-10] MEDS: hydrALAZINE 25 MG Tablet PO SCH (20:59)
[2018-02-10 22:26] LABS: Bilirubin,Urine Negative (Negative); Clarity,Urine Clear (Clear); Color,Urine Colorless (Yellw/Straw); Glucose,Urine (UA) Negative (Negative); Leukocyte Esterase,Urine Negative (Negative); Nitrite,Urine Negative (Negative); Specific Gravity,Urine 1.004 (1.002-1.035)
[2018-02-10 22:30] LABS: Creatinine,Urine Random 24 mg/dL (27-300)
[2018-02-10 22:31] LABS: Protein/Creatinine Ratio,Urine 0.44 (0.00-0.14)
[2018-02-11] MEDS: Sod Chloride 0.9% Inj 1,000 ML IV.CONT SCH (05:05)
[2018-02-11] MEDS: Pantoprazole Inj 40 MG Vial IV.PUSH SCH ×2 (06:08→18:18)
[2018-02-11] MEDS: hydrALAZINE 25 MG Tablet PO SCH ×3 (08:50→18:16)
[2018-02-11] MEDS: Sucralfate 1 GM Tablet PO SCH ×4 (08:50→22:34)
[2018-02-11] MEDS: Metoprolol Tartrate 25 MG Tablet PO SCH ×2 (08:50→22:34)
[2018-02-11] MEDS: amLODIPine 5 MG Tablet PO SCH ×2 (08:50→22:34)
[2018-02-11] MEDS: Magnesium Oxide 400 MG Tablet PO SCH (08:50)
[2018-02-11] MEDS: Enoxaparin Inj 40 MG/0.4 ML Syringe SQ SCH (08:51)
--- NOTE | 2018-02-11 15:42 | P.PNPOD ---
Subjective Interval history: Patient is not having much pain, however having a hard time sleeping Physical Exam Vital signs: Vital Signs 02/10/18 16:00 02/10/18 18:42 02/10/18 20:00 Temperature 96.1 F L 100.3 F H Pulse Rate 101 H 103 H Respiratory Rate 19 18 Blood Pressure 166/90 H 166/98 H 168/94 H Pulse Oximetry 99 98 02/11/18 00:00 02/11/18 08:00 02/11/18 12:00 Temperature 99.3 F 98.3 F 98.1 F Pulse Rate 97 H 86 81 Respiratory Rate 18 17 18 Blood Pressure 140/86 166/93 H 157/89 H Pulse Oximetry 97 99 98 Intake & Output 02/10/18 02/11/18 02/11/18 18:59 06:59 18:59 Intake Total 800 / 800 1240 / 1240 100 / 100 Output Total 1555 / 1555 1000 / 1000 Balance -755 / -755 240 / 240 100 / 100 Intake: IV 100 / 100 1000 / 1000 100 / 100 NS Inj 1,000 ML @ 100 mls/hr IV 1000 / 1000 .CONT .Q10H [facility] Rx#:[id number] Cubicin Inj 1,250 MG In NS Inj 100 / 100 100 / 100 100 ML @ 200 mls/hr IV.SIG Q24H [facility] Rx#:[id number] Oral 400 / 400 240 / 240 Anesthesia Amount 300 / 300 Output: Urine 1550 / 1550 1000 / 1000 Estimated Blood Loss 5 / 5 Other: # Bowel Movements 0 Narrative: Left foot bandage clean dry and intact capillary fill time to digits intact no obvious odor or discomfort Medications and Allergies Active Medications: Active Medications Acetaminophen (Tylenol) 650 mg PO Q4H PRN PRN Reason: pain 1-3. headache, fevers Al Hydroxide/Mg Hydroxide (Milk Of Magnesia Liq) 30 ml PO Q12H PRN PRN Reason: Mild Constipation Last Admin: 02/08/18 06:06 Dose: 30 ml Amlodipine Besylate (Norvasc) 5 mg PO BID [facility] Last Admin: 02/11/18 08:50 Dose: 5 mg Bisacodyl (Dulcolax Supp) 10 mg RECTAL DAILY PRN PRN Reason: SEVERE CONSITIPATION Chlorhexidine Gluconate (Chlorhexidine 2% Cloth) 3 pack TOPICAL [employer] [facility] Stop: 02/13/18 11:45 Enalaprilat (Vasotec Inj) 2.5 mg IV.PUSH Q8H PRN PRN Reason: SBP>160, DBP>90 Last Admin: 02/10/18 17:45 Dose: 2.5 mg Enoxaparin Sodium (Lovenox Inj) 40 mg SQ DAILY [facility] Last Admin: 02/11/18 08:51 Dose: Not Given Hydralazine HCl (Apresoline) 25 mg PO TID [facility] Last Admin: 02/11/18 13:27 Dose: 25 mg Sodium Chloride (Ns Inj) 1,000 mls @ 100 mls/hr IV.CONT .Q10H [facility] Last Admin: 02/11/18 05:05 Dose: 100 mls/hr Daptomycin 1,250 mg/ Sodium (Chloride) 100 mls @ 200 mls/hr IV.SIG Q24H [facility] Last Infusion: 02/11/18 07:42 Dose: Infused Potassium Chloride/Dextrose/Sod Cl (D5w/Ns + Kcl 20 Meq Inj) 1,000 mls @ 84 mls /hr IV.CONT .[id number] [facility] Last Admin: 02/10/18 11:38 Dose: Not Given Lactated Ringer's (Lr 1000 Ml Inj) 1,000 mls @ 30 mls/hr IV.SIG .Q24H [facility] Stop: 02/13/18 11:45 Last Admin: 02/10/18 17:08 Dose: Not Given Sodium Chloride (Ns Inj) 500 mls @ 30 mls/hr IV.SIG .Q10H [facility] Stop: 02/13/18 11:45 Lactulose (Lactulose Liq) 30 ml PO DAILY PRN PRN Reason: SEVERE CONSITIPATION Magnesium Oxide (Mag-Ox) 400 mg PO DAILY [facility] Last Admin: 02/11/18 08:50 Dose: 400 mg Metoclopramide HCl (Reglan Inj) 5 mg IV.PUSH Q8HR PRN; Protocol PRN Reason: NAUSEA OR VOMITING Last Admin: 02/09/18 20:47 Dose: 5 mg Metoprolol Tartrate (Lopressor) 25 mg PO BID [facility] Last Admin: 02/11/18 08:50 Dose: 25 mg Metoprolol Tartrate (Lopressor) 25 mg PO [employer] [facility] Stop: 02/13/18 11:45 Miscellaneous (Pill Splitter) 1 each OTHER [facility] Morphine Sulfate (Morphine Inj) 2 mg IV.PUSH Q4H PRN PRN Reason: breakthrough pain Last Admin: 02/10/18 01:50 Dose: 2 mg Ondansetron HCl (Zofran Odt) 4 mg PO Q6H PRN PRN Reason: for nausea or vomiting Last Admin: 02/11/18 13:28 Dose: 4 mg Oxycodone HCl (Roxicodone) 5 mg PO Q6H PRN PRN Reason: pain 4-10 Last Admin: 02/11/18 13:27 Dose: 5 mg Pantoprazole Sodium (Protonix Inj) 40 mg IV.PUSH Q12H [facility] Last Admin: 02/11/18 06:08 Dose: 40 mg Povidone Iodine (Betadine 5% Antisepsis Kit) 1 applicatio EACH NARE [employer] [facility] Stop: 02/13/18 11:45 Prochlorperazine (Compazine Supp) 25 mg RECTAL Q6H PRN PRN Reason: severe vomiting Sennosides (Senokot) 17.2 mg PO Q12H PRN PRN Reason: Moderate Constipation Last Admin: 02/11/18 08:50 Dose: 17.2 mg Sodium Chloride (Ns Flush) 2 ml IV.FLUSH PRN PRN PRN Reason: FLUSH AFTER USING IV ACCESS Last Admin: 02/09/18 09:37 Dose: 2 ml Sucralfate (Carafate) 1 gm PO ACHS [facility] Last Admin: 02/11/18 13:27 Dose: 1 gm Temazepam (Restoril) 15 mg PO HS PRN PRN Reason: INSOMNIA Last Admin: 02/04/18 21:10 Dose: 15 mg Vitamin D (Vitamin D3) 2,000 unit PO DAILY [facility] Last Admin: 02/11/18 08:51 Dose: 2,000 unit Allergies Allergy/AdvReac Type Severity Reaction Status Date / Time lactose Allergy Severe Hives Verified 01/30/18 23:38 milk Allergy Severe Anaphylaxis Verified 01/30/18 23:38 Sulfa (Sulfonamide Allergy Unknown ITCHING Verified 01/30/18 23:38 Antibiotics) Home Medications Medication Instructions Recorded Confirmed Type No Known Home Medications 02/06/18 02/06/18 History Results - Labs CBC & Chem 7: 02/10/18 04:34 02/10/18 04:34 Laboratory Results - last 24 hr 02/08/18 02/09/18 02/10/18 13:24 09:22 21:00 PEP Pathologist Comment Renin 0.7 Urine Color Urine Clarity Urine pH Ur Specific [place] Urine Protein Urine Glucose (UA) Urine Ketones Urine Occult Blood Urine Nitrate Urine Bilirubin Urine Urobilinogen Ur Leukocyte Esterase Urine RBC Urine WBC Micro UA Comment Urine Culture Comments Urine Eosinophils None seen Ur Random Creatinine U Random Total Protein Ur Random Potassium Protein/Creatinin Ratio RENE Interpretation 02/10/18 02/10/18 02/10/18 21:00 21:00 21:00 PEP Pathologist Comment Renin Urine Color Colorless Urine Clarity Clear Urine pH 8.0 Ur Specific [place] 1.004 Urine Protein Negative Urine Glucose (UA) Negative Urine Ketones Negative Urine Occult Blood Small H Urine Nitrate Negative Urine Bilirubin Negative Urine Urobilinogen Less than 2 Ur Leukocyte Esterase Negative Urine RBC 3 Urine WBC 1 Micro UA Comment Culture not ind Urine Culture Comments Culture not ind Urine Eosinophils Ur Random Creatinine 23 L 24 L U Random Total Protein 10.2 Ur Random Potassium 10 Protein/Creatinin Ratio 0.44 H RENE Interpretation Microbiology 02/10/18 13:28 Wound - Foot Gram Stain - Final 02/10/18 13:28 Wound - Foot Wound Culture - Preliminary No growth in 24 hours 02/10/18 13:28 Abscess - Foot Gram Stain - Final 02/10/18 13:28 Abscess - Foot Wound Culture - Preliminary No growth in 24 hours 02/07/18 11:00 Blood - Peripheral Aerobic Blood Culture - Preliminary No growth in 4 days 02/07/18 11:00 Blood - Peripheral Anaerobic Blood Culture - Preliminary No growth in 4 days 02/07/18 11:05 Blood - Peripheral Aerobic Blood Culture - Preliminary No growth in 4 days 02/07/18 11:05 Blood - Peripheral Anaerobic Blood Culture - Preliminary No growth in 4 days 02/10/18 13:28 Wound - Foot Fungal Smear - Final No fungal elements seen 02/10/18 13:28 Abscess - Foot Fungal Smear - Final No fungal elements seen Assessment and Plan - Assessment (1) Left foot infection Code(s): L08.9 - Local infection of the skin and subcutaneous tissue, unspecified Status: Acute (2) Osteomyelitis of left foot Code(s): M86.9 - Osteomyelitis, unspecified Status: Acute - Plan Reviewed the need to await bone culture and bone pathology for discharge. The patient wishes to go home immediately however I reviewed the need to stay until biopsy has reported. I will discuss with medicine possible sleep aid for this may help the patient. Bandage change planned for tomorrow continue nonweightbearing and IV antibiotics
[2018-02-11] MEDS: DAPTOMYCIN IV.SIG SCH (16:02)
[2018-02-11] MEDS: SODIUM CHLOR 0.9% IV.SIG SCH (16:02)
[2018-02-11] MEDS: KCL 20 mEq/D5W/NaCl 0.9% Inj 1,000 ML IV.CONT SCH (16:05)
[2018-02-11] MEDS ORDERED: Temazepam 15 MG Capsule PO PRN (16:50)
--- NOTE | 2018-02-11 16:55 | P.PN ---
Subjective Interval history: Follow-up for left foot cellulitis/possible osteomyelitis. Patient is currently doing well. Denies any chest pain, shortness of breath, fever or chills. He would like to go home if possible. Physical Exam Vital signs: Vital Signs 02/10/18 18:42 02/10/18 20:00 02/11/18 00:00 Temperature 100.3 F H 99.3 F Pulse Rate 103 H 97 H Respiratory Rate 18 18 Blood Pressure 166/98 H 168/94 H 140/86 Pulse Oximetry 98 97 02/11/18 08:00 02/11/18 12:00 Temperature 98.3 F 98.1 F Pulse Rate 86 81 Respiratory Rate 17 18 Blood Pressure 166/93 H 157/89 H Pulse Oximetry 99 98 Intake & Output 02/10/18 02/11/18 02/11/18 18:59 06:59 18:59 Intake Total 800 / 800 1240 / 1240 1100 / 1100 Output Total 1555 / 1555 1000 / 1000 Balance -755 / -755 240 / 240 1100 / 1100 Intake: IV 100 / 100 1000 / 1000 1100 / 1100 NS Inj 1,000 ML @ 100 mls/hr IV 1000 / 1000 1000 / 1000 .CONT .Q10H [facility] Rx#:[id number] Cubicin Inj 1,250 MG In NS Inj 100 / 100 100 / 100 100 ML @ 200 mls/hr IV.SIG Q24H [facility] Rx#:[id number] Oral 400 / 400 240 / 240 Anesthesia Amount 300 / 300 Output: Urine 1550 / 1550 1000 / 1000 Estimated Blood Loss 5 / 5 Other: # Bowel Movements 0 Narrative: GENERAL: Alert, oriented 3, NAD. SKIN: Warm and dry. HEAD: Normocephalic. EYES: No scleral icterus. No injection or drainage. NECK: Supple, trachea midline. No JVD or lymphadenopathy. CARDIOVASCULAR: Regular rate and rhythm without murmurs, gallops, or rubs. RESPIRATORY: Breath sounds equal bilaterally. No accessory muscle use. GASTROINTESTINAL: Abdomen soft, non-tender, nondistended. MUSCULOSKELETAL: No cyanosis, or edema. Status post left foot surgery. Able to move toes. BACK: Nontender without obvious deformity. No CVA tenderness. Results - Labs CBC & Chem 7: 02/10/18 04:34 02/10/18 04:34 Laboratory Results - last 24 hr 02/08/18 02/09/18 02/10/18 13:24 09:22 21:00 PEP Pathologist Comment Renin 0.7 Urine Color Urine Clarity Urine pH Ur Specific [place] Urine Protein Urine Glucose (UA) Urine Ketones Urine Occult Blood Urine Nitrate Urine Bilirubin Urine Urobilinogen Ur Leukocyte Esterase Urine RBC Urine WBC Micro UA Comment Urine Culture Comments Urine Eosinophils None seen Ur Random Creatinine U Random Total Protein Ur Random Potassium Protein/Creatinin Ratio RENE Interpretation 02/10/18 02/10/18 02/10/18 21:00 21:00 21:00 PEP Pathologist Comment Renin Urine Color Colorless Urine Clarity Clear Urine pH 8.0 Ur Specific [place] 1.004 Urine Protein Negative Urine Glucose (UA) Negative Urine Ketones Negative Urine Occult Blood Small H Urine Nitrate Negative Urine Bilirubin Negative Urine Urobilinogen Less than 2 Ur Leukocyte Esterase Negative Urine RBC 3 Urine WBC 1 Micro UA Comment Culture not ind Urine Culture Comments Culture not ind Urine Eosinophils Ur Random Creatinine 23 L 24 L U Random Total Protein 10.2 Ur Random Potassium 10 Protein/Creatinin Ratio 0.44 H RENE Interpretation Microbiology 02/10/18 13:28 Wound - Foot Acid Fast Bacilli Smear - Final No acid fast bacilli seen 02/10/18 13:28 Abscess - Foot Acid Fast Bacilli Smear - Final No acid fast bacilli seen 02/10/18 13:28 Wound - Foot Gram Stain - Final 02/10/18 13:28 Wound - Foot Wound Culture - Preliminary No growth in 24 hours 02/10/18 13:28 Abscess - Foot Gram Stain - Final 02/10/18 13:28 Abscess - Foot Wound Culture - Preliminary No growth in 24 hours 02/07/18 11:00 Blood - Peripheral Aerobic Blood Culture - Preliminary No growth in 4 days 02/07/18 11:00 Blood - Peripheral Anaerobic Blood Culture - Preliminary No growth in 4 days 02/07/18 11:05 Blood - Peripheral Aerobic Blood Culture - Preliminary No growth in 4 days 02/07/18 11:05 Blood - Peripheral Anaerobic Blood Culture - Preliminary No growth in 4 days 02/10/18 13:28 Wound - Foot Fungal Smear - Final No fungal elements seen 02/10/18 13:28 Abscess - Foot Fungal Smear - Final No fungal elements seen Assessment and Plan - Plan 47 year male presents emergency department for evaluation of left foot and right scrotal pain. Patient left AMA a day before re- admission Severe sepsis on admission - currently resolved. Left foot cellulitis Left foot possible osteomyelitis -Status post left foot I&D and biopsy. -Podiatry and infectious disease following. -Patient is currently on daptomycin per infectious disease. Acute renal failure Mild hypokalemia -Creatinine is trending up somewhat. Nephrology is following. -Creatinine went from 2.74 ==> 2.87. -Continue D5 normal saline with potassium chloride. Hypertension -Continue amlodipine 5 mg twice daily, hydralazine 25 mg 3 times daily, Vasotec as needed Right-sided hydrocele -urology evaluated patient and recommended outpatient follow-up for surgical intervention. We will increase sleep aid Restoril to 30 mg nightly as needed. Patient is already on regular diet. Full code. Lovenox. Discussed with infectious disease as well as podiatry.
--- NOTE | 2018-02-11 19:14 | P.PNID ---
Subjective Remarks: Mr. Luna is a 47-year-old -[place] male who presents emergency department for evaluation left foot pain as well as right scrotal pain. Patient was in the emergency department a couple of days ago and actually was discharged on clindamycin Levaquin. Patient presented the ED because of nausea and vomiting. Denies any fevers or chills. Patient reports his left foot pain as well as right scrotal pain is 10 out of 10 on admission. Patient did reports he was advised to return if his right scrotal pain or left foot pain increased. Patient denies any other systemic symptoms such as chest pain shortness of breath or abdominal pain. He reports he was diagnosed with hydrocele on January 30. Patient was started on IV antibiotics and pain medication and at the present time reports no pain. Denies any night sweats. Patient has been seen by podiatry and workup for osteomyelitis is ongoing including a nuclear medicine scan on Wednesday. Patient reports the original injury occurred 1 week prior to admission at work when he was injured by a nail. He reports he received a tetanus injection at that time. Infectious diseases consulted for evaluation and management of left foot osteomyelitis. Overnight events reviewed No fevers No rash No diarrhea Antibiotics: Dapto IV Lines: Lines ok Past Medical History: Medical History Hydrocele in adult Hypertension Surgical History: Surgical History History of facial surgery Allergies/Adverse Reactions: Allergies lactose Allergy (Severe, Verified 01/30/18 23:38) Hives HIVES AND N/V milk Allergy (Severe, Verified 01/30/18 23:38) Anaphylaxis Sulfa (Sulfonamide Antibiotics) Allergy (Unknown, Verified 01/30/18 23:38) ITCHING Objective Vital Signs 02/10/18 20:00 02/11/18 00:00 02/11/18 08:00 Temperature 100.3 F H 99.3 F 98.3 F Pulse Rate 103 H 97 H 86 Respiratory Rate 18 18 17 Blood Pressure 168/94 H 140/86 166/93 H Pulse Oximetry 98 97 99 02/11/18 12:00 02/11/18 16:00 Temperature 98.1 F 98.6 F Pulse Rate 81 87 Respiratory Rate 18 17 Blood Pressure 157/89 H 172/102 H Pulse Oximetry 98 99 Intake & Output 02/11/18 02/11/18 02/12/18 06:59 18:59 06:59 Intake Total 1240 / 1240 1575 / 1575 Output Total 1000 / 1000 1500 / 1500 Balance 240 / 240 75 / 75 Intake: IV 1000 / 1000 1100 / 1100 NS Inj 1,000 ML @ 100 mls/hr IV 1000 / 1000 1000 / 1000 .CONT .Q10H [facility] Rx#:[id number] Cubicin Inj 1,250 MG In NS Inj 100 / 100 100 ML @ 200 mls/hr IV.SIG Q24H [facility]ANG Rx#:[id number] Oral 240 / 240 475 / 475 Output: Urine 1000 / 1000 1500 / 1500 02/10/18 13:28 Wound - Foot Acid Fast Bacilli Smear - Final No acid fast bacilli seen 02/10/18 13:28 Wound - Foot Mycobacterial Culture - Pending 02/10/18 13:28 Abscess - Foot Acid Fast Bacilli Smear - Final No acid fast bacilli seen 02/10/18 13:28 Abscess - Foot Mycobacterial Culture - Pending 02/10/18 13:28 Wound - Foot Gram Stain - Final 02/10/18 13:28 Wound - Foot Wound Culture - Preliminary No growth in 24 hours 02/10/18 13:28 Abscess - Foot Gram Stain - Final 02/10/18 13:28 Abscess - Foot Wound Culture - Preliminary No growth in 24 hours 02/07/18 11:00 Blood - Peripheral Aerobic Blood Culture - Preliminary No growth in 4 days 02/07/18 11:00 Blood - Peripheral Anaerobic Blood Culture - Preliminary No growth in 4 days 02/07/18 11:05 Blood - Peripheral Aerobic Blood Culture - Preliminary No growth in 4 days 02/07/18 11:05 Blood - Peripheral Anaerobic Blood Culture - Preliminary No growth in 4 days 02/10/18 13:28 Wound - Foot Fungal Smear - Final No fungal elements seen 02/10/18 13:28 Wound - Foot Fungal Culture - Pending 02/10/18 13:28 Abscess - Foot Fungal Smear - Final No fungal elements seen 02/10/18 13:28 Abscess - Foot Fungal Culture - Pending Lab - Hematology Results 02/10/18 04:34 WBC 16.1 H RBC 5.01 Hgb 11.2 L Hct 34.9 L MCV 69.7 L MCH 22.3 L MCHC 31.9 L RDW 14.5 Plt Count 455 H MPV 8.2 Neut % (Auto) 70.9 H Lymph % (Auto) 17.6 Wirt % (Auto) 8.4 H Eos % (Auto) 2.1 Baso % (Auto) 1.0 Neut # (Auto) 11.5 H Lymph # (Auto) 2.8 Wirt # (Auto) 1.4 H Eos # (Auto) 0.3 Baso # (Auto) 0.2 WBC Differential . Differential Comment Auto diff final Lab - Chemistry Results 02/08/18 02/09/18 02/10/18 13:24 09:22 04:34 Sodium 135 L Potassium 3.3 L Chloride 97 L Carbon Dioxide 26.1 Anion Gap 12 BUN 19 H Creatinine 2.87 H Estimated GFR 29 L Random Glucose 97 Calcium 9.3 D Phosphorus 1.8 L Magnesium 2.1 Albumin 2.7 L Albumin (PEP) 3.25 L Albumin/Globulin Ratio 0.68 L Rtqzq-1-Xfghzvgfr 0.47 H Tupmy-1-Wrezdrcbv 1.25 H Beta Globulins 0.73 Gamma Globulins 2.30 H PEP Pathologist Comment Renin 0.7 Imaging: ITS Impressions Foot X-Ray 02/03/18 21:08 CONCLUSION: No acute bony injury. No foreign body. Prominent soft tissue swelling Scrotum Ultrasound 02/03/18 21:13 CONCLUSION: 1. Large right hydrocele. 2. Varicocele demonstrated on the left. 3. Testes are within normal limits. Abdomen/Bladder Ultrasound 02/07/18 00:00 CONCLUSION: The kidneys appear echogenic and enlarged which can be seen with acute medical renal disease. No hydronephrosis is seen. SPECT Scan-Bone NM 02/07/18 00:00 CONCLUSION: 1. Hyperperfusion, hyperemia and increased bone uptake in the left forefoot region corresponding to the second and third distal metatarsal and proximal phalanges. Diffuse soft tissue edema but no corresponding bony erosion on CT exam. Overall, findings are concerning for early acute osteomyelitis Abdomen X-Ray 02/08/18 00:00 CONCLUSION: Benign-appearing abdomen. Physical Exam: GENERAL: Well-nourished well-developed, not in acute distress SKIN: Cool and dry, no generalized rash HEAD: Atraumatic. Normocephalic. No temporal or scalp tenderness. EYES: Pupils equal round and reactive. Scleral icterus. No injection or drainage. No petechia ENT: Nothing abnormal detected NECK: Trachea midline. Supple, nontender, no meningeal signs. CARDIOVASCULAR: HS audible. RESPIRATORY: Clear to auscultation bilaterally. GASTROINTESTINAL: Abdomen soft nontender. MUSCULOSKELETAL: Left foot in dressing, patient deferred exam as dressing was just changed. NEUROLOGICAL: Alert oriented 3. Nonfocal. Psych cooperative IV line sites ok. Assessment and Plan - Plan Left foot cellulitis Left foot possible osteomyelitis. MSSA wound infection. Right groin pain, Large right hydrocele Left groin varicocele Hypokalemia: ? nausea, vomiting related. acute renal failure: ? prerenal ? vanco induced. will follow trend to see if Zosyn could be a culprit. CRP elevated. Recs: DC Daptomycin IV Start Ceftriaxone IV (for possible MSSA osteomyelitis) Follow Blood cultures. Follow clinically. dw patient importance of following up cultures and path from intraop specimen. Anticipate discharge early next week. Please call ID to provide recommendations for discharge. I will be OOT from 02/12/2018. Other ID MDs covering for me.
[2018-02-12] MEDS: Pantoprazole Inj 40 MG Vial IV.PUSH SCH ×2 (05:16→17:00)
[2018-02-12] MEDS: KCL 20 mEq/D5W/NaCl 0.9% Inj 1,000 ML IV.CONT SCH ×5 (07:42→23:59)
[2018-02-12] MEDS: Sod Chloride 0.9% Inj 1,000 ML IV.CONT SCH ×4 (07:43→20:56)
--- NOTE | 2018-02-12 08:44 | P.PNPOD ---
Subjective Interval history: Patient had improved sleep last night pain not issue he appears to be in good spirits Physical Exam Vital signs: Vital Signs 02/11/18 12:00 02/11/18 16:00 02/11/18 19:11 Temperature 98.1 F 98.6 F Pulse Rate 81 87 Respiratory Rate 18 17 Blood Pressure 157/89 H 172/102 H 177/96 H Pulse Oximetry 98 99 02/11/18 20:00 02/12/18 00:00 02/12/18 08:00 Temperature 98.7 F 98 F 98.7 F Pulse Rate 95 H 87 95 H Respiratory Rate 17 17 18 Blood Pressure 152/82 H 147/80 H 179/103 H Pulse Oximetry 100 100 99 Intake & Output 02/11/18 02/12/18 02/12/18 18:59 06:59 18:59 Intake Total 1575 / 1575 340 / 340 1100 / 1100 Output Total 1500 / 1500 600 / 600 Balance 75 / 75 -260 / -260 1100 / 1100 Intake: IV 1100 / 1100 100 / 100 1100 / 1100 D5W/NS + KCL 20 mEq Inj 1,000 1000 / 1000 ML @ 84 mls/hr IV.CONT .[id number] [facility] Rx#:[id number] NS Inj 1,000 ML @ 100 mls/hr IV 1000 / 1000 .CONT .Q10H [facility]ANG Rx#:[id number] Cubicin Inj 1,250 MG In NS Inj 100 / 100 100 ML @ 200 mls/hr IV.SIG Q24H [facility]ANG Rx#:[id number] Rocephin Inj 2,000 MG In NS Inj 100 / 100 100 ML @ 200 mls/hr IV.SIG Q24H [facility]ANG Rx#:[id number] Oral 475 / 475 240 / 240 Output: Urine 1500 / 1500 600 / 600 Narrative: Left-lower extremity is examined Plantar foot wound with sutures intact, packing intact to dorsal foot wound, moderate serosanguineous drainage, edema remains however improved, neurovascular status intact to the digits, pain with range of motion consistent with postoperative course Medications and Allergies Active Medications: Active Medications Acetaminophen (Tylenol) 650 mg PO Q4H PRN PRN Reason: pain 1-3. headache, fevers Al Hydroxide/Mg Hydroxide (Milk Of Magnesia Liq) 30 ml PO Q12H PRN PRN Reason: Mild Constipation Last Admin: 02/08/18 06:06 Dose: 30 ml Amlodipine Besylate (Norvasc) 5 mg PO BID [facility] Last Admin: 02/11/18 22:34 Dose: 5 mg Bisacodyl (Dulcolax Supp) 10 mg RECTAL DAILY PRN PRN Reason: SEVERE CONSITIPATION Chlorhexidine Gluconate (Chlorhexidine 2% Cloth) 3 pack TOPICAL INTRAVENOUS THERAPY NURSE [facility] Stop: 02/13/18 11:45 Enalaprilat (Vasotec Inj) 2.5 mg IV.PUSH Q8H PRN PRN Reason: SBP>160, DBP>90 Last Admin: 02/11/18 18:18 Dose: 2.5 mg Enoxaparin Sodium (Lovenox Inj) 40 mg SQ DAILY [facility] Last Admin: 02/11/18 08:51 Dose: Not Given Hydralazine HCl (Apresoline) 25 mg PO TID [facility] Last Admin: 02/11/18 18:16 Dose: 25 mg Sodium Chloride (Ns Inj) 1,000 mls @ 100 mls/hr IV.CONT .Q10H [facility] Last Admin: 02/12/18 07:43 Dose: Not Given Potassium Chloride/Dextrose/Sod Cl (D5w/Ns + Kcl 20 Meq Inj) 1,000 mls @ 84 mls /hr IV.CONT .[id number] [facility] Last Infusion: 02/12/18 07:42 Dose: Infused Lactated Ringer's (Lr 1000 Ml Inj) 1,000 mls @ 30 mls/hr IV.SIG .Q24H [facility] Stop: 02/13/18 11:45 Last Admin: 02/11/18 16:05 Dose: Not Given Sodium Chloride (Ns Inj) 500 mls @ 30 mls/hr IV.SIG .Q10H [facility] Stop: 02/13/18 11:45 Ceftriaxone Sodium 2,000 mg/ (Sodium Chloride) 100 mls @ 200 mls/hr IV.SIG Q24H [facility] Last Infusion: 02/12/18 05:28 Dose: Infused Lactulose (Lactulose Liq) 30 ml PO DAILY PRN PRN Reason: SEVERE CONSITIPATION Magnesium Oxide (Mag-Ox) 400 mg PO DAILY [facility] Last Admin: 02/11/18 08:50 Dose: 400 mg Metoclopramide HCl (Reglan Inj) 5 mg IV.PUSH Q8HR PRN; Protocol PRN Reason: NAUSEA OR VOMITING Last Admin: 02/09/18 20:47 Dose: 5 mg Metoprolol Tartrate (Lopressor) 25 mg PO BID [facility] Last Admin: 02/11/18 22:34 Dose: 25 mg Metoprolol Tartrate (Lopressor) 25 mg PO INTRAVENOUS THERAPY NURSE [facility] Stop: 02/13/18 11:45 Miscellaneous (Pill Splitter) 1 each [facility] Morphine Sulfate (Morphine Inj) 2 mg IV.PUSH Q4H PRN PRN Reason: breakthrough pain Last Admin: 02/10/18 01:50 Dose: 2 mg Ondansetron HCl (Zofran Odt) 4 mg PO Q6H PRN PRN Reason: for nausea or vomiting Last Admin: 02/11/18 13:28 Dose: 4 mg Oxycodone HCl (Roxicodone) 5 mg PO Q6H PRN PRN Reason: pain 4-10 Last Admin: 02/11/18 13:27 Dose: 5 mg Pantoprazole Sodium (Protonix Inj) 40 mg IV.PUSH Q12H [facility] Last Admin: 02/12/18 05:16 Dose: 40 mg Povidone Iodine (Betadine 5% Antisepsis Kit) 1 applicatio EACH NARE INTRAVENOUS THERAPY NURSE [facility] Stop: 02/13/18 11:45 Prochlorperazine (Compazine Supp) 25 mg RECTAL Q6H PRN PRN Reason: severe vomiting Sennosides (Senokot) 17.2 mg PO Q12H PRN PRN Reason: Moderate Constipation Last Admin: 02/11/18 08:50 Dose: 17.2 mg Sodium Chloride (Ns Flush) 2 ml IV.FLUSH PRN PRN PRN Reason: FLUSH AFTER USING IV ACCESS Last Admin: 02/09/18 09:37 Dose: 2 ml Sucralfate (Carafate) 1 gm PO [facility] Last Admin: 02/11/18 22:34 Dose: 1 gm Temazepam (Restoril) 30 mg PO HS PRN PRN Reason: INSOMNIA Vitamin D (Vitamin D3) 2,000 unit PO DAILY [facility] Last Admin: 02/11/18 08:51 Dose: 2,000 unit Allergies Allergy/AdvReac Type Severity Reaction Status Date / Time lactose Allergy Severe Hives Verified 01/30/18 23:38 milk Allergy Severe Anaphylaxis Verified 01/30/18 23:38 Sulfa (Sulfonamide Allergy Unknown ITCHING Verified 01/30/18 23:38 Antibiotics) Home Medications Medication Instructions Recorded Confirmed Type No Known Home Medications 02/06/18 02/06/18 History Results - Labs CBC & Chem 7: 02/10/18 04:34 02/10/18 04:34 Laboratory Results - last 24 hr 02/08/18 02/09/18 13:24 09:22 PEP Pathologist Comment Renin 0.7 RENE Interpretation Microbiology 02/10/18 13:28 Wound - Foot Acid Fast Bacilli Smear - Final No acid fast bacilli seen 02/10/18 13:28 Abscess - Foot Acid Fast Bacilli Smear - Final No acid fast bacilli seen 02/10/18 13:28 Wound - Foot Gram Stain - Final 02/10/18 13:28 Wound - Foot Wound Culture - Preliminary No growth in 24 hours 02/10/18 13:28 Abscess - Foot Gram Stain - Final 02/10/18 13:28 Abscess - Foot Wound Culture - Preliminary No growth in 24 hours 02/07/18 11:00 Blood - Peripheral Aerobic Blood Culture - Preliminary No growth in 4 days 02/07/18 11:00 Blood - Peripheral Anaerobic Blood Culture - Preliminary No growth in 4 days 02/07/18 11:05 Blood - Peripheral Aerobic Blood Culture - Preliminary No growth in 4 days 02/07/18 11:05 Blood - Peripheral Anaerobic Blood Culture - Preliminary No growth in 4 days Assessment and Plan - Assessment (1) Left foot infection Code(s): L08.9 - Local infection of the skin and subcutaneous tissue, unspecified Status: Acute (2) Osteomyelitis of left foot Code(s): M86.9 - Osteomyelitis, unspecified Status: Acute Plan: Packing removed today, awaiting final micro and pathology from surgery. Continue IV antibiotics, wound care orders and for nursing to change bandage, will advise pending biopsy results. - Plan Reviewed the need to await bone culture and bone pathology for discharge. The patient wishes to go home immediately however I reviewed the need to stay until biopsy has reported. I will discuss with medicine possible sleep aid for this may help the patient. Bandage change planned for tomorrow continue nonweightbearing and IV antibiotics
[2018-02-12] MEDS: Sucralfate 1 GM Tablet PO SCH ×4 (08:50→20:57)
[2018-02-12] MEDS: Magnesium Oxide 400 MG Tablet PO SCH (08:50)
[2018-02-12] MEDS: Metoprolol Tartrate 25 MG Tablet PO SCH ×2 (08:50→20:57)
[2018-02-12] MEDS: amLODIPine 5 MG Tablet PO SCH ×2 (08:50→20:58)
[2018-02-12] MEDS: hydrALAZINE 25 MG Tablet PO SCH ×2 (08:50→12:10)
[2018-02-12] MEDS: Enoxaparin Inj 40 MG/0.4 ML Syringe SQ SCH (08:51)
--- NOTE | 2018-02-12 09:59 | P.PN ---
Subjective Interval history: RN denies any deterioration since last night. Patient says he feels much better since admission. Physical Exam Vital signs: Vital Signs 02/11/18 12:00 02/11/18 16:00 02/11/18 19:11 Temperature 98.1 F 98.6 F Pulse Rate 81 87 Respiratory Rate 18 17 Blood Pressure 157/89 H 172/102 H 177/96 H Pulse Oximetry 98 99 02/11/18 20:00 02/12/18 00:00 02/12/18 08:00 Temperature 98.7 F 98 F 98.7 F Pulse Rate 95 H 87 95 H Respiratory Rate 17 17 18 Blood Pressure 152/82 H 147/80 H 179/103 H Pulse Oximetry 100 100 99 Intake & Output 02/11/18 02/12/18 02/12/18 18:59 06:59 18:59 Intake Total 1575 / 1575 340 / 340 1200 / 1200 Output Total 1500 / 1500 600 / 600 Balance 75 / 75 -260 / -260 1200 / 1200 Intake: IV 1100 / 1100 100 / 100 1200 / 1200 D5W/NS + KCL 20 mEq Inj 1,000 1000 / 1000 ML @ 84 mls/hr IV.CONT .[id number] [facility] Rx#:[id number] NS Inj 1,000 ML @ 100 mls/hr IV 1000 / 1000 .CONT .Q10H [facility]ANG Rx#:[id number] Cubicin Inj 1,250 MG In NS Inj 100 / 100 100 ML @ 200 mls/hr IV.SIG Q24H [facility] Rx#:[id number] Rocephin Inj 2,000 MG In NS Inj 100 / 100 100 ML @ 200 mls/hr IV.SIG Q24H [facility] Rx#:[id number] Oral 475 / 475 240 / 240 Output: Urine 1500 / 1500 600 / 600 Narrative: NAD, unlabored breathing No cyanosis, or edema. Status post left foot surgery in left foot dressing. Results - Labs CBC & Chem 7: 02/10/18 04:34 02/10/18 04:34 Laboratory Results - last 24 hr 02/08/18 02/09/18 13:24 09:22 PEP Pathologist Comment Renin 0.7 RENE Interpretation Microbiology 02/10/18 13:28 Wound - Foot Acid Fast Bacilli Smear - Final No acid fast bacilli seen 02/10/18 13:28 Abscess - Foot Acid Fast Bacilli Smear - Final No acid fast bacilli seen 02/10/18 13:28 Wound - Foot Gram Stain - Final 02/10/18 13:28 Wound - Foot Wound Culture - Preliminary No growth in 24 hours 02/10/18 13:28 Abscess - Foot Gram Stain - Final 02/10/18 13:28 Abscess - Foot Wound Culture - Preliminary No growth in 24 hours 02/07/18 11:00 Blood - Peripheral Aerobic Blood Culture - Preliminary No growth in 4 days 02/07/18 11:00 Blood - Peripheral Anaerobic Blood Culture - Preliminary No growth in 4 days 02/07/18 11:05 Blood - Peripheral Aerobic Blood Culture - Preliminary No growth in 4 days 02/07/18 11:05 Blood - Peripheral Anaerobic Blood Culture - Preliminary No growth in 4 days Assessment and Plan - Plan 47 year male presents emergency department for evaluation of left foot and right scrotal pain. Patient left AMA a day before re- admission Left foot cellulitis Left foot possible osteomyelitis -Status post left foot I&D and biopsy. awaiting path. -Podiatry and infectious disease following. -Patient is currently on rocephin per ID Acute renal failure Mild hypokalemia -Nephrology is following. -Creatinine went from 2.74 ==> 2.87. awaiting today's labs. -Continue D5 normal saline with potassium chloride. Hypertension -Continue amlodipine 5 mg twice daily, hydralazine 25 mg 3 times daily, Vasotec as needed Right-sided hydrocele -urology evaluated patient and recommended outpatient follow-up for surgical intervention. sleep aid Restoril. Patient is already on regular diet. Full code. Lovenox.
--- NOTE | 2018-02-12 14:37 | P.PNNP ---
Subjective Interval history: Patient lying in bed. No verbal complaints. In no distress. Physical Exam Vital signs: Vital Signs 02/11/18 16:00 02/11/18 19:11 02/11/18 20:00 Temperature 98.6 F 98.7 F Pulse Rate 87 95 H Respiratory Rate 17 17 Blood Pressure 172/102 H 177/96 H 152/82 H Pulse Oximetry 99 100 02/12/18 00:00 02/12/18 08:00 02/12/18 12:00 Temperature 98 F 98.7 F 98.2 F Pulse Rate 87 95 H 87 Respiratory Rate 17 18 18 Blood Pressure 147/80 H 179/103 H 159/100 H Pulse Oximetry 100 99 100 Intake & Output 02/11/18 02/12/18 02/12/18 18:59 06:59 18:59 Intake Total 1575 / 1575 340 / 340 2200 / 2200 Output Total 1500 / 1500 600 / 600 Balance 75 / 75 -260 / -260 2200 / 2200 Intake: IV 1100 / 1100 100 / 100 2200 / 2200 D5W/NS + KCL 20 mEq Inj 1,000 2000 / 2000 ML @ 84 mls/hr IV.CONT .[id number] [facility] Rx#:[id number] NS Inj 1,000 ML @ 100 mls/hr IV 1000 / 1000 .CONT .Q10H [facility]ANG Rx#:[id number] Cubicin Inj 1,250 MG In NS Inj 100 / 100 100 ML @ 200 mls/hr IV.SIG Q24H [facility] Rx#:[id number] Rocephin Inj 2,000 MG In NS Inj 100 / 100 100 ML @ 200 mls/hr IV.SIG Q24H [facility]ANG Rx#:[id number] Oral 475 / 475 240 / 240 Output: Urine 1500 / 1500 600 / 600 - Constitutional no acute distress - Routine HEENT Exam ENT: Present: mucous membranes moist - Routine Respiratory Exam Present: CTA bilaterally - Routine Cardiovascular Exam Present: RRR - Routine Abdominal Exam Present: soft - Routine Neurological Exam Present: alert - Routine Psychiatric Exam Present: normal affect Assessment and Plan - Assessment (1) Acute renal failure (ARF) Code(s): N17.9 - Acute kidney failure, unspecified Status: Acute Plan: Unfortunately renal panel was not drawn this morning. A second biometrics head is going to attempt later today. Patient was counseled regarding importance of obtaining laboratory results to monitor his renal function. Continue on IVF for the present. Renal ultrasound findings revealed echogenic kidneys which does indicate some degree of intrinsic chronic kidney disease most likely related to nephrosclerosis. Acute component appears to be related to NSAID use is as an outpatient and possible superimposed vancomycin nephrotoxicity. Abx as per ID. Hepatitis profile was negative. No evidence of monoclonal gammopathy. Medications should be adjusted for the patient's renal decline. Avoid nephrotoxic medications such as iodinated contrast dyes and NSAIDs. Avoid gadolinium when eGFR <30. (2) Hypertension Code(s): I10 - Essential (primary) hypertension Status: Acute Plan: Blood pressure still significantly elevated. Will increase hydralazine to 50 mg 3 times daily. (3) Anemia Code(s): D64.9 - Anemia, unspecified Status: Acute Plan: Work up underway (4) Proteinuria Code(s): R80.9 - Proteinuria, unspecified Status: Acute Plan: 2+ protein as per UA. UPCR was not done as ordered----ordered again (5) Puncture wound of foot without foreign body Code(s): S91.339A - Puncture wound without foreign body, unspecified foot, initial encounter Status: Acute Qualifiers: Encounter type: subsequent encounter Laterality: left Qualified Code(s): S91.332D - Puncture wound without foreign body, left foot, subsequent encounter Plan: Abx as per ID Early osteomyelitis as per bone scan. Procedure today with podiatry (6) Hydrocele in adult Code(s): N43.3 - Hydrocele, unspecified Status: Acute Plan: Urology has seen in house and planning outpatient procedure. (7) Hypokalemia Code(s): E87.6 - Hypokalemia Status: Acute - Plan Likely 2/2 to hyperemesis. Improving. Received supplement today. Ordered spot urine potassium that was not drawn---reorder Check Mg level
[2018-02-12] MEDS: hydrALAZINE 50 MG Tablet PO SCH (17:01)
[2018-02-12] MEDS: Morphine Inj 4 MG/ML Vial IV.PUSH PRN (17:01)
[2018-02-12 18:30] LABS: Baso # (Auto) 0.1 th/mm3 (0.0-0.2); Baso % (Auto) 1.1 % (0.0-2.0); Eos # (Auto) 0.6 th/mm3 (0.0-0.4); Eos % (Auto) 5.2 % (0.0-4.0); Hematocrit 33.8 % (39.0-51.0); Hemoglobin 10.9 gm/dL (13.0-17.0); Lymph # (Auto) 1.4 th/mm3 (1.0-4.8); Lymph % (Auto) 12.3 % (9.0-44.0); Mean Corpuscular HGB Conc 32.1 % (32.0-36.0); Mean Corpuscular Hemoglobin 22.5 pg (27.0-34.0); Mean Corpuscular Volume 69.9 fL (80.0-100.0); Mean Platelet Volume 7.7 fL (7.0-11.0); Mono # (Auto) 1.2 th/mm3 (0.0-0.9); Mono % (Auto) 10.4 % (0.0-8.0); Platelet Count 433 th/mm3 (150-450); Red Blood Count 4.84 mil/mm3 (4.50-5.90); Red Cell Distribution Width 14.7 % (11.6-17.2); White Blood Count 11.2 th/mm3 (4.0-11.0)
[2018-02-12 18:59] LABS: Albumin 2.4 g/dL (3.4-5.0); Calcium 8.7 mg/dL (8.5-10.1); Carbon Dioxide 24.7 meq/L (21.0-32.0); Phosphorus 2.6 mg/dL (2.5-4.9); Potassium 3.3 meq/L (3.5-5.1)
[2018-02-13] MEDS: Sod Chloride 0.9% Inj 1,000 ML IV.CONT SCH ×2 (03:55→16:38)
[2018-02-13] MEDS: Pantoprazole Inj 40 MG Vial IV.PUSH SCH ×2 (05:08→17:23)
[2018-02-13] MEDS: Magnesium Oxide 400 MG Tablet PO SCH (09:05)
[2018-02-13] MEDS: Metoprolol Tartrate 25 MG Tablet PO SCH (09:05)
[2018-02-13] MEDS: hydrALAZINE 50 MG Tablet PO SCH ×3 (09:05→17:23)
[2018-02-13] MEDS: amLODIPine 5 MG Tablet PO SCH ×2 (09:05→21:12)
[2018-02-13] MEDS: Sucralfate 1 GM Tablet PO SCH ×4 (09:05→21:12)
[2018-02-13] MEDS: Enoxaparin Inj 40 MG/0.4 ML Syringe SQ SCH (09:05)
[2018-02-13] MEDS: KCL 20 mEq/D5W/NaCl 0.9% Inj 1,000 ML IV.CONT SCH ×2 (10:39→21:12)
--- NOTE | 2018-02-13 11:58 | P.PNNP ---
Subjective Interval history: Pt feeling OK. Constipated Otherwise anxious to go home. <Merly Robbins R - Last Filed: 02/13/18 11:52> Physical Exam Vital signs: Vital Signs 02/12/18 12:00 02/12/18 16:00 02/12/18 20:00 Temperature 98.2 F 99.4 F 98.6 F Pulse Rate 87 93 H 94 H Respiratory Rate 18 18 18 Blood Pressure 159/100 H 162/98 H 146/85 H Pulse Oximetry 100 100 98 02/13/18 00:00 02/13/18 08:00 Temperature 97.7 F 98.9 F Pulse Rate 86 92 H Respiratory Rate 18 18 Blood Pressure 143/85 H 159/92 H Pulse Oximetry 97 97 Intake & Output 02/12/18 02/13/18 02/13/18 18:59 06:59 18:59 Intake Total 3000 / 3000 1000 / 1000 1100 / 1100 Output Total 2500 / 2500 600 / 600 Balance 500 / 500 400 / 400 1100 / 1100 Intake: IV 2200 / 2200 1000 / 1000 1100 / 1100 D5W/NS + KCL 20 mEq Inj 1,000 2000 / 2000 1000 / 1000 1000 / 1000 ML @ 84 mls/hr IV.CONT .[id number] [facility]ANG Rx#:[id number] Rocephin Inj 2,000 MG In NS Inj 100 / 100 100 ML @ 200 mls/hr IV.SIG Q24H [facility]ANG Rx#:[id number] Oral 800 / 800 Output: Urine 2500 / 2500 600 / 600 - Constitutional no acute distress - Routine HEENT Exam Head: Present: normocephalic - Routine Neck Exam Present: supple - Routine Respiratory Exam Present: CTA bilaterally - Routine Cardiovascular Exam Present: RRR, S1, S2 - Routine Abdominal Exam Present: soft - Routine Extremities Exam Absent: edema - Routine Skin Exam Present: intact - Routine Neurological Exam Present: alert, oriented X3 - Routine Psychiatric Exam Present: normal affect, normal thought process <Merly Robbins R - Last Filed: 02/13/18 11:52> Vital signs: Vital Signs 02/12/18 16:00 02/12/18 20:00 02/13/18 00:00 Temperature 99.4 F 98.6 F 97.7 F Pulse Rate 93 H 94 H 86 Respiratory Rate 18 18 18 Blood Pressure 162/98 H 146/85 H 143/85 H Pulse Oximetry 100 98 97 02/13/18 08:00 02/13/18 12:00 Temperature 98.9 F 98.2 F Pulse Rate 92 H 88 Respiratory Rate 18 18 Blood Pressure 159/92 H 165/95 H Pulse Oximetry 97 100 Intake & Output 02/12/18 02/13/18 02/13/18 18:59 06:59 18:59 Intake Total 3000 / 3000 1000 / 1000 1367.5 / 1367.5 Output Total 2500 / 2500 600 / 600 Balance 500 / 500 400 / 400 1367.5 / 1367.5 Intake: IV 2200 / 2200 1000 / 1000 1367.5 / 1367.5 D5W/NS + KCL 20 mEq Inj 1,000 2000 / 2000 1000 / 1000 1000 / 1000 ML @ 84 mls/hr IV.CONT .[id number] [facility]ANG Rx#:[id number] Rocephin Inj 2,000 MG In NS Inj 100 / 100 100 ML @ 200 mls/hr IV.SIG Q24H [facility]ANG Rx#:[id number] Oral 800 / 800 Output: Urine 2500 / 2500 600 / 600 <Norberto Greer - Last Filed: 02/13/18 15:09> Assessment and Plan - Assessment (1) Acute renal failure (ARF) Code(s): N17.9 - Acute kidney failure, unspecified Status: Acute Plan: Acute component appears to be related to NSAID use is as an outpatient and possible superimposed vancomycin nephrotoxicity. Does appear to have some degree of chronic kidney disease suggested by increased echogenicity on renal US likely related to sclerosis of hypertension. Renal function improving slowly. UOP adequate KCl repletion as ordered. Medications should be adjusted for the patient's renal decline. Avoid nephrotoxic medications such as iodinated contrast dyes and NSAIDs. Avoid gadolinium when eGFR <30. (2) Hypertension Code(s): I10 - Essential (primary) hypertension Status: Acute Plan: BP improving, but still elevated. Increase Metoprolol to 50mg BID (3) Anemia Code(s): D64.9 - Anemia, unspecified Status: Acute Plan: Hgb stable. No evidence of paraproteinemia. Fe low-normal. (4) Proteinuria Code(s): R80.9 - Proteinuria, unspecified Status: Acute Plan: Subnephrotic. 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 (5) Puncture wound of foot without foreign body Code(s): S91.339A - Puncture wound without foreign body, unspecified foot, initial encounter Status: Acute Qualifiers: Encounter type: subsequent encounter Laterality: left Qualified Code(s): S91.332D - Puncture wound without foreign body, left foot, subsequent encounter Plan: Abx as per ID and management per podiatry Early osteomyelitis as per bone scan. (6) Hydrocele in adult Code(s): N43.3 - Hydrocele, unspecified Status: Acute Plan: Urology has seen in house and planning outpatient procedure. (7) Hypokalemia Code(s): E87.6 - Hypokalemia Status: Acute - Plan Repletion as ordered <Merly Robbins - Last Filed: 02/13/18 11:52> - Assessment (1) Acute renal failure (ARF) Code(s): N17.9 - Acute kidney failure, unspecified Status: Acute (2) Hypertension Code(s): I10 - Essential (primary) hypertension Status: Acute (3) Anemia Code(s): D64.9 - Anemia, unspecified Status: Acute (4) Proteinuria Code(s): R80.9 - Proteinuria, unspecified Status: Acute (5) Puncture wound of foot without foreign body Code(s): S91.339A - Puncture wound without foreign body, unspecified foot, initial encounter Status: Acute Qualifiers: Encounter type: subsequent encounter Laterality: left Qualified Code(s): S91.332D - Puncture wound without foreign body, left foot, subsequent encounter (6) Hydrocele in adult Code(s): N43.3 - Hydrocele, unspecified Status: Acute (7) Hypokalemia Code(s): E87.6 - Hypokalemia Status: Acute - Attending Attestation The exam, history, and the medical decision-making described in the above note were completed with the assistance of the ZANDER. I reviewed and agree with the findings presented. <Norberto Greer - Last Filed: 02/13/18 15:09>
[2018-02-13] MEDS: Metoprolol Tartrate 50 MG Tablet PO SCH ×2 (12:12→21:12)
--- NOTE | 2018-02-13 14:40 | P.PNGI ---
Subjective Interval history: Pt was seen by our service on 02/08 when consult was done for intractable nausea and vomiting. Note mentions we will follow up with pt after procedure on his foot. Pt reports nausea and vomiting has been persistent for approximately two weeks. Denies hematemesis and coffee ground emesis. Denies associated abdominal pain. Reports regular BMs until this admission and now states no BM since admission, has been on around the clock opioids. Denies any melena or hematochezia. Has never had EGD or colonoscopy. Denies ETOH in the past 4-5 months, prior to that admits to social alcohol. Denies nicotine use. Does admit to using Marijuana and states it helps some with his nausea. Of note, pt was taking Advil gel capsules as advised on the bottle for about a week and a half prior to admission. Currently with CAROLYN noted to be possibly in part due to NSAID use. Discussed with pt EGD and he is refusing at this time, states he does not want to do any more procedures while he is in the hospital. He is frustrated, stating his foot procedure was delayed and he was stuck not eating. He is very anxious to go home. At time of my exam, pt requesting lights not to be turned on because he states it will cause him to vomit. Lunch tray at bedside, no food eaten, pt reports the food smells and he will not eat any of it. Also reports he is allergic to milk and a lot of his meals have contained mild products. <Lorraine Cordero - Last Filed: 02/13/18 14:26> Physical Exam Vital signs: Vital Signs 02/12/18 16:00 02/12/18 20:00 02/13/18 00:00 Temperature 99.4 F 98.6 F 97.7 F Pulse Rate 93 H 94 H 86 Respiratory Rate 18 18 18 Blood Pressure 162/98 H 146/85 H 143/85 H Pulse Oximetry 100 98 97 02/13/18 08:00 02/13/18 12:00 Temperature 98.9 F 98.2 F Pulse Rate 92 H 88 Respiratory Rate 18 18 Blood Pressure 159/92 H 165/95 H Pulse Oximetry 97 100 Intake & Output 02/12/18 02/13/18 02/13/18 18:59 06:59 18:59 Intake Total 3000 / 3000 1000 / 1000 1100 / 1100 Output Total 2500 / 2500 600 / 600 Balance 500 / 500 400 / 400 1100 / 1100 Intake: IV 2200 / 2200 1000 / 1000 1100 / 1100 D5W/NS + KCL 20 mEq Inj 1,000 2000 / 2000 1000 / 1000 1000 / 1000 ML @ 84 mls/hr IV.CONT .[id number] [facility]ANG Rx#:[id number] Rocephin Inj 2,000 MG In NS Inj 100 / 100 100 ML @ 200 mls/hr IV.SIG Q24H [facility]ANG Rx#:[id number] Oral 800 / 800 Output: Urine 2500 / 2500 600 / 600 - Constitutional no acute distress - Routine HEENT Exam Head: Present: normocephalic, atraumatic - Routine Respiratory Exam Absent: accessory muscle use - Routine Cardiovascular Exam Present: RRR - Routine Abdominal Exam Present: soft, normoactive bowel sounds. Absent: tenderness, distended, rebound , guarding, firm - Routine Neurological Exam Present: alert, oriented X3 <Lorraine Cordero - Last Filed: 02/13/18 14:26> Vital signs: Vital Signs 02/13/18 00:00 02/13/18 08:00 02/13/18 12:00 Temperature 97.7 F 98.9 F 98.2 F Pulse Rate 86 92 H 88 Respiratory Rate 18 18 18 Blood Pressure 143/85 H 159/92 H 165/95 H Pulse Oximetry 97 97 100 02/13/18 16:00 02/13/18 20:00 Temperature 97.9 F 98.2 F Pulse Rate 96 H 90 Respiratory Rate 18 18 Blood Pressure 170/102 H 165/95 H Pulse Oximetry 100 100 Intake & Output 02/13/18 02/13/18 02/14/18 06:59 18:59 06:59 Intake Total 1000 / 1000 2327.5 / 2327.5 1000 / 1000 Output Total 600 / 600 1500 / 1500 Balance 400 / 400 827.5 / 827.5 1000 / 1000 Intake: IV 1000 / 1000 1367.5 / 1367.5 1000 / 1000 D5W/NS + KCL 20 mEq Inj 1,000 1000 / 1000 1000 / 1000 1000 / 1000 ML @ 84 mls/hr IV.CONT .[id number] [facility] Rx#:[id number] Rocephin Inj 2,000 MG In NS Inj 100 / 100 100 ML @ 200 mls/hr IV.SIG Q24H [facility]ANG Rx#:[id number] Oral 960 / 960 Output: Urine 600 / 600 1500 / 1500 Other: # Bowel Movements 1 <Shaggy Ulloa - Last Filed: 02/13/18 21:59> Results - Labs CBC & Chem 7: 02/12/18 18:06 02/12/18 18:06 Laboratory Results - last 24 hr 02/12/18 02/12/18 18:06 18:06 WBC 11.2 H RBC 4.84 Hgb 10.9 L Hct 33.8 L MCV 69.9 L MCH 22.5 L MCHC 32.1 RDW 14.7 Plt Count 433 MPV 7.7 Neut % (Auto) 71.0 H Lymph % (Auto) 12.3 [place] % (Auto) 10.4 H Eos % (Auto) 5.2 H Baso % (Auto) 1.1 Neut # (Auto) 8.0 H Lymph # (Auto) 1.4 [place] # (Auto) 1.2 H Eos # (Auto) 0.6 H Baso # (Auto) 0.1 WBC Differential . Differential Comment Auto diff final Sodium 135 L Potassium 3.3 L Chloride 99 Carbon Dioxide 24.7 Anion Gap 11 BUN 17 Creatinine 2.52 H Estimated GFR 33 L Random Glucose 143 H Calcium 8.7 Phosphorus 2.6 Albumin 2.4 L Microbiology 02/10/18 13:28 Wound - Foot Gram Stain - Final 02/10/18 13:28 Wound - Foot Wound Culture - Final 02/10/18 13:28 Abscess - Foot Gram Stain - Final 02/10/18 13:28 Abscess - Foot Wound Culture - Final 02/07/18 11:00 Blood - Peripheral Aerobic Blood Culture - Final No growth in 5 days 02/07/18 11:00 Blood - Peripheral Anaerobic Blood Culture - Final No growth in 5 days 02/07/18 11:05 Blood - Peripheral Aerobic Blood Culture - Final No growth in 5 days 02/07/18 11:05 Blood - Peripheral Anaerobic Blood Culture - Final No growth in 5 days <Lorraine Cordero - Last Filed: 02/13/18 14:26> - Labs CBC & Chem 7: 02/13/18 15:46 02/13/18 15:46 Laboratory Results - last 24 hr 02/13/18 02/13/18 15:46 15:46 WBC 10.2 RBC 4.86 Hgb 10.8 L Hct 33.7 L MCV 69.3 L MCH 22.2 L MCHC 32.1 RDW 14.5 Plt Count 451 H MPV 7.4 Neut % (Auto) 68.7 Lymph % (Auto) 12.8 [place] % (Auto) 10.1 H Eos % (Auto) 7.3 H Baso % (Auto) 1.1 Neut # (Auto) 7.0 Lymph # (Auto) 1.3 [place] # (Auto) 1.0 H Eos # (Auto) 0.7 H Baso # (Auto) 0.1 WBC Differential . Differential Comment Auto diff final Sodium 137 Potassium 3.8 Chloride 103 Carbon Dioxide 24.1 Anion Gap 10 BUN 15 Creatinine 2.30 H Estimated GFR 37 L Random Glucose 103 Calcium 8.5 Microbiology 02/10/18 13:28 Wound - Foot Gram Stain - Final 02/10/18 13:28 Wound - Foot Wound Culture - Final 02/10/18 13:28 Abscess - Foot Gram Stain - Final 02/10/18 13:28 Abscess - Foot Wound Culture - Final <Shaggy Ulloa - Last Filed: 02/13/18 21:59> Assessment and Plan (1) Nausea and vomiting Status: Acute Code(s): R11.2 - Nausea with vomiting, unspecified - Plan Assessment: - Intractable nausea and vomiting- pt reports for the past few weeks. Denies hematemesis and coffee ground emesis. Denies associated nausea and vomiting. Reports regular BMs at home but no BM since admission, has been on opioids around the clock. Has never had EGD or colonoscopy. Denies ETOH in 4-5 months and prior to that was only social drinker. Denies nicotine use. Admits to marijuana use. Of note, pt was taking Advil gel capsules as advised on the bottle around the clock for about a week and a half prior to admission. Pt with food tray at bedside and has not eaten any of the food, states the food smells and they keep sending him milk based product even though he is allergic to milk. Pt also states one of the reasons he doesn't want to do an EGD is because he doesn't want to have to be NPO for another procedure. KUB (02/08) Benign appearing abdomen Discussed with pt EGD and he is refusing. He is very anxious to go home, states he is frustrated that his foot procedure was delayed and he does not want to have another operation while he is in the hospital. Plan: Refusing EGD Pt not wanting further work up Recommend bowel regimen while on opioids Needs to stop marijuana, could be causing cyclical vomiting Our service will sign off, pleas reconsult as needed Pt has been seen and examined by myself and Dr. Ulloa and this note is written on his behalf <Lorraine Cordero - Last Filed: 02/13/18 14:26> (1) Nausea and vomiting Status: Acute Code(s): R11.2 - Nausea with vomiting, unspecified - Attending Attestation plan as above, <Shaggy Ulloa - Last Filed: 02/13/18 21:59>
--- NOTE | 2018-02-13 14:43 | P.PN ---
Subjective Interval history: Nursing denies any deterioration since last night. Patient denies any nausea vomiting or fevers. Physical Exam Vital signs: Vital Signs 02/12/18 16:00 02/12/18 20:00 02/13/18 00:00 Temperature 99.4 F 98.6 F 97.7 F Pulse Rate 93 H 94 H 86 Respiratory Rate 18 18 18 Blood Pressure 162/98 H 146/85 H 143/85 H Pulse Oximetry 100 98 97 02/13/18 08:00 02/13/18 12:00 Temperature 98.9 F 98.2 F Pulse Rate 92 H 88 Respiratory Rate 18 18 Blood Pressure 159/92 H 165/95 H Pulse Oximetry 97 100 Intake & Output 02/12/18 02/13/18 02/13/18 18:59 06:59 18:59 Intake Total 3000 / 3000 1000 / 1000 1100 / 1100 Output Total 2500 / 2500 600 / 600 Balance 500 / 500 400 / 400 1100 / 1100 Intake: IV 2200 / 2200 1000 / 1000 1100 / 1100 D5W/NS + KCL 20 mEq Inj 1,000 2000 / 2000 1000 / 1000 1000 / 1000 ML @ 84 mls/hr IV.CONT .[id number] [facility]ANG Rx#:[id number] Rocephin Inj 2,000 MG In NS Inj 100 / 100 100 ML @ 200 mls/hr IV.SIG Q24H [facility]ANG Rx#:[id number] Oral 800 / 800 Output: Urine 2500 / 2500 600 / 600 Narrative: Left foot in postop dressing with no protruding purulence noted, no significant edema noted Unlabored breathing, no acute distress Results - Labs CBC & Chem 7: 02/12/18 18:06 02/12/18 18:06 Laboratory Results - last 24 hr 02/12/18 02/12/18 18:06 18:06 WBC 11.2 H RBC 4.84 Hgb 10.9 L Hct 33.8 L MCV 69.9 L MCH 22.5 L MCHC 32.1 RDW 14.7 Plt Count 433 MPV 7.7 Neut % (Auto) 71.0 H Lymph % (Auto) 12.3 [place] % (Auto) 10.4 H Eos % (Auto) 5.2 H Baso % (Auto) 1.1 Neut # (Auto) 8.0 H Lymph # (Auto) 1.4 [place] # (Auto) 1.2 H Eos # (Auto) 0.6 H Baso # (Auto) 0.1 WBC Differential . Differential Comment Auto diff final Sodium 135 L Potassium 3.3 L Chloride 99 Carbon Dioxide 24.7 Anion Gap 11 BUN 17 Creatinine 2.52 H Estimated GFR 33 L Random Glucose 143 H Calcium 8.7 Phosphorus 2.6 Albumin 2.4 L Microbiology 02/10/18 13:28 Wound - Foot Gram Stain - Final 02/10/18 13:28 Wound - Foot Wound Culture - Final 02/10/18 13:28 Abscess - Foot Gram Stain - Final 02/10/18 13:28 Abscess - Foot Wound Culture - Final 02/07/18 11:00 Blood - Peripheral Aerobic Blood Culture - Final No growth in 5 days 02/07/18 11:00 Blood - Peripheral Anaerobic Blood Culture - Final No growth in 5 days 02/07/18 11:05 Blood - Peripheral Aerobic Blood Culture - Final No growth in 5 days 02/07/18 11:05 Blood - Peripheral Anaerobic Blood Culture - Final No growth in 5 days Assessment and Plan - Plan 47 year male presents emergency department for evaluation of left foot and right scrotal pain. Patient left AMA a day before re- admission Left foot cellulitis Left foot possible osteomyelitis -Status post left foot I&D and biopsy. awaiting path. -Podiatry and infectious disease following. -Patient is currently on rocephin per ID Acute renal failure Mild hypokalemia -Nephrology is following. -Creatinine improving w/ IVFs Hypertension -Continue amlodipine 5 mg twice daily, hydralazine 25 mg 3 times daily, Vasotec as needed Right-sided hydrocele -outpatient urology follow-up for surgical intervention. sleep aid Restoril. Full code. Lovenox.
[2018-02-13 16:01] LABS: Baso # (Auto) 0.1 th/mm3 (0.0-0.2); Baso % (Auto) 1.1 % (0.0-2.0); Eos # (Auto) 0.7 th/mm3 (0.0-0.4); Eos % (Auto) 7.3 % (0.0-4.0); Hematocrit 33.7 % (39.0-51.0); Hemoglobin 10.8 gm/dL (13.0-17.0); Lymph # (Auto) 1.3 th/mm3 (1.0-4.8); Lymph % (Auto) 12.8 % (9.0-44.0); Mean Corpuscular HGB Conc 32.1 % (32.0-36.0); Mean Corpuscular Hemoglobin 22.2 pg (27.0-34.0); Mean Corpuscular Volume 69.3 fL (80.0-100.0); Mean Platelet Volume 7.4 fL (7.0-11.0); Mono % (Auto) 10.1 % (0.0-8.0); Neut % (Auto) 68.7 % (16.0-70.0); Platelet Count 451 th/mm3 (150-450); Red Blood Count 4.86 mil/mm3 (4.50-5.90); Red Cell Distribution Width 14.5 % (11.6-17.2); White Blood Count 10.2 th/mm3 (4.0-11.0)
[2018-02-13 16:16] LABS: Calcium 8.5 mg/dL (8.5-10.1); Carbon Dioxide 24.1 meq/L (21.0-32.0); Potassium 3.8 meq/L (3.5-5.1)
[2018-02-14] MEDS: KCL 20 mEq/D5W/NaCl 0.9% Inj 1,000 ML IV.CONT SCH ×3 (00:02→15:36)
[2018-02-14] MEDS: Sod Chloride 0.9% Inj 1,000 ML IV.CONT SCH ×2 (00:03→15:40)
[2018-02-14] MEDS: Pantoprazole Inj 40 MG Vial IV.PUSH SCH (05:14)
[2018-02-14] MEDS: Magnesium Oxide 400 MG Tablet PO SCH (10:27)
[2018-02-14] MEDS: hydrALAZINE 50 MG Tablet PO SCH ×3 (10:27→18:34)
[2018-02-14] MEDS: amLODIPine 5 MG Tablet PO SCH ×2 (10:28→20:59)
[2018-02-14] MEDS: Sucralfate 1 GM Tablet PO SCH ×5 (10:28→20:59)
[2018-02-14] MEDS: Metoprolol Tartrate 50 MG Tablet PO SCH ×2 (10:28→20:59)
[2018-02-14] MEDS: Enoxaparin Inj 40 MG/0.4 ML Syringe SQ SCH (10:28)
--- NOTE | 2018-02-14 14:15 | P.PN ---
Subjective Interval history: Nursing denies any deterioration since last night. Patient really wants to leave, says he has court issues. I advised him that he is hospitalized and in general this takes priority over being able to handle any social affairs, he still is very dubious on the importance of his hospitalization taking priority. Physical Exam Vital signs: Vital Signs 02/13/18 16:00 02/13/18 20:00 02/14/18 00:00 Temperature 97.9 F 98.2 F 98.4 F Pulse Rate 96 H 90 78 Respiratory Rate 18 18 18 Blood Pressure 170/102 H 165/95 H 151/91 H Pulse Oximetry 100 100 98 02/14/18 08:00 02/14/18 12:00 Temperature 98.3 F 98.4 F Pulse Rate 90 80 Respiratory Rate 18 20 Blood Pressure 172/100 H 138/87 Pulse Oximetry 100 98 Intake & Output 02/13/18 02/14/18 02/14/18 18:59 06:59 18:59 Intake Total 2327.5 / 2327.5 2240 / 2240 Output Total 1500 / 1500 1100 / 1100 Balance 827.5 / 827.5 1140 / 1140 Intake: IV 1367.5 / 1367.5 2000 / 2000 D5W/NS + KCL 20 mEq Inj 1,000 1000 / 1000 2000 / 2000 ML @ 84 mls/hr IV.CONT .[id number] HUANG Rx#:[id number] Rocephin Inj 2,000 MG In NS Inj 100 / 100 100 ML @ 200 mls/hr IV.SIG Q24H [facility]ANG Rx#:[id number] Oral 960 / 960 240 / 240 Output: Urine 1500 / 1500 1100 / 1100 Other: # Bowel Movements 1 Narrative: Well-healing surgical wounds on dorsum and plantar aspect of foot with sutures in place. No purulence noted Otherwise foot is wrapped in gauze Results - Labs CBC & Chem 7: 02/13/18 15:46 02/13/18 15:46 Laboratory Results - last 24 hr 02/13/18 02/13/18 15:46 15:46 WBC 10.2 RBC 4.86 Hgb 10.8 L Hct 33.7 L MCV 69.3 L MCH 22.2 L MCHC 32.1 RDW 14.5 Plt Count 451 H MPV 7.4 Neut % (Auto) 68.7 Lymph % (Auto) 12.8 [place] % (Auto) 10.1 H Eos % (Auto) 7.3 H Baso % (Auto) 1.1 Neut # (Auto) 7.0 Lymph # (Auto) 1.3 [place] # (Auto) 1.0 H Eos # (Auto) 0.7 H Baso # (Auto) 0.1 WBC Differential . Differential Comment Auto diff final Sodium 137 Potassium 3.8 Chloride 103 Carbon Dioxide 24.1 Anion Gap 10 BUN 15 Creatinine 2.30 H Estimated GFR 37 L Random Glucose 103 Calcium 8.5 Assessment and Plan - Plan 47 year male presents emergency department for evaluation of left foot and right scrotal pain. Patient left AMA a day before re- admission Left foot cellulitis Left foot possible osteomyelitis -Status post left foot I&D and biopsy. Still awaiting path. -Podiatry and infectious disease following. -Patient is currently on Rocephin per ID Acute renal failure -Nephrology is following. -Creatinine continues to improve w/ IVFs, BMP in a.m. Hypertension -Continue amlodipine 5 mg twice daily, hydralazine 25 mg 3 times daily, Vasotec as needed Right-sided hydrocele -outpatient urology follow-up for surgical intervention. sleep aid Restoril. Full code. Lovenox.
[2018-02-14] MEDS: Morphine Inj 4 MG/ML Vial IV.PUSH PRN (16:37)
--- NOTE | 2018-02-14 19:13 | P.PNPOD ---
Subjective Interval history: Doing well good spirits ready to go home minimal pain Physical Exam Vital signs: Vital Signs 02/13/18 20:00 02/14/18 00:00 02/14/18 08:00 Temperature 98.2 F 98.4 F 98.3 F Pulse Rate 90 78 90 Respiratory Rate 18 18 18 Blood Pressure 165/95 H 151/91 H 172/100 H Pulse Oximetry 100 98 100 02/14/18 12:00 02/14/18 12:38 02/14/18 16:00 Temperature 98.4 F 99.2 F Pulse Rate 80 92 H Respiratory Rate 20 20 18 Blood Pressure 138/87 157/93 H Pulse Oximetry 98 98 02/14/18 16:40 Temperature Pulse Rate Respiratory Rate 16 Blood Pressure Pulse Oximetry Intake & Output 02/14/18 02/14/18 02/15/18 06:59 18:59 06:59 Intake Total 2240 / 2240 1720 / 1720 Output Total 1100 / 1100 Balance 1140 / 1140 1720 / 1720 Intake: IV 1999 / 1999 1000 / 1000 D5W/NS + KCL 20 mEq Inj 1,000 1999 / 1999 1000 / 1000 ML @ 84 mls/hr IV.CONT .[id number] [facility] Rx#:[id number] Oral 240 / 240 720 / 720 Output: Urine 1100 / 1100 Other: # Voids 4 # Bowel Movements 0 Narrative: Left-lower extremity is examined Plantar foot wound with sutures intact, minimal drainage from dorsal foot wound , edema has improved, neurovascular status intact to the digits, pain with range of motion consistent with postoperative course Medications and Allergies Active Medications: Active Medications Acetaminophen (Tylenol) 650 mg PO Q4H PRN PRN Reason: pain 1-3. headache, fevers Al Hydroxide/Mg Hydroxide (Milk Of Magnesia Liq) 30 ml PO Q12H PRN PRN Reason: Mild Constipation Last Admin: 02/13/18 09:05 Dose: 30 ml Amlodipine Besylate (Norvasc) 5 mg PO BID [facility] Last Admin: 02/14/18 10:28 Dose: 5 mg Bisacodyl (Dulcolax Supp) 10 mg RECTAL DAILY PRN PRN Reason: SEVERE CONSITIPATION Enalaprilat (Vasotec Inj) 2.5 mg IV.PUSH Q8H PRN PRN Reason: SBP>160, DBP>90 Last Admin: 02/11/18 18:18 Dose: 2.5 mg Enoxaparin Sodium (Lovenox Inj) 40 mg SQ DAILY [facility] Last Admin: 02/14/18 10:28 Dose: 40 mg Hydralazine HCl (Apresoline) 50 mg PO TID [facility] Last Admin: 02/14/18 18:34 Dose: 50 mg Sodium Chloride (Ns Inj) 1,000 mls @ 100 mls/hr IV.CONT .Q10H [facility] Last Admin: 02/14/18 15:40 Dose: Not Given Potassium Chloride/Dextrose/Sod Cl (D5w/Ns + Kcl 20 Meq Inj) 1,000 mls @ 84 mls /hr IV.CONT .[id number] [facility] Last Admin: 02/14/18 15:36 Dose: 100 mls/hr Ceftriaxone Sodium 2,000 mg/ (Sodium Chloride) 100 mls @ 200 mls/hr IV.SIG Q24H [facility] Last Admin: 02/13/18 21:12 Dose: 100 mls/hr Lactulose (Lactulose Liq) 30 ml PO DAILY PRN PRN Reason: SEVERE CONSITIPATION Magnesium Oxide (Mag-Ox) 400 mg PO DAILY [facility] Last Admin: 02/14/18 10:27 Dose: 400 mg Metoclopramide HCl (Reglan Inj) 5 mg IV.PUSH Q8HR PRN; Protocol PRN Reason: NAUSEA OR VOMITING Last Admin: 02/09/18 20:47 Dose: 5 mg Metoprolol Tartrate (Lopressor) 50 mg PO BID [facility] Last Admin: 02/14/18 10:28 Dose: 50 mg Miscellaneous (Pill Splitter) 1 each OTHER [facility] Morphine Sulfate (Morphine Inj) 2 mg IV.PUSH Q4H PRN PRN Reason: breakthrough pain Last Admin: 02/14/18 16:37 Dose: 2 mg Ondansetron HCl (Zofran Odt) 4 mg PO Q6H PRN PRN Reason: for nausea or vomiting Last Admin: 02/14/18 10:33 Dose: 4 mg Oxycodone HCl (Roxicodone) 5 mg PO Q6H PRN PRN Reason: pain 4-10 Last Admin: 02/14/18 10:32 Dose: 5 mg Prochlorperazine (Compazine Supp) 25 mg RECTAL Q6H PRN PRN Reason: severe vomiting Sennosides (Senokot) 17.2 mg PO Q12H PRN PRN Reason: Moderate Constipation Last Admin: 02/13/18 09:05 Dose: 17.2 mg Sodium Chloride (Ns Flush) 2 ml IV.FLUSH PRN PRN PRN Reason: FLUSH AFTER USING IV ACCESS Last Admin: 02/09/18 09:37 Dose: 2 ml Sucralfate (Carafate) 1 gm PO ACHS [facility] Last Admin: 02/14/18 18:35 Dose: 1 gm Temazepam (Restoril) 30 mg PO HS PRN PRN Reason: INSOMNIA Vitamin D (Vitamin D3) 2,000 unit PO DAILY [facility] Last Admin: 02/14/18 10:27 Dose: 2,000 unit Allergies Allergy/AdvReac Type Severity Reaction Status Date / Time lactose Allergy Severe Hives Verified 01/30/18 23:38 milk Allergy Severe Anaphylaxis Verified 01/30/18 23:38 Sulfa (Sulfonamide Allergy Unknown ITCHING Verified 01/30/18 23:38 Antibiotics) Home Medications Medication Instructions Recorded Confirmed Type No Known Home Medications 02/06/18 02/06/18 History Results - Labs CBC & Chem 7: 02/13/18 15:46 02/13/18 15:46 [facility] DEPARTMENT OF PATHOLOGY [address], [address] [address] [address] [email or web address] PATHOLOGY REPORT Patient: Pillo Luna Juan Carlos Specimen #: [id number] Pillo Luna Page 2 of 2 [facility] DEPARTMENT OF PATHOLOGY [address], [address] [address] [address] [email or web address] PATHOLOGY REPORT Pillo Luna Page 1 of 1 Clinical History Left foot wound. Tissue 1. 2ND MPJ LEFT FOOT 2. 3RD METATARSAL LEFT FOOT Gross Description #1- Received in formalin labeled second MPJ left foot is a single core of white-monsalve firm tissue consistent with bone measuring 0.6 cm in length and up to 0.1 cm in diameter. This is entirely submitted as received in one cassette following decalcification (1A). #2- Received in formalin labeled third metatarsal left foot is a single fragment of hard white-monsalve tissue measuring 0.2 x 0.2 x 0.2 cm. This is entirely submitted as received in one cassette following decalcification (2A). [facility] Final Diagnosis #1- BONE, LEFT FOOT, SECOND MPJ, BIOPSY: - NEGATIVE FOR ACUTE OSTEOMYELITIS. #2- BONE, LEFT FOOT, THIRD METATARSAL, BIOPSY: - NEGATIVE FOR ACUTE OSTEOMYELITIS. Assessment and Plan - Assessment (1) Left foot infection Code(s): L08.9 - Local infection of the skin and subcutaneous tissue, unspecified Status: Acute (2) Osteomyelitis of left foot Code(s): M86.9 - Osteomyelitis, unspecified Status: Acute - Plan Bone biopsy negative, wound appears to be healing well, I am ordering controlled ankle motion boot for heel weight-bear only. Okay to follow-up outpatient at this point once antibiotics decided
[2018-02-15] MEDS: KCL 20 mEq/D5W/NaCl 0.9% Inj 1,000 ML IV.CONT SCH ×2 (05:28→09:52)
[2018-02-15] MEDS: Sod Chloride 0.9% Inj 1,000 ML IV.CONT SCH ×2 (05:30→07:18)
[2018-02-15] MEDS: Enoxaparin Inj 40 MG/0.4 ML Syringe SQ SCH (09:48)
[2018-02-15] MEDS: Sucralfate 1 GM Tablet PO SCH ×2 (09:51→13:26)
[2018-02-15] MEDS: hydrALAZINE 50 MG Tablet PO SCH ×2 (09:51→13:26)
[2018-02-15] MEDS: Magnesium Oxide 400 MG Tablet PO SCH (09:51)
[2018-02-15] MEDS: amLODIPine 5 MG Tablet PO SCH (09:51)
[2018-02-15] MEDS: Metoprolol Tartrate 50 MG Tablet PO SCH (09:51)
--- NOTE | 2018-02-15 10:04 | P.PNID ---
Subjective Remarks: Mr. Luna is a 47-year-old -[place] male who presents emergency department for evaluation left foot pain as well as right scrotal pain. Patient was in the emergency department a couple of days ago and actually was discharged on clindamycin Levaquin. Patient presented the ED because of nausea and vomiting. Denies any fevers or chills. Patient reports his left foot pain as well as right scrotal pain is 10 out of 10 on admission. Patient did reports he was advised to return if his right scrotal pain or left foot pain increased. Patient denies any other systemic symptoms such as chest pain shortness of breath or abdominal pain. He reports he was diagnosed with hydrocele on January 30. Patient was started on IV antibiotics and pain medication and at the present time reports no pain. Denies any night sweats. Patient has been seen by podiatry and workup for osteomyelitis is ongoing including a nuclear medicine scan on Wednesday. Patient reports the original injury occurred 1 week prior to admission at work when he was injured by a nail. He reports he received a tetanus injection at that time. Infectious diseases consulted for evaluation and management of left foot osteomyelitis. Notes reviewed No fevers No rash No diarrhea No new complaints Path report negative for oesteo Podiatry notes reviewed Anxious to go home Antibiotics: Rocephin Lines: Lines ok Past Medical History: Hydrocele in adult Hypertension Surgical History: Surgical History History of facial surgery Allergies/Adverse Reactions: Allergies lactose Allergy (Severe, Verified 01/30/18 23:38) Hives HIVES AND N/V milk Allergy (Severe, Verified 01/30/18 23:38) Anaphylaxis Sulfa (Sulfonamide Antibiotics) Allergy (Unknown, Verified 01/30/18 23:38) ITCHING Objective Vital Signs 02/14/18 12:00 02/14/18 12:38 02/14/18 16:00 Temperature 98.4 F 99.2 F Pulse Rate 80 92 H Respiratory Rate 20 20 18 Blood Pressure 138/87 157/93 H Pulse Oximetry 98 98 02/14/18 16:40 02/14/18 20:25 02/15/18 00:42 Temperature 99.5 F 98.7 F Pulse Rate 93 H 80 Respiratory Rate 16 20 20 Blood Pressure 163/100 H 147/87 H Pulse Oximetry 97 98 02/15/18 08:00 Temperature 98.2 F Pulse Rate 94 H Respiratory Rate 16 Blood Pressure 159/96 H Pulse Oximetry 100 Intake & Output 02/14/18 02/15/18 02/15/18 18:59 06:59 18:59 Intake Total 1720 / 1720 1480 / 1480 1100 / 1100 Balance 1720 / 1720 1480 / 1480 1100 / 1100 Intake: IV 1000 / 1000 1000 / 1000 1100 / 1100 D5W/NS + KCL 20 mEq Inj 1,000 1000 / 1000 1000 / 1000 1000 / 1000 ML @ 84 mls/hr IV.CONT .[id number] [facility] Rx#:[id number] Rocephin Inj 2,000 MG In NS Inj 100 / 100 100 ML @ 200 mls/hr IV.SIG Q24H [facility] Rx#:[id number] Oral 720 / 720 480 / 480 Other: # Voids 4 2 # Bowel Movements 0 02/10/18 13:28 Wound - Foot Gram Stain - Final 02/10/18 13:28 Wound - Foot Wound Culture - Final 02/10/18 13:28 Abscess - Foot Gram Stain - Final 02/10/18 13:28 Abscess - Foot Wound Culture - Final 02/07/18 11:00 Blood - Peripheral Aerobic Blood Culture - Final No growth in 5 days 02/07/18 11:00 Blood - Peripheral Anaerobic Blood Culture - Final No growth in 5 days 02/07/18 11:05 Blood - Peripheral Aerobic Blood Culture - Final No growth in 5 days 02/07/18 11:05 Blood - Peripheral Anaerobic Blood Culture - Final No growth in 5 days Lab - Hematology Results 02/13/18 15:46 WBC 10.2 RBC 4.86 Hgb 10.8 L Hct 33.7 L MCV 69.3 L MCH 22.2 L MCHC 32.1 RDW 14.5 Plt Count 451 H MPV 7.4 Neut % (Auto) 68.7 Lymph % (Auto) 12.8 Petroleum % (Auto) 10.1 H Eos % (Auto) 7.3 H Baso % (Auto) 1.1 Neut # (Auto) 7.0 Lymph # (Auto) 1.3 Petroleum # (Auto) 1.0 H Eos # (Auto) 0.7 H Baso # (Auto) 0.1 WBC Differential . Differential Comment Auto diff final Lab - Chemistry Results 02/13/18 15:46 Sodium 137 Potassium 3.8 Chloride 103 Carbon Dioxide 24.1 Anion Gap 10 BUN 15 Creatinine 2.30 H Estimated GFR 37 L Random Glucose 103 Calcium 8.5 Imaging: ITS Impressions Foot X-Ray 02/03/18 21:08 CONCLUSION: No acute bony injury. No foreign body. Prominent soft tissue swelling Scrotum Ultrasound 02/03/18 21:13 CONCLUSION: 1. Large right hydrocele. 2. Varicocele demonstrated on the left. 3. Testes are within normal limits. Abdomen/Bladder Ultrasound 02/07/18 00:00 CONCLUSION: The kidneys appear echogenic and enlarged which can be seen with acute medical renal disease. No hydronephrosis is seen. SPECT Scan-Bone NM 02/07/18 00:00 CONCLUSION: 1. Hyperperfusion, hyperemia and increased bone uptake in the left forefoot region corresponding to the second and third distal metatarsal and proximal phalanges. Diffuse soft tissue edema but no corresponding bony erosion on CT exam. Overall, findings are concerning for early acute osteomyelitis Abdomen X-Ray 02/08/18 00:00 CONCLUSION: Benign-appearing abdomen. Physical Exam: GENERAL: Well-nourished well-developed, not in acute distress SKIN: Cool and dry, no generalized rash HEAD: Atraumatic. Normocephalic. No temporal or scalp tenderness. EYES: Pupils equal round and reactive. Scleral icterus. No injection or drainage. No petechia ENT: Nothing abnormal detected NECK: Trachea midline. Supple, nontender, no meningeal signs. CARDIOVASCULAR: HS audible. RESPIRATORY: Clear to auscultation bilaterally. GASTROINTESTINAL: Abdomen soft nontender. MUSCULOSKELETAL: Left foot in dressing, incisions all dry, no redness, no drainage. NEUROLOGICAL: Non-focal Psych cooperative IV line sites ok. Assessment and Plan - Plan Left foot cellulitis MSSA wound infection. Right groin pain, Large right hydrocele Left groin varicocele. acute renal failure: ? prerenal ? vanco induced. will follow trend to see if Zosyn could be a culprit. - improving CRP elevated. Recs: Change to keflex, plan 10 more days - he could get this free at [employer] or use his blue card OK for D/C Explained plan and recommendations to the patient D/W MARISSA
[2018-02-15 12:27] LABS: Albumin 2.8 g/dL (3.4-5.0); Calcium 9.4 mg/dL (8.5-10.1); Carbon Dioxide 23.2 meq/L (21.0-32.0); Phosphorus 2.6 mg/dL (2.5-4.9); Potassium 3.9 meq/L (3.5-5.1)
--- NOTE | 2018-02-15 13:03 | P.DS ---
Date of admission: 02/04/18 00:06 Primary care physician: No Primary Care Physician Brief History from admission: Pleasant 47-year-old AA male presents emergency department for evaluation of left foot and right scrotal pain. Patient was in the emergency department a couple of days ago and actually discharged yesterday on clindamycin and Levaquin. Today he is complaining of nausea and vomiting. He says his left foot and right scrotal pain is 10/10 on admission. According to the patient, he was advised to return if his right scrotum pain increased or if he noticed swelling was increased. He believes he has nausea and vomiting secondary to the scrotal pain. He denies fevers or chills. Denies chest pain, shortness of breath. Says he is anxious about taking the antibiotics because of the side effects as described by the pharmacist upon discharge. He has a history of a hydrocele, diagnosed January 30. Patient received IV abx. Also pain meds. Says pain is better controlled now. No n/v/d/c. Discussed with Dr Santacruz podiatry work up for to r/o osteo DS: Diagnosis - Discharge Diagnosis (1) Left foot infection Status: Acute DS: Medications - Discharge Medications Prescriptions: amlodipine [Norvasc] 5 mg PO BID #30 tab cephalexin 500 mg PO Q8HR #30 cap hydralazine 50 mg PO TID #30 tab metoprolol tartrate 50 mg PO BID #60 tab oxycodone 5 mg PO Q8H PRN #21 tab PRN Reason: Acute Pain DS: Summary Hospital Course: Patient was admitted. Underwent incision and biopsy of the left foot. Blood cultures were negative. Biopsy did not show evidence of osteomyelitis. Also had nephrology consultation given significant acute renal impairment which was deduced to be secondary to vancomycin exposure and NSAID use at home. Renal function had improved significantly with supportive care. Patient has met maximal benefit from hospitalization and is clinically stable for discharge. Needs to follow-up with nephrology and podiatry within 1 week. To be on antibiotics for 10 more days. Patient is having significant pain caused by [-] which will last more than 3 days. I believe that it is medically necessary to treat patients pain because it is affecting patients ability to function at home. - Time Spent with Patient Total time spent providing and/or coordinating discharge services: Less than 30 minutes - Quality: VTE Deep Vein Thrombosis/Pulmonary Embolism Present on Admission: No Exam Vital signs: Vital Signs 02/14/18 16:00 02/14/18 16:40 02/14/18 20:25 Temperature 99.2 F 99.5 F Pulse Rate 92 H 93 H Respiratory Rate 18 16 20 Blood Pressure 157/93 H 163/100 H Pulse Oximetry 98 97 02/15/18 00:42 02/15/18 08:00 Temperature 98.7 F 98.2 F Pulse Rate 80 94 H Respiratory Rate 20 16 Blood Pressure 147/87 H 159/96 H Pulse Oximetry 98 100 Intake & Output 02/14/18 02/15/18 02/15/18 18:59 06:59 18:59 Intake Total 1720 / 1720 1480 / 1480 1100 / 1100 Balance 1720 / 1720 1480 / 1480 1100 / 1100 Intake: IV 1000 / 1000 1000 / 1000 1100 / 1100 D5W/NS + KCL 20 mEq Inj 1,000 1000 / 1000 1000 / 1000 1000 / 1000 ML @ 84 mls/hr IV.CONT .[id number] [facility] Rx#:[id number] Rocephin Inj 2,000 MG In NS Inj 100 / 100 100 ML @ 200 mls/hr IV.SIG Q24H [facility] Rx#:[id number] Oral 720 / 720 480 / 480 Other: # Voids 4 2 Date of Last Bowel Movement 02/14/18 # Bowel Movements 0 Narrative: Left foot and wound dressing, no purulence noted Results Procedures completed during hospitalization: Left foot incision drainage bone biopsy 2 3 metatarsal Labs on day of discharge: Labs from last 24 hours 02/15/18 11:34 Sodium 135 L Potassium 3.9 Chloride 99 Carbon Dioxide 23.2 Anion Gap 13 BUN 11 Creatinine 2.11 H Estimated GFR 41 L Random Glucose 82 Calcium 9.4 D Phosphorus 2.6 Albumin 2.8 L - Impressions ITS Impressions Foot X-Ray 02/03/18 21:08 CONCLUSION: No acute bony injury. No foreign body. Prominent soft tissue swelling Scrotum Ultrasound 02/03/18 21:13 CONCLUSION: 1. Large right hydrocele. 2. Varicocele demonstrated on the left. 3. Testes are within normal limits. Abdomen/Bladder Ultrasound 02/07/18 00:00 CONCLUSION: The kidneys appear echogenic and enlarged which can be seen with acute medical renal disease. No hydronephrosis is seen. SPECT Scan-Bone NM 02/07/18 00:00 CONCLUSION: 1. Hyperperfusion, hyperemia and increased bone uptake in the left forefoot region corresponding to the second and third distal metatarsal and proximal phalanges. Diffuse soft tissue edema but no corresponding bony erosion on CT exam. Overall, findings are concerning for early acute osteomyelitis Abdomen X-Ray 02/08/18 00:00 CONCLUSION: Benign-appearing abdomen. Discharge Plan - Discharge Disposition Patient Disposition: 01 Discharge Home - Discharge Condition Condition: Stable - Discharge Order Discharge Orders: Discharge Order (Routine); Ordered 02/15/18 Ordered By: Mendel Adkins - Physicians Team Primary Care Provider: Primary Care Physici,Vania Attending Provider: Mendel Adkins Other Providers: Trina Santacruz DPM ; Melva Huff MD ; Marcus Booker MD ; Norberto Greer MD ; Shaggy Ulloa MD ; [facility]
[2018-02-15 13:58] LABS: Baso # (Auto) 0.1 th/mm3 (0.0-0.2); Baso % (Auto) 1.2 % (0.0-2.0); Eos # (Auto) 0.6 th/mm3 (0.0-0.4); Eos % (Auto) 6.3 % (0.0-4.0); Hematocrit 37.4 % (39.0-51.0); Hemoglobin 11.7 gm/dL (13.0-17.0); Lymph # (Auto) 1.5 th/mm3 (1.0-4.8); Lymph % (Auto) 16.7 % (9.0-44.0); Mean Corpuscular HGB Conc 31.3 % (32.0-36.0); Mean Corpuscular Hemoglobin 22.3 pg (27.0-34.0); Mean Corpuscular Volume 71.3 fL (80.0-100.0); Mean Platelet Volume 7.6 fL (7.0-11.0); Mono # (Auto) 1.1 th/mm3 (0.0-0.9); Mono % (Auto) 12.2 % (0.0-8.0); Neut # (Auto) 5.8 th/mm3 (1.8-7.7); Neut % (Auto) 63.6 % (16.0-70.0); Platelet Count 389 th/mm3 (150-450); Red Blood Count 5.24 mil/mm3 (4.50-5.90); Red Cell Distribution Width 14.9 % (11.6-17.2); White Blood Count 9.1 th/mm3 (4.0-11.0)
== END 2018-02-15 15:48 | disposition home or self-care (01) ==
LOC: NEPC 16:24 → NEDA 02-04 00:06 → N07 02-04 04:47
PROVIDERS: ADMIT Hospitalist; ATTEND Hospitalist

== ENCOUNTER 2018-07-09 08:47 | Observation (INO) ==
[2018-07-09] MEDS ORDERED: Sod Chloride 0.9% Inj 1,000 ML IV.SIG ONE (09:49)
--- NOTE | 2018-07-09 10:18 | ED ---
HPI General Chief complaint: Nausea/Vomiting/Diarrhea Stated complaint: Nausea/Vomitting Complaint Time Seen by Provider: 07/09/18 09:41 Source: patient Mode of arrival: ambulatory Limitations: no limitations History of Present Illness HPI Narrative: Patient is a 47-year-old male, past medical history significant for hydrocele, who presents with complaint of nausea and vomiting for the last 3 days. The vomiting has been nonbilious and nonbloody. No associated abdominal pain, fever, chills, diarrhea. No constipation. He believes he is dehydrated. He does complain of slight pain to the scrotum which he states is chronic and unchanged secondary to his hydrocele. No previous abdominal surgeries. No chest pain or shortness of breath. No penile discharge. complaint: Reports nausea and vomiting Onset (ago): day(s) Description of Vomiting: food contents Description of Diarrhea: none Associated Abdominal Pain: No Severity: mild Relieving factors: none Exacerbating factors: none Associated symptoms: Reports denies other symptoms Related Data Previous Rx's Medication Instructions Recorded amlodipine [Norvasc] 5 mg PO BID #30 tab 02/15/18 cephalexin 500 mg PO Q8HR #30 cap 02/15/18 hydralazine 50 mg PO TID #30 tab 02/15/18 metoprolol tartrate 50 mg PO BID #60 tab 02/15/18 oxycodone 5 mg PO Q8H PRN #21 tab 02/15/18 ondansetron HCl [Zofran] 4 mg PO Q6H PRN #12 tab 07/07/18 promethazine 25 mg PO Q6H PRN #14 tab 07/07/18 ondansetron [Zofran ODT] 4 mg PO Q6H PRN #10 tab 07/08/18 promethazine 25 mg PO Q6H PRN #10 tab 07/08/18 Allergies Allergy/AdvReac Type Severity Reaction Status Date / Time lactose Allergy Severe Hives Verified 07/09/18 09:35 milk Allergy Severe Anaphylaxis Verified 07/09/18 09:35 Sulfa (Sulfonamide Allergy Unknown ITCHING Verified 07/09/18 09:35 Antibiotics) Review of Systems ROS: all other systems reviewed are negative [facility] Medical History Medical History Hydrocele in adult (Acute) Hypertension (Acute) Surgical History Surgical History History of facial surgery (Acute) Family History Family History Other Diabetes Social History Social History Substance History: Active Abuse Second Hand Smoke Exposure: No Smoking Status: Former smoker How Often Do You Have a Drink Containing Alcohol: Never Recent Travel in [facility] within the Last 8 Weeks: No Recent Out of Country Travel within the Last 8 Weeks: No Substance Abuse Detail Marijuana: Route Used Substance Abuse: Inhalation Immunization History Tetanus Immunization: Unsure Tetanus Immunization Year if Known: 2017 Exam Narrative Exam Narrative: GENERAL: Well-appearing male in no acute distress SKIN: Focused skin assessment warm/dry. HEAD: Atraumatic. Normocephalic. EYES: Pupils equal and round. No scleral icterus. No injection or drainage. ENT: No nasal bleeding or discharge. Mucous membranes pink and slightly tacky. NECK: Trachea midline. No JVD. CARDIOVASCULAR: Regular rate and rhythm. No murmur appreciated. Intact and equal peripheral pulses. RESPIRATORY: No accessory muscle use. Clear to auscultation. Breath sounds equal bilaterally. GASTROINTESTINAL: Abdomen soft, non-tender, nondistended. Hepatic and splenic margins not palpable. No CVA tenderness. : Large R hydrocele. Slight tenderness to palpation of the testes which he states is chronic and unchanged. MUSCULOSKELETAL: No obvious deformities. No clubbing. No cyanosis. No edema. NEUROLOGICAL: Awake and alert. No obvious cranial nerve deficits. Motor grossly within normal limits. Normal speech. PSYCHIATRIC: Appropriate mood and affect; insight and judgment normal. Course Hospital Course: 1600: Patient has begun vomiting again while in CT. Initial Documented Vital Signs Temperature 99.1 F 07/09/18 09:00 Pulse Rate 79 07/09/18 09:00 Respiratory Rate 14 07/09/18 09:00 Blood Pressure 225/110 H 07/09/18 09:00 Pulse Oximetry 98 07/09/18 09:00 Last Documented Vital Signs Temperature 99.1 F 07/09/18 09:00 Pulse Rate 92 H 07/09/18 18:55 Respiratory Rate 20 07/09/18 18:55 Blood Pressure 143/72 H 07/09/18 18:55 Pulse Oximetry 100 07/09/18 18:55 Medical Decision Making MDM Narrative Medical decision making narrative: Patient Is a 47-year-old male who presents with complaint of nausea and vomiting intermittently for the last several days. He appears slightly dehydrated on exam. Labs reveal slight hypokalemia but are otherwise unremarkable. CT does not show any acute process and ultrasound of his testes shows hydroceles but no other abnormality. He required multiple doses of antiemetics but continues to have vomiting despite Zofran, Reglan, Ativan, Haldol. He has been admitted for further management. Medical Screen Exam Complete: Yes Emergency Medical Condition: Yes Differential Diagnosis Differential Diagnosis: Differential diagnosis includes but is not limited to acute kidney injury, dehydration, electrolyte abnormality, gastroenteritis, testicular torsion. Medical Records Medical records reviewed: Yes I reviewed the patient's medical records. Lab Data Result diagrams: 07/09/18 16:31 07/09/18 12:03 Lab Results 07/09/18 07/09/18 07/09/18 Range/Units 12:03 16:31 16:31 WBC 11.8 H (4.0-11.0) th/mm3 RBC 5.15 (4.50-5.90) mil/mm3 Hgb 12.0 L (13.0-17.0) gm/dL Hct 36.6 L (39.0-51.0) % MCV 71.1 L (80.0-100.0) fL MCH 23.4 L (27.0-34.0) pg MCHC 32.8 (32.0-36.0) % RDW 14.7 (11.6-17.2) % Plt Count 315 (150-450) th/mm3 MPV 7.7 (7.0-11.0) fL Sodium 141 (136-145) meq/L Potassium 3.1 L D (3.5-5.1) meq/L Chloride 102 (98-107) meq/L Carbon Dioxide 29.3 (21.0-32.0) meq/L Anion Gap 10 (5-15) meq/L BUN 17 (7-18) mg/dL Creatinine 1.03 (0.60-1.30) mg/dL Estimated GFR Greater than 89 (>89) mL/min Random Glucose 135 H (74-106) mg/dL Calcium 8.6 D (8.5-10.1) mg/dL Magnesium 2.0 (1.5-2.5) mg/dL Troponin I (0.02-0.05) ng/mL Lipase 36 L (73-393) U/L Urine Color (Yellw/Straw) Urine Clarity (Clear) Urine pH (5.0-8.5) Ur Specific [place] (1.002-1.035) Urine Protein (Neg-Trace) mg/dL Urine Glucose (UA) (Negative) mg/dL Urine Ketones (Negative) mg/dL Urine Occult Blood (Negative) Urine Nitrate (Negative) Urine Bilirubin (Negative) Urine Urobilinogen (Less than 2) mg/dL Ur Leukocyte Esterase (Negative) Urine RBC (0-3) /hpf Urine WBC (0-5) /hpf Hyaline Casts (0-3) /lpf Urine Mucus (Occasional) /lpf Micro UA Comment Ur Microscopic Review Urine Culture Comments 07/09/18 07/09/18 Range/Units 16:31 18:34 WBC (4.0-11.0) th/mm3 RBC (4.50-5.90) mil/mm3 Hgb (13.0-17.0) gm/dL Hct (39.0-51.0) % MCV (80.0-100.0) fL MCH (27.0-34.0) pg MCHC (32.0-36.0) % RDW (11.6-17.2) % Plt Count (150-450) th/mm3 MPV (7.0-11.0) fL Sodium (136-145) meq/L Potassium (3.5-5.1) meq/L Chloride (98-107) meq/L Carbon Dioxide (21.0-32.0) meq/L Anion Gap (5-15) meq/L BUN (7-18) mg/dL Creatinine (0.60-1.30) mg/dL Estimated GFR (>89) mL/min Random Glucose (74-106) mg/dL Calcium (8.5-10.1) mg/dL Magnesium (1.5-2.5) mg/dL Troponin I Less than 0.02 L (0.02-0.05) ng/mL Lipase (73-393) U/L Urine Color Yellow (Yellw/Straw) Urine Clarity Clear (Clear) Urine pH 6.0 (5.0-8.5) Ur Specific [place] 1.033 (1.002-1.035) Urine Protein 500 or greater (Neg-Trace) mg/dL Urine Glucose (UA) 50 (Negative) mg/dL Urine Ketones 20 (Negative) mg/dL Urine Occult Blood Small H (Negative) Urine Nitrate Negative (Negative) Urine Bilirubin Negative (Negative) Urine Urobilinogen Less than 2 (Less than 2) mg/dL Ur Leukocyte Esterase Negative (Negative) Urine RBC 2 (0-3) /hpf Urine WBC 1 (0-5) /hpf Hyaline Casts 1 (0-3) /lpf Urine Mucus Few H (Occasional) /lpf Micro UA Comment Culture not ind Ur Microscopic Review Not Reportable Urine Culture Comments Culture not ind Imaging Data Radiologist's impression: Scrotum Ultrasound 07/09/18 09:49 CONCLUSION: 1. Large right-sided hydrocele with significant internal debris. 2. Small left-sided hydrocele. 3. Normal testicular echotexture and flow. 4. No evidence of suspicious mass. Abdomen/Pelvis CT 07/09/18 13:16 CONCLUSION: 1. Large right hydrocele. There is a milder left hydrocele. 2. 3.4 cm presumed enlarged lymph node in the left inguinal region. 3. Suspected hepatic steatosis. ECG Data EKG Prior to Arrival: No Attestation: I personally reviewed and interpreted this ECG as follows: (Sinus rhythm at a rate of 93 bpm. T wave flattening in leads III but no other ST or T wave changes.) Discharge Plan Discharge Disposition Patient Disposition: ED Admit(ED Internal Use Only) Discharge Condition Condition: Stable Discharge Order Discharge Orders: ED Use Only Admit Order (Routine); Ordered 07/09/18 Ordered By: Keri uLz Discharge Details Diagnosis: Intractable nausea and vomiting Physicians Team ED Provider: Keri Luz Primary Care Provider: Primary Care Dominici,No Attending Provider: Jas Steinberg Other Providers: Marcus Booker Discharge Interventions Interventions: Vital Signs Last Done: 07/09/18 16:41 Status ED Status: Admitted Observation Patient
--- NOTE | 2018-07-09 11:19 | US ---
EXAM DATE: 07/09/2018 11:02 AM EST AGE/SEX: 47 years / Male INDICATIONS: Testicular pain. CLINICAL DATA: This is the patient's subsequent encounter. Patient reports that signs and symptoms h ave been present for > 1 year and indicates a pain score of 10/10. MEDICAL/SURGICAL HISTORY: . Hypertension. Renal failure, acute. Anemia. Hydrocele. None. COMPARISON: [facility] [place], [place] TESTICLES W DOPPLER, 07/07/2018. . MEASUREMENTS: Right Testicle:__4.3 x 2.2 x 2.5 cm Left Testicle:__3.8 x 1.8 x 2.7 cm FINDINGS: RIGHT: Testicle: Homogeneous echotexture without intra or extratesticular mass. Blood flow is symmetric and within normal limits. Epididymis: Within normal limits. Hydrocele: Moderate-large hydrocele present. Varicocele: No evidence of varicocele. LEFT: Testicle: Homogeneous echotexture without intra or extratesticular mass. Blood flow is symmetric and within normal limits. Epididymis: Visualized cyst. Hydrocele: Small hydrocele present. Varicocele: No evidence of varicocele. Scrotum: Within normal limits. CONCLUSION: 1. Large right-sided hydrocele with significant internal debris. 2. Small left-sided hydrocele. 3. Normal testicular echotexture and flow. 4. No evidence of suspicious mass. Electronically signed by: Steve Daniel MD 07/09/2018 11:17 AM EST
[2018-07-09] MEDS ORDERED: amLODIPine 5 MG Tablet PO ONE (11:32)
[2018-07-09] MEDS ORDERED: hydrALAZINE 25 MG Tablet PO ONE (11:32)
[2018-07-09 12:29] LABS: Anion Gap 10 meq/L (5-15); Blood Urea Nitrogen 17 mg/dL (7-18); Calcium 8.6 mg/dL (8.5-10.1); Carbon Dioxide 29.3 meq/L (21.0-32.0); Chloride 102 meq/L (98-107); Glomerular Filtration Rate Greater Than 89 mL/min (>89); Glucose,Random 135 mg/dL (74-106); Potassium 3.1 meq/L (3.5-5.1); Sodium 141 meq/L (136-145)
[2018-07-09] MEDS ORDERED: Aluminum/Magnesium/Simethacone Susp 30 ML UDC PO ONE (13:03)
[2018-07-09] MEDS ORDERED: Famotidine PF Inj 20 MG/2 ML Vial IV.PUSH ONE (13:03)
[2018-07-09] MEDS ORDERED: Sod Chloride 0.9% Inj 1,000 ML IV.SIG SCH ×2 (13:15→16:00)
[2018-07-09] MEDS ORDERED: hydrALAZINE HCl Inj 20 MG/ML Vial IV.PUSH ONE ×2 (13:18→16:44)
[2018-07-09] MEDS ORDERED: Potassium Chlor 20 mEq Premix 20 MEQ/100 ML PIGGYBACK IV.SIG ONE (16:03)
[2018-07-09 16:48] LABS: Hematocrit 36.6 % (39.0-51.0); Mean Corpuscular HGB Conc 32.8 % (32.0-36.0); Mean Corpuscular Hemoglobin 23.4 pg (27.0-34.0); Mean Corpuscular Volume 71.1 fL (80.0-100.0); Mean Platelet Volume 7.7 fL (7.0-11.0); Platelet Count 315 th/mm3 (150-450); Red Blood Count 5.15 mil/mm3 (4.50-5.90); Red Cell Distribution Width 14.7 % (11.6-17.2); White Blood Count 11.8 th/mm3 (4.0-11.0)
--- NOTE | 2018-07-09 17:05 | CT ---
EXAM DATE: 07/09/2018 4:23 PM EST AGE/SEX: 47 years / Male INDICATIONS: Nausea and vomiting today. CLINICAL DATA: This is the patient's initial encounter. Patient reports that signs and symptoms have been present for 1 day and indicates a pain score of 5/10. MEDICAL/SURGICAL HISTORY: Hypertension. None. ORAL CONTRAST: No oral contrast ingested. RADIATION DOSE: 14.04 CTDI (mGy) COMPARISON: [facility] [place] ABDOMEN & PELVIS W/O CONTRAST, 07/07/2018. . TECHNIQUE: Multiple contiguous axial images were obtained through the abdomen and pelvis following b olus infusion of 94 ml Omnipaque 350 (iohexol) nonionic water-soluble contrast as a single exam dos e. No oral contrast ingested. Using automated exposure control and adjustment of the mA and/or kV ac cording to patient size, radiation dose was kept as low as reasonably achievable to obtain optimal di agnostic quality images. DICOM format image data is available electronically for review and comparis on. FINDINGS: Lower Lungs: The visualized lower lungs are clear. Liver: There is mild decreased attenuation of the liver compared to the spleen. No focal hepatic lesi ons are seen. The gallbladder is unremarkable. Spleen: Homogeneous density without enlargement. Pancreas: Unremarkable without mass or calcification. Kidneys: Normal in size and shape. No evidence of mass or hydronephrosis. Adrenal Glands: Unremarkable. Aorta: The aorta and proximal iliac vessels are grossly unremarkable without aneurysmal dilation. Bowel/Mesentery: The bowel loops are grossly unremarkable. The cecum and sigmoid colon have a normal configuration. Abdominal Wall: Intact. Retroperitoneum: No evidence of adenopathy in the retrocrural, para-aortic, or deep pelvic regions. Bladder: Contours are smooth. Reproductive Organs: No abnormal masses or calcifications seen. There is a large right hydrocele. Th ere is a milder left hydrocele. Inguinal: There is a 3.4 x 1.7 cm soft tissue lobulated mass in the left inguinal region presumably related to an enlarged lymph node in this region. There are normal-sized lymph nodes seen on the righ t inguinal region. Bony Structures: There is degenerative change in the lower lumbar spine. CONCLUSION: 1. Large right hydrocele. There is a milder left hydrocele. 2. 3.4 cm presumed enlarged lymph node in the left inguinal region. 3. Suspected hepatic steatosis. Electronically signed by: Gordo Herman MD 07/09/2018 5:04 PM EST
[2018-07-09] MEDS ORDERED: Haloperidol Inj 5 MG/ML Ampul IV.PUSH ONE (17:08)
[2018-07-09] MEDS ORDERED: Acetaminophen 325 MG Tablet PO PRN (17:15)
[2018-07-09] MEDS ORDERED: Bisacodyl 10 MG Supp RECTAL PRN (17:15)
[2018-07-09] MEDS: Labetalol HCl Inj 100 MG/20 ML Vial IV.PUSH ONE ×2 (18:28→19:06)
--- NOTE | 2018-07-09 18:37 | P.HP ---
History of Present Illness Service: Hospitalist Primary Care Physician: No Primary Care Physician Chief Complaint: Scrotal pain, nausea, vomiting, hypertension. History of Present Illness: Mr. Luna is a 47-year-old -[place] male with a history of hydrocele, hypertension who presented to the emergency department on 07/09/2018 due to acute on chronic scrotal pain, nausea vomiting. At the time of this interview, patient is lying in bed with face covered with a blanket. He does not talk too much.History is limited. Patient reports onset of his symptoms about 2 and half hour prior to arrival to the ED. He denies any fever but reports some chills. He denies any chest pain, abdominal pain. No changes in bowel or bladder habits. Past medical history: Hydrocele, hypertension Past surgical history: Foot surgery Social history: He denies using tobacco or alcohol. He does use marijuana occasionally. Family history: No family history of heart disease, cancer, diabetes mellitus. Review of Systems All other systems reviewed negative except as stated in HPI PMF - History History Provided By: Patient - Medical History Medical History: Medical History (Last Reviewed 07/09/18 @ 18:30 by Jas Steinberg DO) Hydrocele in adult Hypertension - Surgical History Surgical History: Surgical History (Last Reviewed 07/09/18 @ 18:30 by Jas Steinberg DO) History of facial surgery - Family History Family History: Family History (Last Reviewed 07/09/18 @ 18:30 by Jas Steinberg DO) Other Diabetes - Tobacco History Second Hand Smoke Exposure: No Tobacco Use In Past 30 Days: No Smoking Status: Former smoker - Alcohol History How Often Do You Have a Drink Containing Alcohol: Never - Substance Use History Substance History: Active Abuse - Substance Use Type Marijuana Route Used: Inhalation - Travel History Recent Travel in the [place] Within the Last 8 Weeks: No Recent Travel Out of the Country Within the Last 8 Weeks: No - Immunization History Tetanus Immunization: Unsure Tetanus Immunization Year if Known: 2017 Medications and Allergies Active Medications: Active Medications Acetaminophen (Tylenol) 650 mg PO Q4H PRN PRN Reason: Headache, fever, pain 1-4 Al Hydroxide/Mg Hydroxide (Milk Of Magnesia Liq) 30 ml PO Q12H PRN PRN Reason: Mild Constipation Bisacodyl (Dulcolax Supp) 10 mg RECTAL DAILY PRN PRN Reason: SEVERE CONSITIPATION Sodium Chloride (Ns Inj) 1,000 mls @ 100 mls/hr IV.CONT .Q10H HUANG Stop: 07/12/18 17:14 Labetalol HCl (Trandate Inj) 20 mg IV.PUSH ONCE ONE Stop: 07/09/18 18:31 Lactulose (Lactulose Liq) 30 ml PO DAILY PRN PRN Reason: SEVERE CONSITIPATION Ondansetron HCl (Zofran Inj) 4 mg IV.PUSH Q6H PRN PRN Reason: NAUSEA OR VOMITING Sennosides (Senokot) 17.2 mg PO Q12H PRN PRN Reason: Moderate Constipation Sodium Chloride (Ns Flush) 2 ml IV.FLUSH BID HUANG Sodium Chloride (Ns Flush) 2 ml IV.FLUSH PRN PRN PRN Reason: FLUSH AFTER USING IV ACCESS Allergies Allergy/AdvReac Type Severity Reaction Status Date / Time lactose Allergy Severe Hives Verified 07/09/18 09:35 milk Allergy Severe Anaphylaxis Verified 07/09/18 09:35 Sulfa (Sulfonamide Allergy Unknown ITCHING Verified 07/09/18 09:35 Antibiotics) Exam Vital signs: Vital Signs 07/09/18 09:00 07/09/18 09:26 07/09/18 16:41 Temperature 99.1 F Pulse Rate 79 76 99 H Respiratory Rate 14 18 20 Blood Pressure 225/110 H 225/112 H 213/105 H Pulse Oximetry 98 99 100 Intake & Output 07/08/18 07/09/18 07/09/18 18:59 06:59 18:59 Intake Total 3000 / 3000 Balance 3000 / 3000 Weight 122.47 kg Intake: IV 3000 / 3000 NS Inj 1,000 ML @ 1000 mls/hr 1000 / 1000 IV.SIG BOLUS [facility] Rx#:[id number] Narrative: GENERAL: This is a well-nourished, well-developed patient, in no apparent distress. SKIN: No rashes, ecchymoses or lesions. Warm and dry. HEAD: Atraumatic. Normocephalic. No temporal or scalp tenderness. EYES: Pupils equal round and reactive. No injection or drainage. ENT: Nose without bleeding, purulent drainage or septal hematoma. Airway patent. NECK: Trachea midline. No lymphadenopathy. Supple, nontender, no meningeal signs. CARDIOVASCULAR: Regular rhythm, tachycardic without murmurs, gallops, or rubs. No JVD. RESPIRATORY: Clear to auscultation. Breath sounds equal bilaterally. No wheezes , rales, or rhonchi. GASTROINTESTINAL: Abdomen soft, non-tender, nondistended. No guarding. MUSCULOSKELETAL: Extremities without clubbing, cyanosis, or edema. : Large swollen scrotal area and very tender to even light palpation. NEUROLOGICAL: Awake and alert. Cranial nerves II through XII intact. No focal neurological deficits. Normal speech. Results - Labs CBC & Chem 7: 07/09/18 16:31 07/09/18 12:03 Labs: Laboratory Results - last 24 hr 07/09/18 07/09/18 07/09/18 12:03 16:31 16:31 WBC 11.8 H RBC 5.15 Hgb 12.0 L Hct 36.6 L MCV 71.1 L MCH 23.4 L MCHC 32.8 RDW 14.7 Plt Count 315 MPV 7.7 Sodium 141 Potassium 3.1 L D Chloride 102 Carbon Dioxide 29.3 Anion Gap 10 BUN 17 Creatinine 1.03 Estimated GFR Greater than 89 Random Glucose 135 H Calcium 8.6 D Magnesium 2.0 Troponin I Lipase 36 L 07/09/18 16:31 WBC RBC Hgb Hct MCV MCH MCHC RDW Plt Count MPV Sodium Potassium Chloride Carbon Dioxide Anion Gap BUN Creatinine Estimated GFR Random Glucose Calcium Magnesium Troponin I Less than 0.02 L Lipase - Imaging Impressions Scrotum Ultrasound 07/09/18 09:49 CONCLUSION: 1. Large right-sided hydrocele with significant internal debris. 2. Small left-sided hydrocele. 3. Normal testicular echotexture and flow. 4. No evidence of suspicious mass. Abdomen/Pelvis CT 07/09/18 13:16 CONCLUSION: 1. Large right hydrocele. There is a milder left hydrocele. 2. 3.4 cm presumed enlarged lymph node in the left inguinal region. 3. Suspected hepatic steatosis. Caprini VTE Risk Assessment Caprini VTE Risk Assessment: No/Low Risk (score <= 1) Caprini Risk Assessment Model: Point Value = 1 Point Value = 2 Point Value = 3 Point Value = 5 Age 41-60 Minor surgery BMI > 25 kg/m2 Swollen legs Varicose veins or History of unexplained or recurrent spontaneous Oral contraceptives or hormone replacement Sepsis (< 1 month) Serious lung disease, including pneumonia (< 1 month) Abnormal pulmonary function Acute myocardial infarction Congestive heart failure (< 1 month) History of inflammatory bowel disease Medical patient at bed rest Age 61-74 Arthroscopic surgery Major open surgery (> 45 min) Laparoscopic surgery (> 45 min) Malignancy Confined to bed (> 72 hours) Immobilizing plaster cast Central venous access Age >= 75 History of VTE Family history of VTE Factor V Leiden Prothrombin [id number] Lupus anticoagulant Anticardiolipin antibodies Elevated serum homocysteine Heparin-induced thrombocytopenia Other congenital or acquired thrombophilia Stroke (< 1 month) Elective arthroplasty Hip, pelvis, or leg fracture Acute spinal cord injury (< 1 month) Prophylaxis Regimen: Total Risk Factor Score Risk Level Prophylaxis Regimen 0-1 Low Early ambulation 2 Moderate Order ONE of the following: *Sequential Compression Device (SCD) *Heparin 5000 units SQ BID 3-4 Higher Order ONE of the following medications: *Heparin 5000 units SQ TID *Enoxaparin/Lovenox 40 mg SQ daily (WT < 150 kg, CrCl > 30 mL/min) *Enoxaparin/Lovenox 30 mg SQ daily (WT < 150 kg, CrCl > 10-29 mL/min) *Enoxaparin/Lovenox 30 mg SQ BID (WT < 150 kg, CrCl > 30 mL/min) AND/OR *Sequential Compression Device (SCD) 5 or more Highest Order ONE of the following medications: *Heparin 5000 units SQ TID (Preferred with Epidurals) *Enoxaparin/Lovenox 40 mg SQ daily (WT < 150 kg, CrCl > 30 mL/min) *Enoxaparin/Lovenox 30 mg SQ daily (WT < 150 kg, CrCl > 10-29 mL/min) *Enoxaparin/Lovenox 30 mg SQ BID (WT < 150 kg, CrCl > 30 mL/min) AND *Sequential Compression Device (SCD) Assessment and Plan - Plan Mr. Luna is a 47-year-old -[place] male with a history of hydrocele, hypertension who presents to the emergency department due to an acute on chronic scrotal area pain as well as nausea and vomiting. He was found to have hypertensive urgency with blood pressure over 200 systolic. Hydrocele Acute nausea vomiting Ultrasound shows large right-sided hydrocele with significant internal debris. We will consult urology for an evaluation. Acetaminophen, [place], morphine for pain management. Bowel regimen in place. Continue IV fluid. Hypertensive urgency Likely due to acute pain. Patient received hydralazine for blood pressure control. Will give 20 mg of IV labetalol. Patient will likely need long-term BP medication such as amlodipine. We will continue amlodipine 10 mg daily tomorrow morning. Hypokalemia Patient received p.o. potassium supplements. We will check BMP in the morning. If low consider IV potassium supplement. Full code. Ambulation, SCDs.
[2018-07-09 19:11] LABS: Bilirubin,Urine Negative (Negative); Clarity,Urine Clear (Clear); Color,Urine Yellow (Yellw/Straw); Glucose,Urine (UA) 50 mg/dL (Negative); Hyaline Casts,Urine 1 /lpf (0-3); Leukocyte Esterase,Urine Negative (Negative); Mucus,Urine Few /lpf (Occasional); Nitrite,Urine Negative (Negative); Specific Gravity,Urine 1.033 (1.002-1.035)
--- NOTE | 2018-07-09 21:10 | ECG ---
Date Performed: 07/09/2018 Time Performed: 10:18:23 PTAGE: 47 years EKG: Sinus rhythm LEFT ATRIAL ENLARGEMENT LEFT VENTRICULAR HYPERTROPHY POOR R WAVE PROGRESSION, CANNOT EXCLUDE ANTEROS EPTAL MYOCARDIAL INFARCTION Since the previous tracing, no significant change noted ABNORMAL ECG PREVIOUS TRACING : 01/31/2018 03.15 DOCTOR: Anjel Son Interpretating Date/Time 07/09/2018 21:09:37
[2018-07-09] MEDS: Sod Chloride 0.9% Inj 1,000 ML IV.CONT SCH (21:15)
[2018-07-09] MEDS ORDERED: Metoprolol Tartrate 50 MG Tablet PO ONE (21:53)
[2018-07-09] MEDS ORDERED: hydrALAZINE 10 MG Tablet PO ONE (22:00)
[2018-07-10] MEDS: Morphine Inj 4 MG/ML Vial IV.PUSH PRN ×2 (01:30→18:38)
[2018-07-10] MEDS ORDERED: hydrALAZINE 50 MG Tablet PO ONE (05:30)
[2018-07-10] MEDS: Sod Chloride 0.9% Inj 1,000 ML IV.CONT SCH ×2 (05:57→15:16)
[2018-07-10 08:27] LABS: Anion Gap 9 meq/L (5-15); Blood Urea Nitrogen 13 mg/dL (7-18); Calcium 7.9 mg/dL (8.5-10.1); Carbon Dioxide 25.5 meq/L (21.0-32.0); Chloride 107 meq/L (98-107); Glomerular Filtration Rate Greater Than 89 mL/min (>89); Glucose,Random 112 mg/dL (74-106); Potassium 3.1 meq/L (3.5-5.1); Sodium 141 meq/L (136-145)
[2018-07-10] MEDS: amLODIPine 5 MG Tablet PO SCH (08:42)
--- NOTE | 2018-07-10 09:57 | ECG ---
Date Performed: 07/09/2018 Time Performed: 16:35:55 PTAGE: 47 years EKG: SINUS TACHYCARDIA WITH FREQUENT VENTRICULAR PREMATURE COMPLEXES LEFT ATRIAL ENLARGEMENT POS SIBLE RIGHT VENTRICULAR CONDUCTION DELAY POSSIBLE LEFT VENTRICULAR HYPERTROPHY POSSIBLE SEPTAL MYOCAR DIAL INFARCTION ABNORMAL ECG Since the PREVIOUS TRACING , no significant change noted PREVIOUS TRACIN07/09/2018 10.18 DOCTOR: Anjel Son Interpretating Date/Time 07/10/2018 09:56:26
[2018-07-10 11:17] LABS: Alanine Aminotransferase 14 U/L (12-78); Albumin 3.1 g/dL (3.4-5.0); Alkaline Phosphatase 73 U/L (45-117); Aspartate Aminotransferase 12 U/L (15-37); Total Protein 7.8 g/dL (6.4-8.2)
[2018-07-10] MEDS: hydrALAZINE 50 MG Tablet PO SCH ×2 (13:05→18:38)
[2018-07-10] MEDS: Metoprolol Tartrate 50 MG Tablet PO SCH ×2 (13:05→20:38)
[2018-07-10] MEDS ORDERED: Morphine Inj 4 MG/ML Vial IV.PUSH ONE (14:20)
--- NOTE | 2018-07-10 14:23 | P.PN ---
Subjective Interval history: Nursing denies any acute changes overnight. Patient reports that the morphine helps his pain a lot. He says that his scrotal edema has progressed since his last hospitalization a few months ago. He says that when he has an orgasm he has no ejaculate emission. Has noticed this over his last 3 sexual encounters, with the most recent one being about 2 weeks ago. He says that only when he milks his penis some semen is expressed. Patient says his nausea is still present but a lot better than yesterday, says that the nausea occurs when his scrotal pain flares. Physical Exam Vital signs: Vital Signs 07/09/18 16:41 07/09/18 18:55 07/09/18 20:00 Temperature 99.0 F Pulse Rate 99 H 92 H 82 Respiratory Rate 20 20 17 Blood Pressure 213/105 H 143/72 H 189/91 H Pulse Oximetry 100 100 98 07/09/18 21:24 07/10/18 00:00 07/10/18 04:00 Temperature 99.6 F 98.9 F Pulse Rate 83 75 Respiratory Rate 16 17 17 Blood Pressure 179/92 H 203/104 H Pulse Oximetry 98 99 07/10/18 08:00 07/10/18 12:00 Temperature 98.5 F 98.5 F Pulse Rate 75 75 Respiratory Rate 16 16 Blood Pressure 192/94 H 192/94 H Pulse Oximetry 99 99 Intake & Output 07/09/18 07/10/18 07/10/18 18:59 06:59 18:59 Intake Total 3000 / 3000 975 / 975 Output Total 400 / 400 Balance 3000 / 3000 575 / 575 Weight 122.47 kg 122.47 kg Intake: IV 3000 / 3000 975 / 975 NS Inj 1,000 ML @ 100 mls/hr IV 875 / 875 .CONT .Q10H HUANG Rx#:[id number] KCl 20 mEq Premix Inj 20 meq In 100 / 100 100 ml @ 50 mls/hr IV.SIG ONCE ONE Rx#:[id number] NS Inj 1,000 ML @ 1000 mls/hr 1000 / 1000 IV.SIG BOLUS HUANG Rx#:[id number] Output: Urine 400 / 400 Other: Date of Last Bowel Movement 07/08/18 Weight On Admission 122.47 kg Narrative: Clear lungs bilaterally, unlabored breathing Heart sounds regular rate and rhythm, no murmurs Scrotal edema evident, palpable hydrocele palpable right testicle which is very tender, there is no evidence of testicular torsion or epididymitis or erythema Abdomen soft, suprapubic area is tender to palpation, right lower quadrant and left lower quadrants are nontender Results - Labs CBC & Chem 7: 07/09/18 16:31 07/10/18 07:45 Laboratory Results - last 24 hr 07/09/18 07/09/18 07/09/18 16:31 16:31 16:31 WBC 11.8 H RBC 5.15 Hgb 12.0 L Hct 36.6 L MCV 71.1 L MCH 23.4 L MCHC 32.8 RDW 14.7 Plt Count 315 MPV 7.7 Sodium Potassium Chloride Carbon Dioxide Anion Gap BUN Creatinine Estimated GFR Random Glucose Calcium Total Bilirubin Direct Bilirubin Indirect Bilirubin AST ALT Alkaline Phosphatase Troponin I Less than 0.02 L Total Protein Albumin Lipase 36 L Urine Color Urine Clarity Urine pH Ur Specific [place] Urine Protein Urine Glucose (UA) Urine Ketones Urine Occult Blood Urine Nitrate Urine Bilirubin Urine Urobilinogen Ur Leukocyte Esterase Urine RBC Urine WBC Hyaline Casts Urine Mucus Micro UA Comment Ur Microscopic Review Urine Culture Comments 07/09/18 07/10/18 18:34 07:45 WBC RBC Hgb Hct MCV MCH MCHC RDW Plt Count MPV Sodium 141 Potassium 3.1 L Chloride 107 Carbon Dioxide 25.5 Anion Gap 9 BUN 13 Creatinine 0.87 Estimated GFR Greater than 89 Random Glucose 112 H Calcium 7.9 L Total Bilirubin 0.5 Direct Bilirubin 0.2 Indirect Bilirubin 0.3 AST 12 L ALT 14 Alkaline Phosphatase 73 Troponin I Total Protein 7.8 D Albumin 3.1 L Lipase Urine Color Yellow Urine Clarity Clear Urine pH 6.0 Ur Specific [place] 1.033 Urine Protein 500 or greater Urine Glucose (UA) 50 Urine Ketones 20 Urine Occult Blood Small H Urine Nitrate Negative Urine Bilirubin Negative Urine Urobilinogen Less than 2 Ur Leukocyte Esterase Negative Urine RBC 2 Urine WBC 1 Hyaline Casts 1 Urine Mucus Few H Micro UA Comment Culture not ind Ur Microscopic Review Not Reportable Urine Culture Comments Culture not ind - Imaging Impressions Abdomen/Pelvis CT 07/09/18 13:16 CONCLUSION: 1. Large right hydrocele. There is a milder left hydrocele. 2. 3.4 cm presumed enlarged lymph node in the left inguinal region. 3. Suspected hepatic steatosis. Assessment and Plan - Plan Mr. Luna is a 47-year-old -[place] male with a history of hydrocele, hypertension who presents to the emergency department due to an acute on chronic scrotal area pain as well as nausea and vomiting. He was found to have hypertensive urgency with blood pressure over 200 systolic. Scrotal pain -Suspect secondary to worsening chronic hydrocele, with ultrasound mentioning there is internal debris on the right side -urology consultation pending, pain control is warranted -UA neg -GC/chlamydia pending Acute nausea/vomiting Likely secondary to scrotal pain and hydrocele, LFTs within normal limits, treat above issue -obtain UDS and consider Gb US if urology input assesses otherwise Hypertensive urgency Continue amlodipine, hydralazine, and metoprolol Hypokalemia Secondary to few days of nausea vomiting Oral supplementation, recheck in a.m. Full code. Ambulation, SCDs given possible surgical intervention.
--- NOTE | 2018-07-10 18:22 | P.CONURO ---
History of Present Illness Service: Consult date: 07/10/18 Requesting Physician: Jas Steinberg Reason for Consult: Right hydrocele Primary Care Provider: No Primary Care Physician Chief Complaint: Scrotal pain, nausea, vomiting, hypertension. History of Present Illness: 47-year-old gentleman who presented to the emergency room with a 3-day history of nausea and vomiting. Patient also complained of scrotal discomfort due to swelling which is been present for the past several months. Imaging studies included a scrotal ultrasound that demonstrated a moderately sized right hydrocele along with a very small left hydrocele. There was good blood flow to both testes and there were no testicular masses noted. A CT scan of the abdomen pelvis also was performed that failed to demonstrate any significant pathology of the urinary tract. A urology consult was placed to address the moderately sized right hydrocele. At the time of consultation, the patient was resting quietly in bed and not in any acute distress. Review of Systems All other systems reviewed negative except as stated in HPI PMFSH - History History Provided By: Patient - Medical History Medical History: Medical History (Last Reviewed 07/09/18 @ 18:30 by Jas Steinberg DO) Hydrocele in adult Hypertension - Surgical History Surgical History: Surgical History (Last Reviewed 07/09/18 @ 18:30 by Jas Steinberg DO) History of facial surgery - Family History Family History: Family History (Last Reviewed 07/09/18 @ 18:30 by Jas Steinberg DO) Other Diabetes - Tobacco History Second Hand Smoke Exposure: No Tobacco Use In Past 30 Days: No Smoking Status: Former smoker - Alcohol History How Often Do You Have a Drink Containing Alcohol: Never - Substance Use History Substance History: Active Abuse - Substance Use Type Marijuana Status: Active Route Used: Inhalation Last Used: one week ago Comment: Uses for abdominal pain and nausea - Travel History Recent Travel in the [place] Within the Last 8 Weeks: No Recent Travel Out of the Country Within the Last 8 Weeks: No - Immunization History Tetanus Immunization: Unsure Tetanus Immunization Year if Known: 2017 Medications and Allergies Active Medications: Active Medications Acetaminophen (Tylenol) 650 mg PO Q4H PRN PRN Reason: Headache, fever, pain 1-4 Hydrocodone Bitart/Acetaminophen ([place] 7.5/325) 1 tab PO Q6H PRN PRN Reason: Pain 5-10 Al Hydroxide/Mg Hydroxide (Milk Of Magnesia Liq) 30 ml PO Q12H PRN PRN Reason: Mild Constipation Amlodipine Besylate (Norvasc) 10 mg PO DAILY [facility] Last Admin: 07/10/18 08:42 Dose: 10 mg Bisacodyl (Dulcolax Supp) 10 mg RECTAL DAILY PRN PRN Reason: SEVERE CONSITIPATION Hydralazine HCl (Apresoline) 50 mg PO TID [facility] Last Admin: 07/10/18 13:05 Dose: 50 mg Sodium Chloride (Ns Inj) 1,000 mls @ 100 mls/hr IV.CONT .Q10H [facility] Stop: 07/12/18 17:14 Last Admin: 07/10/18 15:16 Dose: 100 mls/hr Lactulose (Lactulose Liq) 30 ml PO DAILY PRN PRN Reason: SEVERE CONSITIPATION Metoprolol Tartrate (Lopressor) 50 mg PO BID [facility] Last Admin: 07/10/18 13:05 Dose: 50 mg Morphine Sulfate (Morphine Inj) 4 mg IV.PUSH Q4H PRN PRN Reason: BREAKTHROUGH PAIN Last Admin: 07/10/18 01:30 Dose: 4 mg Ondansetron HCl (Zofran Inj) 4 mg IV.PUSH Q6H PRN PRN Reason: NAUSEA OR VOMITING Last Admin: 07/10/18 15:15 Dose: 4 mg Potassium Chloride (Klor-Con 10) 30 meq PO DAILY [facility] Last Admin: 07/10/18 15:16 Dose: 30 meq Sennosides (Senokot) 17.2 mg PO Q12H PRN PRN Reason: Moderate Constipation Sodium Chloride (Ns Flush) 2 ml IV.FLUSH BID [facility] Last Admin: 07/10/18 08:12 Dose: 2 ml Sodium Chloride (Ns Flush) 2 ml IV.FLUSH PRN PRN PRN Reason: FLUSH AFTER USING IV ACCESS Allergies Allergy/AdvReac Type Severity Reaction Status Date / Time lactose Allergy Severe Hives Verified 07/09/18 09:35 milk Allergy Severe Anaphylaxis Verified 07/09/18 09:35 Sulfa (Sulfonamide Allergy Unknown ITCHING Verified 07/09/18 09:35 Antibiotics) Physical Exam Vital Signs - 24 hr 07/09/18 18:55 07/09/18 20:00 07/09/18 21:24 Temperature 99.0 F Pulse Rate 92 H 82 Respiratory Rate 20 17 16 Blood Pressure 143/72 H 189/91 H Pulse Oximetry 100 98 07/10/18 00:00 07/10/18 04:00 07/10/18 08:00 Temperature 99.6 F 98.9 F 98.5 F Pulse Rate 83 75 75 Respiratory Rate 17 17 16 Blood Pressure 179/92 H 203/104 H 192/94 H Pulse Oximetry 98 99 99 07/10/18 12:00 07/10/18 16:00 Temperature 98.7 F 98.6 F Pulse Rate 82 70 Respiratory Rate 15 15 Blood Pressure 175/95 H 171/85 H Pulse Oximetry 99 100 Physical Exam: GENERAL: This is a well-nourished, well-developed patient, in no apparent distress. SKIN: No rashes, ecchymoses or lesions. Cool and dry. HEAD: Atraumatic. Normocephalic. No temporal or scalp tenderness. EYES: Pupils equal round and reactive. Extraocular motions intact. No scleral icterus. No injection or drainage. ENT: Nose without bleeding, purulent drainage or septal hematoma. Throat without erythema, tonsillar hypertrophy or exudate. Uvula midline. Airway patent. NECK: Trachea midline. No JVD or lymphadenopathy. Supple, nontender, no meningeal signs. CARDIOVASCULAR: Regular rate and rhythm without murmurs, gallops, or rubs. RESPIRATORY: Clear to auscultation. Breath sounds equal bilaterally. No wheezes , rales, or rhonchi. GASTROINTESTINAL: Abdomen soft, non-tender, nondistended. No hepato-splenomegaly , or palpable masses. No guarding. GENITOURINARY: Moderately sized right hydrocele, no evidence of inguinal hernia formation, no evidence of infectious process MUSCULOSKELETAL: Extremities without clubbing, cyanosis, or edema. No joint tenderness, effusion, or edema noted. No calf tenderness. Negative Homans sign bilaterally. NEUROLOGICAL: Awake and alert. Cranial nerves II through XII intact. Motor and sensory grossly within normal limits. Five out of 5 muscle strength in all muscle groups. Normal speech. Laboratory Results - last 24 hr 07/09/18 07/10/18 18:34 07:45 Sodium 141 Potassium 3.1 L Chloride 107 Carbon Dioxide 25.5 Anion Gap 9 BUN 13 Creatinine 0.87 Estimated GFR Greater than 89 Random Glucose 112 H Calcium 7.9 L Total Bilirubin 0.5 Direct Bilirubin 0.2 Indirect Bilirubin 0.3 AST 12 L ALT 14 Alkaline Phosphatase 73 Total Protein 7.8 D Albumin 3.1 L Urine Color Yellow Urine Clarity Clear Urine pH 6.0 Ur Specific [place] 1.033 Urine Protein 500 or greater Urine Glucose (UA) 50 Urine Ketones 20 Urine Occult Blood Small H Urine Nitrate Negative Urine Bilirubin Negative Urine Urobilinogen Less than 2 Ur Leukocyte Esterase Negative Urine RBC 2 Urine WBC 1 Hyaline Casts 1 Urine Mucus Few H Micro UA Comment Culture not ind Ur Microscopic Review Not Reportable Urine Culture Comments Culture not ind Result Diagrams: 07/09/18 16:31 07/10/18 07:45 Imaging: ITS Impressions Scrotum Ultrasound 07/09/18 09:49 CONCLUSION: 1. Large right-sided hydrocele with significant internal debris. 2. Small left-sided hydrocele. 3. Normal testicular echotexture and flow. 4. No evidence of suspicious mass. Abdomen/Pelvis CT 07/09/18 13:16 CONCLUSION: 1. Large right hydrocele. There is a milder left hydrocele. 2. 3.4 cm presumed enlarged lymph node in the left inguinal region. 3. Suspected hepatic steatosis. Assessment and Plan - Assessment (1) Hydrocele in adult Code(s): N43.3 - Hydrocele, unspecified Status: Acute - Plan Urologic impression: 1. Moderately sized right hydrocele 2. The patient's symptoms of nausea and vomiting are likely not related to the hydrocele Plan: Patient to follow-up with me in the office to make arrangements for an elective right hydrocelectomy once medically stable.
[2018-07-11] MEDS: Sod Chloride 0.9% Inj 1,000 ML IV.CONT SCH ×2 (01:14→11:15)
[2018-07-11 05:29] LABS: Anion Gap 9 meq/L (5-15); Blood Urea Nitrogen 11 mg/dL (7-18); Calcium 8.2 mg/dL (8.5-10.1); Carbon Dioxide 28.3 meq/L (21.0-32.0); Chloride 103 meq/L (98-107); Glomerular Filtration Rate Greater Than 89 mL/min (>89); Glucose,Random 89 mg/dL (74-106); Sodium 140 meq/L (136-145)
[2018-07-11 09:54] LABS: Amphetamine Screen,Urine Neg (Neg); Barbiturate Screen,Urine Neg (Neg); Cannabinoid Screen,Urine Pos (Neg); Cocaine Screen,Urine Neg (Neg); Opiate Screen,Urine Pos (Neg)
--- NOTE | 2018-07-11 09:55 | US ---
EXAM DATE: 07/11/2018 9:41 AM EST AGE/SEX: 47 years / Male INDICATIONS: Nausea and vomiting. CLINICAL DATA: This is the patient's subsequent encounter. Patient reports that signs and symptoms h ave been present for 1 day and indicates a pain score of 2/10. MEDICAL/SURGICAL HISTORY: . Hypertension. Renal failure, acute. Anemia. Hydrocele. None. [place] [facility] [place]. . MEASUREMENTS: Liver:__ 16.5 cm. Common Bile Duct:__ 3mm. FINDINGS: Liver: Normal echogenicity without focal lesion or ductal dilatation. Portal Vein: Hepatopedal flow seen in portal vein. Common Duct: No intraluminal mass or stone visualized. Gallbladder: Small amount of sludge in the gallbladder. No gallstones, pericholecystic fluid or sign ificant gallbladder wall thickening. No sonographic Hughes sign. Pancreas: Not well visualized. Right Kidney: Increased echogenicity. No mass or hydronephrosis. Other: None. CONCLUSION: 1. Small amount of gallbladder sludge without definitive sonographic evidence for acute cholecystiti s. 2. Mildly increased right renal cortical echogenicity which may indicate medical renal disease. Electronically signed by: Jarrett Yee MD 07/11/2018 9:54 AM EST
[2018-07-11] MEDS: Metoprolol Tartrate 50 MG Tablet PO SCH (10:21)
[2018-07-11] MEDS: hydrALAZINE 50 MG Tablet PO SCH ×2 (10:21→14:18)
[2018-07-11] MEDS: amLODIPine 5 MG Tablet PO SCH (10:24)
--- NOTE | 2018-07-11 10:58 | P.DS ---
Date of admission: 07/09/18 17:26 Primary care physician: No Primary Care Physician Brief History from admission: Mr. Luna is a 47-year-old -[place] male with a history of hydrocele, hypertension who presented to the emergency department on 07/09/2018 due to acute on chronic scrotal pain, nausea vomiting. At the time of this interview, patient is lying in bed with face covered with a blanket. He does not talk too much.History is limited. Patient reports onset of his symptoms about 2 and half hour prior to arrival to the ED. He denies any fever but reports some chills. He denies any chest pain, abdominal pain. No changes in bowel or bladder habits. Past medical history: Hydrocele, hypertension Past surgical history: Foot surgery Social history: He denies using tobacco or alcohol. He does use marijuana occasionally. Family history: No family history of heart disease, cancer, diabetes mellitus. DS: Medications - Discharge Medications Prescriptions: levofloxacin 500 mg PO DAILY #9 tab DS: Summary Hospital Course: Patient was admitted, underwent conservative management for nausea vomiting and diarrhea. Urology evaluated the patient, deemed that the patient's hydrocele was not the acute cause behind his symptoms and could be managed in his outpatient. Patient eventually was tolerating p.o. intake well. Original it was concluded that the patient's GI symptoms were likely a result of viral gastritis versus food poisoning compounded with his marijuana use. Patient was counseled on refraining from marijuana use. Patient has been maximal benefit from hospitalization and is clinically stable for discharge with a short course of antibiotics empirically for possible epididymitis. - Time Spent with Patient Total time spent providing and/or coordinating discharge services: Less than 30 minutes - Quality: VTE Deep Vein Thrombosis/Pulmonary Embolism Present on Admission: No Exam Vital signs: Vital Signs 07/10/18 12:00 07/10/18 16:00 07/10/18 19:58 Temperature 98.7 F 98.6 F 98.8 F Pulse Rate 82 70 71 Respiratory Rate 15 15 Blood Pressure 175/95 H 171/85 H 186/94 H Pulse Oximetry 99 100 96 07/10/18 20:00 07/11/18 00:00 07/11/18 04:00 Temperature 98.8 F 98.5 F 97.7 F Pulse Rate 71 73 67 Respiratory Rate 18 18 18 Blood Pressure 186/94 H 210/106 H 177/96 H Pulse Oximetry 96 99 98 07/11/18 08:04 Temperature 97.4 F L Pulse Rate 69 Respiratory Rate 16 Blood Pressure 195/95 H Pulse Oximetry 100 Intake & Output 07/10/18 07/11/18 07/11/18 18:59 06:59 18:59 Intake Total 1200 / 1200 2000 / 2000 Output Total 650 / 650 500 / 500 Balance 550 / 550 1500 / 1500 Intake: IV 1000 / 1000 1000 / 1000 NS Inj 1,000 ML @ 100 mls/hr IV 1000 / 1000 1000 / 1000 .CONT .Q10H HUANG Rx#:[id number] Oral 200 / 200 1000 / 1000 Output: Urine 650 / 650 500 / 500 Other: # Voids 1 Date of Last Bowel Movement 07/08/18 Narrative: Clear lungs bilaterally, unlabored breathing Heart sounds regular rate and rhythm Abdomen soft, nontender, nondistended Unchanged hydrocele since yesterday, mild right testicular tenderness to palpation with no overlying erythema Results Labs on day of discharge: Labs from last 24 hours 07/11/18 07/11/18 07/11/18 04:04 03:40 03:40 Sodium 140 Potassium 3.0 L Chloride 103 Carbon Dioxide 28.3 Anion Gap 9 BUN 11 Creatinine 0.85 Estimated GFR Greater than 89 Random Glucose 89 Calcium 8.2 L Total Bilirubin Direct Bilirubin Indirect Bilirubin AST ALT Alkaline Phosphatase Total Protein Albumin Urine Opiates Screen Pos H Ur Barbiturates Screen Neg Ur Amphetamines Screen Neg U Benzodiazepines Scrn Neg Urine Cocaine Screen Neg U Cannabinoids Screen Pos H Chlam trachomat DNA PCR Not detected N.gonorrhoeae DNA (PCR) Not detected 07/10/18 07:45 Sodium 141 Potassium 3.1 L Chloride 107 Carbon Dioxide 25.5 Anion Gap 9 BUN 13 Creatinine 0.87 Estimated GFR Greater than 89 Random Glucose 112 H Calcium 7.9 L Total Bilirubin 0.5 Direct Bilirubin 0.2 Indirect Bilirubin 0.3 AST 12 L ALT 14 Alkaline Phosphatase 73 Total Protein 7.8 D Albumin 3.1 L Urine Opiates Screen Ur Barbiturates Screen Ur Amphetamines Screen U Benzodiazepines Scrn Urine Cocaine Screen U Cannabinoids Screen Chlam trachomat DNA PCR N.gonorrhoeae DNA (PCR) - Impressions ITS Impressions Scrotum Ultrasound 07/09/18 09:49 CONCLUSION: 1. Large right-sided hydrocele with significant internal debris. 2. Small left-sided hydrocele. 3. Normal testicular echotexture and flow. 4. No evidence of suspicious mass. Abdomen/Pelvis CT 07/09/18 13:16 CONCLUSION: 1. Large right hydrocele. There is a milder left hydrocele. 2. 3.4 cm presumed enlarged lymph node in the left inguinal region. 3. Suspected hepatic steatosis. Gallbladder Ultrasound 07/11/18 00:00 CONCLUSION: 1. Small amount of gallbladder sludge without definitive sonographic evidence for acute cholecystitis. 2. Mildly increased right renal cortical echogenicity which may indicate medical renal disease. Discharge Plan - Discharge Disposition Patient Disposition: 01 Discharge Home - Discharge Condition Condition: Stable - Discharge Order Discharge Orders: Discharge Order (Routine); Ordered 07/11/18 Ordered By: Mendel Adkins ED Use Only Admit Order (Routine); Ordered 07/09/18 Ordered By: Keri Luz - Discharge Details Discharge Comment: DC if tolerates lunch - Physicians Team Primary Care Provider: Primary Care Dominici,No Attending Provider: Mendel Adkins Other Providers: Marcus Booker MD
[2018-07-11] MEDS ORDERED: levoFLOXacin 500 MG Tablet PO ONE (13:10)
[2018-07-11] MEDS ORDERED: Potassium Chloride Inj 30 MEQ in Sod Chloride 0.9% Inj 1,000 ML IV.CONT SCH (16:00)
== END 2018-07-11 18:29 | disposition home or self-care (01) ==
LOC: NEPE 08:47 → NEDA 17:26 → INTOOBSV 17:26 → NEPGCP 21:09
PROVIDERS: ADMIT Hospitalist; ATTEND Hospitalist